=== PATIENT | male | born 1970 | race Caucasian/White ===

== ENCOUNTER 2020-11-09 23:18 | Emergency (ER) | payer MEDICARE, MEDICAID, SELFPAY ==
[2020-11-09 23:33] VITALS: BP 133/77; PULSE 58; RESP 16; TEMP 36.9; O2SAT 97; BMI 23.0
--- NOTE | 2020-11-10 | XR_ITS ---
EXAMINATION: XR RIBS, RIGHT CLINICAL INFORMATION: Fall with rib pain COMPARISON: 01/08/2014 TECHNIQUE: 3 views of the right ribs were obtained. PA view of the chest. FINDINGS: Lungs are clear. No consolidation, pneumothorax, or pleural effusion. The cardiomediastinal silhouette and pulmonary vasculature are normal. Osseous structures are unremarkable. Ribs are intact. No fractures are identified. XR/XR ribs RT min 3V w CXR1V IMPRESSION: Clear lungs. No focal right rib abnormality.
--- NOTE | 2020-11-10 01:00 | XR_ITS ---
EXAMINATION: XR FOREARM, RIGHT CLINICAL INFORMATION: Pain of the proximal forearm. Fall. COMPARISON: None TECHNIQUE: AP and lateral views of the right forearm were obtained. FINDINGS: Osteopenia. There is no fracture or dislocation seen. No elbow joint effusion. The soft tissues appear unremarkable. XR/XR forearm RT 2V IMPRESSION: Osteopenia. No acute fracture or malalignment.
--- NOTE | 2020-11-10 01:00 | ED.FALL ---
HPI - Fall General Chief Complaint: Fall Stated Complaint: Rib pain Time Seen by Provider: 11/10/20 00:51 Source: patient and family Mode of arrival: wheelchair Limitations: no limitations History of Present Illness HPI Narrative: Patient comes to emergency room complaining of right-sided rib pain and right forearm pain. Patient states 3 weeks ago he was trying to get out of a car, he tripped over a curve, landed on his right side. Patient has been putting icy hot patches with no relief Related Data Previous Rx's Medication Instructions Recorded allopurinol 100 mg tablet 100 mg PO DAILY PRN 90 Days #90 tab 10/19/20 pyridoxine (vitamin B6) 100 mg 100 mg PO DAILY 90 Days #90 tab 10/19/20 tablet tramadol 50 mg PO TID PRN #14 tab 11/10/20 Allergies Allergy/AdvReac Type Severity Reaction Status Date / Time No Known Allergies Allergy Unverified 11/09/20 23:29 [No Known Allergies*] [facility] Past Medical History Medical History (Updated 11/10/20 @ 02:27 by Sherley Valdez MD) CVA (cerebral vascular accident) Social History Social History Advance Directives: No Advance Directives Information Provided: No Physical Exam Vital Signs: Vital Signs: Last Vital Signs Temp 98.4 F 11/09/20 23:33 Pulse 58 11/10/20 01:14 Resp 20 11/10/20 01:14 BP 135/76 11/10/20 01:14 Pulse Ox 97 11/10/20 01:14 Body Mass Index 23.0 Course Course Course Narrative: I 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 Patient will follow-up with his primary care physician, patient may need physical therapy since the pain has been going on for about 3 weeks now. Patient states that he did feel better after 1 dose of tramadol. MDM - Fall Imaging Data Forearm x-ray: Radiologist's impression: Osteopenia. There is no fracture or dislocation seen. No elbow joint effusion. The soft tissues appear unremarkable. XR/XR forearm RT 2V IMPRESSION: Osteopenia. No acute fracture or malalignment. Ribs x-ray: Radiologist's impression: Lungs are clear. No consolidation, pneumothorax, or pleural effusion. The cardiomediastinal silhouette and pulmonary vasculature are normal. Osseous structures are unremarkable. Ribs are intact. No fractures are identified. XR/XR ribs RT min 3V w CXR1V IMPRESSION: Clear lungs. No focal right rib abnormality. Discharge Plan Discharge Clinical Impression: Arm contusion Qualifiers: Encounter type: initial encounter Laterality: unspecified laterality Qualified Code(s): S40.029A - Contusion of unspecified upper arm, initial encounter Back contusion Qualifiers: Encounter type: initial encounter Laterality: unspecified laterality Qualified Code(s): S20.229A - Contusion of unspecified back wall of thorax, initial encounter Patient Disposition: Home, Self-Care Instructions: Contusion in Adults (ED), Back Pain (ED) Prescriptions: New tramadol 50 mg tablet 50 mg PO TID PRN (Reason: pain) Qty: 14 RF: 0 No Action allopurinol 100 mg tablet 100 mg PO DAILY PRN (Reason: renal stones) 90 Days Qty: 90 RF: 2 pyridoxine (vitamin B6) 100 mg tablet 100 mg PO DAILY 90 Days Qty: 90 RF: 2
[2020-11-10 01:14] VITALS: BP 135/76; PULSE 58; RESP 20; O2SAT 97
[2020-11-10] MEDS: traMADoL HCL 50 MG TABLET PO (01:43)
[2020-11-10] MEDS: Ketorolac Tromethamine 30 MG/ML VIAL IVPUSH (02:43)
--- NOTE | 2020-11-10 02:51 | PC.NURSE ---
toradol given im per dr walker verbal order. given to left deltoid. pt alysia well no complications.
== END 2020-11-10 03:30 | disposition home or self-care (01) ==
PROVIDERS: Emergency Provider Emergency Medicine; PCP Hospitalist
DX: S50.11XA Contusion of right forearm, initial encounter (principal); S20.211A Contusion of right front wall of thorax, initial encounter; W10.1XXA Fall (on)(from) sidewalk curb, initial encounter; M85.831 Other specified disorders of bone density and structure, right forearm; Y93.89 Activity, other specified; Y92.810 Car as the place of occurrence of the external cause; Y99.9 Unspecified external cause status
CPT/HCPCS: 71101; 73090; 96374; 99284; J1885

== ENCOUNTER 2021-04-14 14:49 | Outpatient (REF) | payer MEDICARE, MEDICAID, SELFPAY ==
--- NOTE | ~2021-04-14 | US_ITS ---
EXAMINATION: US RETROPERITONEAL LIMITED (RENAL ONLY) CLINICAL INFORMATION: Nephrolithiasis. COMPARISON: Renals only ultrasounds dated 04/12/2020 and 09/25/2019. CT abdomen and pelvis without contrast dated 04/16/2019. TECHNIQUE: Real-time imaging of the kidneys. FINDINGS: RIGHT KIDNEY: 11.1 x 5.1 x 4.7 cm (SAG x AP x TRV). The kidney is normal in size, contour, and echogenicity. Renal cortical thickness is normal. No focal parenchymal lesion. Lateral midpole stone measuring 0.5 cm. Additional echogenic foci without shadowing which may represent vascular artifact. No hydronephrosis. LEFT KIDNEY: 11.6 X 5.4 X 6.6 cm (SAG x AP x TRV). The kidney is normal in size, contour, and echogenicity. Renal cortical thickness is normal. No focal parenchymal lesion. Multiple left-sided renal stones with the largest in the midpole measuring up to 0.8 cm. Minimal left renal pelvic fullness without significant hydronephrosis. US/US renal BI IMPRESSION: Bilateral renal stones measuring 0.5 cm on the right and up to 0.8 cm on the left. Minimal left renal pelvic fullness without significant hydronephrosis. No right-sided hydronephrosis.
== END 2021-04-14 14:50 | disposition home or self-care (01) ==
LOC: HO.US 14:49
PROVIDERS: Visit Provider Urology
DX: N20.0 Calculus of kidney (principal)
CPT/HCPCS: 76775

== ENCOUNTER 2022-08-09 09:28 | Inpatient (IN) | payer MEDICARE, MEDICAID, SELFPAY ==
[2022-08-09] VITALS (12 sets, daily range): BP systolic 124–168; BP diastolic 68–88; PULSE 60–86; RESP 16–18; TEMP 36–36.6; O2SAT 95–100; BMI 21.1
--- NOTE | ~2022-08-09 | FL_ITS ---
EXAMINATION: XR FLUOROSCOPY WITH IMAGES CLINICAL INFORMATION: Bilateral stent/retrogrades COMPARISON: CT from today. TECHNIQUE: Fluoroscopy performed by Dr. Ferrera. Fluoroscopy time: 170.9 seconds. Cumulative Dose: 44.53 mGy. Images: 2. FINDINGS: On the first image there is a wire in what is likely the right ureter with small amount of contrast in the collecting system. There is a tube partially visualized in the left ureter on the second image. Adjacent calcification, possibly correlating to the renal pelvis. FL/FL guidance in OR IMPRESSION: Fluoroscopic guidance for pyelogram. Please refer to procedural report for further information .
--- NOTE | ~2022-08-09 | CT_ITS ---
EXAMINATION: CT ABDOMEN AND PELVIS WITHOUT CONTRAST CLINICAL INFORMATION: Periumbilical pain COMPARISON: Previous renal ultrasound most recent April [address] of the abdomen and pelvis TECHNIQUE: Multidetector volumetric imaging was performed from the superior aspect of the liver through the pubic symphysis. Sagittal and coronal reformatted images were obtained on the technologist's workstation. Exam is limited due to motion artifact. This CT examination was performed using dose optimization techniques as appropriate, variously including the following: *Automated exposure control *Adjustment of mA and/or kV according to patient size (this includes techniques or standardized protocols for targeted exams where dose is matched to indication/reason for exam; i.e. extremities or head) *Use of iterative reconstruction technique DLP: 1346 mGy-cm FINDINGS: LUNG BASES: The visualized lung bases are unremarkable. LIVER, GALLBLADDER, AND BILIARY TREE: The liver is normal in size, shape, and attenuation. No focal hepatic lesion or biliary ductal dilatation is present. The gallbladder is unremarkable with no evidence of radiopaque gallstones, gallbladder wall thickening, or obvious pericholecystic inflammatory changes. PANCREAS: Unremarkable. SPLEEN: Unremarkable. ADRENAL GLANDS: Unremarkable. KIDNEYS AND URETERS: There is mild right hydronephrosis from a 0.6 x 1.4 cm right proximal ureteral stone. There is a small 4 mm stone in the lower pole of the right kidney. There is moderate left hydronephrosis from a 0.8 x 1.3 cm left UPJ stone. There 2 stones in the lower pole of the left kidney measuring 0.4 cm and 1 cm. There is a small 1 cm left renal cyst. No imaging follow-up needed. BLADDER: Unremarkable. GASTROINTESTINAL TRACT: The small and large bowel are unremarkable. The appendix is not identified. There are no inflammatory changes in the right lower quadrant. ABDOMINAL WALL: No significant hernia is appreciated. LYMPH NODES: Normal. VASCULAR: Unremarkable. PELVIC VISCERA: Unremarkable. OSSEOUS STRUCTURES: There is degenerative disc disease at L5-S1. CT/CT abdomen pelvis wo IV con IMPRESSION: Mild right hydronephrosis from a 0.6 x 1.4 cm right proximal ureteral stone. Moderate left hydronephrosis from a 0.8 x 1.3 cm left UPJ stone. Bilateral renal stones. Fleischner guidelines were followed.
--- NOTE | ~2022-08-09 | FL_ITS ---
EXAMINATION: XR FLUOROSCOPY WITH IMAGES CLINICAL INFORMATION: Bilateral cystoscopy. COMPARISON: None. TECHNIQUE: Fluoroscopy performed by arteriogram the course. Fluoroscopy time: 142.1 seconds. Cumulative Dose: 29.46 mGy. Images: 1. FINDINGS: A single image of the pelvis reveals a right ureteral stent and a cystoscope in the bladder. No additional images seen. FL/FL guidance in OR IMPRESSION: Fluoroscopy guidance was provided to the referring physician during cystoscopy.
[2022-08-09 11:29] LABS: MANUAL DIFF FLAG NO
[2022-08-09 11:31] LABS: Basophils Absolute Auto 0.1 X10*3/uL (0.0-0.2); Basophils Percent Auto 0.5 % (0-2); Eosinophils Absolute Auto 0.2 X10*3/uL (0.0-0.4); Eosinophils Percent Auto 1.7 % (0-4); Hematocrit 43.1 % (42.0-52.0); Hemoglobin 14.4 g/dl (14.0-18.0); Imm Gran Abs Auto 0.05 X10*3/uL (0.00-0.03); Imm Gran Pct Auto 0.5 % (0.0-0.4); Lymphocytes Absolute Auto 2.5 X10*3/uL (1.2-4.9); Lymphocytes Percent Auto 25.2 % (20-40); Mean Corpuscular HGB Conc 33.4 g/dl (31.0-36.0); Mean Corpuscular Hemoglobin 31.2 pg (27.0-33.0); Mean Corpuscular Volume 93.5 fL (80.0-98.0); Mean Platelet Volume 10.1 fL (9.4-12.4); Monocytes Absolute Auto 0.9 X10*3/uL (0.1-1.2); Monocytes Percent Auto 8.8 % (2-11); Neutrophils Absolute Auto 6.3 x10*3/uL (2.0-8.3); Neutrophils Percent Auto 63.3 % (45-73); Platelet Count 303 X10*3/uL (160-400); Red Blood Count 4.61 X10*6/uL (4.60-5.80); Red Cell Distribution Width 13.2 % (11.0-16.0)
--- NOTE | 2022-08-09 11:52 | ED_ITS ---
HPI - General Adult General Chief complaint: Extremity Problem Stated complaint: sent from doctor. kidney issues Time Seen by Provider: 08/09/22 11:39 Source: patient and other Mode of arrival: ambulatory Limitations: no limitations History of Present Illness HPI narrative: Patient comes to the emergency room accompanied by his lean manufacturing engineer. Patient received a cifuentes called Home, asking him to come to the emergency room because his creatinine was elevated. Patient states that he has been vomiting for about 5 days, no diarrhea, complaining of mild periumbilical pain. Denies fever chills, no flank pain, no URI or UTI symptoms. Related Data Home Medications Medication Instructions Recorded Confirmed allopurinol 100 mg tablet 100 mg PO DAILY PRN REANL STONES 08/09/22 08/09/22 atorvastatin 40 mg tablet 1 tab PO DAILY 08/09/22 08/09/22 clopidogrel 75 mg tablet 1 tab PO DAILY 08/09/22 08/09/22 levetiracetam 750 mg tablet 3 tab PO BID 08/09/22 08/09/22 riboflavin (vitamin B2) 100 mg 1 tab PO QAM 08/09/22 08/09/22 tablet (Vitamin B-2) topiramate 50 mg tablet 150 mg PO BEDTIME 08/09/22 08/09/22 topiramate 50 mg tablet 200 mg PO DAILY 08/09/22 08/09/22 tramadol 50 mg tablet 50 mg PO Q12H PRN pain 08/09/22 08/09/22 Previous Rx's Medication Instructions Recorded pyridoxine (vitamin B6) 100 mg 100 mg PO DAILY 90 days #90 tabs 07/21/22 tablet Allergies Allergy/AdvReac Type Severity Reaction Status Date / Time No Known Allergies Allergy Verified 08/09/22 11:07 [No Known Allergies*] Review of Systems Review of Systems: Constitutional : No Weight loss, No Fever, No Chills, No Night Sweats, No Fatigue, No Malaise ENT/Mouth : No Hearing loss, No Ear Pain, No Nasal Congestion, No Sinus Pain, No Hoarseness, No sore throat, No Rhinorrhea, No Swallowing Difficulty Eyes: No Eye Pain, No Swelling, No Redness, No Foreign Body, No Discharge, No Vision Changes Cardiovascular : No Chest Pain, No SOB, No Dyspnea on Exertion, No Orthopnea, No Edema, No Palpitations Respiratory : No Cough, No Sputum, No Wheezing, No Smoke Exposure, No Dyspnea Gastrointestinal : Complaining of nausea and vomiting, No Diarrhea, No Constipation, No abdominal Pain, No Hematochezia, No Melena Genitourinary : no irregular bleeding, No Dysuria, No Urinary Frequency, No Hematuria, No Urinary Incontinence, No Urgency, No Flank Pain, No Urinary Flow Changes, No Hesitancy Musculoskeletal : No joint pain, No Myalgias, No Joint Swelling Skin : No Skin Lesions, No rash Neuro : No Weakness, No Numbness, No Paresthesias, No Loss of Consciousness, No Dizziness, No Headache Psych : No Anxiety/Panic, No Depression, No SI/HI/AH/VH, No Social Issues, Heme/Lymph: No Bruising, No Bleeding,No Lymphadenopathy Endocrine : No Polyuria, No Polydipsia, No Temperature Intolerance [facility] Past Medical History Medical History (Updated 08/09/22 @ 14:12 by Sherley Valdez MD) CVA (cerebral vascular accident) Seizures Social History Social History Advance Directives: No Advance Directives Information Provided: Yes Physical Exam ED Vital Signs: Vital Signs - 24 hr 08/09/22 11:08 08/09/22 13:43 Temperature 96.8 F 97.6 F Pulse Rate 80 68 Respiratory Rate 16 17 Blood Pressure 124/87 129/85 Pulse Oximetry 98 99 Oxygen Delivery Method Room Air Room Air BMI result Body Mass Index 21.1 Const Other: Appearance: Alert. Oriented X3. No acute distress. Eyes: Pupils equal, round and reactive to light. ENT: Pharynx normal. Neck: Normal inspection. Neck supple. No lymph nodes noted. No crepitus CVS: Normal heart rate and rhythm. Pulses normal. Normal S1 and S2 Respiratory: No respiratory distress. Breath sounds normal. No Wheezing. No rales Abdomen: Soft, no rigidity, no distention, mildly tender to palpation in periumbilical area, no guarding, no rebound Skin: Skin warm and dry. Normal skin color. Normal skin turgor. Extremities: No lower extremity edema. No Lacerations. No Rash Neuro: Oriented X 3. No motor deficit. No sensory deficit. Moving all extremities. No slurred speech. CN 2 through 12 grossly intact Psych: calm, cooperative, normal affect Course Course Course Narrative: Patient's white blood cell count is within normal limits. Renal function labs are pending. Patient will also get a CT scan of the abdomen which is pending. Patient given p.o. Zofran Patient's BUN is 46 and creatinine is 5.0. CT scan shows a right-sided 0.6 x 1.4 cm proximal ureteral stone and a left-sided 0.8 x 1.3 cm left UPJ stone I discussed the patient with Dr. Ferrera from urology. Patient will be admitted by Medicine due to patient's medical history. Patient will likely need stents Patient's lean manufacturing engineer has been informed and agrees with the plan of care Patient's urine shows trace leukocyte esterase. Patient was given 1 g of Rocephin. Sepsis not suspected. I discussed the patient with Dr. Naylor, patient being admitted Medical Decision Making Lab Data Result diagrams: 08/09/22 11:20 08/09/22 11:20 Labs: Lab Results 08/09/22 08/09/22 08/09/22 Range/Units 11:20 11:20 13:39 WBC 10.0 (4.8-10.8) X10*3/uL RBC 4.61 (4.60-5.80) X10*6/uL Hgb 14.4 (14.0-18.0) g/dl Hct 43.1 (42.0-52.0) % MCV 93.5 (80.0-98.0) fL MCH 31.2 (27.0-33.0) pg MCHC 33.4 (31.0-36.0) g/dl RDW 13.2 (11.0-16.0) % Plt Count 303 (160-400) X10*3/uL MPV 10.1 (9.4-12.4) fL Immature Gran % (Auto) 0.5 H (0.0-0.4) % Neut % (Auto) 63.3 (45-73) % Lymph % (Auto) 25.2 (20-40) % Vance % (Auto) 8.8 (2-11) % Eos % (Auto) 1.7 (0-4) % Baso % (Auto) 0.5 (0-2) % Lymph # (Auto) 2.5 (1.2-4.9) X10*3/uL Vance # (Auto) 0.9 (0.1-1.2) X10*3/uL Eos # (Auto) 0.2 (0.0-0.4) X10*3/uL Baso # (Auto) 0.1 (0.0-0.2) X10*3/uL Abs Immat Gran (auto) 0.05 H (0.00-0.03) X10*3/uL Absolute Neuts (auto) 6.3 (2.0-8.3) x10*3/uL Absolute Nucleated RBC 0.000 (0.0-0.012) X10*3/uL Nucleated RBC % (auto) 0.0 (0.0-0.2) /100WBC Sodium 142 (135-145) mmol/L Potassium 3.7 (3.3-5.1) mmol/L Chloride 113 H (96-108) mmol/L Carbon Dioxide 13 L (22-29) mmol/L Anion Gap 20 (12-20) BUN 46 H (9-16) mg/dL Creatinine 5.00 H* (0.5-1.4) mg/dL Estim Creat Clear Calc 18.1 Estimated GFR 12 Random Glucose 97 (60-115) mg/dL Calcium 10.9 H (8.4-10.2) mg/dL Total Bilirubin 0.3 (0.0-1.0) mg/dL Direct Bilirubin 0.2 (0.0-0.5) mg/dL AST 18 (5-37) U/L ALT 21 (0-40) U/L Alkaline Phosphatase 109 (39-117) U/L Total Protein 8.1 H (6.5-8.0) g/dL Albumin 4.7 (3.5-5.0) g/dL Lipase 154 H (8-78) U/L Urine Color Yellow Urine Appearance Clear Urine pH 6.0 (5.0-9.0) Ur Specific [place] 1.025 (1.005-1.025) Urine Protein 30 (1+) H (Neg-Trace) mg/dL Urine Glucose (UA) Negative (Negative) mg/dL Urine Ketones 15 (Negative) mg/dL Urine Blood Negative (Negative) Urine Nitrite Negative (Negative) Ur Leukocyte Esterase Trace H (Negative) Urine RBC 0-2 (0-2) /HPF Urine WBC 0-5 (0-5) /HPF Ur Squamous Epith Cells 0-2 (0-2) /HPF Urine Bacteria None Seen (None Seen) Hyaline Casts 0-2 (0-2) /LPF Imaging Data CT scan - abdomen: Radiologist's impression: FINDINGS: LUNG BASES: The visualized lung bases are unremarkable.? LIVER, GALLBLADDER, AND BILIARY TREE: The liver is normal in size, shape, and attenuation. No focal hepatic lesion or biliary ductal dilatation is present. The gallbladder is unremarkable with no evidence of radiopaque gallstones, gallbladder wall thickening, or obvious pericholecystic inflammatory changes.? PANCREAS: Unremarkable.? SPLEEN: Unremarkable.? ADRENAL GLANDS: Unremarkable.? KIDNEYS AND URETERS: There is mild right hydronephrosis from a 0.6 x 1.4 cm right proximal ureteral stone. There is a small 4 mm stone in the lower pole of the right kidney. There is moderate left hydronephrosis from a 0.8 x 1.3 cm left UPJ stone. There 2 stones in the lower pole of the left kidney measuring 0.4 cm and 1 cm. There is a small 1 cm left renal cyst. No imaging follow-up needed. BLADDER: Unremarkable.? GASTROINTESTINAL TRACT: The small and large bowel are unremarkable. The appendix is not identified. There are no inflammatory changes in the right lower quadrant. ABDOMINAL WALL: No significant hernia is appreciated.? LYMPH NODES: Normal. VASCULAR: Unremarkable. PELVIC VISCERA: Unremarkable.? OSSEOUS STRUCTURES: There is degenerative disc disease at L5-S1. CT/CT abdomen pelvis wo IV con IMPRESSION: Mild right hydronephrosis from a 0.6 x 1.4 cm right proximal ureteral stone. Moderate left hydronephrosis from a 0.8 x 1.3 cm left UPJ stone. Bilateral renal stones. ? Fleischner guidelines were followed. Critical Care Time Critical Care Time Critical Care Time: Yes Total Critical Care Time: 30 Attestation: I have personally provided critical care time. Time includes review of lab data, radiology results, discussion with consultants, and monitoring for potential decompensation. Intervention performed as documented. Discharge Plan Discharge Clinical Impression: Ureterolithiasis, Acute kidney injury Patient Disposition: Admitted As Inpatient
[2022-08-09 11:53] LABS: Anion Gap 20 (12-20); Blood Urea Nitrogen 46 mg/dL (9-16); Carbon Dioxide 13 mmol/L (22-29); Chloride 113 mmol/L (96-108); Glucose Random 97 mg/dL (60-115); Potassium 3.7 mmol/L (3.3-5.1); Sodium 142 mmol/L (135-145)
[2022-08-09 12:08] LABS: Calcium 10.9 mg/dL (8.4-10.2); Creatinine Clr Calc Pharmacy 18.1; Estimated Glomerular Filt Rate 12
[2022-08-09] MEDS: Ondansetron ODT 4 MG TAB.RAPDIS TRANSLINGU (12:08)
--- NOTE | 2022-08-09 12:15 | PHA.MEDREC ---
Pharmacy Consult ? Medication Reconciliation Pharmacy has completed the medication reconciliation. Received list from provider's office which matched claim history. josh GarD
[2022-08-09 12:20] LABS: Alanine Aminotransferase 21 U/L (0-40); Albumin Level 4.7 g/dL (3.5-5.0); Alkaline Phosphatase 109 U/L (39-117); Aspartate Amino Transferase 18 U/L (5-37); Bilirubin Direct 0.2 mg/dL (0.0-0.5); Bilirubin Total 0.3 mg/dL (0.0-1.0); Lipase 154 U/L (8-78); Total Protein 8.1 g/dL (6.5-8.0)
[2022-08-09] MEDS: 0.9 % Sodium Chloride 2,000 ML 999 ML IVCONT (12:23)
[2022-08-09 13:48] LABS: Appearance Urine Clear; Color Urine Yellow; Glucose Urine UA Negative (Negative); Leukocyte Esterase Urine Trace (Negative); Nitrite Urine Negative (Negative); Specific Gravity - Urine 1.025 (1.005-1.025); UMIC TRIGGER UACC YES; Urine Blood Negative (Negative); Urine Ketones 15 mg/dL (Negative); Urine Protein 30 (1+) mg/dL (Neg-Trace)
[2022-08-09 13:53] LABS: Bacteria Urine None Seen (None Seen); Hyaline Casts Urine 0-2 /LPF (0-2); RBC Urine 0-2 /HPF (0-2); Squamous Epithelial Cell Urine 0-2 /HPF (0-2); WBC Urine 0-5 /HPF (0-5)
--- NOTE | 2022-08-09 14:56 | PM.UROCN ---
History of Present Illness Consult details Consult date: 08/09/22 Narrative: Yony is a 52-year-old gentleman who presents due to abnormal labs, abnormal renal function. The patient has a history of seizures and stroke; the patient is here with his brother who is his senior java web application developer. History obtained from his brother, who states the patient had an outpatient visit with a new PCP today and had complants of mild abdominal pain, PCP ordered labs and they received a call to come into the emergency room urgently due to abnormal labs. Denies fever, nausea vomiting. The patient has known history of kidney stones and has seen Dr. Isaacs in the past but has not had follow-up in a couple of years since the COVJUDITH pandema. Pertinent findings on CT: KIDNEYS AND URETERS: There is mild right hydronephrosis from a 0.6 x 1.4 cm right proximal ureteral stone. There is a small 4 mm stone in the lower pole of the right kidney. There is moderate left hydronephrosis from a 0.8 x 1.3 cm left UPJ stone. There 2 stones in the lower pole of the left kidney measuring 0.4 cm and 1 cm. There is a small 1 cm left renal cyst. . Review of Systems Review of Systems: 10 point review of systems negative other than stated in [facility] Past Medical History Medical History (Updated 08/09/22 @ 16:19 by Nick Naylor MD) CVA (cerebral vascular accident) Hemorrhagic stroke HLD (hyperlipidemia) Seizure disorder Seizures Family History Family History (Updated 08/09/22 @ 16:13 by Nick Naylor MD) Other Diabetes HTN (hypertension) Social History Social History Advance Directives: No Advance Directives Information Provided: Yes Meds Allergies Allergy/AdvReac Type Severity Reaction Status Date / Time No Known Allergies Allergy Verified 08/09/22 11:07 [No Known Allergies*] Active Medications: Current Medications Pharmacy Consult (Consult Rx Perform Med Rec) 1 each MISCELLANE ONCE PRN PRN Reason: Consult order Home Medications Medication Instructions Recorded Confirmed Last Taken Type allopurinol 100 mg tablet 100 mg PO DAILY PRN REANL STONES 08/09/22 08/09/22 Unknown History atorvastatin 40 mg tablet 1 tab PO DAILY 08/09/22 08/09/22 Unknown History clopidogrel 75 mg tablet 1 tab PO DAILY 08/09/22 08/09/22 Unknown History levetiracetam 750 mg tablet 3 tab PO BID 08/09/22 08/09/22 Unknown History riboflavin (vitamin B2) 100 mg 1 tab PO QAM 08/09/22 08/09/22 Unknown History tablet (Vitamin B-2) topiramate 50 mg tablet 150 mg PO BEDTIME 08/09/22 08/09/22 Unknown History topiramate 50 mg tablet 200 mg PO DAILY 08/09/22 08/09/22 Unknown History tramadol 50 mg tablet 50 mg PO Q12H PRN pain 08/09/22 08/09/22 Unknown History Physical Exam Vital Signs: Vital Signs: Last Vital Signs Temp 97.6 F 08/09/22 13:43 Pulse 68 08/09/22 13:43 Resp 17 08/09/22 13:43 BP 129/85 08/09/22 13:43 Pulse Ox 99 08/09/22 13:43 O2 Del Method 08/09/22 13:43 BMI result Body Mass Index 21.1 Const: General: alert; No acute distress Orientation/consciousness: oriented to person HEENT: Other: Previous head surgery Eyes: Conjunctivae: conjunctivae normal Neck: Neck: Yes normal visual inspection and Yes trachea midline Chest: Chest palpation & inspection: normal inspection of the chest Resp: Effort & Inspection: normal respiratory effort Cardio: Rate: regular rate GI: Inspection: Yes normal to inspection Palpation (GI): Soft to palpation Rectal Exam - Male: Yes deferred : Other: No significant CVA Tenderness Skin: General skin exam: turgor normal Neuro: General: oriented to person Extrem: General: No edema Results Labs Result diagrams: 08/09/22 11:20 08/09/22 11:20 Labs: Abnormal lab results 08/09/22 08/09/22 08/09/22 Range/Units 11:20 11:20 13:39 Immature Gran % (Auto) 0.5 H (0.0-0.4) % Abs Immat Gran (auto) 0.05 H (0.00-0.03) X10*3/uL Chloride 113 H (96-108) mmol/L Carbon Dioxide 13 L (22-29) mmol/L BUN 46 H (9-16) mg/dL Creatinine 5.00 H* (0.5-1.4) mg/dL Calcium 10.9 H (8.4-10.2) mg/dL Total Protein 8.1 H (6.5-8.0) g/dL Lipase 154 H (8-78) U/L Urine Protein 30 (1+) H (Neg-Trace) mg/dL Ur Leukocyte Esterase Trace H (Negative) Short CBC 08/09/22 Range/Units 11:20 WBC 10.0 (4.8-10.8) X10*3/uL Hgb 14.4 (14.0-18.0) g/dl Hct 43.1 (42.0-52.0) % Plt Count 303 (160-400) X10*3/uL BMP 08/09/22 11:20 Sodium 142 Potassium 3.7 Chloride 113 H Carbon Dioxide 13 L BUN 46 H Creatinine 5.00 H* Calcium 10.9 H Liver Function 08/09/22 Range/Units 11:20 Total Bilirubin 0.3 (0.0-1.0) mg/dL Direct Bilirubin 0.2 (0.0-0.5) mg/dL AST 18 (5-37) U/L ALT 21 (0-40) U/L Alkaline Phosphatase 109 (39-117) U/L Albumin 4.7 (3.5-5.0) g/dL Urine 08/09/22 Range/Units 13:39 Urine Color Yellow Urine Appearance Clear Urine pH 6.0 (5.0-9.0) Ur Specific [place] 1.025 (1.005-1.025) Urine Protein 30 (1+) H (Neg-Trace) mg/dL Urine Glucose (UA) Negative (Negative) mg/dL All other labs normal. Imaging CT scan - pelvis: report reviewed and image reviewed Additional studies: CT ABDOMEN AND PELVIS WITHOUT CONTRAST? CLINICAL INFORMATION: Periumbilical pain? COMPARISON: Previous renal ultrasound most recent April [address] of the abdomen and pelvis? TECHNIQUE: Multidetector volumetric imaging was performed from the superior aspect of the liver through the pubic symphysis. Sagittal and coronal reformatted images were obtained on the technologist's workstation. Exam is limited due to motion artifact. This CT examination was performed using dose optimization techniques as appropriate, variously including the following: *Automated exposure control *Adjustment of mA and/or kV according to patient size (this includes techniques or standardized protocols for targeted exams where dose is matched to indication/reason for exam; i.e. extremities or head) FINDINGS: LUNG BASES: The visualized lung bases are unremarkable.? LIVER, GALLBLADDER, AND BILIARY TREE: The liver is normal in size, shape, and attenuation. No focal hepatic lesion or biliary ductal dilatation is present. The gallbladder is unremarkable with no evidence of radiopaque gallstones, gallbladder wall thickening, or obvious pericholecystic inflammatory changes.? PANCREAS: Unremarkable.? SPLEEN: Unremarkable.? ADRENAL GLANDS: Unremarkable.? KIDNEYS AND URETERS: There is mild right hydronephrosis from a 0.6 x 1.4 cm right proximal ureteral stone. There is a small 4 mm stone in the lower pole of the right kidney. There is moderate left hydronephrosis from a 0.8 x 1.3 cm left UPJ stone. There 2 stones in the lower pole of the left kidney measuring 0.4 cm and 1 cm. There is a small 1 cm left renal cyst. No imaging follow-up needed. BLADDER: Unremarkable.? GASTROINTESTINAL TRACT: The small and large bowel are unremarkable. The appendix is not identified. There are no inflammatory changes in the right lower quadrant. ABDOMINAL WALL: No significant hernia is appreciated.? LYMPH NODES: Normal. VASCULAR: Unremarkable. PELVIC VISCERA: Unremarkable.? OSSEOUS STRUCTURES: There is degenerative disc disease at L5-S1. CT/CT abdomen pelvis wo IV con IMPRESSION: Mild right hydronephrosis from a 0.6 x 1.4 cm right proximal ureteral stone. Moderate left hydronephrosis from a 0.8 x 1.3 cm left UPJ stone. Bilateral renal stones. Assessment and Plan (1) Ureterolithiasis: Status: Acute (2) Acute kidney injury: Status: Acute Plan Cystoscopy, retrogrades bilateral ureteral stones Procedures Date of Service Date of Service: 08/09/22
[2022-08-09] MEDS: cefTRIAXone sodium 1 GM in 0.9 % Sodium Chloride 50 ML IV (14:58)
--- NOTE | 2022-08-09 15:10 | P.CNUR_ITS ---
[facility] Past Medical History Medical History (Updated 08/09/22 @ 14:12 by Sherley Valdez MD) CVA (cerebral vascular accident) Seizures Social History Social History Advance Directives: No Advance Directives Information Provided: Yes Meds Allergies Allergy/AdvReac Type Severity Reaction Status Date / Time No Known Allergies Allergy Verified 08/09/22 11:07 [No Known Allergies*] Active Medications: Current Medications Pharmacy Consult (Consult Rx Perform Med Rec) 1 each MISCELLANE ONCE PRN PRN Reason: Consult order Home Medications Medication Instructions Recorded Confirmed Last Taken Type allopurinol 100 mg tablet 100 mg PO DAILY PRN REANL STONES 08/09/22 08/09/22 Unknown History atorvastatin 40 mg tablet 1 tab PO DAILY 08/09/22 08/09/22 Unknown History clopidogrel 75 mg tablet 1 tab PO DAILY 08/09/22 08/09/22 Unknown History levetiracetam 750 mg tablet 3 tab PO BID 08/09/22 08/09/22 Unknown History riboflavin (vitamin B2) 100 mg 1 tab PO QAM 08/09/22 08/09/22 Unknown History tablet (Vitamin B-2) topiramate 50 mg tablet 150 mg PO BEDTIME 08/09/22 08/09/22 Unknown History topiramate 50 mg tablet 200 mg PO DAILY 08/09/22 08/09/22 Unknown History tramadol 50 mg tablet 50 mg PO Q12H PRN pain 08/09/22 08/09/22 Unknown History Physical Exam Vital Signs: Vital Signs: Last Vital Signs Temp 97.6 F 08/09/22 13:43 Pulse 68 08/09/22 13:43 Resp 17 08/09/22 13:43 BP 129/85 08/09/22 13:43 Pulse Ox 99 08/09/22 13:43 O2 Del Method 08/09/22 13:43 BMI result Body Mass Index 21.1 Results Labs Result diagrams: 08/09/22 11:20 08/09/22 11:20 Labs: Abnormal lab results 08/09/22 08/09/22 08/09/22 Range/Units 11:20 11:20 13:39 Immature Gran % (Auto) 0.5 H (0.0-0.4) % Abs Immat Gran (auto) 0.05 H (0.00-0.03) X10*3/uL Chloride 113 H (96-108) mmol/L Carbon Dioxide 13 L (22-29) mmol/L BUN 46 H (9-16) mg/dL Creatinine 5.00 H* (0.5-1.4) mg/dL Calcium 10.9 H (8.4-10.2) mg/dL Total Protein 8.1 H (6.5-8.0) g/dL Lipase 154 H (8-78) U/L Urine Protein 30 (1+) H (Neg-Trace) mg/dL Ur Leukocyte Esterase Trace H (Negative) Short CBC 08/09/22 Range/Units 11:20 WBC 10.0 (4.8-10.8) X10*3/uL Hgb 14.4 (14.0-18.0) g/dl Hct 43.1 (42.0-52.0) % Plt Count 303 (160-400) X10*3/uL BMP 08/09/22 11:20 Sodium 142 Potassium 3.7 Chloride 113 H Carbon Dioxide 13 L BUN 46 H Creatinine 5.00 H* Calcium 10.9 H Liver Function 08/09/22 Range/Units 11:20 Total Bilirubin 0.3 (0.0-1.0) mg/dL Direct Bilirubin 0.2 (0.0-0.5) mg/dL AST 18 (5-37) U/L ALT 21 (0-40) U/L Alkaline Phosphatase 109 (39-117) U/L Albumin 4.7 (3.5-5.0) g/dL Urine 08/09/22 Range/Units 13:39 Urine Color Yellow Urine Appearance Clear Urine pH 6.0 (5.0-9.0) Ur Specific [place] 1.025 (1.005-1.025) Urine Protein 30 (1+) H (Neg-Trace) mg/dL Urine Glucose (UA) Negative (Negative) mg/dL All other labs normal. Imaging Additional studies: ?
--- NOTE | 2022-08-09 15:58 | PM.IMHP ---
History of Present Illness Date of Service: 08/09/22 Chief Complaint: Abnormal lab, sent to ED by PCP 52 year old male with history of hemorrahagic stroke 8 years ago s/p craniotomy at [facility] with long hospital stay, HLD, seizure desorder, history of CKD last creatine in 11.16. He was seen by PCP 2 days ago with some routine follow up and had routine labs done and was called today to come to the ED because of elevated Creatine. His creatine today is 5. CT of abdomen show Mild right hydronephrosis from a 0.6 x 1.4 cm right proximal ureteral stone. Moderate left hydronephrosis from a 0.8 x 1.3 cm left UPJ stone. Bilateral renal stones. He has no fever or chills, no dysuria, has had episodes of vomitting the last several days but no abdominal pain. Urology has assessed and is planning to take him to the OR for intervention Review of Systems Review of Systems: no fever or chils no dysuria, no abdominal pain Yes all other systems are reviewed and are negative [facility] Medical History (Updated 08/09/22 @ 16:19 by Nick Naylor MD) CVA (cerebral vascular accident) Hemorrhagic stroke HLD (hyperlipidemia) Seizure disorder Seizures Family History (Updated 08/09/22 @ 16:13 by iNck Naylor MD) Other Diabetes HTN (hypertension) Social History Household Members: Unknown / Unable to assess Housing: Apartment Do you presently have visiting nurse or other home services: No Unable to assess alcohol history related to: Unknown Patient Tobacco Use Status: Tobacco use Unknown service: No Current occupational status: disabled Meds Allergies Allergy/AdvReac Type Severity Reaction Status Date / Time No Known Allergies Allergy Verified 08/09/22 11:07 [No Known Allergies*] Active Medications: Current Medications Allopurinol (Allopurinol 100 Mg Tablet) 100 mg PO DAILY PRN PRN Reason: REANL STONES Atorvastatin Calcium (Atorvastatin Calcium 40 Mg Tablet) 40 mg PO DAILY ISAC Sodium Chloride (Sodium Chloride 0.45 %) 1,000 mls @ 100 mls/hr IVCONT .Q10H ISAC Melatonin (Melatonin 3 Mg Tablet) 6 mg PO BEDTIME PRN PRN Reason: Insomnia Non-Formulary Medication (Levetiracetam) 3 tab PO BID ISAC Non-Formulary Medication (Pyridoxine (Vitamin B6)) 100 mg PO DAILY [facility] Non-Formulary Medication (Riboflavin (Vitamin B2) [Vitamin B-2]) 1 tab PO QAM [facility] Pharmacy Consult (Consult Rx Perform Med Rec) 1 each MISCELLANE ONCE PRN PRN Reason: Consult order Sodium Chloride (0.9 % Sodium Chloride Flush 3 Ml Syringe) 3 ml IVFLUSH QSHIFT ISAC Topiramate (Topiramate 100 Mg Tablet) 150 mg PO BEDTIME ISAC Topiramate (Topiramate 100 Mg Tablet) 200 mg PO DAILY [facility] Home Medications Medication Instructions Recorded Confirmed Last Taken Type allopurinol 100 mg tablet 100 mg PO DAILY PRN REANL STONES 08/09/22 08/09/22 Unknown History atorvastatin 40 mg tablet 1 tab PO DAILY 08/09/22 08/09/22 Unknown History clopidogrel 75 mg tablet 1 tab PO DAILY 08/09/22 08/09/22 Unknown History levetiracetam 750 mg tablet 3 tab PO BID 08/09/22 08/09/22 Unknown History riboflavin (vitamin B2) 100 mg 1 tab PO QAM 08/09/22 08/09/22 Unknown History tablet (Vitamin B-2) topiramate 50 mg tablet 150 mg PO BEDTIME 08/09/22 08/09/22 Unknown History topiramate 50 mg tablet 200 mg PO DAILY 08/09/22 08/09/22 Unknown History tramadol 50 mg tablet 50 mg PO Q12H PRN pain 08/09/22 08/09/22 Unknown History Physical Exam Vital Signs and Narrative: Vital Signs: Last Vital Signs Temp 97.6 F 08/09/22 13:43 Pulse 68 08/09/22 13:43 Resp 17 08/09/22 13:43 BP 129/85 08/09/22 13:43 Pulse Ox 99 08/09/22 13:43 O2 Del Method 08/09/22 13:43 BMI result Body Mass Index 21.1 Results Labs CBC and Chem 7: 08/09/22 11:20 08/10/22 06:10 Labs: Laboratory Results - last 24 hr 08/09/22 08/09/22 08/09/22 11:20 11:20 13:39 MCV 93.5 MCH 31.2 MCHC 33.4 RDW 13.2 Plt Count 303 MPV 10.1 Immature Gran % (Auto) 0.5 H Neut % (Auto) 63.3 Lymph % (Auto) 25.2 [place] % (Auto) 8.8 Eos % (Auto) 1.7 Baso % (Auto) 0.5 Lymph # (Auto) 2.5 [place] # (Auto) 0.9 Eos # (Auto) 0.2 Baso # (Auto) 0.1 Abs Immat Gran (auto) 0.05 H Absolute Neuts (auto) 6.3 Absolute Nucleated RBC 0.000 Nucleated RBC % (auto) 0.0 Anion Gap 20 Estim Creat Clear Calc 18.1 Estimated GFR 12 Random Glucose 97 Calcium 10.9 H Total Bilirubin 0.3 Direct Bilirubin 0.2 AST 18 ALT 21 Alkaline Phosphatase 109 Total Protein 8.1 H Albumin 4.7 Lipase 154 H Urine Color Yellow Urine Appearance Clear Urine pH 6.0 Ur Specific [place] 1.025 Urine Protein 30 (1+) H Urine Glucose (UA) Negative Urine Ketones 15 Urine Blood Negative Urine Nitrite Negative Ur Leukocyte Esterase Trace H Urine RBC 0-2 Urine WBC 0-5 Ur Squamous Epith Cells 0-2 Urine Bacteria None Seen Hyaline Casts 0-2 Imaging Radiologist's Impressions: Impressions Abdomen/Pelvis CT 08/09/22 12:09 IMPRESSION: Mild right hydronephrosis from a 0.6 x 1.4 cm right proximal ureteral stone. Moderate left hydronephrosis from a 0.8 x 1.3 cm left UPJ stone. Bilateral renal stones. Fleischner guidelines were followed. Assessment and Plan (1) Acute kidney injury: Status: Acute (2) Obstructive uropathy: Status: Acute (3) HLD (hyperlipidemia): Status: Acute (4) Seizure disorder: Status: Acute Plan 52 year old male with HTN, HLD, s/p craniotomy for hemorrhagic stroke in past here with obstructive uropathy with Hydronephrosis and HONG and in need of acute urological intervention Plan; Urology plan to operate on him today, overall cardiopulmary risk is low and no indiation for additional testing at this time. recommend holding Plavix for now. HLD,, continue statin seizure desorder continue Keppra DVT prophylaxis: compression device and reassess after procedure Full code plan was discussed with his brother at bedside Quality Stroke Does the patient have a stroke diagnosis?: No VTE Prior VTE?: No VTE Risk Level:: Medical - moderate - high VTE Device Contraindication: N/A - Device Ordered VTE Drug Contraindication: Treatment Not Tolerated
--- OUTSIDE RECORDS SUMMARY | 2022-08-09 16:06 | XMS_ITS | Continuity of Care Document ---
:1970 Author Organization [facility] Address [address] [place] [address], 3rd [facility], [address] [place] [id number]- Care Team Providers Name Role Phone Ras Carpio MD Primary Care Phys[place] [facility] [place]20 [facility] [address] [place] [address], 3rd [facility], [address] [place] [id number]- [facility] Allergies, Adverse Reactions, Alerts Substance Reaction Severity Status NKA Active Immunizations Given and Recorded Vaccine Date Status Refusal Reason Tetanus Toxoid1 12/12/10 Given 1Admin Note: DONE AT WORK 2009 Medications Aqua Therapy Aqua Therapy, See Instructions, # 1 each, Refills 0, Tot. Refills 0, Maintenance, DX: CVA with RightResidual Hemiplegia, 12/02/14 9:56:41, Compound Start Date: 12/02/14 Status: Orderedatorvastatin 40 mg oral tablet 1 tablet = 40 mg, By Mouth, Daily, # 90 tablet, 3 Refills, Maintenance, 08/13/20 14:43:00 EDT, Tablet, [facility], 185, cm, 08/13/20 14:06:00 EDT, Height Start Date: 08/13/20 Status: Orderedclopidogrel 75 mg oral tablet 1, tablet, By Mouth, Daily, # 90 each, Refills 3, Tot. Refills 3, Maintenance, 08/13/20 14:43:00 EDT, Route to Pharmacy Electronically, [facility], 185, cm, 08/13/20 14:06:00 EDT, Height Start Date: 08/13/20 Status: OrderedlevETIRAcetam 750 mg oral tablet 3 tablet, By Mouth, 2 times a day, # 540 tablet, 3 Refills, Maintenance, 08/12/20 16:02:00 EDT, [facility] [place] [facility], [place], cm, 04/13/20 10:46:00 EDT, Height Start Date: 08/12/20 Status: Orderedlorazepam 0.5 mg oral tablet See Instructions, 1 tablet By Mouth prn after 2nd seizure, as directed., # 10 tablet, 1 Refills, Maintenance, 12/30/14 8:14:28 Start Date: 12/30/14 Status: OrderedMiraLax oral powder for reconstitution = 17 Gm, By Mouth, Daily, dissolve in water before taking, # 527 Gm, 1 Refills, Maintenance, 08/13/20 14:42:00 EDT, Powder, [facility] [place], 17 Gm By Mouth Daily,Instr:dissolve in water before taking, 185, cm, 08/13/20 14:06:00 EDT, Height Start Date: 08/13/20 Status: OrderedPhysical Therapy, Speech Therapy and Occupational Therapy Physical Therapy, Speech Therapy and Occupational Therapy, See Instructions, # 1 each, Refills 0, Tot. Refills 0, Maintenance, EVALUATE AND TREAT DX: CVA- persistant deficits, 04/16/15 11:41:59, Compound Start Date: 04/16/15 Status: OrderedRght lower extremity AFO Rght lower extremity AFO, See Instructions, # 1 each, Refills 0, Tot. Refills 0, Maintenance, DX: I63.9, 04/29/20 15:48:00 EDT, Supply Start Date: 04/29/20 Status: OrderedRIGHT LEG BRACE RIGHT LEG BRACE, See Instructions, # 1 each, Refills 0, Tot. Refills 0, Maintenance, HEIGHT: 6'0 WEIGHT 164 LBS DX: CVA I69.90 DX: RESIDUAL RIGHT HEMIPLEGIA I69.351, 01/01/20 15:20:00 EST, Compound Start Date: 01/01/20 Status: Orderedtopiramate 50 mg oral tablet See Instructions, TAKE 4 TABLETS BY MOUTH IN THE MORNING AND 3 TABLETS IN THE EVENING, # 620 tablet,3 Refills, 08/12/20 16:02:00 EDT, [facility], [facility], cm, 04/13/20 10:46:00 EDT, Height Start Date: 08/12/20 Status: OrderedVitamin B12 0 Refills, Maintenance, 08/13/20 14:11:00 EDT Start Date: 08/13/20 Status: Ordered Problem List Condition Effective Dates Status Health Status Informant Back pain(Confirmed) 10/10/06 Active Cerebral vascular accident - with Active residual right hemiplegia, right neglect, partial Broca's aphasia(Confirmed) Chronic constipation(Confirmed) Active Depression(Confirmed) Active Epileptic seizure(Confirmed) Active Gastroesophageal reflux 06/16/09 Active disease(Confirmed) Late effects of CVA (cerebrovascular Active accident)(Confirmed) Sciatica(Confirmed) 10/10/06 Active Social History Social History Type Response Smoking Status Never smoker entered on: 06/13/18 Sex
--- OUTSIDE RECORDS SUMMARY | 2022-08-09 16:06 | XMS_ITS | Continuity of Care Document ---
:1970 Author Organization [facility] Address [address] [place] [address]- Care Team Providers Name Role Phone Laura Galdamez Primary Care Physician Encounter [facility] Date(s): 12/05/21 - 01/04/22 [facility] [address] [place] [address]- Allergies, Adverse Reactions, Alerts No Known Allergies Immunizations Given and Recorded Vaccine Date Status Refusal Reason influenza virus vaccine, inactivated1 09/29/21 Given tetanus/diphtheria/pertussis, acel(Tdap)2 07/01/21 Given SARS-CoV-2 (COVID-19) mRNA BNT-162b2 vac 05/06/21 Recorde d SARS-CoV-2 (COVID-19) mRNA BNT-162b2 vac 04/15/21 Recorde d Tetanus Toxoid3 12/12/10 Given 1Result Comment: [id number] Comment: [id number] Note: DONE AT WORK 2009 Medications allopurinol 100 mg oral tablet 100 mg, 1, tablet, By Mouth, Daily, # 90 tablet, Refills 0, Maintenance, 09/29/21 13:40:00 EST, Partial fill upon patient request if the prescription is for a schedule II opioid drug. Start Date: 09/29/21 Status: Orderedatorvastatin 40 mg oral tablet 1 tablet = 40 mg, By Mouth, Daily, # 90 tablet, 3 Refills, Maintenance, 11/29/21 17:11:00 EST, Tablet, [facility], 185, cm, 09/29/21 13:34:00 EST, Height Start Date: 11/29/21 Status: Orderedclopidogrel 75 mg oral tablet 1, tablet, By Mouth, Daily, # 90 each, Refills 3, Tot. Refills 3, Maintenance, 11/18/21 11:50:00 EST, Route to Pharmacy Electronically, [facility], 185, cm, 09/29/21 13:34:00 EST, Height Start Date: 11/18/21 Status: OrderedlevETIRAcetam 750 mg oral tablet 3 tablet, By Mouth, 2 times a day, # 540 tablet, 2 Refills, Maintenance, 11/24/21 11:11:00 EST, [facility], 185, cm, 09/29/21 13:34:00 EST, Height Start Date: 11/24/21 Status: Orderedlorazepam 0.5 mg oral tablet See Instructions, 1 tablet By Mouth prn after 2nd seizure, as directed., # 10 tablet, 1 Refills, Maintenance, 12/30/14 8:14:28 Start Date: 12/30/14 Status: OrderedMiraLax oral powder for reconstitution = 17 Gm, By Mouth, Daily, dissolve in water before taking, # 527 Gm, 1 Refills, Maintenance, 08/13/20 14:42:00 EDT, Powder, [facility], 17 Gm By Mouth Daily,Instr:dissolve in water before taking, 185, cm, 08/13/20 14:06:00 EDT, Height Start Date: 08/13/20 Status: Orderedriboflavin 100 mg oral tablet 1 tablet = 100 mg, By Mouth, Daily in AM, # 90 tablet, 2 Refills, Maintenance, 11/24/21 11:11:00 EST, Tablet, [facility], Partial fill upon patient request if the prescription is for a schedule II opioid drug., 185, cm, 09/29/21 13:34:00 ES... Start Date: 11/24/21 Status: Orderedtopiramate 50 mg oral tablet See Instructions, 4 tablet po in the AM, with 3 taqblet in the PM, # 630 tablet, 3 Refills, Maintenance, 08/23/21 13:06:00 EDT, [facility], Partial fill upon patient request if the prescription is for a schedule II opioid drug., 185, cm, 10... Start Date: 08/23/21 Status: OrderedVitamin B6 Daily, 0 Refills, Maintenance, 07/01/21 12:15:00 EDT, Partial fill upon patient request if the prescription is for a schedule II opioid drug. Start Date: 07/01/21 Status: Ordered Problem List Condition Effective Dates Status Health Status Informant Back pain(Confirmed) 10/10/06 Active Cerebral vascular accident - with Active residual right hemiplegia, right neglect, partial Broca's aphasia(Confirmed) Chronic constipation(Confirmed) Active Epileptic seizure(Confirmed) Active Gastroesophageal reflux 06/16/09 Active disease(Confirmed) Nephrolithiasis(Confirmed) Active Late effects of CVA (cerebrovascular Active accident)(Confirmed) Depression, major, in Active remission(Confirmed) Sciatica(Confirmed) 10/10/06 Active Social History Social History Type Response Smoking Status Never smoker entered on: 06/13/18 Sex
--- OUTSIDE RECORDS SUMMARY | 2022-08-09 16:06 | XMS_ITS | Continuity of Care Document ---
:1970 Author Organization [facility] Address [address] [place] [address]- Care Team Providers Name Role Phone Ras Carpio MD Primary Care Physician [place] [facility] [place]21 [facility] [address] [place] [address]- Attending Physician: Admtr, Ar8 Admitting Physician: Admtr, Ar8 Referring Physician: Admtr, Ar8 Allergies, Adverse Reactions, Alerts Substance Reaction Severity Status NKA Active Immunizations Given and Recorded Vaccine Date Status Refusal Reason tetanus/diphtheria/pertussis, acel(Tdap)1 07/01/21 Given SARS-CoV-2 (COVID-19) mRNA BNT-162b2 vac 05/06/21 Recorde d SARS-CoV-2 (COVID-19) mRNA BNT-162b2 vac 04/15/21 Recorde d Tetanus Toxoid2 12/12/10 Given 1Result Comment: [id number] Note: DONE AT WORK 2009 Medications Aqua Therapy Aqua Therapy, See Instructions, # 1 each, Refills 0, Tot. Refills 0, Maintenance, DX: CVA with RightResidual Hemiplegia, 12/02/14 9:56:41, Compound Start Date: 12/02/14 Status: Orderedatorvastatin 40 mg oral tablet 1 tablet = 40 mg, By Mouth, Daily, # 90 tablet, 3 Refills, Maintenance, 10/20/20 17:02:00 EST, Tablet, [facility], 185, cm, 08/13/20 14:06:00 EDT, Height Start Date: 10/20/20 Status: Orderedclopidogrel 75 mg oral tablet 1, tablet, By Mouth, Daily, # 90 each, Refills 3, Tot. Refills 3, Maintenance, 10/20/20 17:02:00 EST, Route to Pharmacy Electronically, [facility], 185, cm, 08/13/20 14:06:00 EDT, Height Start Date: 10/20/20 Status: OrderedlevETIRAcetam 750 mg oral tablet 3 tablet, By Mouth, 2 times a day, # 540 tablet, 3 Refills, Maintenance, 11/24/20 15:52:00 EST, [facility], 185, cm, 08/13/20 14:06:00 EDT, Height Start Date: 11/24/20 Status: Orderedlorazepam 0.5 mg oral tablet See Instructions, 1 tablet By Mouth prn after 2nd seizure, as directed., # 10 tablet, 1 Refills, Maintenance, 12/30/14 8:14:28 Start Date: 12/30/14 Status: OrderedMiraLax oral powder for reconstitution = 17 Gm, By Mouth, Daily, dissolve in water before taking, # 527 Gm, 1 Refills, Maintenance, 08/13/20 14:42:00 EDT, Powder, [facility], 17 Gm By Mouth Daily,Instr:dissolve in water [...] Start Date: 04/29/20 Status: OrderedRIGHT LEG BRACE STRAPS AND PADS ONLY RIGHT LEG BRACE STRAPS AND PADS ONLY, See Instructions, # 1 each, Refills 1, Tot. Refills 1, Maintenance, HEIGHT: 6'0 WEIGHT 177 LBS DX: CVA I69.90 DX: RESIDUAL RIGHT HEMIPLEGIA I69.351, 04/06/21 14:52:00 EDT, Compound Start Date: 04/06/21 Status: Orderedtopiramate 100 mg oral tablet See Instructions, 2 tablets in AM, 1 1/2 in PM, # 105 tablet, 11 Refills, Maintenance, 10/22/20 11:10:00 EST, [facility], 185, cm, 08/13/20 14:06:00 EDT, Height Start Date: 10/22/20 Status: Orderedtopiramate 50 mg oral tablet TAKE 4 TABLETS BY MOUTH IN THE MORNING AND 3 IN THE EVENING Start Date: 07/01/21 Status: OrderedVitamin B12 0 Refills, Maintenance, 08/13/20 14:11:00 EDT Start Date: 08/13/20 Status: OrderedVitamin B6 Daily, 0 Refills, Maintenance, [...]
--- OUTSIDE RECORDS SUMMARY | 2022-08-09 16:06 | XMS_ITS | Continuity of Care Document ---
:1970 Author Organization [facility] Address [address] [place] [address]- Care Team Providers Name Role Phone Ras Carpio MD Primary Care Physician [place] [facility] [place] 09/29/21 - 10/29/21 [facility] [address] [place] [address]- Attending Physician: Admtr, Mehran Admitting Physician: Admtr, Mehran Referring Physician: Admtr, Ar8 Allergies, Adverse Reactions, Alerts Substance Reaction Severity Status NKA Active Immunizations Given and Recorded Vaccine Date Status Refusal Reason influenza virus vaccine, inactivated1 09/29/21 Given tetanus/diphtheria/pertussis, acel(Tdap)2 07/01/21 Given SARS-CoV-2 (COVID-19) mRNA BNT-162b2 vac 05/06/21 Recorde d SARS-CoV-2 (COVID-19) mRNA BNT-162b2 vac 04/15/21 Recorde d Tetanus Toxoid3 12/12/10 Given 1Result Comment: [id number] Comment: [id number] Note: DONE AT WORK 2009 Medications allopurinol [...] 3 Refills, Maintenance, 10/20/20 17:02:00 EST, Tablet, [facility], 185, cm, 08/13/20 14:06:00 EDT, Height Start Date: 10/20/20 Status: Orderedclopidogrel 75 mg oral tablet 1, tablet, By Mouth, Daily, # 90 each, Refills 3, Tot. Refills 3, Maintenance, 10/20/20 17:02:00 EST, Route to Pharmacy Electronically, [facility], 185, cm, 08/13/20 14:06:00 EDT, Height Start Date: 10/20/20 Status: OrderedlevETIRAcetam 750 mg oral tablet 3 tablet, By Mouth, 2 times a day, # 540 tablet, 3 Refills, Maintenance, 08/23/21 13:05:00 EDT, [facility], 185, cm, 08/23/21 12:39:00 EDT, Height Start Date: 08/23/21 Status: Orderedlorazepam 0.5 mg oral tablet See Instructions, 1 tablet By Mouth prn after 2nd seizure, as directed., # 10 tablet, 1 Refills, Maintenance, 12/30/14 8:14:28 Start Date: 12/30/14 Status: OrderedMiraLax oral powder for reconstitution = 17 Gm, By Mouth, Daily, dissolve in water before taking, # 527 Gm, 1 Refills, Maintenance, 08/13/20 14:42:00 EDT, Powder, [facility], 17 Gm By Mouth Daily,Instr:dissolve in water before taking, 185, cm, 08/13/20 14:06:00 EDT, Height Start Date: 08/13/20 Status: Orderedriboflavin 100 mg oral tablet 1 tablet = 100 mg, By Mouth, Daily in AM, # 90 tablet, 0 Refills, Maintenance, 08/23/21 13:08:00 EDT, Tablet, [facility], Partial fill upon patient request if the prescription is for a schedule II opioid drug., 185, cm, 08/23/21 12:39:00 ED... Start Date: 08/23/21 Status: Orderedtopiramate 50 mg oral tablet See Instructions, 4 tablet po in the AM, with 3 taqblet in the PM, # 630 tablet, 3 Refills, Maintenance, 08/23/21 13:06:00 EDT, [facility]278, Partial fill upon patient request if [...]
--- OUTSIDE RECORDS SUMMARY | 2022-08-09 16:06 | XMS_ITS | Continuity of Care Document ---
:1970 Author Organization [facility] Adult Address [address] [place] [id number]- Care Team Providers Name Role Phone Ras Carpio MD Primary Care Physician Encounter [facility] [place] Date(s): 10/19/20 - 11/18/20 [facility] [address] [place] [address]- Allergies, Adverse Reactions, Alerts Substance Reaction Severity [...] 3 Refills, Maintenance, 10/20/20 17:02:00 EST, Tablet, [facility], 185, cm, 08/13/20 14:06:00 EDT, Height Start Date: 10/20/20 Status: Orderedclopidogrel 75 mg oral tablet 1, tablet, By Mouth, Daily, # 90 each, Refills 3, Tot. Refills 3, Maintenance, 10/20/20 17:02:00 EST, Route to Pharmacy Electronically, [facility], 185, cm, 08/13/20 14:06:00 EDT, Height Start Date: 10/20/20 Status: OrderedlevETIRAcetam 750 mg oral tablet 3 tablet, By Mouth, 2 times a day, # 540 tablet, 3 Refills, Maintenance, 10/20/20 7:28:00 EST, [facility], 185, cm, 08/13/20 14:06:00 EDT, Height Start Date: 10/20/20 Status: Orderedlorazepam 0.5 mg oral tablet See Instructions, 1 tablet By Mouth prn after 2nd seizure, as directed., # 10 tablet, 1 Refills, Maintenance, 12/30/14 8:14:28 Start Date: 12/30/14 Status: OrderedMiraLax oral powder for reconstitution = 17 Gm, By Mouth, Daily, dissolve in water before taking, # 527 Gm, 1 Refills, Maintenance, 08/13/20 14:42:00 EDT, Powder, [facility], 17 Gm By Mouth Daily,Instr:dissolve in water [...] EST, Compound Start Date: 01/01/20 Status: Orderedtopiramate 100 mg oral tablet See Instructions, 2 tablets in AM, 1 1/2 in PM, # 105 tablet, 11 Refills, Maintenance, 10/22/20 11:10:00 EST, [facility], 185, cm, 08/13/20 14:06:00 EDT, Height Start Date: 10/22/20 Status: OrderedVitamin B12 0 Refills, Maintenance, 08/13/20 [...]
--- OUTSIDE RECORDS SUMMARY | 2022-08-09 16:06 | XMS_ITS | Continuity of Care Document ---
:1970 Author Organization [facility] Adult Address [address] [place] [address]- Care Team Providers Name Role Phone Laura Galdamez Primary Care Physician Encounter [facility] Date(s): 11/17/21 - 12/17/21 [facility] [address] [place] [address]- Allergies, Adverse Reactions, Alerts No Known Allergies Immunizations Given and Recorded Vaccine Date Status Refusal Reason influenza virus vaccine, inactivated1 09/29/21 Given tetanus/diphtheria/pertussis, acel(Tdap)2 07/01/21 Given SARS-CoV-2 (COVID-19) mRNA BNT-162b2 vac 05/06/21 Recorde d SARS-CoV-2 (COVID-19) mRNA BNT-162b2 vac 04/15/21 Recorde d Tetanus Toxoid3 12/12/10 Given 1Result Comment: [id number] Comment: [id number] Note: DONE AT WORK 2009 Medications allopurinol [...] 3 Refills, Maintenance, 11/29/21 17:11:00 EST, Tablet, [facility], 185, cm, 09/29/21 13:34:00 EST, Height Start Date: 11/29/21 Status: Orderedclopidogrel 75 mg oral tablet 1, tablet, By Mouth, Daily, # 90 each, Refills 3, Tot. Refills 3, Maintenance, 11/18/21 11:50:00 EST, Route to Pharmacy Electronically, [facility], 185, cm, 09/29/21 13:34:00 EST, Height Start Date: 11/18/21 Status: OrderedlevETIRAcetam 750 mg oral tablet 3 tablet, By Mouth, 2 times a day, # 540 tablet, 2 Refills, Maintenance, 11/24/21 11:11:00 EST, [facility] 5278, 185, cm, 09/29/21 13:34:00 EST, Height [...] 1 Refills, Maintenance, 08/13/20 14:42:00 EDT, Powder, [facility], 17 Gm By Mouth Daily,Instr:dissolve in water before taking, 185, cm, 08/13/20 14:06:00 EDT, Height Start Date: 08/13/20 Status: Orderedriboflavin 100 mg oral tablet 1 tablet = 100 mg, By Mouth, Daily in AM, # 90 tablet, 2 Refills, Maintenance, 11/24/21 11:11:00 EST, Tablet, [facility] 5278, Partial fill upon patient request if the prescription is for a schedule II opioid drug., 185, cm, 09/29/21 13:34:00 ES... Start Date: 11/24/21 Status: Orderedtopiramate 50 mg oral tablet See Instructions, 4 tablet po in the AM, with 3 taqblet in the PM, # 630 tablet, 3 Refills, Maintenance, 08/23/21 13:06:00 EDT, [facility] 5278, Partial fill upon patient request if [...]
--- OUTSIDE RECORDS SUMMARY | 2022-08-09 16:06 | XMS_ITS | Continuity of Care Document ---
:1970 Author Organization [facility] Address [address] [place] [address], 3rd Floor, [address] [place] [address]- Care Team Providers Name Role Phone Ras Carpio MD Primary Care Physician Encounter [facility] [place] Date(s): 07/22/20 - 08/21/20 [facility] [address] [place] [address], 3rd [facility], [address] [place] [address]- [facility] Allergies, Adverse Reactions, Alerts Substance Reaction [...] tablet, 3 Refills, Maintenance, 08/12/20 16:02:00 EDT, [facility], 185, cm, 04/13/20 10:46:00 [...] 1 Refills, Maintenance, 08/13/20 14:42:00 EDT, Powder, [facility], 17 Gm By Mouth [...] # 620 tablet,3 Refills, 08/12/20 16:02:00 EDT, [facility], 185, cm, 04/13/20 10:46:00 [...]
--- OUTSIDE RECORDS SUMMARY | 2022-08-09 16:06 | XMS_ITS | Continuity of Care Document ---
:1970 Author Organization [facility] Adult Address [address] [place] [phone]- Care Team Providers Name Role Phone Ras Carpio MD Primary Care Physician Encounter [facility] [place] Date(s): 04/06/21 - 05/06/21 [facility] Adult [address] [place] [address]- Allergies, Adverse Reactions, Alerts Substance Reaction Severity [...] 3 Refills, Maintenance, 10/20/20 17:02:00 EST, Tablet, [facility], 185, cm, 08/13/20 14:06:00 EDT, Height Start Date: 10/20/20 Status: Orderedclopidogrel 75 mg oral tablet 1, tablet, By Mouth, Daily, # 90 each, Refills 3, Tot. Refills 3, Maintenance, 10/20/20 17:02:00 EST, Route to Pharmacy Electronically, [facility], 185, cm, 08/13/20 14:06:00 EDT, Height Start Date: 10/20/20 Status: OrderedlevETIRAcetam 750 mg oral tablet 3 tablet, By Mouth, 2 times a day, # 540 tablet, 3 Refills, Maintenance, 11/24/20 15:52:00 EST, [facility], 185, cm, 08/13/20 14:06:00 EDT, [...] 1 Refills, Maintenance, 08/13/20 14:42:00 EDT, Powder, [facility], 17 Gm By Mouth Daily,Instr:dissolve in water [...] tablet, 11 Refills, Maintenance, 10/22/20 11:10:00 EST, [facility], 185, cm, 08/13/20 14:06:00 EDT, [...]
--- OUTSIDE RECORDS SUMMARY | 2022-08-09 16:06 | XMS_ITS | Continuity of Care Document ---
:1970 Author Organization [facility] Address [address] [place] [address], 3rd [facility], [address] [place] [address]- Care Team Providers Name Role Phone Ras Carpio MD Primary Care Physician Encounter [facility] [place] Date(s): 10/05/20 - 11/04/20 [facility] [address] [place] [address], 3rd [facility], [address] [place] [id number] Allergies, Adverse Reactions, Alerts Substance Reaction Severity [...] 3 Refills, Maintenance, 10/20/20 17:02:00 EST, Tablet, [facility], 185, cm, 08/13/20 14:06:00 EDT, Height Start Date: 10/20/20 Status: Orderedclopidogrel 75 mg oral tablet 1, tablet, By Mouth, Daily, # 90 each, Refills 3, Tot. Refills 3, Maintenance, 10/20/20 17:02:00 EST, Route to Pharmacy Electronically, [facility], 185, cm, 08/13/20 14:06:00 EDT, Height Start Date: 10/20/20 Status: OrderedlevETIRAcetam 750 mg oral tablet 3 tablet, By Mouth, 2 times a day, # 540 tablet, 3 Refills, Maintenance, 10/20/20 7:28:00 EST, [facility], 185, cm, 08/13/20 14:06:00 [...] 1 Refills, Maintenance, 08/13/20 14:42:00 EDT, Powder, [facility], 17 Gm By Mouth Daily,Instr:dissolve in [...] tablet, 11 Refills, Maintenance, 10/22/20 11:10:00 EST, [facility], 185, cm, 08/13/20 14:06:00 [...]
--- OUTSIDE RECORDS SUMMARY | 2022-08-09 16:06 | XMS_ITS | Continuity of Care Document ---
:1970 Author Organization [facility] Adult Address [address] [place] [id number]- Care Team Providers Name Role Phone Ras Carpio MD Primary Care Physician Encounter [facility] [place] Date(s): 07/12/20 - 07/19/20 [facility] [address] [place] [phone]- [facility] Encounter Diagnosis Chronic constipation (Discharge Diagnosis) - 07/12/20 Attending Physician: Ras Carpio MD Allergies, Adverse Reactions, Alerts Substance Reaction Severity [...] mg, By Mouth, Daily, # 90 tablet, 1 Refills, Maintenance, 06/03/20 14:34:00 EDT, Tablet, [facility], 185, cm, 04/13/20 10:46:00 EDT, Height Start Date: 06/03/20 Status: Orderedclopidogrel 75 mg oral tablet 1, tablet, By Mouth, Daily, # 90 each, Refills 3, Tot. Refills 0, Maintenance, 11/26/19 17:05:00 EST, Route to Pharmacy Electronically, [facility], 185, cm, 06/30/19 7:48:00 EDT, Height Start Date: 11/26/19 Status: OrderedKeppra 750 mg oral tablet 3 tablet = 2,250 mg, By Mouth, 2 times a day, # 180 tablet, 11 Refills, Maintenance, 07/05/19 14:37:59 EDT Start Date: 07/05/19 Stop Date: 06/29/20 Status: Orderedlorazepam 0.5 mg oral tablet See Instructions, 1 tablet By Mouth prn after 2nd seizure, as directed., # 10 tablet, 1 Refills, Maintenance, 12/30/14 8:14:28 Start Date: 12/30/14 Status: OrderedMiraLax oral powder for reconstitution = 17 Gm, By Mouth, Daily, dissolve in water before taking, # 255 Gm, 0 Refills, Maintenance, 06/16/19 14:28:21 EDT, REC Powder Start Date: 06/16/19 Status: OrderedPhysical Therapy, Speech Therapy and Occupational [...] 15:20:00 EST, Compound Start Date: 01/01/20 Status: OrderedTopamax 50 mg oral tablet See Instructions, 4 tablet By Mouth in the AM, with 3 tablet in the PM., # 210 tablet, 11 Refills, Maintenance, 06/30/19 8:57:03 EDT, remind her to make an appointment with us within next 5-6 months tomaintain script. 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
--- OUTSIDE RECORDS SUMMARY | 2022-08-09 16:06 | XMS_ITS | Continuity of Care Document ---
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, right neglect, partial Broca's aphasia (Discharge Diagnosis) - 09/29/21 Depression, major, in remission (Discharge Diagnosis) - 09/29/21 Xerosis of skin (Discharge Diagnosis) - 09/29/21 Nephrolithiasis (Discharge Diagnosis) - 09/29/21 Attending Physician: Ras Carpio MD Allergies, Adverse Reactions, Alerts Substance Reaction Severity Status NKA Active Immunizations Given and Recorded Vaccine Date Status Refusal Reason influenza virus vaccine, inactivated1 09/29/21 Given tetanus/diphtheria/pertussis, acel(Tdap)2 07/01/21 Given SARS-CoV-2 (COVID-19) mRNA BNT-162b2 vac 05/06/21 Recorde d SARS-CoV-2 (COVID-19) mRNA BNT-162b2 vac 04/15/21 Recorde d Tetanus Toxoid3 12/12/10 Given 1Result Comment: [id number] Comment: [id number] Note: DONE AT WORK 2009 Medications allopurinol [...] 3 Refills, Maintenance, 10/20/20 17:02:00 EST, Tablet, [facility], 185, cm, 08/13/20 14:06:00 EDT, Height Start Date: 10/20/20 Status: Orderedclopidogrel 75 mg oral tablet 1, tablet, By Mouth, Daily, # 90 each, Refills 3, Tot. Refills 3, Maintenance, 10/20/20 17:02:00 EST, Route to Pharmacy Electronically, [facility], 185, cm, 08/13/20 14:06:00 EDT, Height Start Date: 10/20/20 Status: OrderedlevETIRAcetam 750 mg oral tablet 3 tablet, By Mouth, 2 times a day, # 540 tablet, 3 Refills, Maintenance, 08/23/21 13:05:00 EDT, [facility], 185, cm, 08/23/21 12:39:00 [...] 1 Refills, Maintenance, 08/13/20 14:42:00 EDT, Powder, [facility], 17 Gm By Mouth Daily,Instr:dissolve in water before taking, 185, cm, 08/13/20 14:06:00 EDT, Height Start Date: 08/13/20 Status: Orderedriboflavin 100 mg oral tablet 1 tablet = 100 mg, By Mouth, Daily in AM, # 90 tablet, 0 Refills, Maintenance, 08/23/21 13:08:00 EDT, Tablet, [facility]278, Partial fill upon patient request if the prescription is for a schedule II opioid drug., 185, cm, 08/23/21 12:39:00 ED... Start Date: 08/23/21 Status: Orderedtopiramate 50 mg oral tablet See Instructions, 4 tablet po in the AM, with 3 taqblet in the PM, # 630 tablet, 3 Refills, Maintenance, 08/23/21 13:06:00 EDT, [facility], Partial fill upon patient request if [...] major, in Active remission(Confirmed) Sciatica(Confirmed) 10/10/06 Active Diagnosis Diagnosis Type Effective Dates Health Clinical Infor [facility] Status Service Cerebral vascular Discharge 09/29/21 accident - with Diagnosis residual right hemiplegia, right neglect, partial Broca's aphasia Epileptic seizure Discharge 09/29/21 Diagnosis Late effects of CVA Discharge 09/29/21 (cerebrovascular Diagnosis accident) General medical exam Discharge 09/29/21 Diagnosis Depression, major, in Discharge 09/29/21 remission Diagnosis Xerosis of skin Discharge 09/29/21 Diagnosis Nephrolithiasis Discharge 09/29/21 Diagnosis Vital Signs Most recent to oldest [Reference Range]: 1 Height 185.00 cm (09/29/21 1:34 PM) Weight 79.0 kg (09/29/21 1:34 PM) Oxygen Saturation [94-100 %] 97 % (09/29/21 1:34 PM) Pulse Rate [55-90 bpm] 82 bpm (09/29/21 1:34 PM) Body Mass Index [18.5-24.99] 23.08 (09/29/21 1:34 PM) Blood Pressure [90-138/55-84 mm Hg] 127/87 mm Hg (09/29/21 1:34 PM) Mode of Delivery (Oxygen) Room air (09/29/21 1:34 PM) Blood pressure sites Arm, left (09/29/21 1:34 PM) Weight Obtained Via Standing scale (09/29/21 1:34 PM) Social History Social History Type Response Smoking Status Never smoker entered on: 06/13/18 Sex
--- OUTSIDE RECORDS SUMMARY | 2022-08-09 16:06 | XMS_ITS | Continuity of Care Document ---
:1970 Author Organization [facility] Address Unavailable , Care Team Providers Name Role Phone Laura Galdamez Primary Care Physician Encounter [facility] [place] Date(s): 11/09/21 - 12/09/21 [facility] Attending Physician: Mehran Kay Admitting Physician: Admtr, Mehran Referring Physician: Admtr, Ar8 Allergies, Adverse Reactions, Alerts No Known Allergies Immunizations Given and Recorded Vaccine Date Status Refusal Reason influenza virus vaccine, inactivated1 09/29/21 Given tetanus/diphtheria/pertussis, acel(Tdap)2 07/01/21 Given SARS-CoV-2 (COVID-19) mRNA BNT-162b2 vac 05/06/21 Recorde d SARS-CoV-2 (COVID-19) mRNA BNT-162b2 vac 04/15/21 Recorde d Tetanus Toxoid3 12/12/10 Given 1Result Comment: [id number] Comment: [id number] Note: DONE AT WORK 2009 Medications allopurinol [...] 3 Refills, Maintenance, 11/29/21 17:11:00 EST, Tablet, [facility], 185, cm, 09/29/21 13:34:00 EST, Height Start Date: 11/29/21 Status: Orderedclopidogrel 75 mg oral tablet 1, tablet, By Mouth, Daily, # 90 each, Refills 3, Tot. Refills 3, Maintenance, 11/18/21 11:50:00 EST, Route to Pharmacy Electronically, [facility] 5278, 185, cm, 09/29/21 13:34:00 EST, Height Start Date: 11/18/21 Status: OrderedlevETIRAcetam 750 mg oral tablet 3 tablet, By Mouth, 2 times a day, # 540 tablet, 2 Refills, Maintenance, 11/24/21 11:11:00 EST, [facility] 5278, 185, cm, 09/29/21 13:34:00 EST, Height [...] 1 Refills, Maintenance, 08/13/20 14:42:00 EDT, Powder, [facility], 17 Gm By Mouth Daily,Instr:dissolve in water before taking, 185, cm, 08/13/20 14:06:00 EDT, Height Start Date: 08/13/20 Status: Orderedriboflavin 100 mg oral tablet 1 tablet = 100 mg, By Mouth, Daily in AM, # 90 tablet, 2 Refills, Maintenance, 11/24/21 11:11:00 EST, Tablet, [facility] 5278, Partial fill upon patient request if the prescription is for a schedule II opioid drug., 185, cm, 09/29/21 13:34:00 ES... Start Date: 11/24/21 Status: Orderedtopiramate 50 mg oral tablet See Instructions, 4 tablet po in the AM, with 3 taqblet in the PM, # 630 tablet, 3 Refills, Maintenance, 08/23/21 13:06:00 EDT, [facility] 5278, Partial fill upon patient request if [...]
--- OUTSIDE RECORDS SUMMARY | 2022-08-09 16:06 | XMS_ITS | Continuity of Care Document ---
:1970 Author Organization [facility] Address [address] [place] [address]- Care Team Providers Name Role Phone Ras Carpio MD Primary Care Physician Encounter [facility] [place] Date(s): 11/22/20 - 12/22/20 [facility] [address] [place] [phone]- Allergies, Adverse Reactions, Alerts Substance Reaction Severity [...] 3 Refills, Maintenance, 10/20/20 17:02:00 EST, Tablet, [facility], 185, cm, 08/13/20 14:06:00 EDT, Height Start Date: 10/20/20 Status: Orderedclopidogrel 75 mg oral tablet 1, tablet, By Mouth, Daily, # 90 each, Refills 3, Tot. Refills 3, Maintenance, 10/20/20 17:02:00 EST, Route to Pharmacy Electronically, [facility], 185, cm, 08/13/20 14:06:00 EDT, Height Start Date: 10/20/20 Status: OrderedlevETIRAcetam 750 mg oral tablet 3 tablet, By Mouth, 2 times a day, # 540 tablet, 3 Refills, Maintenance, 11/24/20 15:52:00 EST, [facility], 185, cm, 08/13/20 14:06:00 [...] Maintenance, 08/13/20 14:42:00 EDT, Powder, [facility], 17 Gm By Mouth Daily,Instr:dissolve in water [...] tablet, 11 Refills, Maintenance, 10/22/20 11:10:00 EST, [facility], 185, cm, 08/13/20 14:06:00 EDT, [...]
--- OUTSIDE RECORDS SUMMARY | 2022-08-09 16:06 | XMS_ITS | Continuity of Care Document ---
:1970 Author Organization [facility] Address [address] [place] [address], 3rd Floor, [address] [place] [address]- Care Team Providers Name Role Phone Ras Carpio MD Primary Care Physician Encounter [facility] [place] Date(s): 06/16/20 - 07/16/20 [facility] [address] [place] [address], 3rd [facility], [address] [place] [address]- [facility] Allergies, Adverse Reactions, Alerts Substance Reaction [...] 1 Refills, Maintenance, 06/03/20 14:34:00 EDT, Tablet, [facility], 185, cm, 04/13/20 10:46:00 EDT, Height Start Date: 06/03/20 Status: Orderedclopidogrel 75 mg oral tablet 1, tablet, By Mouth, Daily, # 90 each, Refills 3, Tot. Refills 0, Maintenance, 11/26/19 17:05:00 EST, Route to Pharmacy Electronically, [facility], 185, cm, 06/30/19 7:48:00 EDT, Height [...]
--- OUTSIDE RECORDS SUMMARY | 2022-08-09 16:06 | XMS_ITS | Continuity of Care Document ---
:1970 Author Organization [facility] Adult Address [address] [place] [address]- Care Team Providers Name Role Phone Ras Carpio MD Primary Care Physician Encounter [facility] [place] Date(s): 01/26/20 - 03/20/20 [facility] [address] [place] [address]- [facility] Attending Physician: Ras Carpio MD Allergies, Adverse [...] Daily, # 90 tablet, 1 Refills, Maintenance, 12/04/19 14:25:00 EST, Tablet, [facility], 185, cm, 06/30/19 7:48:00 EDT, Height Start Date: 12/04/19 Status: Orderedclopidogrel 75 mg oral tablet 1, tablet, By Mouth, Daily, # 90 each, Refills 3, Tot. Refills 0, Maintenance, 11/26/19 17:05:00 EST, Route to Pharmacy Electronically, [facility], 185, cm, 06/30/19 7:48:00 EDT, [...] 04/16/15 11:41:59, Compound Start Date: 04/16/15 Status: OrderedRIGHT LEG BRACE RIGHT LEG BRACE, [...]
--- OUTSIDE RECORDS SUMMARY | 2022-08-09 16:06 | XMS_ITS | Continuity of Care Document ---
:1970 Author Organization [facility] Address [address] [place] [address]- Care Team Providers Name Role Phone Ras Carpio MD Primary Care Physician Encounter [facility] [place] Date(s): 07/12/20 - 08/11/20 [facility] [address] [place] [address]- [facility] Attending Physician: Mehran Kay Admitting Physician: AdmtrMehran Referring Physician: Admtr, ArMinerva Allergies, Adverse Reactions, Alerts Substance Reaction Severity [...] Refills, Maintenance, 06/03/20 14:34:00 EDT, Tablet, [facility], 185, cm, 04/13/20 10:46:00 EDT, Height Start Date: 06/03/20 Status: Orderedclopidogrel 75 mg oral tablet 1, tablet, By Mouth, Daily, # 90 each, Refills 3, Tot. Refills 0, Maintenance, 11/26/19 17:05:00 EST, Route to Pharmacy Electronically, [facility], 185, cm, 06/30/19 7:48:00 EDT, Height Start Date: 11/26/19 Status: OrderedlevETIRAcetam 750 mg oral tablet 3 tablet, By Mouth, 2 times a day, # 180 tablet, 11 Refills, Maintenance, 07/20/20 14:47:00 EDT, [facility], 185, cm, 04/13/20 10:46:00 EDT, Height Start Date: 07/20/20 Status: Orderedlorazepam 0.5 mg oral tablet See [...] AND 3 TABLETS IN THE EVENING, # 210 tablet,11 Refills, Maintenance, [facility], 185, cm, 04/13/20 10:46:00 EDT, Height Start Date: 07/22/20 Status: Ordered Problem List Condition Effective Dates [...]
--- OUTSIDE RECORDS SUMMARY | 2022-08-09 16:06 | XMS_ITS | Continuity of Care Document ---
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 Refills 0, Maintenance, 11/26/19 17:05:00 EST, Route to Pharmacy Electronically, [facility], 185, cm, 06/30/19 7:48:00 EDT, Height [...] Active Diagnosis Diagnosis Type Effective Dates Health Status Clinical In formant Service Late effects of Discharge 04/13/20 CVA Diagnosis (cerebrovascular accident) Cerebral Discharge 04/13/20 vascular Diagnosis accident - with residual right hemiplegia, right neglect, partial Broca's aphasia Right foot drop Discharge 04/13/20 Diagnosis Vital Signs Most recent to oldest [Reference Range]: 1 Height 185.00 cm (04/13/20 10:46 AM) Weight 80.8 kg (04/13/20 10:46 AM) Oxygen Saturation [94-100 %] 100 % (04/13/20 10:46 AM) Pulse Rate [55-90 bpm] 66 bpm (04/13/20 10:46 AM) Body Mass Index [18.5-24.99] 23.61 (04/13/20 10:46 AM) Blood Pressure [90-138/55-84 mm Hg] 123/69 mm Hg (04/13/20 10:46 AM) Mode of Delivery (Oxygen) Room air (04/13/20 10:46 AM) Blood pressure sites Arm, left (04/13/20 10:46 AM) Weight Obtained Via Standing scale (04/13/20 10:46 AM) Social History Social History Type Response Smoking Status Never smoker entered on: 06/13/18 Sex
--- OUTSIDE RECORDS SUMMARY | 2022-08-09 16:06 | XMS_ITS | Continuity of Care Document ---
:1970 Author Organization [facility] Adult Address [address] [place] [address]- Care Team Providers Name Role Phone Balaji MAIER, Ras Escalante Primary Care Physician Encounter [facility] [place] Date(s): 04/13/20 - 05/13/20 [facility] Adult [address] [place] [address]- [facility] Attending Physician: Mehran Kay Admitting Physician: Mehran Kay Referring Physician: AdmtrMehran Allergies, Adverse Reactions, Alerts Substance Reaction Severity [...] 1 Refills, Maintenance, 12/04/19 14:25:00 EST, Tablet, [facility], 185, cm, 06/30/19 7:48:00 EDT, Height Start Date: 12/04/19 Status: Orderedclopidogrel 75 mg oral tablet 1, tablet, By Mouth, Daily, # 90 each, Refills 3, Tot. Refills 0, Maintenance, 11/26/19 17:05:00 EST, Route to Pharmacy Electronically, [facility], 185, cm, 06/30/19 7:48:00 EDT, [...]
--- OUTSIDE RECORDS SUMMARY | 2022-08-09 16:06 | XMS_ITS | Continuity of Care Document ---
:1970 Author Organization [facility] Adult Address [address] [place] [address]- Care Team Providers Name Role Phone Ras Carpio MD Primary Care Physician En[place] [facility] [place] Date(s): 07/12/20 - 08/11/20 [facility] Adult [address] [place] [address]- [facility] Allergies, Adverse Reactions, Alerts Substance Reaction Severity [...] 1 Refills, Maintenance, 06/03/20 14:34:00 EDT, Tablet, [facility], 185, cm, 04/13/20 10:46:00 EDT, Height Start Date: 06/03/20 Status: Orderedclopidogrel 75 mg oral tablet 1, tablet, By Mouth, Daily, # 90 each, Refills 3, Tot. Refills 0, Maintenance, 11/26/19 17:05:00 EST, Route to Pharmacy Electronically, [facility], 185, cm, 06/30/19 7:48:00 EDT, [...]
--- OUTSIDE RECORDS SUMMARY | 2022-08-09 16:06 | XMS_ITS | Continuity of Care Document ---
:1970 Author Organization [facility] Address Unavailable , Care Team Providers Name Role Phone Rsa Carpio MD Primary Care Physician [place] [facility] [place] Date(s): 06/30/21 - 07/30/21 [facility] Allergies, Adverse Reactions, Alerts Substance Reaction Severity Status NKA Active Immunizations Given and Recorded Vaccine Date Status Refusal Reason tetanus/diphtheria/pertussis, acel(Tdap)1 07/01/21 Given SARS-CoV-2 (COVID-19) mRNA BNT-162b2 vac 05/06/21 Recorde d SARS-CoV-2 (COVID-19) mRNA BNT-162b2 vac 04/15/21 Recorde d Tetanus Toxoid2 12/12/10 Given 1Result Comment: [id number] Note: DONE AT WORK 2009 Medications Aqua Therapy Aqua Therapy, See Instructions, # 1 each, Refills 0, Tot. Refills 0, Maintenance, DX: CVA with RightResidual Hemiplegia, 12/02/14 9:56:41, Compound Start Date: 12/02/14 Status: Orderedatorvastatin 40 mg oral tablet 1 tablet = 40 mg, By Mouth, Daily, # 90 tablet, 3 Refills, Maintenance, 10/20/20 17:02:00 EST, Tablet, [facility], 185, cm, 08/13/20 14:06:00 EDT, Height Start Date: 10/20/20 Status: Orderedclopidogrel 75 mg oral tablet 1, tablet, By Mouth, Daily, # 90 each, Refills 3, Tot. Refills 3, Maintenance, 10/20/20 17:02:00 EST, Route to Pharmacy Electronically, [facility], 185, cm, 08/13/20 14:06:00 EDT, Height Start Date: 10/20/20 Status: OrderedlevETIRAcetam 750 mg oral tablet 3 tablet, By Mouth, 2 times a day, # 540 tablet, 3 Refills, Maintenance, 11/24/20 15:52:00 EST, [facility], 185, cm, 08/13/20 14:06:00 EDT, [...] 1 Refills, Maintenance, 08/13/20 14:42:00 EDT, Powder, [facility], 17 Gm By Mouth Daily,Instr:dissolve in water [...] 105 tablet, 11 Refills, Maintenance, 10/22/20 [facility], [facility], 08/13/20 14:06:00 EDT, [...]
--- OUTSIDE RECORDS SUMMARY | 2022-08-09 16:06 | XMS_ITS | Continuity of Care Document ---
:1970 Author Organization [facility] Address Unavailable , Care Team Providers Name Role Phone Laura Galdamez Primary Care Physician Encounter [facility] [place] Date(s): 10/07/21 - 12/09/21 [facility] Attending Physician: Shona Barnes Referring Physician: Ras Carpio MD Allergies, Adverse Reactions, Alerts No Known Allergies Immunizations Given and Recorded Vaccine Date Status Refusal Reason influenza virus vaccine, inactivated1 09/29/21 Given tetanus/diphtheria/pertussis, acel(Tdap)2 07/01/21 Given SARS-CoV-2 (COVID-19) mRNA BNT-162b2 vac 05/06/21 Recorde d SARS-CoV-2 (COVID-19) mRNA BNT-162b2 vac 04/15/21 Recorde d Tetanus Toxoid3 12/12/10 Given 1Result Comment: [id number] Comment: [id number] Note: DONE AT WORK 2009 Medications allopurinol [...] 3 Refills, Maintenance, 11/29/21 17:11:00 EST, Tablet, [facility], 185, cm, 09/29/21 13:34:00 EST, Height Start Date: 11/29/21 Status: Orderedclopidogrel 75 mg oral tablet 1, tablet, By Mouth, Daily, # 90 each, Refills 3, Tot. Refills 3, Maintenance, 11/18/21 11:50:00 EST, Route to Pharmacy Electronically, [facility], 185, cm, 09/29/21 13:34:00 EST, Height Start Date: 11/18/21 Status: OrderedlevETIRAcetam 750 mg oral tablet 3 tablet, By Mouth, 2 times a day, # 540 tablet, 2 Refills, Maintenance, 11/24/21 11:11:00 EST, [facility], 185, cm, 09/29/21 13:34:00 EST, Height [...] 1 Refills, Maintenance, 08/13/20 14:42:00 EDT, Powder, [facility], 17 Gm By Mouth Daily,Instr:dissolve in water before taking, 185, cm, 08/13/20 14:06:00 EDT, Height Start Date: 08/13/20 Status: Orderedriboflavin 100 mg oral tablet 1 tablet = 100 mg, By Mouth, Daily in AM, # 90 tablet, 2 Refills, Maintenance, 11/24/21 11:11:00 EST, Tablet, [facility], Partial fill upon patient request if the prescription is for a schedule II opioid drug., 185, cm, 09/29/21 13:34:00 ES... Start Date: 11/24/21 Status: Orderedtopiramate 50 mg oral tablet See Instructions, 4 tablet po in the AM, with 3 taqblet in the PM, # 630 tablet, 3 Refills, Maintenance, 08/23/21 13:06:00 EDT, [facility], Partial fill upon patient request if [...]
--- OUTSIDE RECORDS SUMMARY | 2022-08-09 16:06 | XMS_ITS | Continuity of Care Document ---
:1970 Author Organization [facility] Adult Address [address] [place] [address]- Care Team Providers Name Role Phone Balaji MAIER, Ras Escalante Primary Care Physician Encounter [facility] Date(s): 08/15/21 - 09/14/21 [facility] [address] [place] [address]- Allergies, Adverse Reactions, Alerts Substance Reaction Severity Status NKA Active Immunizations Given and Recorded Vaccine Date Status Refusal Reason tetanus/diphtheria/pertussis, acel(Tdap)1 07/01/21 Given SARS-CoV-2 (COVID-19) mRNA BNT-162b2 vac 05/06/21 Recorde d SARS-CoV-2 (COVID-19) mRNA BNT-162b2 vac 04/15/21 Recorde d Tetanus Toxoid2 12/12/10 Given 1Result Comment: [id number] Note: DONE AT WORK 2009 Medications Aqua Therapy Aqua Therapy, See Instructions, # 1 each, Refills 0, Tot. Refills 0, Maintenance, DX: CVA with RightResidual Hemiplegia, 12/02/14 9:56:41, Compound Start Date: 12/02/14 Status: Orderedatorvastatin 40 mg oral tablet 1 tablet = 40 mg, By Mouth, Daily, # 90 tablet, 3 Refills, Maintenance, 10/20/20 17:02:00 EST, Tablet, [facility], 185, cm, 08/13/20 14:06:00 EDT, Height Start Date: 10/20/20 Status: Orderedclopidogrel 75 mg oral tablet 1, tablet, By Mouth, Daily, # 90 each, Refills 3, Tot. Refills 3, Maintenance, 10/20/20 17:02:00 EST, Route to Pharmacy Electronically, [facility], 185, cm, 08/13/20 14:06:00 EDT, Height Start Date: 10/20/20 Status: OrderedlevETIRAcetam 750 mg oral tablet 3 tablet, By Mouth, 2 times a day, # 540 tablet, 3 Refills, Maintenance, 08/23/21 13:05:00 EDT, [facility], 185, cm, 08/23/21 12:39:00 [...] 1 Refills, Maintenance, 08/13/20 14:42:00 EDT, Powder, [facility], 17 Gm By Mouth Daily,Instr:dissolve in [...] 15:48:00 EDT, Supply Start Date: 04/29/20 Status: Orderedriboflavin 100 mg oral tablet 1 tablet = 100 mg, By Mouth, Daily in AM, # 90 tablet, 0 Refills, Maintenance, 08/23/21 13:08:00 EDT, Tablet, [facility], Partial fill upon patient request if the prescription is for a schedule II opioid drug., 185, cm, 08/23/21 12:39:00 ED... Start Date: 08/23/21 Status: OrderedRIGHT LEG BRACE STRAPS AND PADS ONLY RIGHT LEG BRACE STRAPS AND PADS ONLY, See Instructions, # 1 each, Refills 1, Tot. Refills 1, Maintenance, HEIGHT: 6'0 WEIGHT 177 LBS DX: CVA I69.90 DX: RESIDUAL RIGHT HEMIPLEGIA I69.351, 04/06/21 14:52:00 EDT, Compound Start Date: 04/06/21 Status: Orderedtopiramate 50 mg oral tablet See Instructions, 4 tablet po in the AM, with 3 taqblet in the PM, # 630 tablet, 3 Refills, Maintenance, 08/23/21 13:06:00 EDT, [facility], Partial fill upon patient request if the prescription is for a schedule II opioid drug., 185, cm, 10... Start Date: 08/23/21 Status: OrderedVitamin B12 0 Refills, Maintenance, 08/13/20 [...]
--- OUTSIDE RECORDS SUMMARY | 2022-08-09 16:06 | XMS_ITS | Continuity of Care Document ---
:1970 Author Organization [facility] Address [address] [place] [address], [address]rd Floor, [address] [place] [address]- Care Team Providers Name Role Phone Ras Carpio MD Primary Care Physician Encounter [facility] [place] Date(s): 11/23/20 - 12/23/20 [facility] [address] [place] [address], 3rd [facility], [address] [place] [id number] Allergies, Adverse Reactions, Alerts Substance Reaction [...] 3 Refills, Maintenance, 10/20/20 17:02:00 EST, Tablet, [facility], 185, cm, 08/13/20 14:06:00 EDT, Height Start Date: 10/20/20 Status: Orderedclopidogrel 75 mg oral tablet 1, tablet, By Mouth, Daily, # 90 each, Refills 3, Tot. Refills 3, Maintenance, 10/20/20 17:02:00 EST, Route to Pharmacy Electronically, [facility], 185, cm, 08/13/20 14:06:00 EDT, Height Start Date: 10/20/20 Status: OrderedlevETIRAcetam 750 mg oral tablet 3 tablet, By Mouth, 2 times a day, # 540 tablet, 3 Refills, Maintenance, 11/24/20 15:52:00 EST, [facility], 185, cm, 08/13/20 14:06:00 EDT, [...] Refills, Maintenance, 08/13/20 14:42:00 EDT, Powder, [facility], 17 Gm By Mouth Daily,Instr:dissolve [...] tablet, 11 Refills, Maintenance, 10/22/20 11:10:00 EST, [facility], 185, cm, 08/13/20 14:06:00 EDT, Height Start Date: 12/11/20 Status: OrderedVitamin B12 0 Refills, Maintenance, 08/13/20 [...]
--- OUTSIDE RECORDS SUMMARY | 2022-08-09 16:06 | XMS_ITS | Continuity of Care Document ---
:1970 Author Organization [facility] Adult Address [address] [place] [address]- Care Team Providers Name Role Phone Ras Carpio MD Primary Care Physician [place] [facility] [place](s): 01/13/20 - 02/26/20 [facility] [address] [place] [address]- [facility] Attending Physician: Ras Carpio MD [...] 1 Refills, Maintenance, 12/04/19 14:25:00 EST, [facility], 185, cm, 06/30/19 7:48:00 EDT, Height Start Date: 12/04/19 Status: Orderedclopidogrel 75 mg oral tablet 1, tablet, By Mouth, Daily, # 90 each, Refills 3, Tot. Refills 0, Maintenance, 11/26/19 17:05:00 EST, Route to Pharmacy Electronically, [facility], 185, cm, 06/30/19 7:48:00 EDT, Height [...] effects of CVA (cerebrovascular Active accident)(Confirmed) Sciatica(Confirmed) 11/29/06 Active Social History Social History Type Response Smoking Status Never smoker entered on: 06/13/18 Sex
--- OUTSIDE RECORDS SUMMARY | 2022-08-09 16:06 | XMS_ITS | Continuity of Care Document ---
:1970 Author Organization [facility] Adult Address [address] [place] [address]- Care Team Providers Name Role Phone Ras Carpio MD Primary Care Physician Encounter [facility] [place] Date(s): 02/13/20 - 05/12/20 [facility] [address] [place] [address]- [facility] Attending Physician: Ras Carpio MD Allergies, Adverse [...] 1 Refills, Maintenance, 12/04/19 14:25:00 EST, Tablet, [facility], 185, cm, 06/30/19 7:48:00 EDT, Height Start Date: 12/04/19 Status: Orderedclopidogrel 75 mg oral tablet 1, tablet, By Mouth, Daily, # 90 each, Refills 3, Tot. Refills 0, Maintenance, 11/26/19 17:05:00 EST, Route to Pharmacy Electronically, [facility], 185, cm, 06/30/19 7:48:00 [...]
--- OUTSIDE RECORDS SUMMARY | 2022-08-09 16:06 | XMS_ITS | Continuity of Care Document ---
:1970 Author Organization [facility] Adult Address [address] [place] [address]- Care Team Providers Name Role Phone Balaji MAIER, Ras Escalante Primary Care Physician Encounter [facility] [place] Date(s): 06/30/21 - 07/30/21 [facility] [address] [place] [address]- Allergies, Adverse Reactions, Alerts Substance Reaction Severity Status NKA Active Immunizations Given and Recorded Vaccine Date Status Refusal Reason tetanus/diphtheria/pertussis, acel(Tdap)1 07/01/21 Given SARS-CoV-2 (COVID-19) mRNA BNT-162b2 vac 05/06/21 Recorde d SARS-CoV-2 (COVID-19) mRNA BNT-162b2 vac 04/15/21 Recorde d Tetanus Toxoid2 12/12/10 Given 1Result Comment: [id number] Note: DONE AT WORK 2009 Medications Aqua Therapy Aqua Therapy, See Instructions, # 1 each, Refills 0, Tot. Refills 0, Maintenance, DX: CVA with RightResidual Hemiplegia, 12/02/14 9:56:41, Compound Start Date: 12/02/14 Status: Orderedatorvastatin 40 mg oral tablet 1 tablet = 40 mg, By Mouth, Daily, # 90 tablet, 3 Refills, Maintenance, 10/20/20 17:02:00 EST, Tablet, [facility], 185, cm, 08/13/20 14:06:00 EDT, Height Start Date: 10/20/20 Status: Orderedclopidogrel 75 mg oral tablet 1, tablet, By Mouth, Daily, # 90 each, Refills 3, Tot. Refills 3, Maintenance, 10/20/20 17:02:00 EST, Route to Pharmacy Electronically, [facility], 185, cm, 08/13/20 14:06:00 EDT, Height Start Date: 10/20/20 Status: OrderedlevETIRAcetam 750 mg oral tablet 3 tablet, By Mouth, 2 times a day, # 540 tablet, 3 Refills, Maintenance, 11/24/20 15:52:00 EST, [facility], 185, cm, 08/13/20 14:06:00 [...] 1 Refills, Maintenance, 08/13/20 14:42:00 EDT, Powder, [facility], 17 Gm By Mouth Daily,Instr:dissolve [...] 105 tablet, 11 Refills, Maintenance, 10/22/20 11:10:00 [facility], [facility], 185, cm, 08/13/20 14:06:00 [...]
--- OUTSIDE RECORDS SUMMARY | 2022-08-09 16:06 | XMS_ITS | Continuity of Care Document ---
:1970 Author Organization [facility] Address Unavailable , Care Team Providers Name Role Phone Balaji MAIER, Ras Escalante Primary Care Physician Encounter [facility] Date(s): 10/24/21 - 11/23/21 [facility] Allergies, Adverse Reactions, Alerts Substance Reaction Severity Status NKA Active Immunizations Given and Recorded Vaccine Date Status Refusal Reason influenza virus vaccine, inactivated1 09/29/21 Given tetanus/diphtheria/pertussis, acel(Tdap)2 07/01/21 Given SARS-CoV-2 (COVID-19) mRNA BNT-162b2 vac 05/06/21 Recorde d SARS-CoV-2 (COVID-19) mRNA BNT-162b2 vac 04/15/21 Recorde d Tetanus Toxoid3 12/12/10 Given 1Result Comment: [id number] Comment: [id number] Note: DONE AT WORK 2009 Medications allopurinol [...] 3 Refills, Maintenance, 10/20/20 17:02:00 EST, Tablet, [facility], 185, cm, 08/13/20 14:06:00 EDT, Height Start Date: 10/20/20 Status: Orderedclopidogrel 75 mg oral tablet 1, tablet, By Mouth, Daily, # 90 each, Refills 3, Tot. Refills 3, Maintenance, 11/18/21 11:50:00 EST, Route to Pharmacy Electronically, [facility], 185, cm, 09/29/21 13:34:00 EST, Height Start Date: 11/18/21 Status: OrderedlevETIRAcetam 750 mg oral tablet 3 tablet, By Mouth, 2 times a day, # 540 tablet, 3 Refills, Maintenance, 08/23/21 13:05:00 EDT, [facility], 185, cm, 08/23/21 12:39:00 EDT, [...] 1 Refills, Maintenance, 08/13/20 14:42:00 EDT, Powder, [facility], 17 Gm By Mouth Daily,Instr:dissolve in water before taking, 185, cm, 08/13/20 14:06:00 EDT, Height Start Date: 08/13/20 Status: Orderedriboflavin 100 mg oral tablet 1 tablet = 100 mg, By Mouth, Daily in AM, # 90 tablet, 0 Refills, Maintenance, 08/23/21 13:08:00 EDT, Tablet, [facility], Partial fill upon patient request if the prescription is for a schedule II opioid drug., 185, cm, 08/23/21 12:39:00 ED... Start Date: 08/23/21 Status: Orderedtopiramate 50 mg oral tablet See Instructions, 4 tablet po in the AM, with 3 taqblet in the PM, # 630 tablet, 3 Refills, Maintenance, 08/23/21 13:06:00 EDT, [facility], Partial fill upon patient request [...]
--- OUTSIDE RECORDS SUMMARY | 2022-08-09 16:06 | XMS_ITS | Continuity of Care Document ---
:1970 Author Organization [facility] Address [address] [place] [address]- Care Team Providers Name Role Phone Ras Carpio MD Primary Care Physician [place] [facility] [place](s): 06/02/20 - 07/02/20 [facility] [address] [place] [address]- [facility] Allergies, Adverse Reactions, Alerts Substance Reaction Severity [...] 1 Refills, Maintenance, 06/03/20 14:34:00 EDT, Tablet, [facility], 185, cm, 04/13/20 10:46:00 EDT, Height Start Date: 06/03/20 Status: Orderedclopidogrel 75 mg oral tablet 1, tablet, By Mouth, Daily, # 90 each, Refills 3, Tot. Refills 0, Maintenance, 11/26/19 17:05:00 EST, Route to Pharmacy Electronically, [facility], 185, cm, 06/30/19 7:48:00 EDT, [...]
--- OUTSIDE RECORDS SUMMARY | 2022-08-09 16:06 | XMS_ITS | Continuity of Care Document ---
:1970 Author Organization [facility] Address [address] [place] [address]- Care Team Providers Name Role Phone Ras Carpio MD Primary Care Physician En[place] [facility] [place] Date(s): 07/01/21 - 07/08/21 [facility] [address] [place] [address]- Attending Physician: Ras Carpio MD Allergies, Adverse Reactions, Alerts Substance Reaction Severity Status NKA Active Immunizations Given and Recorded Vaccine Date Status Refusal Reason tetanus/diphtheria/pertussis, acel(Tdap)1 07/01/21 Given SARS-CoV-2 (COVID-19) mRNA BNT-162b2 vac 05/06/21 Recorde d SARS-CoV-2 (COVID-19) mRNA BNT-162b2 vac 04/15/21 Recorde d Tetanus Toxoid2 12/12/10 Given 1Result Comment: [id number] Note: DONE AT WORK 2009 Medications Aqua Therapy Aqua Therapy, See Instructions, # 1 each, Refills 0, Tot. Refills 0, Maintenance, DX: CVA with RightResidual Hemiplegia, 12/02/14 9:56:41, Compound Start Date: 12/02/14 Status: Orderedatorvastatin 40 mg oral tablet 1 tablet = 40 mg, By Mouth, Daily, # 90 tablet, 3 Refills, Maintenance, 10/20/20 17:02:00 EST, Tablet, [facility], 185, cm, 08/13/20 14:06:00 EDT, Height Start Date: 10/20/20 Status: Orderedclopidogrel 75 mg oral tablet 1, tablet, By Mouth, Daily, # 90 each, Refills 3, Tot. Refills 3, Maintenance, 10/20/20 17:02:00 EST, Route to Pharmacy Electronically, [facility], 185, cm, 08/13/20 14:06:00 EDT, Height Start Date: 10/20/20 Status: OrderedlevETIRAcetam 750 mg oral tablet 3 tablet, By Mouth, 2 times a day, # 540 tablet, 3 Refills, Maintenance, 11/24/20 15:52:00 EST, [facility], 185, cm, 08/13/20 14:06:00 [...] 1 Refills, Maintenance, 08/13/20 14:42:00 EDT, Powder, [facility], 17 Gm By Mouth Daily,Instr:dissolve [...] 105 tablet, 11 Refills, Maintenance, 10/22/20 11:10:00 [facility], 185, cm, 08/13/20 14:06:00 EDT, [...] CVA (cerebrovascular Active accident)(Confirmed) Sciatica(Confirmed) 10/10/06 Active Vital Signs Most recent to oldest [Reference Range]: 1 Height 185.00 cm (07/01/21 11:53 AM) Weight 80.7 kg (07/01/21 11:53 AM) Oxygen Saturation [94-100 %] 99 % (07/01/21 11:53 AM) Pulse Rate [55-90 bpm] 74 bpm (07/01/21 11:53 AM) Body Mass Index [18.5-24.99] 23.58 (07/01/21 11:53 AM) Blood Pressure [90-138/55-84 mm Hg] 116/76 mm Hg (07/01/21 11:53 AM) Mode of Delivery (Oxygen) Room air (07/01/21 11:53 AM) Blood pressure sites Arm, left (07/01/21 11:53 AM) Weight Obtained Via Standing scale (07/01/21 11:53 AM) Social History Social History Type Response Smoking Status Never smoker entered on: 06/13/18 Sex
--- OUTSIDE RECORDS SUMMARY | 2022-08-09 16:06 | XMS_ITS | Continuity of Care Document ---
:1970 Author Organization [facility] Adult Address [address] [place] [address]- Care Team Providers Name Role Phone Ras Carpio MD Primary Care Physician [place] [facility] [place] 07/06/21 - 08/05/21 [facility] [address] [place] [id number]- Allergies, Adverse Reactions, Alerts Substance Reaction Severity Status NKA Active Immunizations Given and Recorded Vaccine Date Status Refusal Reason tetanus/diphtheria/pertussis, acel(Tdap)1 07/01/21 Given SARS-CoV-2 (COVID-19) mRNA BNT-162b2 vac 05/06/21 Recorde d SARS-CoV-2 (COVID-19) mRNA BNT-162b2 vac 04/15/21 Recorde d Tetanus Toxoid2 12/12/10 Given 1Result Comment: [id number] Note: DONE AT WORK 2009 Medications Aqua Therapy Aqua Therapy, See Instructions, # 1 each, Refills 0, Tot. Refills 0, Maintenance, DX: CVA with RightResidual Hemiplegia, 12/02/14 9:56:41, Compound Start Date: 12/02/14 Status: Orderedatorvastatin 40 mg oral tablet 1 tablet = 40 mg, By Mouth, Daily, # 90 tablet, 3 Refills, Maintenance, 10/20/20 17:02:00 EST, Tablet, [facility], 185, cm, 08/13/20 14:06:00 EDT, Height Start Date: 10/20/20 Status: Orderedclopidogrel 75 mg oral tablet 1, tablet, By Mouth, Daily, # 90 each, Refills 3, Tot. Refills 3, Maintenance, 10/20/20 17:02:00 EST, Route to Pharmacy Electronically, [facility], 185, cm, 08/13/20 14:06:00 EDT, Height Start Date: 10/20/20 Status: OrderedlevETIRAcetam 750 mg oral tablet 3 tablet, By Mouth, 2 times a day, # 540 tablet, 3 Refills, Maintenance, 11/24/20 15:52:00 EST, [facility], 185, cm, 08/13/20 [...] Maintenance, 08/13/20 14:42:00 EDT, Powder, [facility], 17 Gm By Mouth Daily,Instr:dissolve in water [...] 105 tablet, 11 Refills, Maintenance, 10/22/20 11:10:00 [facility] [[email or web address]], [facility], 185, cm, 08/13/20 [...]
--- OUTSIDE RECORDS SUMMARY | 2022-08-09 16:07 | XMS_ITS | Continuity of Care Document ---
:1970 Author Organization [facility] Address Unavailable , Care Team Providers Name Role Phone Balaji MAIER, Ras Escalante Primary Care Physician [place] [facility] [place] 09[place]21 [facility] Attending Physician: Mehran Kay Admitting Physician: Mehran Kay Referring Physician: Mehran Kay Allergies, Adverse Reactions, Alerts Substance Reaction Severity Status NKA Active Immunizations Given and Recorded Vaccine Date Status Refusal Reason tetanus/diphtheria/pertussis, acel(Tdap)1 07/01/21 Given SARS-CoV-2 (COVID-19) mRNA BNT-162b2 vac 05/06/21 Recorde d SARS-CoV-2 (COVID-19) mRNA BNT-162b2 vac 04/15/21 Recorde d Tetanus Toxoid2 12/12/10 Given 1Result Comment: [id number] Note: DONE AT WORK 2009 Medications Aqua Therapy Aqua Therapy, See Instructions, # 1 each, Refills 0, Tot. Refills 0, Maintenance, DX: CVA with RightResidual Hemiplegia, 12/02/14 9:56:41, Compound Start Date: 12/02/14 Status: Orderedatorvastatin 40 mg oral tablet 1 tablet = 40 mg, By Mouth, Daily, # 90 tablet, 3 Refills, Maintenance, 10/20/20 17:02:00 EST, Tablet, [facility], 185, cm, 08/13/20 14:06:00 EDT, Height Start Date: 10/20/20 Status: Orderedclopidogrel 75 mg oral tablet 1, tablet, By Mouth, Daily, # 90 each, Refills 3, Tot. Refills 3, Maintenance, 10/20/20 17:02:00 EST, Route to Pharmacy Electronically, [facility], 185, cm, 08/13/20 14:06:00 EDT, Height Start Date: 10/20/20 Status: OrderedlevETIRAcetam 750 mg oral tablet 3 tablet, By Mouth, 2 times a day, # 540 tablet, 3 Refills, Maintenance, 08/23/21 13:05:00 EDT, [facility], 185, cm, 08/23/21 12:39:00 EDT, [...] 1 Refills, Maintenance, 08/13/20 14:42:00 EDT, Powder, [facility], 17 Gm By Mouth Daily,Instr:dissolve [...] 0 Refills, Maintenance, 08/23/21 13:08:00 EDT, Tablet, [facility], Partial fill upon patient request [...] tablet, 3 Refills, Maintenance, 08/23/21 13:06:00 EDT, [facility], Partial fill upon patient request [...]
--- OUTSIDE RECORDS SUMMARY | 2022-08-09 16:07 | XMS_ITS | Continuity of Care Document ---
:1970 Author Organization [facility] Adult Address [address] [place] [phone]- Care Team Providers Name Role Phone Ras Carpio MD Primary Care Physician [place] [facility] [place]21 [facility] [address] [place] [phone]- Allergies, Adverse Reactions, Alerts Substance Reaction Severity [...] 3 Refills, Maintenance, 10/20/20 17:02:00 EST, Tablet, [facility], 185, cm, 08/13/20 14:06:00 EDT, Height Start Date: 10/20/20 Status: Orderedclopidogrel 75 mg oral tablet 1, tablet, By Mouth, Daily, # 90 each, Refills 3, Tot. Refills 3, Maintenance, 10/20/20 17:02:00 EST, Route to Pharmacy Electronically, [facility], 185, cm, 08/13/20 14:06:00 EDT, Height Start Date: 10/20/20 Status: OrderedlevETIRAcetam 750 mg oral tablet 3 tablet, By Mouth, 2 times a day, # 540 tablet, 3 Refills, Maintenance, 11/24/20 15:52:00 EST, [facility], 185, cm, 08/13/20 14:06:00 EDT, [...] 1 Refills, Maintenance, 08/13/20 14:42:00 EDT, Powder, [facility], 17 Gm By Mouth Daily,Instr:dissolve in water [...] tablet, 11 Refills, Maintenance, 10/22/20 11:10:00 EST, [facility], 185, cm, 08/13/20 14:06:00 EDT, [...]
--- OUTSIDE RECORDS SUMMARY | 2022-08-09 16:07 | XMS_ITS | Continuity of Care Document ---
:1970 Author Organization [facility] Address [address] [place] [address], [address]rd Floor, [address] [place] [phone]- Care Team Providers Name Role Phone Ras Carpio MD Primary Care Physician [place] [facility] [place] 10/22/20 - 11/21/20 [facility] [address] [place] [address], 3rd [facility], [address] [place] [id number] Allergies, Adverse Reactions, Alerts Substance Reaction Severity [...] 3 Refills, Maintenance, 10/20/20 17:02:00 EST, Tablet, [facility], 185, cm, 08/13/20 14:06:00 EDT, Height Start Date: 10/20/20 Status: Orderedclopidogrel 75 mg oral tablet 1, tablet, By Mouth, Daily, # 90 each, Refills 3, Tot. Refills 3, Maintenance, 10/20/20 17:02:00 EST, Route to Pharmacy Electronically, [facility], 185, cm, 08/13/20 14:06:00 EDT, Height Start Date: 10/20/20 Status: OrderedlevETIRAcetam 750 mg oral tablet 3 tablet, By Mouth, 2 times a day, # 540 tablet, 3 Refills, Maintenance, 10/20/20 7:28:00 EST, [facility], 185, cm, 08/13/20 [...] 1 Refills, Maintenance, 08/13/20 14:42:00 EDT, Powder, [facility], 17 Gm By Mouth Daily,Instr:dissolve in [...] tablet, 11 Refills, Maintenance, 10/22/20 11:10:00 EST, [facility], 185, cm, 08/13/20 [...]
--- OUTSIDE RECORDS SUMMARY | 2022-08-09 16:07 | XMS_ITS | Continuity of Care Document ---
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 Refills 3, Maintenance, 08/13/20 14:43:00 EDT, Route to Pharmacy Electronically, [facility], 185, cm, 08/13/20 14:06:00 EDT, Height Start Date: 08/13/20 Status: OrderedlevETIRAcetam 750 mg oral tablet 3 tablet, By Mouth, 2 times a day, # 540 tablet, 3 Refills, Maintenance, 08/12/20 16:02:00 EDT, [facility], 185, cm, 04/13/20 10:46:00 EDT, Height [...] 1 Refills, Maintenance, 08/13/20 14:42:00 EDT, Powder, [facility], 17 Gm By Mouth Daily,Instr:dissolve in [...] # 620 tablet,3 Refills, 08/12/20 16:02:00 EDT, [facility], 185, cm, 04/13/20 10:46:00 EDT, Height [...] Diagnosis Type Effective Dates Health Clinical [facility] Status Service Epileptic seizure Discharge 08/13/20 Diagnosis Late effects of CVA Discharge 08/13/20 (cerebrovascular Diagnosis accident) Cerebral vascular Discharge 08/13/20 accident - with Diagnosis residual right hemiplegia, right neglect, partial Broca's aphasia Chronic Discharge 08/13/20 constipation Diagnosis General medical Discharge 08/13/20 exam Diagnosis Vital Signs Most recent to oldest [Reference Range]: 1 Height 185.00 cm (08/13/20 2:06 PM) Weight 80.7 kg (08/13/20 2:06 PM) Oxygen Saturation [94-100 %] 97 % (08/13/20 2:06 PM) Pulse Rate [55-90 bpm] 74 bpm (08/13/20 2:06 PM) Body Mass Index [18.5-24.99] 23.58 (08/13/20 2:06 PM) Blood Pressure [90-138/55-84 mm Hg] 108/68 mm Hg (08/13/20 2:06 PM) Temperature [96.8-100.4 DegF] 98.5 DegF (08/13/20 2:06 PM) Mode of Delivery (Oxygen) Room air (08/13/20 2:06 PM) Blood pressure sites Arm, left (08/13/20 2:06 PM) Temperature Route Oral (08/13/20 2:06 PM) Weight Obtained Via Standing scale (08/13/20 2:06 PM) Social History Social History Type Response Smoking Status Never smoker entered on: 06/13/18 Sex
--- NOTE | 2022-08-09 16:59 | HO.ANESPROP2 ---
Documented by User: Emmanuel Fernando MD 08/09/22 17:08 HPI - Anesthesia Eval Consult details Narrative: 52 M for cystoscopy PMFSH Active Problems Active Problems: All Active Problems (Updated 08/09/22 @ 16:19 by Nick Naylor MD) Obstructive uropathy (Acute) Seizure disorder (Acute) HLD (hyperlipidemia) (Acute) Ureterolithiasis (Acute) Acute kidney injury (Acute) Past Medical History Medical History CVA (cerebral vascular accident) Hemorrhagic stroke HLD (hyperlipidemia) Seizure disorder Seizures Family History Family History Other Diabetes HTN (hypertension) Social History Social History Household Members: Unknown / Unable to assess Housing: Apartment Do you presently have visiting nurse or other home services: No Unable to assess alcohol history related to: Unknown Patient Tobacco Use Status: Former Tobacco user Quit Date: 2012 [place] service: No Current occupational status: disabled Meds Allergies Allergy/AdvReac Type Severity Reaction Status Date / Time No Known Allergies Allergy Verified 08/09/22 11:07 [No Known Allergies*] Active Medications: Current Medications Allopurinol (Allopurinol 100 Mg Tablet) 100 mg PO DAILY PRN PRN Reason: REANL STONES Atorvastatin Calcium (Atorvastatin Calcium 40 Mg Tablet) 40 mg PO DAILY ISAC Sodium Chloride (Sodium Chloride 0.45 %) 1,000 mls @ 100 mls/hr IVCONT .Q10H ISAC Levetiracetam 2,000 mg/ (Levetiracetam 250 mg) 2,250 mg PO BID ISAC Melatonin (Melatonin 3 Mg Tablet) 6 mg PO BEDTIME PRN PRN Reason: Insomnia Pharmacy Consult (Consult Rx Perform Med Rec) 1 each MISCELLANE ONCE PRN PRN Reason: Consult order Pyridoxine HCl (Pyridoxine Hcl (Vitamin B6) 50 Mg Tablet) 100 mg PO DAILY ISAC Sodium Chloride (0.9 % Sodium Chloride Flush 3 Ml Syringe) 3 ml IVFLUSH QSHIFT ISAC Topiramate (Topiramate 100 Mg Tablet) 150 mg PO BEDTIME ISAC Topiramate (Topiramate 100 Mg Tablet) 200 mg PO DAILY [facility] Home Medications Medication Instructions Recorded Confirmed Last Taken Type allopurinol 100 mg tablet 100 mg PO DAILY PRN REANL STONES 08/09/22 08/09/22 Unknown History atorvastatin 40 mg tablet 1 tab PO DAILY 08/09/22 08/09/22 Unknown History clopidogrel 75 mg tablet 1 tab PO DAILY 08/09/22 08/09/22 Unknown History levetiracetam 750 mg tablet 3 tab PO BID 08/09/22 08/09/22 Unknown History riboflavin (vitamin B2) 100 mg 1 tab PO QAM 08/09/22 08/09/22 Unknown History tablet (Vitamin B-2) topiramate 50 mg tablet 150 mg PO BEDTIME 08/09/22 08/09/22 Unknown History topiramate 50 mg tablet 200 mg PO DAILY 08/09/22 08/09/22 Unknown History tramadol 50 mg tablet 50 mg PO Q12H PRN pain 08/09/22 08/09/22 Unknown History Exam Exam Date and Time: August 09, 2022 165 Height,Weight and Vital Signs: Height 6 ft 1 in Weight 72.575 kg Last Vital Signs Temp 97.6 F 08/09/22 13:43 Pulse 66 08/09/22 16:23 Resp 16 08/09/22 16:23 BP 126/77 08/09/22 16:23 Pulse Ox 98 08/09/22 16:23 O2 Del Method 08/09/22 16:23 Pertinent Lab Results Pertinent Lab Results: Laboratory Tests 08/09/22 08/09/22 08/09/22 11:20 11:20 13:39 WBC 10.0 RBC 4.61 Hgb 14.4 Hct 43.1 MCV 93.5 MCH 31.2 MCHC 33.4 RDW 13.2 Plt Count 303 MPV 10.1 Immature Gran % (Auto) 0.5 H Neut % (Auto) 63.3 Lymph % (Auto) 25.2 Douglas % (Auto) 8.8 Eos % (Auto) 1.7 Baso % (Auto) 0.5 Lymph # (Auto) 2.5 Douglas # (Auto) 0.9 Eos # (Auto) 0.2 Baso # (Auto) 0.1 Abs Immat Gran (auto) 0.05 H Absolute Neuts (auto) 6.3 Absolute Nucleated RBC 0.000 Nucleated RBC % (auto) 0.0 Sodium 142 Potassium 3.7 Chloride 113 H Carbon Dioxide 13 L Anion Gap 20 BUN 46 H Creatinine 5.00 H* Estim Creat Clear Calc 18.1 Estimated GFR 12 Random Glucose 97 Calcium 10.9 H Total Bilirubin 0.3 Direct Bilirubin 0.2 AST 18 ALT 21 Alkaline Phosphatase 109 Total Protein 8.1 H Albumin 4.7 Lipase 154 H Urine Color Yellow Urine Appearance Clear Urine pH 6.0 Ur Specific [place] 1.025 Urine Protein 30 (1+) H Urine Glucose (UA) Negative Urine Ketones 15 Urine Blood Negative Urine Nitrite Negative Ur Leukocyte Esterase Trace H Urine RBC 0-2 Urine WBC 0-5 Ur Squamous Epith Cells 0-2 Urine Bacteria None Seen Hyaline Casts 0-2 Documented by User: Iris Loya MD 08/09/22 18:16 HPI - Anesthesia Eval Consult details Narrative: 52 M for cystoscopy PMFSH Past Medical History Medical History CVA (cerebral vascular accident) Hemorrhagic stroke HLD (hyperlipidemia) Seizure disorder Seizures Family History Family History Other Diabetes HTN (hypertension) Family history of problems with anesthesia: No Surgical History History of Problems with Anesthesia: No Social History Social History Household Members: Unknown / Unable to assess Housing: Apartment Do you presently have visiting nurse or other home services: No Unable to assess alcohol history related to: Unknown Patient Tobacco Use Status: Former Tobacco user Quit Date: 2012 service: No Current occupational status: disabled Meds Allergies Allergy/AdvReac Type Severity Reaction Status Date / Time No Known Allergies Allergy Verified 08/09/22 11:07 [No Known Allergies*] Home Medications Medication Instructions Recorded Confirmed Last Taken Type allopurinol 100 mg tablet 100 mg PO DAILY PRN REANL STONES 08/09/22 08/09/22 Unknown History atorvastatin 40 mg tablet 1 tab PO DAILY 08/09/22 08/09/22 Unknown History clopidogrel 75 mg tablet 1 tab PO DAILY 08/09/22 08/09/22 Unknown History levetiracetam 750 mg tablet 3 tab PO BID 08/09/22 08/09/22 Unknown History riboflavin (vitamin B2) 100 mg 1 tab PO QAM 08/09/22 08/09/22 Unknown History tablet (Vitamin B-2) topiramate 50 mg tablet 150 mg PO BEDTIME 08/09/22 08/09/22 Unknown History topiramate 50 mg tablet 200 mg PO DAILY 08/09/22 08/09/22 Unknown History tramadol 50 mg tablet 50 mg PO Q12H PRN pain 08/09/22 08/09/22 Unknown History Exam Airway Mallampati Class: III TM Dist: >3cm Neck ROM: Full Heart: RRR Lungs: CTA Assessment and Plan Final Anesthetic Review Family History of Problems with Anesthesia: No History of Problems with Anesthesia: No NPO: Yes ASA Class: III and Emergency Final Preanesthetic Review: Meds/Allgs Chart Reviewed, Consent Obtained/Reviewed and Anes Risks/Benef Reviewed Patient Risk: Intermediate Procedure Risk: Low Anesthetic Plan Anesthetic Plan: GA Disposition: In. Admit - Standard Bed Documented by User: Ahmet Massey MD 08/15/22 13:40 [facility] Past Medical History Medical History CVA (cerebral vascular accident) Hemorrhagic stroke HLD (hyperlipidemia) Seizure disorder Seizures Family History Family History Other Diabetes HTN (hypertension) Social History Social History Household Members: Unknown / Unable to assess Housing: Apartment Do you presently have visiting nurse or other home services: No Unable to assess alcohol history related to: Unknown Patient Tobacco Use Status: Former Tobacco user Quit Date: 2012 service: No Current occupational status: disabled Meds Allergies Allergy/AdvReac Type Severity Reaction Status Date / Time No Known Allergies Allergy Verified 08/09/22 11:07 [No Known Allergies*] Home Medications Medication Instructions Recorded Confirmed Last Taken Type allopurinol 100 mg tablet 100 mg PO DAILY PRN REANL STONES 08/09/22 08/09/22 Unknown History atorvastatin 40 mg tablet 1 tab PO DAILY 08/09/22 08/09/22 Unknown History clopidogrel 75 mg tablet 1 tab PO DAILY 08/09/22 08/09/22 Unknown History levetiracetam 750 mg tablet 3 tab PO BID 08/09/22 08/09/22 Unknown History riboflavin (vitamin B2) 100 mg 1 tab PO QAM 08/09/22 08/09/22 Unknown History tablet (Vitamin B-2) topiramate 50 mg tablet 150 mg PO BEDTIME 08/09/22 08/09/22 Unknown History topiramate 50 mg tablet 200 mg PO DAILY 08/09/22 08/09/22 Unknown History tramadol 50 mg tablet 50 mg PO Q12H PRN pain 08/09/22 08/09/22 Unknown History Exam Airway Loose/Missing/Broken Teeth: Yes Assessment and Plan Assessment Anesthesia Assessment: Anesthesia Plan Discussed
--- NOTE | 2022-08-09 17:05 | MHC.SHP ---
Pre-Procedural Eval Section A Date of Service: 08/09/22 The patient is an INPATIENT: Yes Changes since office visit: No Cold of Flu in the past 2 weeks, No New Medical Problems, No Changes in Medication and No Patient answered all questions The History & Physical has been completed within 30 days and I have reviewed it.: Yes Section B Chief Complaint: HONG, obstructive uropathy Allergies: Allergies Allergy/AdvReac Type Severity Reaction Status Date / Time No Known Allergies Allergy Verified 08/09/22 11:07 [No Known Allergies*] Plan Diagnosis/Plan: Unchanged (Cystoscopy, Bilateral retrogrades, bilateral stents) I have reviewed the history and physical and performed a pertinent physical examination on my patient. No changes have occurred unless specified.
--- NOTE | 2022-08-09 19:20 | P.OP_ITS ---
Operative Note Operative Note Date of Service: 08/09/22 Narrative: PreOperative Diagnosis:?? right proximal ureteral stone. right hydronephrosis left UPJ stone. Left hydronephrosis acute renal insufficiency Post Operative Diagnosis:?? ? right proximal ureteral stone. right hydronephrosis left UPJ stone-. Left hydronephrosis acute renal insufficiency Procedure: - cystoscopy, right retrograde - right ureteral stent insertion -? cystoscopy,? left retrograde - ? left dilatation of ureteric orifice under fluoroscopy - ? left ureteroscopy - ? left stent placement-- modifier 22-100% longer than usual as the UPJ stone was encroached in the ureter Surgeon:?Dr Osiris Ferrera Anesthesia:? General Indications for procedure: Bilateral hydronephrosis secondary to bilateral obstructing stones. acute renal insufficiency Procedure: After informed consent was verified the patient was brought to the operating placed on the OR table in supine position.? General Anesthesia was administered per protocol.? The patient was placed in lithotomy position, prepped and draped in the usual sterile fashion.? Safety pause time-out and side of surgery confirmed.? Antibiotics confirmed. A 22 [place] cystoscope was inserted transurethrally, the bulbous urethra was within normal limits. The prostatic urethra was nonobstructive. The bladder was visualized.? Both ureteric orifices were in normal position. The? right ureteric orifice was cannulated? and a retrograde examination was performed, no distal filling defects?were seen.? Proximal filling defect consistent with proximal ureteral stone and mild proximal? ureteral nephrosis . A hydrophilic guidewire was placed up to the level of the renal pelvis under fluoroscopy. A? 6 [place] by multi variable length stent was placed into the ureter and renal pelvis under a combination of fluoroscopy and direct visualization. The? left? ureteric orifice was cannulated? and a retrograde examination was performed.? A large filling defect was noted at the level of the UPJ consistent with obstructing stone.? A hydrophilic wire was attempted to be placed into the renal pelvis, however there was difficulty maneuvering the guidewire beyond the stone as it was encroached in the ureter. After multiple attempts of manipulation, leaving the guidewire within the ureter the distal ureter was dilated, a Carlitos dilator was placed over the Sensor guidewire and used to dilate the ureteric orifice under fluoroscopy. The cystoscope was removed and the semi rigid ureteroscope was passed over the guidewire to the level of the stone and the guidewire was manipulated around the stone into the renal pelvis. The ureteroscope was removed. The cystoscope was passed over the guidewire and the 6 [place] by multi variable stent was then passed over the guidewire. There was some resistance in passing the guidewire beyond the stone. The bladder was emptied.? The rigid cystoscope was removed. ? The patient tolerated the procedure well and was brought out of anesthesia in the operating room, and transferred in stable condition to the recovery area. Pathology:? none Drains:? stent x 2 is above
[2022-08-09] MEDS: oxyCODONE HCl Immed Release 5 MG TABLET PO (20:18)
[2022-08-09] MEDS: LEVETIRACETAM 2250 MG PO (20:20)
[2022-08-09] MEDS: Topiramate 100 MG TABLET 150 MG PO (20:22)
[2022-08-09] MEDS: Sodium Chloride 0.45 % 1,000 ML 100 ML IVCONT (21:04)
[2022-08-10 03:28] VITALS: BP 141/82; PULSE 66; RESP 14; TEMP 36.5; O2SAT 98
[2022-08-10] MEDS: Sodium Chloride 0.45 % 1,000 ML 100 ML IVCONT ×3 (05:43→23:25)
[2022-08-10 07:14] VITALS: BP 127/75; PULSE 68; RESP 16; TEMP 36.5; O2SAT 98
[2022-08-10 07:37] LABS: Blood Urea Nitrogen 30 mg/dL (9-16); Calcium 9.5 mg/dL (8.4-10.2); Creatinine Clr Calc Pharmacy 36.7; Estimated Glomerular Filt Rate 28; Glucose Random 93 mg/dL (60-115)
[2022-08-10 07:49] LABS: Anion Gap 16 (12-20); Carbon Dioxide 11 mmol/L (22-29); Chloride 120 mmol/L (96-108); Potassium 3.8 mmol/L (3.3-5.1); Sodium 143 mmol/L (135-145)
--- NOTE | 2022-08-10 08:12 | P.PNUR_ITS ---
Subjective Subjective Date of Service: 08/10/22 Physical Exam Vital Signs: Vital Signs: Last Vital Signs Temp 97.7 F 08/10/22 07:14 Pulse 68 08/10/22 07:14 Resp 16 08/10/22 07:14 BP 127/75 08/10/22 07:14 Pulse Ox 98 08/10/22 07:14 O2 Del Method 08/10/22 07:14 BMI result Body Mass Index 21.1 Const: General: cooperative Orientation/consciousness: oriented to person Eyes: Conjunctivae: conjunctivae normal Neck: Neck: Yes trachea midline Resp: Effort & Inspection: normal respiratory effort Cardio: Rate: regular rate GI: Inspection: Yes normal to inspection Palpation (GI): Soft to palpation : Scrotum: scrotum normal Neuro: Other: Left hemiplegia General: oriented to person Urology Results Labs CBC & Chem 7: 08/09/22 11:20 08/10/22 06:10 Labs: Laboratory Results - last 24 hr 08/09/22 08/09/22 08/09/22 11:20 11:20 13:39 WBC 10.0 RBC 4.61 Hgb 14.4 Hct 43.1 MCV 93.5 MCH 31.2 MCHC 33.4 RDW 13.2 Plt Count 303 MPV 10.1 Immature Gran % (Auto) 0.5 H Neut % (Auto) 63.3 Lymph % (Auto) 25.2 [place] % (Auto) 8.8 Eos % (Auto) 1.7 Baso % (Auto) 0.5 Lymph # (Auto) 2.5 [place] # (Auto) 0.9 Eos # (Auto) 0.2 Baso # (Auto) 0.1 Abs Immat Gran (auto) 0.05 H Absolute Neuts (auto) 6.3 Absolute Nucleated RBC 0.000 Nucleated RBC % (auto) 0.0 Sodium 142 Potassium 3.7 Chloride 113 H Carbon Dioxide 13 L Anion Gap 20 BUN 46 H Creatinine 5.00 H* Estim Creat Clear Calc 18.1 Estimated GFR 12 Random Glucose 97 Calcium 10.9 H Total Bilirubin 0.3 Direct Bilirubin 0.2 AST 18 ALT 21 Alkaline Phosphatase 109 Total Protein 8.1 H Albumin 4.7 Lipase 154 H Urine Color Yellow Urine Appearance Clear Urine pH 6.0 Ur Specific [place] 1.025 Urine Protein 30 (1+) H Urine Glucose (UA) Negative Urine Ketones 15 Urine Blood Negative Urine Nitrite Negative Ur Leukocyte Esterase Trace H Urine RBC 0-2 Urine WBC 0-5 Ur Squamous Epith Cells 0-2 Urine Bacteria None Seen Hyaline Casts 0-2 08/10/22 06:10 WBC RBC Hgb Hct MCV MCH MCHC RDW Plt Count MPV Immature Gran % (Auto) Neut % (Auto) Lymph % (Auto) [place] % (Auto) Eos % (Auto) Baso % (Auto) Lymph # (Auto) [place] # (Auto) Eos # (Auto) Baso # (Auto) Abs Immat Gran (auto) Absolute Neuts (auto) Absolute Nucleated RBC Nucleated RBC % (auto) Sodium 143 Potassium 3.8 Chloride 120 H Carbon Dioxide 11 L Anion Gap 16 BUN 30 H Creatinine 2.47 H Estim Creat Clear Calc 36.7 Estimated GFR 28 Random Glucose 93 Calcium 9.5 D Total Bilirubin Direct Bilirubin AST ALT Alkaline Phosphatase Total Protein Albumin Lipase Urine Color Urine Appearance Urine pH Ur Specific [place] Urine Protein Urine Glucose (UA) Urine Ketones Urine Blood Urine Nitrite Ur Leukocyte Esterase Urine RBC Urine WBC Ur Squamous Epith Cells Urine Bacteria Hyaline Casts Progress Note: A&P Assessment and plan (1) Obstructive uropathy: Status: Acute (2) Ureterolithiasis: Status: Acute (3) Acute kidney injury: Status: Acute Plan NESS secondary to Obstructive Uropathy. B/L Ureteral stones, s/p bilateral stents, renal function improving Hematuria, pt on plavix, patient voiding, no significant clots currently Time Spent With Patient Time: Total time spent is greater than 50% in coordination of care (as documented) at patient's floor/unit and/or counseling patient: Progress Note: Quality Stroke Does the patient have a stroke diagnosis?: No
[2022-08-10] MEDS: LEVETIRACETAM 2250 MG PO ×2 (08:49→20:33)
[2022-08-10] MEDS: Pyridoxine HCl (Vitamin B6) 50 MG TABLET 100 MG PO (08:49)
[2022-08-10] MEDS: Topiramate 100 MG TABLET 200 MG PO (08:49)
[2022-08-10] MEDS: Atorvastatin Calcium 40 MG TABLET PO (08:49)
[2022-08-10] MEDS: allopurinoL 100 MG TABLET PO (08:49)
--- NOTE | 2022-08-10 08:59 | HO.PM.IMPN ---
Subjective Subjective Date of Service: 08/11/22 Interval History: f/u on obstructive uropathy, HONG, hydro interval history: had cysto with stent placement yesterday, post surgery hematuria, and pain, Creatine down to 2 from 5 Review of Systems No n/v some Physical Exam Vital Signs: Vital Signs: Last Vital Signs Temp 97.7 F 08/10/22 07:14 Pulse 68 08/10/22 07:14 Resp 16 08/10/22 07:14 BP 127/75 08/10/22 07:14 Pulse Ox 98 08/10/22 07:14 O2 Del Method 08/10/22 07:14 BMI result Body Mass Index 21.1 Const: Other: General: AO X 3, no acute distress Resp: CTA bilateral CVS: S1,S2,RRR GI: +BS, NT, no distention Skin: No rash Neuro: motor grossly intact Psych: appropriate affect Objective Data Active Medications Allopurinol (Allopurinol 100 Mg Tablet) 100 mg PO DAILY PRN PRN Reason: REANL STONES Last Admin: 08/10/22 08:49 Dose: 100 mg Documented By: MANUEL Atorvastatin Calcium (Atorvastatin Calcium 40 Mg Tablet) 40 mg PO DAILY [facility] Last Admin: 08/10/22 08:49 Dose: 40 mg Documented By: MANUEL Fentanyl (Fentanyl Citrate/Pf 100 Mcg/2 Ml Vial) 25 mcg IVPUSH Q5M PRN; Protocol PRN Reason: Pain, Moderate (Pain Scale 4-6 Fentanyl (Fentanyl Citrate/Pf 100 Mcg/2 Ml Vial) 25 mcg IVPUSH Q5M PRN; Protocol PRN Reason: Pain, Moderate (Pain Scale 4-6 Sodium Chloride (Sodium Chloride 0.45 %) 1,000 mls @ 100 mls/hr IVCONT .Q10H [facility] Last Admin: 08/10/22 05:43 Dose: 100 mls/hr Documented By: MORRINL Levetiracetam 2,000 mg/ (Levetiracetam 250 mg) 2,250 mg PO BID [facility] Last Admin: 08/10/22 08:49 Dose: 2,250 mg Documented By: MANUEL Melatonin (Melatonin 3 Mg Tablet) 6 mg PO BEDTIME PRN PRN Reason: Insomnia Ondansetron HCl (Ondansetron Hcl 4 Mg/2 Ml Vial) 4 mg IVPUSH ONCE PRN PRN Reason: Nausea and Vomiting Ondansetron HCl (Ondansetron Hcl 4 Mg/2 Ml Vial) 4 mg IVPUSH ONCE PRN PRN Reason: Nausea and Vomiting Oxycodone HCl (Oxycodone Hcl Immed Release 5 Mg Tablet) 5 mg PO Q6H PRN PRN Reason: Pain, Severe (Pain Scale 7-10) Pharmacy Consult (Consult Rx Perform Med Rec) 1 each MISCELLANE ONCE PRN PRN Reason: Consult order Pyridoxine HCl (Pyridoxine Hcl (Vitamin B6) 50 Mg Tablet) 100 mg PO DAILY [facility] Last Admin: 08/10/22 08:49 Dose: 100 mg Documented By: MANUEL Sodium Chloride (0.9 % Sodium Chloride Flush 3 Ml Syringe) 3 ml IVFLUSH QSHIFT [facility] Last Admin: 08/10/22 08:51 Dose: Not Given Documented By: MANUEL Non-Admin Reason: IV Running Topiramate (Topiramate 100 Mg Tablet) 150 mg PO BEDTIME [facility] Last Admin: 08/09/22 20:22 Dose: 150 mg Documented By: MEKARINKendell Topiramate (Topiramate 100 Mg Tablet) 200 mg PO DAILY [facility] Last Admin: 08/10/22 08:49 Dose: 200 mg Documented By: MANUEL Labs CBC & Chem 7: 08/09/22 11:20 08/10/22 06:10 Labs: Laboratory Results - last 24 hr 08/09/22 08/09/22 08/09/22 11:20 11:20 13:39 MCV 93.5 MCH 31.2 MCHC 33.4 RDW 13.2 Plt Count 303 MPV 10.1 Immature Gran % (Auto) 0.5 H Neut % (Auto) 63.3 Lymph % (Auto) 25.2 [place] % (Auto) 8.8 Eos % (Auto) 1.7 Baso % (Auto) 0.5 Lymph # (Auto) 2.5 [place] # (Auto) 0.9 Eos # (Auto) 0.2 Baso # (Auto) 0.1 Abs Immat Gran (auto) 0.05 H Absolute Neuts (auto) 6.3 Absolute Nucleated RBC 0.000 Nucleated RBC % (auto) 0.0 Anion Gap 20 Estim Creat Clear Calc 18.1 Estimated GFR 12 Random Glucose 97 Calcium 10.9 H Total Bilirubin 0.3 Direct Bilirubin 0.2 AST 18 ALT 21 Alkaline Phosphatase 109 Total Protein 8.1 H Albumin 4.7 Lipase 154 H Urine Color Yellow Urine Appearance Clear Urine pH 6.0 Ur Specific [place] 1.025 Urine Protein 30 (1+) H Urine Glucose (UA) Negative Urine Ketones 15 Urine Blood Negative Urine Nitrite Negative Ur Leukocyte Esterase Trace H Urine RBC 0-2 Urine WBC 0-5 Ur Squamous Epith Cells 0-2 Urine Bacteria None Seen Hyaline Casts 0-2 08/10/22 06:10 MCV MCH MCHC RDW Plt Count MPV Immature Gran % (Auto) Neut % (Auto) Lymph % (Auto) [place] % (Auto) Eos % (Auto) Baso % (Auto) Lymph # (Auto) [place] # (Auto) Eos # (Auto) Baso # (Auto) Abs Immat Gran (auto) Absolute Neuts (auto) Absolute Nucleated RBC Nucleated RBC % (auto) Anion Gap 16 Estim Creat Clear Calc 36.7 Estimated GFR 28 Random Glucose 93 Calcium 9.5 D Total Bilirubin Direct Bilirubin AST ALT Alkaline Phosphatase Total Protein Albumin Lipase Urine Color Urine Appearance Urine pH Ur Specific [place] Urine Protein Urine Glucose (UA) Urine Ketones Urine Blood Urine Nitrite Ur Leukocyte Esterase Urine RBC Urine WBC Ur Squamous Epith Cells Urine Bacteria Hyaline Casts Assessment and Plan (1) Obstructive uropathy: Status: Acute (2) Acute kidney injury: Status: Acute Plan 52 year old male with HTN, HLD, s/p craniotomy for hemorrhagic stroke in past here with obstructive uropathy with Hydronephrosis and HONG and in need of acute urological intervention Plan; \ Ostructive uropathy, HONG, Hydronephrosis s/p Cystoscopy with stent, renal function is improving, has some some hematuria likely Urology plan to operate on him today, overall cardiopulmary risk is low and no indiation for additional testing at this time. recommend holding Plavix for now. HLD,, continue statin seizure desorder continue Keppra DVT prophylaxis: compression device and reassess after procedure Full code plan was discussed with his brother at bedside Quality Stroke Does the patient have a stroke diagnosis?: No VTE Prior VTE?: No VTE Risk Level:: Medical - moderate - high VTE Device Contraindication: N/A - Device Ordered VTE Drug Contraindication: Treatment Not Tolerated
[2022-08-10 11:15] VITALS: BP 140/89; PULSE 68; RESP 12; TEMP 36.7; O2SAT 99
--- NOTE | 2022-08-10 12:43 | PC.NURSE ---
Pt and family noticed pt black square framed eyeglasses have been missing since before he was brought to OR on 08/09. Last known place was ED, room E3. Not in pt belongings bag/in room, notified nursing tile and mottle supervisor.
--- NOTE | 2022-08-10 13:21 | P.CDIC_ITS ---
CDI Concurrent Query Documentation Clarification: PHYSICIAN'S DOCUMENTATION REQUEST Date of Query: 08/10/22 1322 Patient Name: Yony Dee Admit Date: 08/09/22 Dear Doctor, A review of the medical record indicates additional documentation may be needed. Please review below and update the documentation accordingly. Clinical Indicators: Is there further specificity that correlates with the findings below: Risk Factors/Clinical Indicators/Treatments Per H&P on 08/09: history of CKD last creatine in April 12. LABS: Estimated GFR 08/10 Please clarify which of the following accurately represents the patient's renal status: * CKD, please provide stage - see criteria * Other (please specify) * Unable to determine Stages of Chronic Kidney Disease* Level Description GFR G1 Normal or High > 90 G2 Mildly decreased 60 ? 89 G3a Mildly to moderately decreased 45 ? 59 G3b Moderately to severely decreased 30 - 44 G4 Severely decreased 15 ? 29 G5 Kidney failure < 15 *Source: Kidney Disease: Improving Global Outcomes (KDIGO) 2012 Use of terms such as suspected, likely, concern for, or probable (associated with a specific diagnosis that is being evaluated, monitored, or treated as if it exists) are acceptable and can be coded in the inpatient setting, when documented at the time of discharge. Thank you, Catrina Burger MS, RN, CCRN Extension: [phone] Please use your independent medical judgment in providing your response. THIS QUERY IS PART OF THE PERMANENT MEDICAL RECORD Provider Response: Other Other Diagnosis: other
--- NOTE | 2022-08-10 13:49 | MHC.CM.PN ---
EMR REVIEWED IMM DELIVERED 08/10 CM MET WITH PT AND BROTHER. 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 PER BROTHER, PT LIVES WITH HIM IN A HOUSE ON THE FIRST FLOOR, HAS [employer] 9.5HR/WK AND ASSIST FROM BROTHER. HAS W/C, WALKER, CANE, GRAB BARS IN BR AND RAISED TOILET SEAT. NO HCP ON FILE, BROTHER UNSURE IF COPY IN EXISTENCE. WILL CHECK AT HOME. COVID VAX X2 WITH [employer]. BROTHER WILL TRANSPORT WHEN READY TO [place].
[2022-08-10] MEDS: oxyCODONE HCl Immed Release 5 MG TABLET PO ×2 (14:07→20:33)
[2022-08-10 15:40] VITALS: BP 127/78; PULSE 77; RESP 17; TEMP 36.3; O2SAT 98
[2022-08-10 19:20] VITALS: BP 143/83; PULSE 88; RESP 16; TEMP 36.4; O2SAT 100
[2022-08-10] MEDS: Topiramate 100 MG TABLET 150 MG PO (20:33)
[2022-08-10] MEDS: Acetaminophen 325 MG TABLET 650 MG PO (23:23)
[2022-08-10] MEDS: Melatonin 3 MG TABLET 6 MG PO (23:27)
[2022-08-11 03:37] VITALS: BP 137/79; PULSE 86; RESP 18; TEMP 37; O2SAT 98
[2022-08-11 07:32] VITALS: BP 140/81; PULSE 83; RESP 17; TEMP 36.8; O2SAT 97
[2022-08-11] MEDS: Pyridoxine HCl (Vitamin B6) 50 MG TABLET 100 MG PO (07:59)
[2022-08-11] MEDS: LEVETIRACETAM 2250 MG PO ×2 (07:59→19:55)
[2022-08-11] MEDS: Topiramate 100 MG TABLET 200 MG PO (07:59)
[2022-08-11] MEDS: Atorvastatin Calcium 40 MG TABLET PO (07:59)
--- NOTE | 2022-08-11 08:43 | PM.UROPN ---
Subjective Subjective Date of Service: 08/11/22 Physical Exam Const: General: cooperative Orientation/consciousness: oriented to person Eyes: Conjunctivae: conjunctivae normal Neck: Neck: Yes trachea midline Resp: Effort & Inspection: normal respiratory effort Cardio: Rate: regular rate GI: Inspection: Yes normal to inspection Palpation (GI): Soft to palpation : Scrotum: scrotum normal Neuro: Other: Left hemiplegia General: oriented to person Urology Results Labs CBC & Chem 7: 08/09/22 11:20 08/10/22 06:10 Labs: today's labs pending Progress Note: A&P Assessment and plan (1) Obstructive uropathy: Status: Acute (2) Ureterolithiasis: Status: Acute (3) Acute kidney injury: Status: Acute Plan NESS secondary to Obstructive Uropathy. B/L Ureteral stones, s/p bilateral stents, renal function improving Hematuria, patient voiding, no significant clots currently Plan Right Ureteroscopy laser lithotripsy stent exchange possible bilateral on Sunday Time Spent With Patient Time: Total time spent is greater than 50% in coordination of care (as documented) at patient's floor/unit and/or counseling patient: Progress Note: Quality Stroke Does the patient have a stroke diagnosis?: No
[2022-08-11 11:32] VITALS: BP 131/73; PULSE 80; RESP 19; TEMP 36.7; O2SAT 99
[2022-08-11] MEDS: Sodium Chloride 0.45 % 1,000 ML 100 ML IVCONT (11:40)
--- NOTE | 2022-08-11 12:01 | HO.PM.IMPN ---
Subjective Subjective Date of Service: 08/11/22 Interval History: f/u on obstructive uropathy, HONG, hydro interval history: had cysto with stent placement yesterday, post surgery hematuria, and pain, Creatine down to 2 from 5 Review of Systems No n/v some Physical Exam Vital Signs: Vital Signs: Last Vital Signs Temp 98.1 F 08/11/22 11:32 Pulse 80 08/11/22 11:32 Resp 19 08/11/22 11:32 BP 131/73 08/11/22 11:32 Pulse Ox 99 08/11/22 11:32 O2 Del Method 08/11/22 11:32 BMI result Body Mass Index 21.1 Const: Other: General: AO X 3, no acute distress Resp: CTA bilateral CVS: S1,S2,RRR GI: +BS, NT, no distention Skin: No rash Neuro: motor grossly intact Psych: appropriate affect Objective Data Active Medications Allopurinol (Allopurinol 100 Mg Tablet) 100 mg PO DAILY PRN PRN Reason: REANL STONES Last Admin: 08/10/22 08:49 Dose: 100 mg Documented By: MANUEL Atorvastatin Calcium (Atorvastatin Calcium 40 Mg Tablet) 40 mg PO DAILY [facility] Last Admin: 08/11/22 07:59 Dose: 40 mg Documented By: GUERRERO Fentanyl (Fentanyl Citrate/Pf 100 Mcg/2 Ml Vial) 25 mcg IVPUSH Q5M PRN; Protocol PRN Reason: Pain, Moderate (Pain Scale 4-6 Fentanyl (Fentanyl Citrate/Pf 100 Mcg/2 Ml Vial) 25 mcg IVPUSH Q5M PRN; Protocol PRN Reason: Pain, Moderate (Pain Scale 4-6 Sodium Chloride (Sodium Chloride 0.45 %) 1,000 mls @ 100 mls/hr IVCONT .Q10H [facility] Last Admin: 08/11/22 11:40 Dose: 100 mls/hr Documented By: GUERRERO Levetiracetam 2,000 mg/ (Levetiracetam 250 mg) 2,250 mg PO BID [facility] Last Admin: 08/11/22 07:59 Dose: 2,250 mg Documented By: GUERRERO Melatonin (Melatonin 3 Mg Tablet) 6 mg PO BEDTIME PRN PRN Reason: Insomnia Last Admin: 08/10/22 23:27 Dose: 6 mg Documented By: ELYSSA Ondansetron HCl (Ondansetron Hcl 4 Mg/2 Ml Vial) 4 mg IVPUSH ONCE PRN PRN Reason: Nausea and Vomiting Ondansetron HCl (Ondansetron Hcl 4 Mg/2 Ml Vial) 4 mg IVPUSH ONCE PRN PRN Reason: Nausea and Vomiting Oxycodone HCl (Oxycodone Hcl Immed Release 5 Mg Tablet) 5 mg PO Q6H PRN PRN Reason: Pain, Severe (Pain Scale 7-10) Last Admin: 08/10/22 20:33 Dose: 5 mg Documented By: ELYSSA Pharmacy Consult (Consult Rx Perform Med Rec) 1 each MISCELLANE ONCE PRN PRN Reason: Consult order Pyridoxine HCl (Pyridoxine Hcl (Vitamin B6) 50 Mg Tablet) 100 mg PO DAILY [facility] Last Admin: 08/11/22 07:59 Dose: 100 mg Documented By: GUERRERO Sodium Chloride (0.9 % Sodium Chloride Flush 3 Ml Syringe) 3 ml IVFLUSH QSHIFT [facility] Last Admin: 08/11/22 08:00 Dose: Not Given Documented By: GUERRERO Non-Admin Reason: IV Running Topiramate (Topiramate 100 Mg Tablet) 150 mg PO BEDTIME [facility] Last Admin: 08/10/22 20:33 Dose: 150 mg Documented By: ELYSSA Topiramate (Topiramate 100 Mg Tablet) 200 mg PO DAILY [facility] Last Admin: 08/11/22 07:59 Dose: 200 mg Documented By: GUERRERO Labs CBC & Chem 7: 08/09/22 11:20 08/10/22 06:10 Assessment and Plan (1) Obstructive uropathy: Status: Acute (2) Acute kidney injury: Status: Acute Plan 52 year old male with HTN, HLD, s/p craniotomy for hemorrhagic stroke in past here with obstructive uropathy with Hydronephrosis and HONG and in need of acute urological intervention Plan Ostructive uropathy, HONG, Hydronephrosis s/p Cystoscopy with stent, renal function is improving, has some some hematuria likely from plavix, follow H/H, urology is recommending further testing on Sunday and he is reluctant to stay here until then HLD,, continue statin seizure desorder continue Keppra DVT prophylaxis: compression device and reassess after procedure Full code need for inaptient: obstructive uropathy, hong and need surgical intervention Quality Stroke Does the patient have a stroke diagnosis?: No VTE Prior VTE?: No VTE Risk Level:: Medical - moderate - high VTE Device Contraindication: N/A - Device Ordered VTE Drug Contraindication: Treatment Not Tolerated
[2022-08-11 12:35] LABS: Anion Gap 15 (12-20); Blood Urea Nitrogen 16 mg/dL (9-16); Calcium 10.3 mg/dL (8.4-10.2); Carbon Dioxide 15 mmol/L (22-29); Chloride 117 mmol/L (96-108); Creatinine Clr Calc Pharmacy 76.8; Estimated Glomerular Filt Rate > 60; Glucose Random 98 mg/dL (60-115); Sodium 143 mmol/L (135-145)
--- NOTE | 2022-08-11 14:55 | MHC.CM.PN ---
EMR REVIEWED, PT POST CYSTOSCOPY AND STENT PLACEMENT W/ POST PROCEDURE HEMATURIA AND PAIN, CREATININE DECREASING, PT TO HAVE ADDITIONAL PROCEDURE ON TUES HOWEVER PT UNSURE IF HE WILL STAY VS SCHEDULE OUTPT, REFERRAL TO [facility] PLACED, CM WILL CONT TO FOLLOW D/C NEEDS.
[2022-08-11 15:25] VITALS: BP 133/78; PULSE 75; RESP 17; TEMP 36.8; O2SAT 98
[2022-08-11] MEDS: oxyCODONE HCl Immed Release 5 MG TABLET PO (18:09)
[2022-08-11 19:19] VITALS: BP 137/86; PULSE 75; RESP 17; TEMP 36.6; O2SAT 98
[2022-08-11] MEDS: Topiramate 100 MG TABLET 150 MG PO (19:53)
[2022-08-11] MEDS: 0.9 % Sodium Chloride Flush 3 ML SYRINGE IVFLUSH (19:56)
[2022-08-11 23:46] VITALS: BP 124/76; PULSE 73; RESP 18; TEMP 36.8; O2SAT 98
[2022-08-12 03:28] VITALS: BP 126/74; PULSE 75; RESP 18; TEMP 36.6; O2SAT 97
[2022-08-12 07:38] VITALS: BP 120/76; PULSE 69; RESP 18; TEMP 36.3; O2SAT 97
[2022-08-12] MEDS: Pyridoxine HCl (Vitamin B6) 50 MG TABLET 100 MG PO (07:58)
[2022-08-12] MEDS: Topiramate 100 MG TABLET 200 MG PO (07:58)
[2022-08-12] MEDS: LEVETIRACETAM 2250 MG PO ×2 (07:58→19:52)
[2022-08-12] MEDS: Atorvastatin Calcium 40 MG TABLET PO (07:58)
[2022-08-12] MEDS: 0.9 % Sodium Chloride Flush 3 ML SYRINGE IVFLUSH ×3 (07:59→19:58)
--- NOTE | 2022-08-12 08:14 | P.PNIM_ITS ---
Subjective Subjective Date of Service: 08/12/22 Interval History: f/u on obstructive uropathy, HONG, hydro interval history: no new issues, Cr is normal as of 08/11 Review of Systems No n/v some Physical Exam Vital Signs: Vital Signs: Last Vital Signs Temp 97.3 F 08/12/22 07:38 Pulse 69 08/12/22 07:38 Resp 18 08/12/22 07:38 BP 120/76 08/12/22 07:38 Pulse Ox 97 08/12/22 07:38 O2 Del Method 08/12/22 07:38 BMI result Body Mass Index 21.1 Const: Other: General: AO X 3, no acute distress Resp: CTA bilateral CVS: S1,S2,RRR GI: +BS, NT, no distention Skin: No rash Neuro: motor grossly intact Psych: appropriate affect Objective Data Active Medications Allopurinol (Allopurinol 100 Mg Tablet) 100 mg PO DAILY PRN PRN Reason: REANL STONES Last Admin: 08/10/22 08:49 Dose: 100 mg Documented By: MANUEL Atorvastatin Calcium (Atorvastatin Calcium 40 Mg Tablet) 40 mg PO DAILY [facility] Last Admin: 08/12/22 07:58 Dose: 40 mg Documented By: ABEL Fentanyl (Fentanyl Citrate/Pf 100 Mcg/2 Ml Vial) 25 mcg IVPUSH Q5M PRN; Protocol PRN Reason: Pain, Moderate (Pain Scale 4-6 Fentanyl (Fentanyl Citrate/Pf 100 Mcg/2 Ml Vial) 25 mcg IVPUSH Q5M PRN; Protocol PRN Reason: Pain, Moderate (Pain Scale 4-6 Levetiracetam 2,000 mg/ (Levetiracetam 250 mg) 2,250 mg PO BID [facility] Last Admin: 08/12/22 07:58 Dose: 2,250 mg Documented By: ABEL Melatonin (Melatonin 3 Mg Tablet) 6 mg PO BEDTIME PRN PRN Reason: Insomnia Last Admin: 08/10/22 23:27 Dose: 6 mg Documented By: ELYSSA Ondansetron HCl (Ondansetron Hcl 4 Mg/2 Ml Vial) 4 mg IVPUSH ONCE PRN PRN Reason: Nausea and Vomiting Ondansetron HCl (Ondansetron Hcl 4 Mg/2 Ml Vial) 4 mg IVPUSH ONCE PRN PRN Reason: Nausea and Vomiting Oxycodone HCl (Oxycodone Hcl Immed Release 5 Mg Tablet) 5 mg PO Q6H PRN PRN Reason: Pain, Severe (Pain Scale 7-10) Last Admin: 08/11/22 18:09 Dose: 5 mg Documented By: GUERRERO Pharmacy Consult (Consult Rx Perform Med Rec) 1 each MISCELLANE ONCE PRN PRN Reason: Consult order Pyridoxine HCl (Pyridoxine Hcl (Vitamin B6) 50 Mg Tablet) 100 mg PO DAILY [facility] Last Admin: 08/12/22 07:58 Dose: 100 mg Documented By: ABEL Sodium Chloride (0.9 % Sodium Chloride Flush 3 Ml Syringe) 3 ml IVFLUSH QSHIFT [facility] Last Admin: 08/12/22 07:59 Dose: 3 ml Documented By: ABEL Topiramate (Topiramate 100 Mg Tablet) 150 mg PO BEDTIME [facility] Last Admin: 08/11/22 19:53 Dose: 150 mg Documented By: BRANDO Topiramate (Topiramate 100 Mg Tablet) 200 mg PO DAILY [facility] Last Admin: 08/12/22 07:58 Dose: 200 mg Documented By: ABEL Labs CBC & Chem 7: 08/09/22 11:20 08/11/22 12:00 Labs: Laboratory Results - last 24 hr 08/11/22 12:00 Anion Gap 15 Estim Creat Clear Calc 76.8 Estimated GFR > 60 Random Glucose 98 Calcium 10.3 H D Assessment and Plan (1) Obstructive uropathy: Status: Acute (2) Acute kidney injury: Status: Acute Plan 52 year old male with HTN, HLD, s/p craniotomy for hemorrhagic stroke in past here with obstructive uropathy with Hydronephrosis and HONG and in need of acute urological intervention Plan Ostructive uropathy, HONG, Hydronephrosis s/p bilateral stents on 08/09 renal function is now normal, hematuria resolved. Plan for Right Ureteroscopy laser lithotripsy stent exchange possible bilateral on Sunday HLD,, continue statin seizure desorder continue Keppra DVT prophylaxis: compression device and reassess after procedure Full code need for inaptient: obstructive uropathy, hong and need surgical intervention NESS secondary to Obstructive Uropathy. Quality Stroke Does the patient have a stroke diagnosis?: No VTE Prior VTE?: No VTE Risk Level:: Medical - moderate - high VTE Device Contraindication: N/A - Device Ordered VTE Drug Contraindication: Treatment Not Tolerated
[2022-08-12 11:45] VITALS: BP 124/77; PULSE 80; RESP 18; TEMP 36.4; O2SAT 96
[2022-08-12 14:53] VITALS: BP 138/77; PULSE 70; RESP 18; TEMP 36.1; O2SAT 97
[2022-08-12 19:23] VITALS: BP 127/73; PULSE 87; RESP 17; TEMP 36.9; O2SAT 98
[2022-08-12] MEDS: Topiramate 100 MG TABLET 150 MG PO (19:53)
[2022-08-12 23:18] VITALS: BP 124/69; PULSE 80; RESP 16; TEMP 36.3; O2SAT 95
[2022-08-13 03:52] VITALS: BP 114/72; PULSE 78; RESP 16; TEMP 36.9; O2SAT 97
[2022-08-13] MEDS: Topiramate 100 MG TABLET 200 MG PO (07:38)
[2022-08-13] MEDS: Atorvastatin Calcium 40 MG TABLET PO (07:38)
[2022-08-13] MEDS: LEVETIRACETAM 2250 MG PO ×2 (07:38→19:39)
[2022-08-13] MEDS: 0.9 % Sodium Chloride Flush 3 ML SYRINGE IVFLUSH ×3 (07:38→19:41)
[2022-08-13] MEDS: Pyridoxine HCl (Vitamin B6) 50 MG TABLET 100 MG PO (07:38)
[2022-08-13 08:00] VITALS: BP 129/74; PULSE 77; RESP 18; TEMP 36.5; O2SAT 97
[2022-08-13 08:29] LABS: Hematocrit 38.1 % (42.0-52.0); Hemoglobin 12.7 g/dl (14.0-18.0); Mean Corpuscular HGB Conc 33.3 g/dl (31.0-36.0); Mean Corpuscular Volume 92.9 fL (80.0-98.0); Mean Platelet Volume 10.1 fL (9.4-12.4); Platelet Count 304 X10*3/uL (160-400); Red Cell Distribution Width 13.6 % (11.0-16.0); White Blood Count 9.6 X10*3/uL (4.8-10.8)
--- NOTE | 2022-08-13 09:55 | HO.PM.IMPN ---
Subjective Subjective Date of Service: 08/13/22 Interval History: f/u on obstructive uropathy, HONG, hydro interval history: no new issues, Cr is normal as of 08/11, still having hematuria but no significant shift in H/H Review of Systems No n/v some Physical Exam Vital Signs: Vital Signs: Last Vital Signs Temp 97.7 F 08/13/22 08:00 Pulse 77 08/13/22 08:00 Resp 18 08/13/22 08:00 BP 129/74 08/13/22 08:00 Pulse Ox 97 08/13/22 08:00 O2 Del Method 08/13/22 08:00 BMI result Body Mass Index 21.1 Const: Other: General: AO X 3, no acute distress Resp: CTA bilateral CVS: S1,S2,RRR GI: +BS, NT, no distention Skin: No rash Neuro: motor grossly intact Psych: appropriate affect Objective Data Active Medications Allopurinol (Allopurinol 100 Mg Tablet) 100 mg PO DAILY PRN PRN Reason: REANL STONES Last Admin: 08/10/22 08:49 Dose: 100 mg Documented By: MANUEL Atorvastatin Calcium (Atorvastatin Calcium 40 Mg Tablet) 40 mg PO DAILY [facility] Last Admin: 08/13/22 07:38 Dose: 40 mg Documented By: JOHN Fentanyl (Fentanyl Citrate/Pf 100 Mcg/2 Ml Vial) 25 mcg IVPUSH Q5M PRN; Protocol PRN Reason: Pain, Moderate (Pain Scale 4-6 Fentanyl (Fentanyl Citrate/Pf 100 Mcg/2 Ml Vial) 25 mcg IVPUSH Q5M PRN; Protocol PRN Reason: Pain, Moderate (Pain Scale 4-6 Levetiracetam 2,000 mg/ (Levetiracetam 250 mg) 2,250 mg PO BID [facility] Last Admin: 08/13/22 07:38 Dose: 2,250 mg Documented By: JOHN Melatonin (Melatonin 3 Mg Tablet) 6 mg PO BEDTIME PRN PRN Reason: Insomnia Last Admin: 08/10/22 23:27 Dose: 6 mg Documented By: ELYSSA Ondansetron HCl (Ondansetron Hcl 4 Mg/2 Ml Vial) 4 mg IVPUSH ONCE PRN PRN Reason: Nausea and Vomiting Ondansetron HCl (Ondansetron Hcl 4 Mg/2 Ml Vial) 4 mg IVPUSH ONCE PRN PRN Reason: Nausea and Vomiting Oxycodone HCl (Oxycodone Hcl Immed Release 5 Mg Tablet) 5 mg PO Q6H PRN PRN Reason: Pain, Severe (Pain Scale 7-10) Last Admin: 08/11/22 18:09 Dose: 5 mg Documented By: GUERRERO Pharmacy Consult (Consult Rx Perform Med Rec) 1 each MISCELLANE ONCE PRN PRN Reason: Consult order Pyridoxine HCl (Pyridoxine Hcl (Vitamin B6) 50 Mg Tablet) 100 mg PO DAILY [facility] Last Admin: 08/13/22 07:38 Dose: 100 mg Documented By: JOHN Sodium Chloride (0.9 % Sodium Chloride Flush 3 Ml Syringe) 3 ml IVFLUSH QSHIFT [facility] Last Admin: 08/13/22 07:38 Dose: 3 ml Documented By: JOHN Topiramate (Topiramate 100 Mg Tablet) 150 mg PO BEDTIME [facility] Last Admin: 08/12/22 19:53 Dose: 150 mg Documented By: BRANDO Topiramate (Topiramate 100 Mg Tablet) 200 mg PO DAILY [facility] Last Admin: 08/13/22 07:38 Dose: 200 mg Documented By: JOHN Labs CBC & Chem 7: 08/13/22 08:21 08/11/22 12:00 Labs: Laboratory Results - last 24 hr 08/13/22 08/13/22 08:21 08:21 MCV 92.9 MCH 31.0 MCHC 33.3 RDW 13.6 Plt Count 304 MPV 10.1 Absolute Nucleated RBC 0.000 Nucleated RBC % (auto) 0.0 Blood Type B Positive Antibody Screen NEGATIVE Assessment and Plan (1) Obstructive uropathy: Status: Acute (2) Acute kidney injury: Status: Acute Plan 52 year old male with HTN, HLD, s/p craniotomy for hemorrhagic stroke in past here with obstructive uropathy with Hydronephrosis and HONG and in need of acute urological intervention Plan Ostructive uropathy, HONG, Hydronephrosis s/p bilateral stents on 08/09 renal function is now normal, hematuria resolved. Plan for Right Ureteroscopy laser lithotripsy stent exchange possible bilateral on Wednesday 08/15 Hematuria--with no signficant blood loss, hold plavix HLD,, continue statin seizure disorder continue Keppra DVT prophylaxis: compression device and reassess after procedure Full code need for inaptient: obstructive uropathy, hong and need surgical intervention Quality Stroke Does the patient have a stroke diagnosis?: No VTE Prior VTE?: No VTE Risk Level:: Medical - moderate - high VTE Device Contraindication: N/A - Device Ordered VTE Drug Contraindication: Treatment Not Tolerated
[2022-08-13 11:10] VITALS: BP 119/76; PULSE 78; RESP 18; TEMP 36.4; O2SAT 97
[2022-08-13 15:07] VITALS: BP 122/79; PULSE 80; RESP 18; TEMP 36.5; O2SAT 96
[2022-08-13] MEDS: Topiramate 100 MG TABLET 150 MG PO (19:39)
[2022-08-13 19:44] VITALS: BP 142/74; PULSE 86; RESP 18; TEMP 36.7; O2SAT 98
[2022-08-14] VITALS (7 sets, daily range): BP systolic 116–128; BP diastolic 69–80; PULSE 61–85; RESP 17–19; TEMP 36.2–37.4; O2SAT 96–100
[2022-08-14] MEDS: Throat Lozenge, Medicated LOZENGE 1 LOZENGE MUCOUS MEM (02:59)
[2022-08-14] MEDS: LEVETIRACETAM 2250 MG PO ×2 (10:17→20:17)
[2022-08-14] MEDS: Atorvastatin Calcium 40 MG TABLET PO (10:17)
[2022-08-14] MEDS: Pyridoxine HCl (Vitamin B6) 50 MG TABLET 100 MG PO (10:17)
[2022-08-14] MEDS: Topiramate 100 MG TABLET 200 MG PO (10:17)
[2022-08-14] MEDS: 0.9 % Sodium Chloride Flush 3 ML SYRINGE IVFLUSH ×3 (10:18→20:17)
--- NOTE | 2022-08-14 11:42 | P.PNIM_ITS ---
Subjective Subjective Date of Service: 08/14/22 Interval History: f/u on obstructive uropathy, HONG, hydro interval history: no new issues, Cr is normal as of 08/11, still having mild hematuria but no significant shift in H/H Review of Systems No n/v some Physical Exam Vital Signs: Vital Signs: Last Vital Signs Temp 97.1 F 08/14/22 11:37 Pulse 69 08/14/22 11:37 Resp 19 08/14/22 11:37 BP 122/79 08/14/22 11:37 Pulse Ox 97 08/14/22 11:37 O2 Del Method 08/14/22 11:37 BMI result Body Mass Index 21.1 Const: Other: General: AO X 3, no acute distress Resp: CTA bilateral CVS: S1,S2,RRR GI: +BS, NT, no distention Skin: No rash Neuro: motor grossly intact Psych: appropriate affect Objective Data Active Medications Allopurinol (Allopurinol 100 Mg Tablet) 100 mg PO DAILY PRN PRN Reason: REANL STONES Last Admin: 08/10/22 08:49 Dose: 100 mg Documented By: MANUEL Atorvastatin Calcium (Atorvastatin Calcium 40 Mg Tablet) 40 mg PO DAILY [facility] Last Admin: 08/14/22 10:17 Dose: 40 mg Documented By: MANUEL Fentanyl (Fentanyl Citrate/Pf 100 Mcg/2 Ml Vial) 25 mcg IVPUSH Q5M PRN; Protocol PRN Reason: Pain, Moderate (Pain Scale 4-6 Fentanyl (Fentanyl Citrate/Pf 100 Mcg/2 Ml Vial) 25 mcg IVPUSH Q5M PRN; Protocol PRN Reason: Pain, Moderate (Pain Scale 4-6 Levetiracetam 2,000 mg/ (Levetiracetam 250 mg) 2,250 mg PO BID [facility] Last Admin: 08/14/22 10:17 Dose: 2,250 mg Documented By: MANUEL Melatonin (Melatonin 3 Mg Tablet) 6 mg PO BEDTIME PRN PRN Reason: Insomnia Last Admin: 08/10/22 23:27 Dose: 6 mg Documented By: ELYSSA Ondansetron HCl (Ondansetron Hcl 4 Mg/2 Ml Vial) 4 mg IVPUSH ONCE PRN PRN Reason: Nausea and Vomiting Ondansetron HCl (Ondansetron Hcl 4 Mg/2 Ml Vial) 4 mg IVPUSH ONCE PRN PRN Reason: Nausea and Vomiting Oxycodone HCl (Oxycodone Hcl Immed Release 5 Mg Tablet) 5 mg PO Q6H PRN PRN Reason: Pain, Severe (Pain Scale 7-10) Last Admin: 08/11/22 18:09 Dose: 5 mg Documented By: GUERRERO Pharmacy Consult (Consult Rx Perform Med Rec) 1 each MISCELLANE ONCE PRN PRN Reason: Consult order Pyridoxine HCl (Pyridoxine Hcl (Vitamin B6) 50 Mg Tablet) 100 mg PO DAILY [facility] Last Admin: 08/14/22 10:17 Dose: 100 mg Documented By: MANUEL Sodium Chloride (0.9 % Sodium Chloride Flush 3 Ml Syringe) 3 ml IVFLUSH QSHIFT [facility] Last Admin: 08/14/22 10:18 Dose: 3 ml Documented By: MANUEL Topiramate (Topiramate 100 Mg Tablet) 150 mg PO BEDTIME [facility] Last Admin: 08/13/22 19:39 Dose: 150 mg Documented By: CHALINO Topiramate (Topiramate 100 Mg Tablet) 200 mg PO DAILY [facility] Last Admin: 08/14/22 10:17 Dose: 200 mg Documented By: MANUEL Labs CBC & Chem 7: 08/13/22 08:21 08/11/22 12:00 Assessment and Plan (1) Obstructive uropathy: Status: Acute (2) Acute kidney injury: Status: Acute Plan 52 year old male with HTN, HLD, s/p craniotomy for hemorrhagic stroke in past here with obstructive uropathy with Hydronephrosis and HONG and in need of acute urological intervention Plan Ostructive uropathy, HONG, Hydronephrosis s/p bilateral stents on 08/09 renal function is now normal, hematuria resolved. Plan for Right Ureteroscopy laser lithotripsy stent exchange possible bilateral tomorrow 08/15 by Candy Ferrera MD Hematuria--with no signficant blood loss, hold plavix HLD,, continue statin seizure disorder continue Keppra DVT prophylaxis: compression device and reassess after procedure Full code need for inaptient: obstructive uropathy, hong and need surgical intervention Quality Stroke Does the patient have a stroke diagnosis?: No VTE Prior VTE?: No VTE Risk Level:: Medical - moderate - high VTE Device Contraindication: N/A - Device Ordered VTE Drug Contraindication: Treatment Not Tolerated
--- NOTE | 2022-08-14 12:15 | PM.UROPN ---
Subjective Subjective Date of Service: 08/14/22 Physical Exam Vital Signs: Vital Signs: Last Vital Signs Temp 97.1 F 08/14/22 11:37 Pulse 69 08/14/22 11:37 Resp 19 08/14/22 11:37 BP 122/79 08/14/22 11:37 Pulse Ox 97 08/14/22 11:37 O2 Del Method 08/14/22 11:37 BMI result Body Mass Index 21.1 Const: General: cooperative Orientation/consciousness: oriented to person Eyes: Conjunctivae: conjunctivae normal Neck: Neck: Yes trachea midline Resp: Effort & Inspection: normal respiratory effort Cardio: Rate: regular rate GI: Inspection: Yes normal to inspection Palpation (GI): Soft to palpation : Scrotum: scrotum normal Neuro: Other: Left hemiplegia General: oriented to person Urology Results Labs CBC & Chem 7: 08/13/22 08:21 08/11/22 12:00 Progress Note: A&P Assessment and plan (1) Obstructive uropathy: Status: Acute (2) Ureterolithiasis: Status: Acute (3) Acute kidney injury: Status: Acute Plan NESS secondary to Obstructive Uropathy. B/L Ureteral stones, s/p bilateral stents, renal function improving Hematuria, improving, patient voiding, Hb stable Plan Right Ureteroscopy laser lithotripsy stent exchange possible bilateral on 08/15/22 scheduled for 1:30 pm NPO post MN Time Spent With Patient Time: Total time spent is greater than 50% in coordination of care (as documented) at patient's floor/unit and/or counseling patient: Progress Note: Quality Stroke Does the patient have a stroke diagnosis?: No
--- NOTE | 2022-08-14 14:15 | MHC.CM.ED ---
[facility] REVIEWED PATIENT NOT MEDICALLY CLEARED FOR DC TODAY , WILL HAVE RIGHT URETERSCOPY LASER LITHOTRIPSY STENT EXCHANGE SCHEDULED FOR 08-15-22 1:30 PM
[2022-08-14] MEDS: Topiramate 100 MG TABLET 150 MG PO (20:15)
[2022-08-14] MEDS: Melatonin 3 MG TABLET 6 MG PO (20:15)
[2022-08-15] VITALS (13 sets, daily range): BP systolic 113–155; BP diastolic 65–97; PULSE 65–103; RESP 15–20; TEMP 36.1–37.2; O2SAT 93–100
[2022-08-15] MEDS: 0.9 % Sodium Chloride Flush 3 ML SYRINGE IVFLUSH ×2 (07:44→20:58)
[2022-08-15] MEDS: Topiramate 100 MG TABLET 200 MG PO (07:45)
[2022-08-15] MEDS: Pyridoxine HCl (Vitamin B6) 50 MG TABLET 100 MG PO (07:46)
[2022-08-15] MEDS: LEVETIRACETAM 2250 MG PO ×2 (07:46→20:46)
[2022-08-15] MEDS: Atorvastatin Calcium 40 MG TABLET PO (07:46)
--- NOTE | 2022-08-15 12:22 | MHC.CM.PN ---
CALL FROM PATIENT'S PRIMARY CARE OFFICE ([facility]) PER REQUEST, UPDATES FAXED TO [facility] @ [phone] [facility]'S CONTACT NUMBER IS [phone]
--- NOTE | 2022-08-15 13:19 | MHC.SHP ---
Pre-Procedural Eval Section A Date of Service: 08/15/22 The patient is an INPATIENT: Yes Section B Chief Complaint: HONG, obstructive uropathy Allergies: Allergies Allergy/AdvReac Type Severity Reaction Status Date / Time No Known Allergies Allergy Verified 08/09/22 11:07 [No Known Allergies*] Plan I have reviewed the history and physical and performed a pertinent physical examination on my patient. No changes have occurred unless specified. Obstructive uropathy due to bilateral ureteral stones, s/p b/L ureteral stents last week. Here for Right Ureteroscopy, retrograde, laser lithotripsy, stent exchange, possible bilateral. Consent obtained from pt's brother Wellington, risks and benefits discussed.
--- NOTE | 2022-08-15 13:24 | P.CONAN_ITS ---
HPI - Anesthesia Eval Consult details Narrative: Obstructive uropathy [facility] Active Problems Active Problems: All Active Problems (Updated 08/09/22 @ 16:19 by Nick Naylor MD) Obstructive uropathy (Acute) Seizure disorder (Acute) HLD (hyperlipidemia) (Acute) Ureterolithiasis (Acute) Acute kidney injury (Acute) Past Medical History Medical History CVA (cerebral vascular accident) Hemorrhagic stroke HLD (hyperlipidemia) Seizure disorder Seizures Family History Family History Other Diabetes HTN (hypertension) Family history of problems with anesthesia: No Surgical History History of Problems with Anesthesia: No Social History Social History Household Members: Unknown / Unable to assess Housing: Apartment Do you presently have visiting nurse or other home services: No Unable to assess alcohol history related to: Unknown Patient Tobacco Use Status: Tobacco use Unknown service: No Current occupational status: disabled Meds Allergies Allergy/AdvReac Type Severity Reaction Status Date / Time No Known Allergies Allergy Verified 08/09/22 11:07 [No Known Allergies*] Active Medications: Current Medications Allopurinol (Allopurinol 100 Mg Tablet) 100 mg PO DAILY PRN PRN Reason: REANL STONES Last Admin: 08/10/22 08:49 Dose: 100 mg Atorvastatin Calcium (Atorvastatin Calcium 40 Mg Tablet) 40 mg PO DAILY [facility] Last Admin: 08/15/22 07:46 Dose: 40 mg Cefazolin Sodium/Dextrose (Ancef) 2 gm in 50 mls @ 100 mls/hr IV PREOP ONE Stop: 08/15/22 13:33 Levetiracetam 2,000 mg/ (Levetiracetam 250 mg) 2,250 mg PO BID [facility] Last Admin: 08/15/22 07:46 Dose: 2,250 mg Melatonin (Melatonin 3 Mg Tablet) 6 mg PO BEDTIME PRN PRN Reason: Insomnia Last Admin: 08/14/22 20:15 Dose: 6 mg Ondansetron HCl (Ondansetron Hcl 4 Mg/2 Ml Vial) 4 mg IVPUSH ONCE PRN PRN Reason: Nausea and Vomiting Ondansetron HCl (Ondansetron Hcl 4 Mg/2 Ml Vial) 4 mg IVPUSH ONCE PRN PRN Reason: Nausea and Vomiting Pharmacy Consult (Consult Rx Perform Med Rec) 1 each MISCELLANE ONCE PRN PRN Reason: Consult order Pyridoxine HCl (Pyridoxine Hcl (Vitamin B6) 50 Mg Tablet) 100 mg PO DAILY [facility] Last Admin: 08/15/22 07:46 Dose: 100 mg Sodium Chloride (0.9 % Sodium Chloride Flush 3 Ml Syringe) 3 ml IVFLUSH QSHIFT [facility] Last Admin: 08/15/22 07:44 Dose: 3 ml Topiramate (Topiramate 100 Mg Tablet) 150 mg PO BEDTIME [facility] Last Admin: 08/14/22 20:15 Dose: 150 mg Topiramate (Topiramate 100 Mg Tablet) 200 mg PO DAILY [facility] Last Admin: 08/15/22 07:45 Dose: 200 mg Home Medications Medication Instructions Recorded Confirmed Last Taken Type allopurinol 100 mg tablet 100 mg PO DAILY PRN REANL STONES 08/09/22 08/09/22 Unknown History atorvastatin 40 mg tablet 1 tab PO DAILY 08/09/22 08/09/22 Unknown History clopidogrel 75 mg tablet 1 tab PO DAILY 08/09/22 08/09/22 Unknown History levetiracetam 750 mg tablet 3 tab PO BID 08/09/22 08/09/22 Unknown History riboflavin (vitamin B2) 100 mg 1 tab PO QAM 08/09/22 08/09/22 Unknown History tablet (Vitamin B-2) topiramate 50 mg tablet 150 mg PO BEDTIME 08/09/22 08/09/22 Unknown History topiramate 50 mg tablet 200 mg PO DAILY 08/09/22 08/09/22 Unknown History tramadol 50 mg tablet 50 mg PO Q12H PRN pain 08/09/22 08/09/22 Unknown History Exam Exam Date and Time: August 15, 2022 1324 Height,Weight and Vital Signs: Height 6 ft 1 in Weight 72.575 kg Last Vital Signs Temp 97.5 F 08/15/22 11:09 Pulse 66 08/15/22 11:09 Resp 20 08/15/22 11:09 BP 116/67 08/15/22 11:09 Pulse Ox 98 08/15/22 11:09 O2 Del Method 08/15/22 11:09 Pertinent Lab Results Pertinent Lab Results: Laboratory Tests 08/09/22 08/09/22 08/09/22 11:20 11:20 13:39 WBC 10.0 RBC 4.61 Hgb 14.4 Hct 43.1 MCV 93.5 MCH 31.2 MCHC 33.4 RDW 13.2 Plt Count 303 MPV 10.1 Immature Gran % (Auto) 0.5 H Neut % (Auto) 63.3 Lymph % (Auto) 25.2 [place] % (Auto) 8.8 Eos % (Auto) 1.7 Baso % (Auto) 0.5 Lymph # (Auto) 2.5 Norman # (Auto) 0.9 Eos # (Auto) 0.2 Baso # (Auto) 0.1 Abs Immat Gran (auto) 0.05 H Absolute Neuts (auto) 6.3 Absolute Nucleated RBC 0.000 Nucleated RBC % (auto) 0.0 Sodium 142 Potassium 3.7 Chloride 113 H Carbon Dioxide 13 L Anion Gap 20 BUN 46 H Creatinine 5.00 H* Estim Creat Clear Calc 18.1 Estimated GFR 12 Random Glucose 97 Calcium 10.9 H Total Bilirubin 0.3 Direct Bilirubin 0.2 AST 18 ALT 21 Alkaline Phosphatase 109 Total Protein 8.1 H Albumin 4.7 Lipase 154 H Urine Color Yellow Urine Appearance Clear Urine pH 6.0 Ur Specific [place] 1.025 Urine Protein 30 (1+) H Urine Glucose (UA) Negative Urine Ketones 15 Urine Blood Negative Urine Nitrite Negative Ur Leukocyte Esterase Trace H Urine RBC 0-2 Urine WBC 0-5 Ur Squamous Epith Cells 0-2 Urine Bacteria None Seen Hyaline Casts 0-2 Blood Type Antibody Screen 08/10/22 08/11/22 08/13/22 06:10 12:00 08:21 WBC 9.6 RBC 4.10 L Hgb 12.7 L Hct 38.1 L MCV 92.9 MCH 31.0 MCHC 33.3 RDW 13.6 Plt Count 304 MPV 10.1 Immature Gran % (Auto) Neut % (Auto) Lymph % (Auto) [place] % (Auto) Eos % (Auto) Baso % (Auto) Lymph # (Auto) [place] # (Auto) Eos # (Auto) Baso # (Auto) Abs Immat Gran (auto) Absolute Neuts (auto) Absolute Nucleated RBC 0.000 Nucleated RBC % (auto) 0.0 Sodium 143 143 Potassium 3.8 4.0 Chloride 120 H 117 H Carbon Dioxide 11 L 15 L Anion Gap 16 15 BUN 30 H 16 Creatinine 2.47 H 1.18 Estim Creat Clear Calc 36.7 76.8 Estimated GFR 28 > 60 Random Glucose 93 98 Calcium 9.5 D 10.3 H D Total Bilirubin Direct Bilirubin AST ALT Alkaline Phosphatase Total Protein Albumin Lipase Urine Color Urine Appearance Urine pH Ur Specific [place] Urine Protein Urine Glucose (UA) Urine Ketones Urine Blood Urine Nitrite Ur Leukocyte Esterase Urine RBC Urine WBC Ur Squamous Epith Cells Urine Bacteria Hyaline Casts Blood Type Antibody Screen 08/13/22 08:21 WBC RBC Hgb Hct MCV MCH MCHC RDW Plt Count MPV Immature Gran % (Auto) Neut % (Auto) Lymph % (Auto) Norman % (Auto) Eos % (Auto) Baso % (Auto) Lymph # (Auto) [place] # (Auto) Eos # (Auto) Baso # (Auto) Abs Immat Gran (auto) Absolute Neuts (auto) Absolute Nucleated RBC Nucleated RBC % (auto) Sodium Potassium Chloride Carbon Dioxide Anion Gap BUN Creatinine Estim Creat Clear Calc Estimated GFR Random Glucose Calcium Total Bilirubin Direct Bilirubin AST ALT Alkaline Phosphatase Total Protein Albumin Lipase Urine Color Urine Appearance Urine pH Ur Specific [place] Urine Protein Urine Glucose (UA) Urine Ketones Urine Blood Urine Nitrite Ur Leukocyte Esterase Urine RBC Urine WBC Ur Squamous Epith Cells Urine Bacteria Hyaline Casts Blood Type B Positive Antibody Screen NEGATIVE Airway Mallampati Class: II TM Dist: >3cm Neck ROM: Full Loose/Missing/Broken Teeth: No Heart: [id number] Lungs: cta b/l Assessment and Plan Assessment Anesthesia Assessment: Anesthesia Plan Discussed and Chart Reviewed Final Anesthetic Review Family History of Problems with Anesthesia: No History of Problems with Anesthesia: No NPO: Yes ASA Class: III Final Preanesthetic Review: No Changes in Pt Med Stat, Meds/Allgs Chart Reviewed, Consent Obtained/Reviewed (from brother over phone, witnessed by nursing) and Anes Risks/Benef Reviewed Patient Risk: Intermediate Procedure Risk: Intermediate Assessment/Block/Sedation in SS: Assess/Block/Sedation-SS Anesthetic Plan Anesthetic Plan: GA and Agree w/ Assess. and Plan Disposition: Standard PACU
--- NOTE | 2022-08-15 13:40 | HO.ANESPROP2 ---
HPI - Anesthesia Eval Consult details Narrative: 52 M for cystoscopy [facility] Active Problems Active Problems: All Active Problems (Updated 08/09/22 @ 16:19 by Nick Naylor MD) Obstructive uropathy (Acute) Seizure disorder (Acute) HLD (hyperlipidemia) (Acute) Ureterolithiasis (Acute) Acute kidney injury (Acute) Past Medical History Medical History CVA (cerebral vascular accident) Hemorrhagic stroke HLD (hyperlipidemia) Seizure disorder Seizures Family History Family History Other Diabetes HTN (hypertension) Family history of problems with anesthesia: No Surgical History History of Problems with Anesthesia: No Social History Social History Household Members: Unknown / Unable to assess Housing: Apartment Do you presently have visiting nurse or other home services: No Unable to assess alcohol history related to: Unknown Patient Tobacco Use Status: Former Tobacco user Quit Date: 2012 service: No Current occupational status: disabled Meds Allergies Allergy/AdvReac Type Severity Reaction Status Date / Time No Known Allergies Allergy Verified 08/09/22 11:07 [No Known Allergies*] Active Medications: Current Medications Allopurinol (Allopurinol 100 Mg Tablet) 100 mg PO DAILY PRN PRN Reason: REANL STONES Last Admin: 08/10/22 08:49 Dose: 100 mg Atorvastatin Calcium (Atorvastatin Calcium 40 Mg Tablet) 40 mg PO DAILY [facility] Last Admin: 08/15/22 07:46 Dose: 40 mg Fentanyl (Fentanyl Citrate/Pf 100 Mcg/2 Ml Vial) 25 mcg IVPUSH Q5M PRN; Protocol PRN Reason: Pain, Moderate (Pain Scale 4-6 Levetiracetam 2,000 mg/ (Levetiracetam 250 mg) 2,250 mg PO BID [facility] Last Admin: 08/15/22 07:46 Dose: 2,250 mg Melatonin (Melatonin 3 Mg Tablet) 6 mg PO BEDTIME PRN PRN Reason: Insomnia Last Admin: 08/14/22 20:15 Dose: 6 mg Ondansetron HCl (Ondansetron Hcl 4 Mg/2 Ml Vial) 4 mg IVPUSH ONCE PRN PRN Reason: Nausea and Vomiting Ondansetron HCl (Ondansetron Hcl 4 Mg/2 Ml Vial) 4 mg IVPUSH ONCE PRN PRN Reason: Nausea and Vomiting Ondansetron HCl (Ondansetron Hcl 4 Mg/2 Ml Vial) 4 mg IVPUSH ONCE PRN PRN Reason: Nausea and Vomiting Pharmacy Consult (Consult Rx Perform Med Rec) 1 each MISCELLANE ONCE PRN PRN Reason: Consult order Pyridoxine HCl (Pyridoxine Hcl (Vitamin B6) 50 Mg Tablet) 100 mg PO DAILY [facility] Last Admin: 08/15/22 07:46 Dose: 100 mg Sodium Chloride (0.9 % Sodium Chloride Flush 3 Ml Syringe) 3 ml IVFLUSH QSHIFT [facility] Last Admin: 08/15/22 07:44 Dose: 3 ml Topiramate (Topiramate 100 Mg Tablet) 150 mg PO BEDTIME [facility] Last Admin: 08/14/22 20:15 Dose: 150 mg Topiramate (Topiramate 100 Mg Tablet) 200 mg PO DAILY [facility] Last Admin: 08/15/22 07:45 Dose: 200 mg Home Medications Medication Instructions Recorded Confirmed Last Taken Type allopurinol 100 mg tablet 100 mg PO DAILY PRN REANL STONES 08/09/22 08/09/22 Unknown History atorvastatin 40 mg tablet 1 tab PO DAILY 08/09/22 08/09/22 Unknown History clopidogrel 75 mg tablet 1 tab PO DAILY 08/09/22 08/09/22 Unknown History levetiracetam 750 mg tablet 3 tab PO BID 08/09/22 08/09/22 Unknown History riboflavin (vitamin B2) 100 mg 1 tab PO QAM 08/09/22 08/09/22 Unknown History tablet (Vitamin B-2) topiramate 50 mg tablet 150 mg PO BEDTIME 08/09/22 08/09/22 Unknown History topiramate 50 mg tablet 200 mg PO DAILY 08/09/22 08/09/22 Unknown History tramadol 50 mg tablet 50 mg PO Q12H PRN pain 08/09/22 08/09/22 Unknown History Exam Exam Date and Time: August 15, 2022 1340 Height,Weight and Vital Signs: Height 6 ft 1 in Weight 160 lb Last Vital Signs Temp 97.2 F 08/15/22 13:08 Pulse 70 08/15/22 13:08 Resp 20 08/15/22 13:08 BP 115/76 08/15/22 13:08 Pulse Ox 99 08/15/22 13:08 O2 Del Method 08/15/22 13:08 Pertinent Lab Results Pertinent Lab Results: Laboratory Tests 08/09/22 08/09/22 08/09/22 11:20 11:20 13:39 WBC 10.0 RBC 4.61 Hgb 14.4 Hct 43.1 MCV 93.5 MCH 31.2 MCHC 33.4 RDW 13.2 Plt Count 303 MPV 10.1 Immature Gran % (Auto) 0.5 H Neut % (Auto) 63.3 Lymph % (Auto) 25.2 [place] % (Auto) 8.8 Eos % (Auto) 1.7 Baso % (Auto) 0.5 Lymph # (Auto) 2.5 [place] # (Auto) 0.9 Eos # (Auto) 0.2 Baso # (Auto) 0.1 Abs Immat Gran (auto) 0.05 H Absolute Neuts (auto) 6.3 Absolute Nucleated RBC 0.000 Nucleated RBC % (auto) 0.0 Sodium 142 Potassium 3.7 Chloride 113 H Carbon Dioxide 13 L Anion Gap 20 BUN 46 H Creatinine 5.00 H* Estim Creat Clear Calc 18.1 Estimated GFR 12 Random Glucose 97 Calcium 10.9 H Total Bilirubin 0.3 Direct Bilirubin 0.2 AST 18 ALT 21 Alkaline Phosphatase 109 Total Protein 8.1 H Albumin 4.7 Lipase 154 H Urine Color Yellow Urine Appearance Clear Urine pH 6.0 Ur Specific [place] 1.025 Urine Protein 30 (1+) H Urine Glucose (UA) Negative Urine Ketones 15 Urine Blood Negative Urine Nitrite Negative Ur Leukocyte Esterase Trace H Urine RBC 0-2 Urine WBC 0-5 Ur Squamous Epith Cells 0-2 Urine Bacteria None Seen Hyaline Casts 0-2 Blood Type Antibody Screen 08/10/22 08/11/22 08/13/22 06:10 12:00 08:21 WBC 9.6 RBC 4.10 L Hgb 12.7 L Hct 38.1 L MCV 92.9 MCH 31.0 MCHC 33.3 RDW 13.6 Plt Count 304 MPV 10.1 Immature Gran % (Auto) Neut % (Auto) Lymph % (Auto) [place] % (Auto) Eos % (Auto) Baso % (Auto) Lymph # (Auto) [place] # (Auto) Eos # (Auto) Baso # (Auto) Abs Immat Gran (auto) Absolute Neuts (auto) Absolute Nucleated RBC 0.000 Nucleated RBC % (auto) 0.0 Sodium 143 143 Potassium 3.8 4.0 Chloride 120 H 117 H Carbon Dioxide 11 L 15 L Anion Gap 16 15 BUN 30 H 16 Creatinine 2.47 H 1.18 Estim Creat Clear Calc 36.7 76.8 Estimated GFR 28 > 60 Random Glucose 93 98 Calcium 9.5 D 10.3 H D Total Bilirubin Direct Bilirubin AST ALT Alkaline Phosphatase Total Protein Albumin Lipase Urine Color Urine Appearance Urine pH Ur Specific [place] Urine Protein Urine Glucose (UA) Urine Ketones Urine Blood Urine Nitrite Ur Leukocyte Esterase Urine RBC Urine WBC Ur Squamous Epith Cells Urine Bacteria Hyaline Casts Blood Type Antibody Screen 08/13/22 08:21 WBC RBC Hgb Hct MCV MCH MCHC RDW Plt Count MPV Immature Gran % (Auto) Neut % (Auto) Lymph % (Auto) [place] % (Auto) Eos % (Auto) Baso % (Auto) Lymph # (Auto) [place] # (Auto) Eos # (Auto) Baso # (Auto) Abs Immat Gran (auto) Absolute Neuts (auto) Absolute Nucleated RBC Nucleated RBC % (auto) Sodium Potassium Chloride Carbon Dioxide Anion Gap BUN Creatinine Estim Creat Clear Calc Estimated GFR Random Glucose Calcium Total Bilirubin Direct Bilirubin AST ALT Alkaline Phosphatase Total Protein Albumin Lipase Urine Color Urine Appearance Urine pH Ur Specific [place] Urine Protein Urine Glucose (UA) Urine Ketones Urine Blood Urine Nitrite Ur Leukocyte Esterase Urine RBC Urine WBC Ur Squamous Epith Cells Urine Bacteria Hyaline Casts Blood Type B Positive Antibody Screen NEGATIVE Airway Mallampati Class: I TM Dist: >3cm Loose/Missing/Broken Teeth: Yes Assessment and Plan Assessment Anesthesia Assessment: Anesthesia Plan Discussed Final Anesthetic Review Family History of Problems with Anesthesia: No History of Problems with Anesthesia: No NPO: Yes ASA Class: III Final Preanesthetic Review: No Changes in Pt Med Stat, Meds/Allgs Chart Reviewed, Consent Obtained/Reviewed and Anes Risks/Benef Reviewed Patient Risk: Intermediate Procedure Risk: Low Anesthetic Plan Anesthetic Plan: GA Disposition: Standard PACU and Inp. Admit - Standard Bed
[2022-08-15] MEDS: Lactated Ringers 1,000 ML 50 ML IVCONT ×2 (13:46→20:45)
--- NOTE | 2022-08-15 16:40 | HO.PM.IMPN ---
Subjective Subjective Date of Service: 08/15/22 Interval History: being followed for obstructive uropathy, HONG and hydro, at present patient offers no acute complaints is NPO for right ureteroscopy/stent exchange Review of Systems [employer] no headache no dizziness CVS no chest pain GI no nausea, no vomiting Review of Systems: Yes all other systems are reviewed and are negative Physical Exam Vital Signs: Vital Signs: Last Vital Signs Temp 97.2 F 08/15/22 13:08 Pulse 70 08/15/22 13:08 Resp 20 08/15/22 13:08 BP 115/76 08/15/22 13:08 Pulse Ox 99 08/15/22 13:08 O2 Del Method 08/15/22 13:08 BMI result Body Mass Index 21.1 Const: Other: General: AO X 3, no acute distress neck supple Resp:? CTA bilateral CVS: S1,S2,RRR GI: +BS, NT, no distention Skin: No rash Neuro:? motor grossly intact Psych: appropriate affect ? Objective Data Active Medications Allopurinol (Allopurinol 100 Mg Tablet) 100 mg PO DAILY PRN PRN Reason: REANL STONES Last Admin: 08/10/22 08:49 Dose: 100 mg Documented By: MANUEL Atorvastatin Calcium (Atorvastatin Calcium 40 Mg Tablet) 40 mg PO DAILY [facility] Last Admin: 08/15/22 07:46 Dose: 40 mg Documented By: SANTHOSH Fentanyl (Fentanyl Citrate/Pf 100 Mcg/2 Ml Vial) 25 mcg IVPUSH Q5M PRN; Protocol PRN Reason: Pain, Moderate (Pain Scale 4-6 Lactated Ringer's (Lr) 1,000 mls @ 50 mls/hr IVCONT .Q20H [facility] Last Admin: 08/15/22 13:46 Dose: 50 mls/hr Documented By: JOSEFA Levetiracetam 2,000 mg/ (Levetiracetam 250 mg) 2,250 mg PO BID [facility] Last Admin: 08/15/22 07:46 Dose: 2,250 mg Documented By: SANTHOSH Melatonin (Melatonin 3 Mg Tablet) 6 mg PO BEDTIME PRN PRN Reason: Insomnia Last Admin: 08/14/22 20:15 Dose: 6 mg Documented By: SLOAN Ondansetron HCl (Ondansetron Hcl 4 Mg/2 Ml Vial) 4 mg IVPUSH ONCE PRN PRN Reason: Nausea and Vomiting Ondansetron HCl (Ondansetron Hcl 4 Mg/2 Ml Vial) 4 mg IVPUSH ONCE PRN PRN Reason: Nausea and Vomiting Ondansetron HCl (Ondansetron Hcl 4 Mg/2 Ml Vial) 4 mg IVPUSH ONCE PRN PRN Reason: Nausea and Vomiting Pharmacy Consult (Consult Rx Perform Med Rec) 1 each MISCELLANE ONCE PRN PRN Reason: Consult order Pyridoxine HCl (Pyridoxine Hcl (Vitamin B6) 50 Mg Tablet) 100 mg PO DAILY [facility] Last Admin: 08/15/22 07:46 Dose: 100 mg Documented By: SANTHOSH Sodium Chloride (0.9 % Sodium Chloride Flush 3 Ml Syringe) 3 ml IVFLUSH QSHIFT [facility] Last Admin: 08/15/22 07:44 Dose: 3 ml Documented By: SANTHOSH Topiramate (Topiramate 100 Mg Tablet) 150 mg PO BEDTIME [facility] Last Admin: 08/14/22 20:15 Dose: 150 mg Documented By: SLOAN Topiramate (Topiramate 100 Mg Tablet) 200 mg PO DAILY [facility] Last Admin: 08/15/22 07:45 Dose: 200 mg Documented By: SANTHOSH Labs CBC & Chem 7: 08/13/22 08:21 08/11/22 12:00 Assessment and Plan (1) Obstructive uropathy: Status: Acute (2) Acute kidney injury: Status: Acute Plan 52 year old male with HTN, HLD, s/p craniotomy for hemorrhagic stroke in past here with obstructive uropathy with Hydronephrosis and HONG and in need of acute urological intervention Ostructive uropathy, HONG, Hydronephrosis s/p bilateral stents on 08/09 renal function is now normal, mild recurrent hematuria, Plan for Right Ureteroscopy laser lithotripsy stent exchange possible bilateral today by Candy Ferrera MD Hematuria--with no signficant blood loss, hold plavix HLD,, continue statin seizure disorder continue Keppra, seizure precautions DVT prophylaxis: compression device Full code need for inaptient: obstructive uropathy, hong and undergoing surgical intervention Quality Stroke Does the patient have a stroke diagnosis?: No VTE Prior VTE?: No VTE Risk Level:: Medical - moderate - high VTE Device Contraindication: N/A - Device Ordered VTE Drug Contraindication: Treatment Not Tolerated
--- NOTE | 2022-08-15 17:34 | P.OP_ITS ---
Operative Note Operative Note Date of Service: 08/15/22 Narrative: PreOperative Diagnosis:?? Obstructive uropathy bilateral ureteral stones, status post bilateral ureteral stones Post Operative Diagnosis:?? ?Obstructive uropathy bilateral ureteral stones, status post bilateral ureteral stones; impacted left UPJ stone 14 cm Procedure: - cystoscopy, right retrograde, right ureteroscopy laser lithotripsy stent exchange, for right proximal ureteral stone large 14x6mm, 6 Armenian by multi length cm on the right - left ureteroscopy laser lithotripsy minimal stone fragmentation - large 13x8mm impacted left UPJ stone. stent exchange-- 6 Armenian by 28 cm on the left - Modifier (Bilateral) Surgeon:?Dr Candy Ferrera Anesthesia:? General Indications for procedure: 52-year-old admitted with acute renal insufficiency secondary to obstructive uropathy due to obstructing right proximal ureteral stone and left obstructing UPJ stone. Status post bilateral ureteral stones with improvement in renal function. Here for stone fragmentation. Procedure: After informed consent was verified the patient was brought to the operating placed on the OR table in supine position.? General Anesthesia was administered per protocol.? The patient was placed in lithotomy position, prepped and draped in the usual sterile fashion.? Safety pause time-out and side of surgery confirmed.? Antibiotics confirmed. A 22 Armenian cystoscope was inserted transurethrally, the bulbous urethra was within normal limits. The prostatic urethra was nonobstructive. The bladder was visualized.? Both ureteric orifices were in normal position. Both the ureteral stents were curled in the bladder. The? right distal end of the ureteral stent was grasped with the flexible grasping forceps. The stent was pulled retrograde to the tip of the penis. A guidewire was passed through the stent. An open-ended ureteral catheter was passed along the guidewire on the right side and a retrograde examination was performed. A 2nd guidewire was then passed up into the kidney. The cystoscope was removed, leaving both guidewires in place. One guidewire was used as the safety and was attached to the draping. The semi rigid ureteroscope was passed over the second guidewire to the level of the stone in the proximal ureter. One guidewire was then removed. Laser lithotripsy of the stone was done using the 365 fiber with a combination settings 0.5 J by 20 hertz alternating with 0.8 joules by 5 hertz There was good fragmentation of the stone. The 0 degree basket was used to remove a stone fragment sent for analysis. The ureteroscope was removed. The cystoscope was passed over the safety guidewire. A? 6 Armenian by multi length cm stent was placed into the ureter and renal pelvis under a combination of fluoroscopy and direct visualization. Attention was taken to the left side and the left stent was pulled retrograde to the tip of the penis. A guidewire was passed through the stent. During this manuever the original stent was pulled below the left UPJ and UPJ stone and there was again difficulty with passing the guidewire up into the kidney beyond the left UPJ stone. Once the guide wire was in the renal pelvis, the access inner sheath for the size 12 fr by 42 cm was passed over the guide wire to the proximal ureter. After removing the inner sheath, the inner and outer sheath was attempted to be passed over the guide wire, but there was resistance in the upper distal ureter and the inner and outer ureteral access sheath was removed. The flexible ureteroscope was then passed over the guidewire to the level of the stone, there was poor visualization. The flexible ureteroscope was removed. The semi rigid ureteroscope was then passed transurethrally along with a 2nd guidewire to the level of the stone. Using the laser fiber on the same setting as previous dictated above; Some fragmentation of the stone was achieved, Of importance, the stone was noted to be impacted and as the patient was under prolonged anesthesia after completing lithotripsy on the right side due to a large 14 mm stone, it was felt safest to terminate the procedure and the patient will need further treatment for the left UPJ stone. A? 6 Armenian by 28 cm stent was placed over the guide wire into the left ureter and renal pelvis under a combination of fluoroscopy and direct visualization. The bladder was emptied.? The rigid cystoscope was removed. ? The patient tolerated the procedure well and was brought to the recovery room in stable condition. Complications: None Drains: Ureteral stent as dictated above
[2022-08-15] MEDS: Topiramate 100 MG TABLET 150 MG PO (20:46)
[2022-08-15] MEDS: Melatonin 3 MG TABLET 6 MG PO (22:57)
[2022-08-15] MEDS: Acetaminophen 325 MG TABLET 650 MG PO (22:57)
[2022-08-16] MEDS: oxyCODONE HCl Immed Release 5 MG TABLET PO ×3 (00:48→20:21)
[2022-08-16 03:23] VITALS: BP 106/58; PULSE 72; RESP 16; TEMP 36.2; O2SAT 94
[2022-08-16 07:43] VITALS: BP 118/70; PULSE 72; RESP 17; TEMP 36.3; O2SAT 99
[2022-08-16] MEDS: Topiramate 100 MG TABLET 200 MG PO (08:08)
[2022-08-16] MEDS: Atorvastatin Calcium 40 MG TABLET PO (08:08)
[2022-08-16] MEDS: LEVETIRACETAM 2250 MG PO ×2 (08:08→20:22)
[2022-08-16] MEDS: Pyridoxine HCl (Vitamin B6) 50 MG TABLET 100 MG PO (08:08)
[2022-08-16 12:00] VITALS: BP 108/64; PULSE 86; RESP 18; TEMP 36.4; O2SAT 97
--- NOTE | 2022-08-16 12:47 | PM.UROPN ---
Subjective Subjective Date of Service: 08/16/22 Patient reports: still having pain Interval history: s/p right ureteroscopy laser lithotripsy stone fragmented stent exchange. Plan remove right ureteral stent in office in 2 weeks s/p left ureteroscopy stent exchange minimal stone fragmentation, stone impacted in left UPJ, he will need further outpatient intervention scheduled for left UPJ stone management pt complains of urgency bladder spams, hematuria improving Physical Exam Vital Signs: Vital Signs: Last Vital Signs Temp 97.6 F 08/16/22 12:00 Pulse 86 08/16/22 12:00 Resp 18 08/16/22 12:00 BP 108/64 08/16/22 12:00 Pulse Ox 97 08/16/22 12:00 O2 Del Method 08/16/22 12:00 O2 Flow Rate 5 08/15/22 17:20 BMI result Body Mass Index 21.1 Const: General: cooperative Orientation/consciousness: oriented to person Eyes: Conjunctivae: conjunctivae normal Neck: Neck: Yes trachea midline Resp: Effort & Inspection: normal respiratory effort Cardio: Rate: regular rate GI: Inspection: Yes normal to inspection Palpation (GI): Soft to palpation : Scrotum: scrotum normal Neuro: Other: Left hemiplegia General: oriented to person Urology Results Labs CBC & Chem 7: 08/13/22 08:21 08/11/22 12:00 Progress Note: A&P Assessment and plan (1) Obstructive uropathy: Status: Acute (2) Ureterolithiasis: Status: Acute (3) Acute kidney injury: Status: Acute Plan NESS secondary to Obstructive Uropathy. B/L Ureteral stones, s/p bilateral stents, renal function improving Hematuria, improving, patient voiding, Hb stable s/p right ureteroscopy laser lithotripsy stone fragmented stent exchange. Plan remove right ureteral stent in office in 2 weeks s/p left ureteroscopy stent exchange minimal stone fragmentation, stone impacted in left UPJ, he will need further outpatient intervention scheduled for left UPJ stone management pt complains of urgency bladder spams. I will trial PO antispasmotic, oxybutynin 5 mg ER daily. Okay for d/c from standpoint with out patient fu as noted above Time Spent With Patient Time: Total time spent is greater than 50% in coordination of care (as documented) at patient's floor/unit and/or counseling patient: Progress Note: Quality Stroke Does the patient have a stroke diagnosis?: No
--- NOTE | 2022-08-16 13:06 | HO.POSTANES ---
Post Anesthesia Evaluation Post Anesthesia Evaluation Vital Signs: Vital Signs Temp Pulse Resp BP Pulse Ox O2 Del Method 08/16/22 12:00 97.6 F 86 18 108/64 97 Room Air 08/16/22 07:43 97.4 F 72 17 118/70 99 Room Air 08/16/22 03:23 97.2 F 72 16 106/58 L 94 Room Air Anesthesia: General Mental Status: Awake Pain Control: Satisfactory Nausea/Vomiting: None Hydration: Adequate Anesthesia-Related Issues: No Anes. Related Issues
--- NOTE | 2022-08-16 14:11 | HO.PM.IMPN ---
Subjective Subjective Date of Service: 08/16/22 Interval History: patient complaining of bladder/ groin pain unable to further explain the pain, no fevers no chills, underwent right ureteroscopy, laser lithotripsy stone fragmented and stent exchange, also underwent left ureteroscopy stent exchange minimal stone fragmentation noted to have impacted stone left UPJ, patient also complaining of nausea, no vomiting, no diarrhea. Review of Systems Review of Systems: Yes all other systems are reviewed and are negative Physical Exam Vital Signs: Vital Signs: Last Vital Signs Temp 97.6 F 08/16/22 12:00 Pulse 86 08/16/22 12:00 Resp 18 08/16/22 12:00 BP 108/64 08/16/22 12:00 Pulse Ox 97 08/16/22 12:00 O2 Del Method 08/16/22 12:00 O2 Flow Rate 5 08/15/22 17:20 BMI result Body Mass Index 21.1 Const: Other: General: AO X 3, no acute distress neck supple Resp:? CTA bilateral CVS: S1,S2,RRR GI: +BS, NT, no distention Skin: No rash Psych: appropriate affect Objective Data Active Medications Allopurinol (Allopurinol 100 Mg Tablet) 100 mg PO DAILY PRN PRN Reason: REANL STONES Last Admin: 08/10/22 08:49 Dose: 100 mg Documented By: MANUEL Atorvastatin Calcium (Atorvastatin Calcium 40 Mg Tablet) 40 mg PO DAILY [facility] Last Admin: 08/16/22 08:08 Dose: 40 mg Documented By: KAREN Fentanyl (Fentanyl Citrate/Pf 100 Mcg/2 Ml Vial) 25 mcg IVPUSH Q5M PRN; Protocol PRN Reason: Pain, Moderate (Pain Scale 4-6 Lactated Ringer's (Lr) 1,000 mls @ 50 mls/hr IVCONT .Q20H [facility] Last Admin: 08/15/22 20:45 Dose: 50 mls/hr Documented By: DIEGO Cefazolin Sodium 1 gm/ Sodium (Chloride) 50 mls @ 100 mls/hr IV Q12H [facility] Last Admin: 08/16/22 13:39 Dose: 100 mls/hr Documented By: KAREN Levetiracetam 2,000 mg/ (Levetiracetam 250 mg) 2,250 mg PO BID [facility] Last Admin: 08/16/22 08:08 Dose: 2,250 mg Documented By: KAREN Melatonin (Melatonin 3 Mg Tablet) 6 mg PO BEDTIME PRN PRN Reason: Insomnia Last Admin: 08/15/22 22:57 Dose: 6 mg Documented By: DIEGO Ondansetron HCl (Ondansetron Hcl 4 Mg/2 Ml Vial) 4 mg IVPUSH ONCE PRN PRN Reason: Nausea and Vomiting Ondansetron HCl (Ondansetron Hcl 4 Mg/2 Ml Vial) 4 mg IVPUSH ONCE PRN PRN Reason: Nausea and Vomiting Ondansetron HCl (Ondansetron Hcl 4 Mg/2 Ml Vial) 4 mg IVPUSH ONCE PRN PRN Reason: Nausea and Vomiting Oxybutynin Chloride (Oxybutynin Chloride Er 5 Mg Tab.Er.24) 5 mg PO DAILY [facility] Last Admin: 08/16/22 13:38 Dose: 5 mg Documented By: KAREN Oxycodone HCl (Oxycodone Hcl Immed Release 5 Mg Tablet) 5 mg PO Q6H PRN PRN Reason: Pain, Moderate (Pain Scale 4-6 Last Admin: 08/16/22 09:01 Dose: 5 mg Documented By: KAREN Pharmacy Consult (Consult Rx Perform Med Rec) 1 each MISCELLANE ONCE PRN PRN Reason: Consult order Pyridoxine HCl (Pyridoxine Hcl (Vitamin B6) 50 Mg Tablet) 100 mg PO DAILY [facility] Last Admin: 08/16/22 08:08 Dose: 100 mg Documented By: KAREN Sodium Chloride (0.9 % Sodium Chloride Flush 3 Ml Syringe) 3 ml IVFLUSH QSHIFT [facility] Last Admin: 08/16/22 07:53 Dose: Not Given Documented By: KAREN Non-Admin Reason: IV Running Topiramate (Topiramate 100 Mg Tablet) 150 mg PO BEDTIME [facility] Last Admin: 08/15/22 20:46 Dose: 150 mg Documented By: DIEGO Topiramate (Topiramate 100 Mg Tablet) 200 mg PO DAILY [facility] Last Admin: 08/16/22 08:08 Dose: 200 mg Documented By: KAREN Labs CBC & Chem 7: 08/13/22 08:21 08/11/22 12:00 Assessment and Plan (1) Obstructive uropathy: Status: Acute (2) Acute kidney injury: Status: Acute Plan 52 year old male with HTN, HLD, s/p craniotomy for hemorrhagic stroke in past here with obstructive uropathy with Hydronephrosis and HONG and in need of acute urological intervention Ostructive uropathy, HONG, Hydronephrosis s/p bilateral stents on 08/09 renal function Improved have mild recurrent hematuria, underwent right ureteroscopy laser lithotripsy stone fragmented stent exchange and left ureteroscopy stent exchange minimal stone fragmentation, noted to have stone impacted in left UPJ, therefore will need further outpatient intervention by Urology today patient complaining of bladder spasms and groin discomfort will place on oxycodone, IV morphine and antiemetics, will give belladonna suppository being followed by Urology will need right ureteral stent removal in 2 weeks as outpt. follow BMP and CBC Hematuria-- mild will follow CBC continue to hold plavix HLD,, continue statin seizure disorder continue Keppra, seizure precautions DVT prophylaxis: compression device Full code need for inaptient: obstructive uropathy, is status post ureteroscopy now with severe bladder spasm requiring IV narcotics. Quality Stroke Does the patient have a stroke diagnosis?: No VTE Prior VTE?: No VTE Risk Level:: Medical - moderate - high VTE Device Contraindication: N/A - Device Ordered VTE Drug Contraindication: Treatment Not Tolerated
[2022-08-16 15:35] VITALS: BP 134/63; PULSE 70; RESP 18; TEMP 36.6; O2SAT 99
[2022-08-16] MEDS: Lactated Ringers 1,000 ML 50 ML IVCONT ×2 (16:39→18:03)
[2022-08-16 19:57] VITALS: BP 111/61; PULSE 88; RESP 18; TEMP 36.6; O2SAT 97
[2022-08-16] MEDS: Topiramate 100 MG TABLET 150 MG PO (20:22)
[2022-08-16] MEDS: Melatonin 3 MG TABLET 6 MG PO (20:23)
[2022-08-17] VITALS: BP 146/70; PULSE 94; RESP 18; TEMP 36.2; O2SAT 97
[2022-08-17] MEDS: 0.9 % Sodium Chloride Flush 3 ML SYRINGE IVFLUSH ×2 (01:43→08:33)
[2022-08-17] MEDS: Morphine Sulfate 2 MG/ML CARTRIDGE IVPUSH (01:43)
[2022-08-17] MEDS: oxyCODONE HCl Immed Release 5 MG TABLET PO (03:24)
[2022-08-17 04:00] VITALS: BP 125/74; PULSE 81; RESP 18; TEMP 36.1; O2SAT 96
[2022-08-17 07:58] VITALS: BP 124/77; PULSE 76; RESP 16; TEMP 36.6; O2SAT 98
[2022-08-17] MEDS: LEVETIRACETAM 2250 MG PO (08:31)
[2022-08-17] MEDS: Pyridoxine HCl (Vitamin B6) 50 MG TABLET 100 MG PO (08:32)
[2022-08-17] MEDS: Topiramate 100 MG TABLET 200 MG PO (08:32)
[2022-08-17] MEDS: Atorvastatin Calcium 40 MG TABLET PO (08:32)
--- NOTE | 2022-08-17 10:15 | PM.UROPN ---
Subjective Subjective Date of Service: 08/18/22 Patient reports: feels better Interval history: s/p right ureteroscopy laser lithotripsy stone fragmented stent exchange. Plan remove right ureteral stent in office in 2 weeks s/p left ureteroscopy stent exchange minimal stone fragmentation, stone impacted in left UPJ, he will need further outpatient intervention scheduled for left UPJ stone management pt complains of urgency bladder spams, hematuria improving Physical Exam Vital Signs: Vital Signs: Last Vital Signs Temp 97.8 F 08/17/22 07:58 Pulse 76 08/17/22 07:58 Resp 16 08/17/22 07:58 BP 124/77 08/17/22 07:58 Pulse Ox 98 08/17/22 07:58 O2 Del Method 08/17/22 07:58 O2 Flow Rate 2.0 08/16/22 15:35 BMI result Body Mass Index 21.1 Const: General: cooperative Orientation/consciousness: oriented to person Eyes: Conjunctivae: conjunctivae normal Neck: Neck: Yes trachea midline Resp: Effort & Inspection: normal respiratory effort Cardio: Rate: regular rate GI: Inspection: Yes normal to inspection Palpation (GI): Soft to palpation : Other: condom catheter in place pink tinged urine Scrotum: scrotum normal Neuro: Other: Left hemiplegia General: oriented to person Urology Results Labs CBC & Chem 7: 08/13/22 08:21 08/11/22 12:00 Progress Note: A&P Assessment and plan (1) Obstructive uropathy: Status: Acute (2) Ureterolithiasis: Status: Acute (3) Acute kidney injury: Status: Acute Plan NESS secondary to Obstructive Uropathy. B/L Ureteral stones, s/p bilateral stents, renal function improving Hematuria, improving, patient voiding, Hb stable s/p right ureteroscopy laser lithotripsy stone fragmented stent exchange. Plan remove right ureteral stent in office in 2 weeks s/p left ureteroscopy stent exchange minimal stone fragmentation, stone impacted in left UPJ, he will need further outpatient intervention scheduled for left UPJ stone management Bladder spams. Discharge on oxybutynin 5 mg ER daily. Out patient fu as noted above, Ancef d/c'd - pt does not need to be d/c'd on antibiotics Time Spent With Patient Time: Total time spent is greater than 50% in coordination of care (as documented) at patient's floor/unit and/or counseling patient: Progress Note: Quality Stroke Does the patient have a stroke diagnosis?: No
[2022-08-17 12:00] VITALS: BP 126/81; PULSE 79; RESP 17; TEMP 36.8; O2SAT 98
--- NOTE | 2022-08-17 12:34 | PM.DS ---
DS: Providers Provider Date of Service: 08/17/22 Date of admission: 08/09/22 15:51 Primary care physician: Unknown Physician Consults: 08/14/22 14:31 Consult to Infectious Diseases Routine Consulting Provider: Meri Perkins Reason for consultation: osteomylitis Has provider been notified: No DS: Diagnosis Discharge Diagnosis (1) Obstructive uropathy: Status: Acute (2) Ureterolithiasis: Status: Acute (3) Acute kidney injury: Status: Acute DS: Summary Hospital Course Hospital Course: History of presenting illness Date of Service: 08/09/22 Chief Complaint: Abnormal lab, sent to ED by PCP 52 year old male with history of hemorrahagic stroke? 8 years ago s/p craniotomy at [facility] with long hospital stay, HLD, seizure desorder, history of CKD last creatine in 11.16. He was seen by PCP 2 days ago with some routine follow up and had routine labs done and was called today to come to the ED because of elevated Creatinine. His creatinine today is 5. CT of abdomen showed Mild right hydronephrosis from a 0.6 x 1.4 cm right proximal ureteral stone. Moderate left hydronephrosis from a 0.8 x 1.3 cm left UPJ stone. Bilateral renal stones. He has no fever or chills, no dysuria, has had episodes of vomitting the last several days but no abdominal pain. Urology has assessed? and is planning to take him to the OR for intervention Hospital course 52 year old male with HTN, HLD, s/p craniotomy for hemorrhagic stroke in past here with obstructive uropathy with Hydronephrosis and HONG and in need of acute urological intervention Ostructive uropathy, HONG, Hydronephrosis? Patient admitted to medical floor underwent bilateral stent placement on 08/09 ,renal function? Improved continue to have mild hematuria, hematuria therefore underwent right ureteroscopy laser lithotripsy stone fragmented stent exchange and left ureteroscopy stent exchange minimal stone fragmentation,on 08/15/22 also noted to have stone impacted in left UPJ,? therefore will need further outpatient intervention? by Urology, postprocedure noted to have bladder spasm therefore started on oxybutynin 5 mg, with good response, patient is now being discharged home since hematuria has resolved renal function has normalized he has been recommended outpatient follow-up by Urology in 2 weeks for right ureter stent removal Hematuria-- resolved hold plavix x 2 weeks and resume after urology procedure. HLD,, continue statin seizure disorder continue Keppra, seizure precautions Time Spent with Patient Time attestation: Total time spent providing and/or coordinating discharge services: Discharge coordination time: Greater than 30 minutes Quality: Safe Use of Opioids Does Pt have an Active Cancer Diagnosis on the Problem List?: No Quality: Stroke Does the patient have a stroke diagnosis?: No Physical Exam Vital Signs: Vital Signs: Last Vital Signs Temp 97.8 F 08/17/22 07:58 Pulse 76 08/17/22 07:58 Resp 16 08/17/22 07:58 BP 124/77 08/17/22 07:58 Pulse Ox 98 08/17/22 07:58 O2 Del Method 08/17/22 07:58 O2 Flow Rate 2.0 08/16/22 15:35 BMI result Body Mass Index 21.1 Const: Other: General: Awake al ert, no acute dist ress neck supple R myra:? Lungs clear to auscultation no wheeze no crackle sl CVS: S1,S2,RRR GI: +BS, NT, no di stention Skin: No rash Neuro right s ided weakness, spe ech clear, right f oot inverted Psych : appropriate affe ct? DS: Data Data Completed and Pending Pending studies at discharge: Pending at discharge 08/15/22 15:14 Surgical [PTH] Routine Discharge Plan Discharge Anticipated Discharge Date/Time: 08/17/22 12:26 Patient Disposition: Home, Self-Care Discharge Diagnosis: HONG Obstructive uropathy with bilateral hydronephrosis status post bilateral stent placement Hematuria Referrals: Physician,Unknown J [Primary Care Provider] - 1 Week (BAILEE KRUSE-PCP) Discharge Medications: New oxybutynin chloride 5 mg Tablet Extended Release 24hr 5 mg PO DAILY Qty: 30 0RF Continued pyridoxine (vitamin B6) 100 mg tablet 100 mg PO DAILY 90 Days Qty: 90 1RF atorvastatin 40 mg tablet 1 tab PO DAILY riboflavin (vitamin B2) [Vitamin B-2] 100 mg tablet 1 tab PO QAM levetiracetam 750 mg tablet 3 tab PO BID topiramate 50 mg tablet 200 mg PO DAILY topiramate 50 mg tablet 150 mg PO BEDTIME allopurinol 100 mg tablet 100 mg PO DAILY PRN (Reason: REANL STONES) tramadol 50 mg tablet 50 mg PO Q12H PRN (Reason: pain) Held clopidogrel 75 mg tablet 1 tab PO DAILY Hold Instructions: Resume on 08/31/22. Resume after urology procedure Discharge Orders: Discharge Order (Routine); Ordered 08/17/22 Ordered By: Ingrid Molina Diet: Low fat, low cholesterol Activity on Discharge: As tolerated Stand Alone Forms: Patient Portal Discharge page Care Plan Goals: Acute kidney injury due to obstructive uropathy resolved status post bilateral stent placement/continue all home medications Health Concerns: Resume all home medication, except hold Plavix that should be resumed after urology procedure Plan of Treatment: Outpatient follow-up with Urology for removal of right ureteral stent in 2 weeks, and further outpatient intervention for left UPJ stone, call to make appointment Assessment: As above
--- NOTE | 2022-08-17 12:52 | MHC.CM.PN ---
IMM DELIVERED 08/17/22, PT MEDICALLY CLEARED FOR D/C HOME W/RESUMP OF FAMILY SUPPORT AND OUTPT FOLLOW-UP W/UROLOGY IN 2 WKS FOR STENT REMOVAL, PT'S BROTHER RESHMA FOR TRANSPORT. 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
[2022-08-19 21:01] LABS: Stone Source RIGHT KIDNEY STONE
== END 2022-08-17 14:30 | disposition home or self-care (01) | DRG 660 ==
LOC: HO.ED 14:50 → HO.EDOVER 16:04 → HO.S3 17:56
PROVIDERS: Urology; Admitting Provider Internal Medicine; Emergency Provider Emergency Medicine; PCP Physician Assistant; Visit Provider Hospitalist
PROC: 0T788DZ Dilation of Bilateral Ureters with Intraluminal Device, Via Natural or Artificial Opening Endoscopic (ICD-10-PCS; principal; 2022-08-09 16:30)
DX: N13.2 Hydronephrosis with renal and ureteral calculous obstruction (principal); D68.32 Hemorrhagic disorder due to extrinsic circulating anticoagulants; I69.351 Hemiplegia and hemiparesis following cerebral infarction affecting right dominant side; N99.820 Postprocedural hemorrhage of a genitourinary system organ or structure following a genitourinary system procedure; N17.9 Acute kidney failure, unspecified; E78.5 Hyperlipidemia, unspecified; R31.0 Gross hematuria; T45.525A Adverse effect of antithrombotic drugs, initial encounter; G40.909 Epilepsy, unspecified, not intractable, without status epilepticus; Z87.891 Personal history of nicotine dependence; Z79.02 Long term (current) use of antithrombotics/antiplatelets; Z79.899 Other long term (current) drug therapy
CPT/HCPCS: 36415; 74176; 80048; 80076; 81001; 82365; 83690; 85025; 85027; 86850; 86900; 86901; 88300; 96361; 96374; 99285; C1758; C1769; C2617; J0131; J0690; J0696; J1580; J2250; J2270; J2405; J3010; Q9965; Q9967

== ENCOUNTER → 2022-08-28 13:49 | Outpatient (BNVA) | payer MEDICARE, MEDICAID, SELFPAY | PROVIDERS: PCP Physician Assistant; Visit Provider Urology | DX: N13.9 Obstructive and reflux uropathy, unspecified (principal); N20.1 Calculus of ureter; N20.0 Calculus of kidney | CPT/HCPCS: Q3014 ==

== ENCOUNTER 2022-08-29 06:06 | Day surgery (SDC) | payer MEDICARE, MEDICAID, SELFPAY ==
--- NOTE | 2022-08-28 10:09 | HO.ANESPROP2 ---
Documented by User: Faviola Garay NP 08/28/22 10:16 HPI - Anesthesia Eval Consult details Narrative: 52yo M for Left Cystoscopy, Ureteroroscopy, Retro, Laser with stent exchange, Right Cystoscopy & Stent Removal s/p cysto etc 08/16/22 with LMA 5 hx of hemmorhagic stroke with craniotomy ~2013 [facility] Active Problems Active Problems: All Active Problems (Updated 08/25/22 @ 00:03 by Jerson Stephens) Obstructive uropathy (Acute) Ureterolithiasis (Acute) Past Medical History Medical History CVA (cerebral vascular accident) Hemorrhagic stroke HLD (hyperlipidemia) Seizure disorder Seizures Family History Family History Other Diabetes HTN (hypertension) Family history of problems with anesthesia: No Surgical History History of Problems with Anesthesia: No Social History Social History Household Members: Unknown / Unable to assess Housing: Apartment Do you presently have visiting nurse or other home services: No Unable to assess alcohol history related to: Unknown Patient Tobacco Use Status: Former Tobacco user Quit Date: 2012 Second Hand Smoke Exposure: No Use of substances other than those prescribed or required for medical reasons: No Are you DNR?: No Advance Directives: No Advance Directives Information Provided: Yes Advance Directives on File: No service: No Current occupational status: disabled Meds Allergies Allergy/AdvReac Type Severity Reaction Status Date / Time No Known Allergies Allergy Verified 08/28/22 13:51 [No Known Allergies*] Home Medications Medication Instructions Recorded Confirmed Last Taken Type allopurinol 100 mg tablet 100 mg PO DAILY PRN REANL STONES 08/09/22 08/09/22 Unknown History atorvastatin 40 mg tablet 1 tab PO DAILY 08/09/22 08/09/22 Unknown History clopidogrel 75 mg tablet 1 tab PO DAILY 08/09/22 08/09/22 Unknown History levetiracetam 750 mg tablet 3 tab PO BID 08/09/22 08/09/22 Unknown History riboflavin (vitamin B2) 100 mg 1 tab PO QAM 08/09/22 08/09/22 Unknown History tablet (Vitamin B-2) topiramate 50 mg tablet 150 mg PO BEDTIME 08/09/22 08/09/22 Unknown History topiramate 50 mg tablet 200 mg PO DAILY 08/09/22 08/09/22 Unknown History tramadol 50 mg tablet 50 mg PO Q12H PRN pain 08/09/22 08/09/22 Unknown History Exam Exam Date and Time: August 28, 2022 1009 Pertinent Lab Results Pertinent Lab Results: Laboratory Tests 08/11/22 08/13/22 12:00 08:21 WBC 9.6 Hgb 12.7 L Hct 38.1 L Plt Count 304 Sodium 143 Potassium 4.0 Chloride 117 H Carbon Dioxide 15 L BUN 16 Creatinine 1.18 Assessment and Plan Assessment Anesthesia Assessment: Chart Reviewed Final Anesthetic Review Family History of Problems with Anesthesia: No History of Problems with Anesthesia: No Documented by User: Iris Loya MD 08/29/22 08:02 [facility] Past Medical History Medical History CVA (cerebral vascular accident) Hemorrhagic stroke HLD (hyperlipidemia) Seizure disorder Seizures Functional capacity: uses cane/walker Family History Family History Other Diabetes HTN (hypertension) Social History Social History Household Members: Unknown / Unable to assess Housing: Apartment Do you presently have visiting nurse or other home services: No Unable to assess alcohol history related to: Unknown Patient Tobacco Use Status: Former Tobacco user Quit Date: 2012 Second Hand Smoke Exposure: No Use of substances other than those prescribed or required for medical reasons: No Are you DNR?: No Advance Directives: No Advance Directives Information Provided: Yes Advance Directives on File: No service: No Current occupational status: disabled Meds Allergies Allergy/AdvReac Type Severity Reaction Status Date / Time No Known Allergies Allergy Verified 08/28/22 13:51 [No Known Allergies*] Home Medications Medication Instructions Recorded Confirmed Last Taken Type allopurinol 100 mg tablet 100 mg PO DAILY PRN REANL STONES 08/09/22 08/09/22 Unknown History atorvastatin 40 mg tablet 1 tab PO DAILY 08/09/22 08/09/22 Unknown History clopidogrel 75 mg tablet 1 tab PO DAILY 08/09/22 08/09/22 Unknown History levetiracetam 750 mg tablet 3 tab PO BID 08/09/22 08/09/22 Unknown History riboflavin (vitamin B2) 100 mg 1 tab PO QAM 08/09/22 08/09/22 Unknown History tablet (Vitamin B-2) topiramate 50 mg tablet 150 mg PO BEDTIME 08/09/22 08/09/22 Unknown History topiramate 50 mg tablet 200 mg PO DAILY 08/09/22 08/09/22 Unknown History tramadol 50 mg tablet 50 mg PO Q12H PRN pain 08/09/22 08/09/22 Unknown History Exam Airway Mallampati Class: II TM Dist: >3cm Neck ROM: Full Heart: RRR Lungs: CTA Assessment and Plan Final Anesthetic Review NPO: Yes ASA Class: III Final Preanesthetic Review: No Changes in Pt Med Stat, Meds/Allgs Chart Reviewed, Consent Obtained/Reviewed and Anes Risks/Benef Reviewed Patient Risk: Intermediate Procedure Risk: Low Anesthetic Plan Anesthetic Plan: GA Disposition: Standard PACU
[2022-08-29] VITALS (8 sets, daily range): BP systolic 123–144; BP diastolic 82–94; PULSE 54–81; RESP 10–16; TEMP 36.1–36.6; O2SAT 96–98; BMI 20.9
--- NOTE | ~2022-08-29 | FL_ITS ---
EXAMINATION: XR FLUOROSCOPY WITH IMAGES CLINICAL INFORMATION: cysto, retro, laser stent routine fashion through the pubic. COMPARISON: CT abdomen and pelvis 08/09/2022 TECHNIQUE: Fluoroscopy performed by Dr. Ferrera. Fluoroscopy time: 2 minutes 5 seconds. Cumulative Dose: 26.53 mGy. Images: 7. FINDINGS: There is an oval calculus overlying proximal left ureter on one of the spot images. There are bilateral ureteral stents in position. FL/FL guidance in OR IMPRESSION: Fluoroscopy for urologic procedures.
[2022-08-29] MEDS: Lactated Ringers 1,000 ML 100 ML IVCONT (06:43)
--- NOTE | 2022-08-29 07:44 | PC.NURSE ---
#3 surgical risks and #4 other interventions on consent under incorrect sections. per Marleny Mcdermott, organizational effectiveness director add two single arrows indicating correct section of consent.
--- NOTE | 2022-08-29 08:42 | MHC.SHP ---
Pre-Procedural Eval Section A Date of Service: 08/29/22 The patient is an INPATIENT: No Section B Chief Complaint: Calculus of ureter Allergies: Allergies Allergy/AdvReac Type Severity Reaction Status Date / Time No Known Allergies Allergy Verified 08/28/22 13:51 [No Known Allergies*] Plan I have reviewed the history and physical and performed a pertinent physical examination on my patient. No changes have occurred unless specified. Plan for Left ureteroscopy, stent exchange, laser lithotripsy of ureteral stone, Right ureteral stent removal.? Risks discussed included but not limited to, blood in the urine, possible need to repeat procedure if stone is not completely fragmented, Irritative voiding symptoms, bladder spasms, urgency.
--- NOTE | 2022-08-29 11:24 | P.OP_ITS ---
Operative Note Operative Note Date of Service: 08/29/22 Narrative: PreOperative Diagnosis:?? Left ureteral stone, s/p laser right ureteral stone s/p bilateral stents Post Operative Diagnosis:?? Left ureteral stone, s/p laser right ureteral stone s/p bilateral stents Procedure:- cystoscopy, removal right ureteral stent, left ureteroscopy laser lithotripsy left UPJ stone. stent exchange-- 6 Azerbaijani by 28 cm on the left Surgeon:?Dr Candy Ferrera Anesthesia:? General Indications for procedure: 52-year-old admitted with acute renal insufficiency secondary to obstructive uropathy due to obstructing right proximal ureteral stone and left obstructing UPJ stone. Status post bilateral ureteral stones with improvement in renal function. He is s/p good fraqmentation of right ureteral stone and is here for right ureteral stent removal. And further left UPJ stone laser fragmentation and stent exchange. Procedure: After informed consent was verified the patient was brought to the operating placed on the OR table in supine position.? General Anesthesia was administered per protocol.? The patient was placed in lithotomy position, prepped and draped in the usual sterile fashion.? Safety pause time-out and side of surgery confirmed.? Antibiotics confirmed. A 22 Azerbaijani cystoscope was inserted transurethrally, the bulbous urethra was within normal limits. The prostatic urethra was nonobstructive. The bladder was visualized.? Both ureteric orifices were in normal position. Both the ureteral stents were curled in the bladder. The? left distal end of the ureteral stent was grasped with the flexible grasping forceps. The stent was pulled retrograde to the tip of the penis. A guidewire was passed through the stent. A 2nd guidewire was then passed up into the kidney. The cystoscope was removed, leaving both guidewires in place. One guidewire was used as the safety and was attached to the draping. The semi rigid ureteroscope was passed over the second guidewires to the level of the stone in the proximal ureter. One guidewire was then removed. Laser lithotripsy of the stone was done using the 365 fiber with a settings 0.8 joules by 5 hertz the stone was fragmented, decision to change to the flexible ureteroscope was then done for better manipulation, removing the laser and replacing the second guide wire, the rigid ureteroscope was removed. the access inner sheath for the size 12 fr by 26 cm was passed over the guide wire to the mid ureter. The flexible ureteroscope was then passed over the guidewire to the level of the stone, There was good fragmentation of the stone. The stone was embedded along the mcgarry of the ureter. After 90 % of the stone was fragmented the lasering was discontinued due to minimal bleeding which decreased optimimal visualization. The flexible ureteroscope was removed. The cystoscope was pas sed over the safety guidewire. A? 6 Azerbaijani by 28 cm stent was placed into the ureter and renal pelvis under a combination of fluoroscopy and direct visualization. Attention was taken to the right side and The right stent was pulled retrograde to the tip of the penis and removed. The bladder was emptied.? The rigid cystoscope was removed. ? A 16 fr valdez was passed transurethrally and met with some resistance and was not further advanced. The patient tolerated the procedure well and was brought to the recovery room in stable condition. Complications: None Drains: Ureteral stent as dictated above
== END 2022-08-29 13:37 | disposition home or self-care (01) ==
PROVIDERS: PCP Physician Assistant; Visit Provider Urology
PROC: (CPT 52356; principal; 2022-08-29 08:10)
PROC: (CPT 52310; 2022-08-29 08:10)
DX: N13.9 Obstructive and reflux uropathy, unspecified (principal); N20.1 Calculus of ureter; N20.0 Calculus of kidney; G40.909 Epilepsy, unspecified, not intractable, without status epilepticus; E78.5 Hyperlipidemia, unspecified; Z86.73 Personal history of transient ischemic attack (TIA), and cerebral infarction without residual deficits; Z79.899 Other long term (current) drug therapy; Z87.891 Personal history of nicotine dependence
CPT/HCPCS: 52356; C1758; C1769; C1894; C2617; J0690; J1100; J1885; J2250; J3010; Q9966

== ENCOUNTER 2022-09-12 13:35 | Outpatient (REF) | payer MEDICARE, MEDICAID, SELFPAY ==
--- NOTE | ~2022-09-12 | XR_ITS ---
EXAMINATION: XR ABDOMEN KUB CLINICAL INDICATION: Kidney stone COMPARISON: Previous CT July 2022 and renal ultrasound April 2021 TECHNIQUE: AP view of the abdomen and pelvis FINDINGS: There is a new left internal ureteral stent in satisfactory position. There are multiple stones or stone fragments in the lower pole of the left kidney. Largest stone or stone fragment measures 6 x 14 mm. There is a stone adjacent to the left internal ureteral stent likely in the left UPJ region that measures 5 x 13 mm. There is a small stone in the lower pole right kidney measuring 2 x 5 mm. Bilateral pelvic calcifications probably representing calcified phleboliths. Normal bowel gas pattern. Mild degenerative changes of the lower lumbar spine and hip joints. XR/XR KUB IMPRESSION: Satisfactory position of left internal ureteral stent. Multiple left renal stones and stone adjacent to the left proximal internal ureteral stent probably in the left proximal ureter or UPJ region. Small right renal stone.
== END 2022-09-12 13:36 | disposition home or self-care (01) ==
LOC: HO.XRAY 13:35
PROVIDERS: Visit Provider Urology
DX: N20.0 Calculus of kidney (principal)
CPT/HCPCS: 74018

== ENCOUNTER → 2022-09-13 09:17 | Day surgery (SDC) | payer MEDICARE, MEDICAID, SELFPAY ==
--- NOTE | 2022-09-12 10:42 | HO.ANESPROP2 ---
HPI - Anesthesia Eval Consult details Narrative: 52yo M for Left ESWL s/p cysto, etc 08/2022 with GA-LMA 4 hx of hemmorhagic stroke with craniotomy ~2013 Plavix (cx'd 09/13/22 bc didn't stop) PMFSH Active Problems Active Problems: All Active Problems (Updated 09/04/22 @ 14:08 by Candy Ferrera MD) Kidney stone on left side (Acute) Bilateral kidney stones (Acute) Obstructive uropathy (Acute) Ureterolithiasis (Acute) Past Medical History Medical History CVA (cerebral vascular accident) Hemorrhagic stroke HLD (hyperlipidemia) Seizure disorder Seizures Family History Family History Other Diabetes HTN (hypertension) Family history of problems with anesthesia: No Surgical History History of Problems with Anesthesia: No Social History Social History Household Members: Unknown / Unable to assess Housing: Apartment Do you presently have visiting nurse or other home services: No Unable to assess alcohol history related to: Unknown Patient Tobacco Use Status: Former Tobacco user Quit Date: 2012 Second Hand Smoke Exposure: No service: No Current occupational status: disabled Meds Allergies Allergy/AdvReac Type Severity Reaction Status Date / Time No Known Allergies Allergy Verified 08/28/22 13:51 [No Known Allergies*] Home Medications Medication Instructions Recorded Confirmed Last Taken Type allopurinol 100 mg tablet 100 mg PO DAILY PRN REANL STONES 08/09/22 08/09/22 Unknown History atorvastatin 40 mg tablet 1 tab PO DAILY 08/09/22 08/09/22 Unknown History clopidogrel 75 mg tablet 1 tab PO DAILY 08/09/22 08/09/22 Unknown History levetiracetam 750 mg tablet 3 tab PO BID 08/09/22 08/09/22 Unknown History riboflavin (vitamin B2) 100 mg 1 tab PO QAM 08/09/22 08/09/22 Unknown History tablet (Vitamin B-2) topiramate 50 mg tablet 150 mg PO BEDTIME 08/09/22 08/09/22 Unknown History topiramate 50 mg tablet 200 mg PO DAILY 08/09/22 08/09/22 Unknown History tramadol 50 mg tablet 50 mg PO Q12H PRN pain 08/09/22 08/09/22 Unknown History Exam Exam Date and Time: September 12, 2022 1042 Pertinent Lab Results Pertinent Lab Results: Laboratory Tests 08/11/22 08/13/22 12:00 08:21 WBC 9.6 Hgb 12.7 L Hct 38.1 L Plt Count 304 Sodium 143 Potassium 4.0 Chloride 117 H Carbon Dioxide 15 L BUN 16 Creatinine 1.18 Assessment and Plan Assessment Anesthesia Assessment: Chart Reviewed Final Anesthetic Review Family History of Problems with Anesthesia: No History of Problems with Anesthesia: No
[2022-09-13 09:39] VITALS: BP 117/79; PULSE 70; RESP 20; TEMP 36.6; O2SAT 98
== END ==
PROVIDERS: PCP Physician Assistant; Visit Provider Urology
DX: N20.0 Calculus of kidney (principal); Z53.8 Procedure and treatment not carried out for other reasons

== ENCOUNTER 2022-09-27 07:28 | Day surgery (SDC) | payer MEDICARE, MEDICAID, SELFPAY ==
--- NOTE | 2022-09-26 12:38 | P.CONAN_ITS ---
Documented by User: Faviola Garay NP 09/26/22 12:39 HPI - Anesthesia Eval Consult details Narrative: 52yo M for Left ESWL s/p cysto, etc 08/2022 with GA-LMA 4 hx of hemmorhagic stroke with craniotomy ~2013 Plavix (cx'd 09/13/22 bc didn't stop) (? etiology) PMFSH Active Problems Active Problems: All Active Problems (Updated 09/04/22 @ 14:08 by Candy Ferrera MD) Kidney stone on left side (Acute) Bilateral kidney stones (Acute) Obstructive uropathy (Acute) Ureterolithiasis (Acute) Past Medical History Medical History CVA (cerebral vascular accident) Hemorrhagic stroke HLD (hyperlipidemia) Seizure disorder Seizures Family History Family History Other Diabetes HTN (hypertension) Family history of problems with anesthesia: No Surgical History Surgical History H/O craniotomy H/O lithotripsy History of Problems with Anesthesia: No Social History Social History Household Members: Unknown / Unable to assess Housing: Apartment Do you presently have visiting nurse or other home services: No Unable to assess alcohol history related to: Unknown Patient Tobacco Use Status: Former Tobacco user Quit Date: 2012 Tobacco use type: Cigarette Years Smoked: 2009 Smoked in Last 30 Days: No Second Hand Smoke Exposure: No Use of substances other than those prescribed or required for medical reasons: No Are you DNR?: No Advance Directives: No Advance Directives Information Provided: Yes service: No Current occupational status: disabled Meds Allergies Allergy/AdvReac Type Severity Reaction Status Date / Time No Known Allergies Allergy Verified 09/27/22 08:05 [No Known Allergies*] Home Medications Medication Instructions Recorded Confirmed Last Taken Type allopurinol 100 mg tablet 100 mg PO DAILY PRN REANL STONES 08/09/22 09/27/22 Unknown History atorvastatin 40 mg tablet 1 tab PO DAILY 08/09/22 09/27/22 Unknown History clopidogrel 75 mg tablet 1 tab PO DAILY 08/09/22 09/27/2209/19/22 History levetiracetam 750 mg tablet 3 tab PO BID 08/09/22 09/27/22 09/27/22 06:30 History riboflavin (vitamin B2) 100 mg 1 tab PO QAM 08/09/22 09/27/22 Unknown History tablet (Vitamin B-2) topiramate 50 mg tablet 150 mg PO BEDTIME 08/09/22 09/27/22 Unknown History topiramate 50 mg tablet 200 mg PO DAILY 08/09/22 09/27/22 09/27/22 06:30 History tramadol 50 mg tablet 50 mg PO Q12H PRN pain 08/09/22 09/27/22 Unknown History Exam Exam Date and Time: September 26, 2022 1238 Pertinent Lab Results Pertinent Lab Results: Laboratory Tests 08/11/22 08/13/22 12:00 08:21 WBC 9.6 Hgb 12.7 L Hct 38.1 L Plt Count 304 Sodium 143 Potassium 4.0 Chloride 117 H Carbon Dioxide 15 L BUN 16 Creatinine 1.18 Assessment and Plan Assessment Anesthesia Assessment: Chart Reviewed Final Anesthetic Review Family History of Problems with Anesthesia: No History of Problems with Anesthesia: No Documented by User: Johnny Duval MD 09/27/22 09:21 [facility] Past Medical History Medical History CVA (cerebral vascular accident) Hemorrhagic stroke HLD (hyperlipidemia) Seizure disorder Seizures Family History Family History Other Diabetes HTN (hypertension) Surgical History Surgical History H/O craniotomy H/O lithotripsy Social History Social History Household Members: Unknown / Unable to assess Housing: Apartment Do you presently have visiting nurse or other home services: No Unable to assess alcohol history related to: Unknown Patient Tobacco Use Status: Former Tobacco user Quit Date: 2012 Tobacco use type: Cigarette Years Smoked: 2009 Smoked in Last 30 Days: No Second Hand Smoke Exposure: No Use of substances other than those prescribed or required for medical reasons: No Are you DNR?: No Advance Directives: No Advance Directives Information Provided: Yes service: No Current occupational status: disabled Meds Allergies Allergy/AdvReac Type Severity Reaction Status Date / Time No Known Allergies Allergy Verified 09/27/22 08:05 [No Known Allergies*] Home Medications Medication Instructions Recorded Confirmed Last Taken Type allopurinol 100 mg tablet 100 mg PO DAILY PRN REANL STONES 08/09/22 09/27/22 Unknown History atorvastatin 40 mg tablet 1 tab PO DAILY 08/09/22 09/27/22 Unknown History clopidogrel 75 mg tablet 1 tab PO DAILY 08/09/22 09/27/22 09/19/22 History levetiracetam 750 mg tablet 3 tab PO BID 08/09/22 09/27/22 09/27/22 06:30 History riboflavin (vitamin B2) 100 mg 1 tab PO QAM 08/09/22 09/27/22 Unknown History tablet (Vitamin B-2) topiramate 50 mg tablet 150 mg PO BEDTIME 08/09/22 09/27/22 Unknown History topiramate 50 mg tablet 200 mg PO DAILY 08/09/22 09/27/22 09/27/22 06:30 History tramadol 50 mg tablet 50 mg PO Q12H PRN pain 08/09/22 09/27/22 Unknown History Exam Airway Mallampati Class: II TM Dist: >3cm Neck ROM: Full Loose/Missing/Broken Teeth: Yes Heart: rrr+s1s2 Lungs: cta b/l Assessment and Plan Assessment Anesthesia Assessment: Anesthesia Plan Discussed Final Anesthetic Review NPO: Yes ASA Class: III Final Preanesthetic Review: No Changes in Pt Med Stat, Meds/Allgs Chart Reviewed, Consent Obtained/Reviewed and Anes Risks/Benef Reviewed Patient Risk: Intermediate Procedure Risk: Intermediate Assessment/Block/Sedation in SS: Assess/Block/Sedation-SS Anesthetic Plan Anesthetic Plan: MAC: and Agree w/ Assess. and Plan Disposition: Standard PACU
--- NOTE | ~2022-09-27 | XR_ITS ---
EXAMINATION: XR ABDOMEN KUB CLINICAL INDICATION: Pre-ESWL. COMPARISON: KUB dated 09/12/2022; CT abdomen and pelvis dated 08/09/2022; renal ultrasound dated 04/14/2021. TECHNIQUE: 2 AP views of the abdomen and pelvis are submitted. FINDINGS: The bowel gas pattern is normal, with no evidence of ileus or obstruction. At the lower pole of the right kidney, a 9 mm calculus is seen. At the interpolar left kidney, a 1.1 cm calculus is seen. At the lower pole of the left kidney, there are 1.4 cm and 1.3 cm calculi. At the left UPJ, a 1.4 x 0.5 cm calculus is noted. There is a double pigtail left ureteric stent. There are pelvic phleboliths. The bones are unremarkable. XR/XR KUB IMPRESSION: There are multiple bilateral renal calculi. A 1.4 x 0.5 cm calculus is seen at the left UPJ. A well-positioned double pigtail left ureteric stent is noted.
[2022-09-27 08:19] VITALS: BMI 20.9
[2022-09-27 08:25] VITALS: BP 121/80; PULSE 81; RESP 16; TEMP 36.4; O2SAT 98
[2022-09-27] MEDS: Lactated Ringers 1,000 ML 100 ML IVCONT (08:37)
--- NOTE | 2022-09-27 09:04 | MHC.SHP ---
Pre-Procedural Eval Section A Date of Service: 09/27/22 The patient is an INPATIENT: No Section B Chief Complaint: Calculus of kidney Details of Present Illness: 52-year-old gentleman has a history of seizures and stroke; The patient has history of kidney stones Pertinent findings on CT: KIDNEYS AND URETERS: There is mild right hydronephrosis from a 0.6 x 1.4 cm right proximal ureteral stone. There is a small 4 mm stone in the lower pole of the right kidney. There is moderate left hydronephrosis from a 0.8 x 1.3 cm left UPJ stone. There 2 stones in the lower pole of the left kidney measuring 0.4 cm and 1 cm. He is s/p left ureteral stent. He is s/p treatment of right ureteral stone and laser left ureteral stone has left ureteral stent in place. Here for Left ESWL of renal stone. Allergies: Allergies Allergy/AdvReac Type Severity Reaction Status Date / Time No Known Allergies Allergy Verified 09/27/22 08:05 [No Known Allergies*] Plan I have reviewed the history and physical and performed a pertinent physical examination on my patient. No changes have occurred unless specified. Left ESWL. Discussed risks to include but not limited to, blood in the urine, bruising to the skin, kidney hematoma, possible need for another procedure if a stone fragment obstructs the ureter while passing, possible need to repeat procedure if stone is not completely fragmented.
--- NOTE | 2022-09-27 09:22 | W.PM.OPN ---
Operative Note Operative Note Date of Service: 09/27/22 Narrative: PreOperative Diagnosis:? ? Left proximal ureteral stone Left Renal stones Post Operative Diagnosis:? Left proximal ureteral stone Left Renal stones? Renal stone Procedure:? Left ? ESWL Surgeon:?Dr Candy Ferrera Anesthesia:? MAC Indications for procedure: The patient had prior left ureteroscopy with laser lithotripsy of left proximal ureteral stone, the stone was impacted and post laser therapy there was remaining stone embedded along the mcgarry of the ureter. The patient understands ESWL may be a staged procedure and subsequent intervention may be required based on imaging after ESWL.? They also understand? there is a risk of bleeding to the kidney, infection, damage to adjacent organs, and stone migration following the procedure. Procedure: After informed consent was verified the patient was brought to the operating room and placed in a supine position.? Anesthesia was performed per protocol. Ancef 2 gm IV. Safety pause time-out was performed. Imaging was displayed in the room and laterality confirmed. ESWL was performed, the residual stone along the proximal ureter seen. The stone was visualized on fluoroscopy.? Shockwave lithotripsy was performed, after the first 300 shocks a pause for 3 minutes.? A total of 2000 shocks to a maximum of power of 20 with a maximum rate of 120 hertz.? Some fragmentation of the stone was appreciated. The patient tolerated the procedure well and was transferred to the recovery area upon completion. Complications: None
[2022-09-27 09:53] VITALS: BP 104/74; PULSE 67; RESP 16; TEMP 36.8; O2SAT 97
[2022-09-27 10:21] VITALS: BP 119/77; PULSE 56; RESP 18; TEMP 36.1; O2SAT 98
== END 2022-09-27 11:30 | disposition home or self-care (01) ==
PROVIDERS: PCP Physician Assistant; Visit Provider Urology
PROC: (CPT 50590; principal; 2022-09-27 09:10)
DX: N20.0 Calculus of kidney (principal); N20.1 Calculus of ureter; Z87.442 Personal history of urinary calculi; G40.909 Epilepsy, unspecified, not intractable, without status epilepticus; I69.351 Hemiplegia and hemiparesis following cerebral infarction affecting right dominant side; Z79.899 Other long term (current) drug therapy; Z87.891 Personal history of nicotine dependence
CPT/HCPCS: 50590; 74018; J0690; J2250

== ENCOUNTER 2022-10-17 13:39 | Outpatient (REF) | payer MEDICARE, MEDICAID, SELFPAY ==
--- NOTE | ~2022-10-17 | XR_ITS ---
EXAMINATION: XR ABDOMEN KUB CLINICAL INDICATION: Calculus of ureter COMPARISON: 09/27/2022 TECHNIQUE: AP view of the abdomen. FINDINGS: Left ureteral stent noted. Phleboliths in the pelvis. 1.1 x 0.4 cm calcification in the region of the upper left ureter, similar to prior. Additional left mid to lower pole calculi are similar to prior, measuring up to 1.3 cm. Normal bowel gas pattern. Degenerative changes of the spine. The visualized lung bases are clear. XR/XR KUB IMPRESSION: Left ureteral stent in place. Similar appearance of the left upper ureteral calculus. Similar left renal calculi.
== END 2022-10-17 13:40 | disposition home or self-care (01) ==
LOC: HO.XRAY 13:39
PROVIDERS: Visit Provider Urology
DX: N20.1 Calculus of ureter (principal); N13.9 Obstructive and reflux uropathy, unspecified
CPT/HCPCS: 74018

== ENCOUNTER 2022-10-24 07:32 | Day surgery (SDC) | payer OTHER, SELFPAY ==
--- NOTE | 2022-10-23 10:00 | HO.ANESPROP2 ---
Documented by User: Faviola Garay NP 10/23/22 10:02 HPI - Anesthesia Eval Consult details Narrative: 52yo M for Left Cystoscopy, Ureteroroscopy, Retro, Laser with stent exchange s/p cysto, etc 08/2022 with GA-LMA 4 s/p ESWL 09/2022 with MAC hx of hemmorhagic stroke with craniotomy ~2013 Plavix for CVA prophylaxis PMFSH Active Problems Active Problems: All Active Problems (Updated 10/01/22 @ 15:03 by Candy Ferrera MD) Ureteral stone (Acute) Ureterolithiasis (Acute) Obstructive uropathy (Acute) Bilateral kidney stones (Acute) Kidney stone on left side (Acute) Past Medical History Medical History CVA (cerebral vascular accident) Hemorrhagic stroke HLD (hyperlipidemia) Seizure disorder Seizures Family History Family History Other Diabetes HTN (hypertension) Family history of problems with anesthesia: No Surgical History Surgical History H/O craniotomy H/O lithotripsy History of Problems with Anesthesia: No Social History Social History Household Members: Unknown / Unable to assess Housing: Apartment Do you presently have visiting nurse or other home services: No Unable to assess alcohol history related to: Unknown Patient Tobacco Use Status: Former Tobacco user Quit Date: 2012 Tobacco use type: Cigarette Years Smoked: 2009 Second Hand Smoke Exposure: No Use of substances other than those prescribed or required for medical reasons: No Are you DNR?: No Advance Directives: No Advance Directives Information Provided: Yes service: No Current occupational status: disabled Meds Allergies Allergy/AdvReac Type Severity Reaction Status Date / Time No Known Allergies Allergy Verified 10/20/22 15:50 [No Known Allergies*] Home Medications Medication Instructions Recorded Confirmed Last Taken Type allopurinol 100 mg tablet 100 mg PO DAILY PRN REANL STONES 08/09/22 10/20/22 Unknown History atorvastatin 40 mg tablet 1 tab PO DAILY 08/09/22 10/20/22 10/24/22 History clopidogrel 75 mg tablet 1 tab PO DAILY 08/09/22 10/20/22 09/19/22 History levetiracetam 750 mg tablet 3 tab PO BID 08/09/22 10/20/22 10/24/22 History riboflavin (vitamin B2) 100 mg 1 tab PO QAM 08/09/22 10/20/22 Unknown History tablet (Vitamin B-2) topiramate 50 mg tablet 150 mg PO BEDTIME 08/09/22 10/20/22 Unknown History topiramate 50 mg tablet 200 mg PO DAILY 08/09/22 10/20/22 10/24/22 History Exam Exam Date and Time: October 23, 2022 1000 Pertinent Lab Results Pertinent Lab Results: Laboratory Tests 08/11/22 08/13/22 12:00 08:21 WBC 9.6 Hgb 12.7 L Hct 38.1 L Plt Count 304 Sodium 143 Potassium 4.0 Chloride 117 H Carbon Dioxide 15 L BUN 16 Creatinine 1.18 Assessment and Plan Assessment Anesthesia Assessment: Chart Reviewed Final Anesthetic Review Family History of Problems with Anesthesia: No History of Problems with Anesthesia: No Documented by User: Johnny Duval MD 10/24/22 08:52 [facility] Past Medical History Medical History CVA (cerebral vascular accident) Hemorrhagic stroke HLD (hyperlipidemia) Seizure disorder Seizures Family History Family History Other Diabetes HTN (hypertension) Surgical History Surgical History H/O craniotomy H/O lithotripsy Social History Social History Household Members: Unknown / Unable to assess Housing: Apartment Do you presently have visiting nurse or other home services: No Unable to assess alcohol history related to: Unknown Patient Tobacco Use Status: Former Tobacco user Quit Date: 2012 Tobacco use type: Cigarette Years Smoked: 2009 Second Hand Smoke Exposure: No Use of substances other than those prescribed or required for medical reasons: No Are you DNR?: No Advance Directives: No Advance Directives Information Provided: Yes service: No Current occupational status: disabled Meds Allergies Allergy/AdvReac Type Severity Reaction Status Date / Time No Known Allergies Allergy Verified 10/20/22 15:50 [No Known Allergies*] Home Medications Medication Instructions Recorded Confirmed Last Taken Type allopurinol 100 mg tablet 100 mg PO DAILY PRN REANL STONES 08/09/22 10/20/22 Unknown History atorvastatin 40 mg tablet 1 tab PO DAILY 08/09/22 10/20/22 10/24/22 History clopidogrel 75 mg tablet 1 tab PO DAILY 08/09/22 10/20/22 09/19/22 History levetiracetam 750 mg tablet 3 tab PO BID 08/09/22 10/20/22 10/24/22 History riboflavin (vitamin B2) 100 mg 1 tab PO QAM 08/09/22 10/20/22 Unknown History tablet (Vitamin B-2) topiramate 50 mg tablet 150 mg PO BEDTIME 08/09/22 10/20/22 Unknown History topiramate 50 mg tablet 200 mg PO DAILY 08/09/22 10/20/22 10/24/22 History Exam Airway Mallampati Class: II TM Dist: >3cm Neck ROM: Full Loose/Missing/Broken Teeth: Yes Heart: rrr+s1s2 Lungs: cta b/l Assessment and Plan Assessment Anesthesia Assessment: Anesthesia Plan Discussed Final Anesthetic Review NPO: Yes ASA Class: III Final Preanesthetic Review: No Changes in Pt Med Stat, Meds/Allgs Chart Reviewed, Consent Obtained/Reviewed and Anes Risks/Benef Reviewed Patient Risk: Intermediate Procedure Risk: Intermediate Assessment/Block/Sedation in SS: Assess/Block/Sedation-SS Anesthetic Plan Anesthetic Plan: GA and Agree w/ Assess. and Plan Disposition: Standard PACU
--- NOTE | 2022-10-23 13:48 | PC.NURSE ---
Per patient brother Wellington, during pre op call, plavix wasn't held as he didnt know appt was tomorrow. Message sent to Cherie Fagan in [facility] office. Per Cherie who spoke with Dr Garcia, okay to proceed tomorrow without the Plavix held. Wellington called back & confirmed okay for procedure.
[2022-10-24] VITALS (15 sets, daily range): BP systolic 101–125; BP diastolic 55–78; PULSE 52–87; RESP 14–18; TEMP 36.1; O2SAT 96–100; BMI 21.1
--- NOTE | ~2022-10-24 | FL_ITS ---
EXAMINATION: XR FLUOROSCOPY WITH IMAGES CLINICAL INFORMATION: Stone left. COMPARISON: Previous CT of the abdomen and pelvis July 2022 TECHNIQUE: Fluoroscopy Supervised By: Candy Ferrera. Fluoroscopy Time: 86. Cumulative Dose: 18 mGy. Images: 4. FINDINGS: Fluoroscopic guidance was provided for left internal ureteral stent placement. There is a left internal ureteral stent in satisfactory position. There may be left renal stones. FL/FL guidance in OR IMPRESSION: Fluoroscopy guidance for left ureteral stent placement.
[2022-10-24] MEDS: Lactated Ringers 1,000 ML 100 ML IVCONT (08:41)
--- NOTE | 2022-10-24 09:24 | MHC.SHP ---
Pre-Procedural Eval Section A Date of Service: 10/24/22 The patient is an INPATIENT: No The History & Physical has been completed within 30 days and I have reviewed it.: Yes Section B Chief Complaint: Calculus of kidney Allergies: Allergies Allergy/AdvReac Type Severity Reaction Status Date / Time No Known Allergies Allergy Verified 10/20/22 15:50 [No Known Allergies*] Plan Diagnosis/Plan: Unchanged I have reviewed the history and physical and performed a pertinent physical examination on my patient. No changes have occurred unless specified. Plan for Cystoscopy, Left ureteroscopy, laser lithotripsy, ureteral stent exchange. Risks discussed included but not limited to, possible need to repeat procedure if stone is not completely fragmented, Irritative voiding symptoms, bladder spasms, urgency, blood in urine. Time Spent With Patient Time: Total time managing care of this patient today ____ minutes.
--- NOTE | 2022-10-24 12:31 | W.PM.OPN ---
Operative Note Operative Note Date of Service: 10/24/22 Narrative: PreOperative Diagnosis:?? Left ureteral stone, s/p stemt Post Operative Diagnosis:?? Left ureteral stone, s/p stemt Procedure:- ??cystoscopy,? ? left ureteroscopy laser lithotripsy? left UPJ stone.? stent exchange--? 6 Armenian by 26 cm on the left ? Surgeon:?? Candy Ferrera Anesthesia:? General Procedure: After informed consent was verified the patient was brought to the operating placed on the OR table in supine position.? General Anesthesia was administered per protocol.? The patient was placed in? lithotomy position, prepped and draped in the usual sterile fashion.? Safety pause time-out and side of surgery confirmed.? Antibiotics confirmed. A 22 Armenian cystoscope was inserted transurethrally, the bulbous urethra was within normal limits.? The prostatic urethra was nonobstructive. ? The bladder was visualized.? The stent was noted to be calcified. The?? left? distal end of the ureteral stent ? was grasped with the flexible grasping forceps. ? The stent was pulled and met with resistance. A guidewire was passed through the ureter along side the stent into the kidney. A 2nd guidewire was then passed up into the kidney. ? The cystoscope was removed,? leaving both guidewires in place. ? One guidewire was used as the safety and was attached to the draping.?The semi rigid ureteroscope was passed over the second guidewires to the level of the stone in the proximal urete, the stone was not visualized well. The rigid ureteroscope was removed and the access sheath was passed over the guide wire followed by the flexible ureteroscope. One guidewire was then removed. Laser lithotripsy of the stone was done? using the 365 fiber with a settings 0.8 joules by 6 hertz the stone was fragmented, There was good fragmentation of the stone. ? There was minimal blood clots noted. The stent was calcified and was the reason it was not able to removed initially, the laser was used to fragment the calcified stent. The flexible ureteroscope and the access sheath was removed.? The cystoscope was passed transurethrally and the stent was removed. The cystoscope was replaced into the bladder over the guide wire, A? 6 Armenian by 26 cm stent was placed over the guidewire into the ureter and renal pelvis? under a combination of fluoroscopy and? ?direct visualization.? There was minimal bleeding noted from the left ureteral orifices secondary to the stent being calcified and adherent to the proximal ureteral mucosa. Clots were irrigated out of the bladder. The bladder was emptied.? The rigid cystoscope was removed. ? A 20 fr valdez was passed transurethrally The patient tolerated the procedure well and was? brought to? the recovery room in stable condition. Complications:?None Drains:? Ureteral stent as dictated above
[2022-10-24] MEDS: oxyCODONE HCl Immed Release 5 MG TABLET PO (12:45)
[2022-10-24] MEDS: Acetaminophen 325 MG TABLET 650 MG PO (12:46)
[2022-10-24] MEDS: fentaNYL citrate/PF 100 MCG/2 ML VIAL 25 MCG IVPUSH ×3 (12:48→14:32)
[2022-10-24] MEDS: fentaNYL citrate/PF 100 MCG/2 ML VIAL 50 MCG IVPUSH ×2 (12:53→13:10)
[2022-10-24] MEDS: oxyCODONE HCl Immed Release 5 MG TABLET 10 MG PO (14:50)
== END 2022-10-24 17:25 | disposition home or self-care (01) ==
PROVIDERS: PCP Internal Medicine; Visit Provider Urology
PROC: (CPT 52356; principal; 2022-10-24 09:10)
DX: N20.1 Calculus of ureter (principal); N20.0 Calculus of kidney; N13.9 Obstructive and reflux uropathy, unspecified; Z96.0 Presence of urogenital implants; G40.909 Epilepsy, unspecified, not intractable, without status epilepticus; E78.5 Hyperlipidemia, unspecified; Z79.899 Other long term (current) drug therapy; Z86.73 Personal history of transient ischemic attack (TIA), and cerebral infarction without residual deficits; Z87.891 Personal history of nicotine dependence
CPT/HCPCS: 52356; 87086; C1758; C1769; C1894; C2617; J0690; J1100; J1580; J2250; J2405; J3010; Q9967

== ENCOUNTER 2022-10-27 18:45 | Inpatient (IN) | payer OTHER, SELFPAY ==
--- NOTE | ~2022-10-27 | CT_ITS ---
EXAMINATION: CT ABDOMEN AND PELVIS WITHOUT CONTRAST CLINICAL INFORMATION: Urinary hesitancy/history of kidney stones . COMPARISON: 08/09/2020. TECHNIQUE: Multidetector volumetric imaging was performed from the superior aspect of the liver through the pubic symphysis without contrast per renal stone protocol. Sagittal and coronal reformatted images were obtained on the technologist workstation. This CT examination was performed using dose optimization techniques as appropriate, variously including the following: *Automated exposure control *Adjustment of mA and/or kV according to patient size (this includes techniques or standardized protocols for targeted exams where dose is matched to indication/reason for exam; i.e. extremities or head) *Use of iterative reconstruction technique DLP: 501 mGy-cm. FINDINGS: LUNG BASES: The visualized lung bases are unremarkable. LIVER, GALLBLADDER, BILIARY TREE: The non-contrast liver is normal in size, shape, and attenuation. No focal hepatic lesion or biliary ductal dilatation is present. The gallbladder is unremarkable with no evidence of radiopaque gallstones, gallbladder wall thickening, or obvious pericholecystic inflammatory changes. PANCREAS: Unremarkable. SPLEEN: Unremarkable. ADRENAL GLANDS: Unremarkable. KIDNEYS AND URETERS: Left-sided ureteric stent is in place with the proximal aspect in the renal pelvis and the distal aspect within the bladder. Chronic fullness to the left collecting system. Innumerable intrarenal calculi are seen in the left kidney. Small amount of air in the left renal collecting system may reflect patency of the stent. Infectious etiology or be clinically correlated the with clinical symptoms. I do not appreciate any intraluminal air in the bladder. BLADDER: No bladder air. There are multiple tiny bladder calculi along the dependent bladder. Bladder is relatively distended GASTROINTESTINAL TRACT: The small and large bowel are unremarkable. The appendix is nonvisualized but no focal inflammatory changes are seen in the expected right lower quadrant.. ABDOMINAL WALL: No significant hernia is appreciated. LYMPHOVASCULAR STRUCTURES: No lymphadenopathy. The aorta is unremarkable.. PELVIC VISCERA: Unremarkable. OSSEUS STRUCTURES: Unremarkable. CT/CT abdomen pelvis wo IV con IMPRESSION: Left ureteric stent is in place. Multiple calcifications seen in the left renal collecting system as well as the dependent bladder. There are few tiny bubbles of air within the left collecting system and nondependent aspect. Etiology of this is uncertain. This could be seen in the setting of stent patency or sequela of recent intervention however I do not appreciate any bladder air at this time. Patient's recent intervention was 10/24/2022 and I would have expected any tiny air bubbles from that procedure to have resolved in the interval. Infectious etiology would be considered less likely without significant periureteric or perinephric stranding. Correlation would be helpful.
--- NOTE | 2022-10-27 19:50 | ED_ITS ---
HPI - Male Genitourinary General Chief complaint: Abdominal Pain <PATRICK Tate - Last Filed: 10/28/22 16:06> Stated complaint: valdez inserted ..not working abd pain <PATRICK Tate - Last Filed: 10/28/22 16:06> Time Seen by Provider: 10/27/22 21:34 <PATRICK Tate - Last Filed: 10/28/22 16:06> Source: patient and family <Sherley Valdez MD - Last Filed: 10/28/22 00:33> Related Data Home medications: Home Medications Medication Instructions Recorded Confirmed clopidogrel 75 mg tablet 1 tab PO DAILY 08/09/22 10/28/22 topiramate 50 mg tablet 200 mg PO DAILY 08/09/22 10/28/22 acetaminophen 325 mg tablet 650 mg PO Q6H PRN Pain 10/28/22 10/28/22 (Tylenol) allopurinol 100 mg tablet 1 tab PO DAILY PRN renal stone 10/28/22 10/28/22 atorvastatin 40 mg tablet 1 tab PO DAILY 10/28/22 10/28/22 ibuprofen 200 mg tablet 400 mg PO Q8H PRN Pain 10/28/22 10/28/22 levetiracetam 750 mg tablet 3 tab PO BID 10/28/22 10/28/22 levofloxacin 500 mg tablet 1 tab PO DAILY 10/28/22 10/28/22 polyethylene glycol 3350 17 17 g PO DAILY PRN Constipation 10/28/22 10/28/22 gram/dose oral powder pyridoxine (vitamin B6) 100 mg 1 tab PO DAILY 10/28/22 10/28/22 tablet riboflavin (vitamin B2) 100 mg 1 tab PO DAILY 10/28/22 10/28/22 tablet (Vitamin B-2) topiramate 50 mg tablet 150 mg PO BEDTIME 10/28/22 10/28/22 <PATRICK Tate - Last Filed: 10/28/22 16:06> Allergies/Adverse reactions: Allergies Allergy/AdvReac Type Severity Reaction Status Date / Time No Known Allergies Allergy Verified 10/20/22 15:50 [No Known Allergies*] <PATRICK Tate - Last Filed: 10/28/22 16:06> [facility] Past Medical History Medical History: Medical History CVA (cerebral vascular accident) Hemorrhagic stroke HLD (hyperlipidemia) Seizure disorder Seizures <PATRICK Tate - Last Filed: 10/28/22 16:06> Surgical History: Surgical History H/O craniotomy H/O lithotripsy <PATRICK Tate - Last Filed: 10/28/22 16:06> Family History Family History: Family History Other Diabetes HTN (hypertension) <PATRICK Tate - Last Filed: 10/28/22 16:06> Social History Social History: Social History Household Members: Family Housing: House Do you presently have visiting nurse or other home services: No Unable to assess alcohol history related to: Unknown Alcohol intake: current Alcohol intake frequency: holidays/special occasions only Alcohol type: beer Patient Tobacco Use Status: Former Tobacco user Quit Date: 2012 Tobacco use type: Cigarette Years Smoked: 2009 Second Hand Smoke Exposure: No service: No Current occupational status: disabled <PATRICK Tate - Last Filed: 10/28/22 16:06> Physical Exam Vital Signs: Vital Signs: Last Vital Signs Temp 97.7 F 10/28/22 15:03 Pulse 87 10/28/22 15:03 Resp 18 10/28/22 15:03 BP 107/68 10/28/22 15:03 Pulse Ox 98 10/28/22 15:03 O2 Del Method 10/28/22 15:03 BMI result Body Mass Index 21.1 <PATRICK Tate - Last Filed: 10/28/22 16:06> Vital Signs: Last Vital Signs Temp 97.7 F 10/28/22 15:03 Pulse 87 10/28/22 15:03 Resp 18 10/28/22 15:03 BP 107/68 10/28/22 15:03 Pulse Ox 98 10/28/22 15:03 O2 Del Method 10/28/22 15:03 BMI result Body Mass Index 21.1 <Sherley Valdez MD - Last Filed: 10/28/22 00:33> Course Course Course Narrative: RME- 22PM - 52yoM c PMHx of hemorrhagic stroke 8 years ago s/p craniotomy at [place], hyperlipidemia, seizure disorder, CKD last creatinine 1.5 and large kidney stones being followed by Urology presenting to the ER with mother at bedside with complaints of urinary hesitancy since approximately 3:30pm this afternoon. Reports that [facility] where they recently did lithotripsy and place a stent on 10/24/2022 and the urologist pulled out his Valdez catheter earlier today. He did urinate after the Avldez catheter was removed although has not urinated since then. Reports associated abdominal pain diffusely. Denies any fevers or back pain or any other symptoms complaints or concerns at this time. Plan: Will obtain labs, UA, bladder scan and a CT scan abdomen pelvis without IV contrast. Patient is stable to go back to to be evaluated in the ER. <PATRICK Tate - Last Filed: 10/28/22 16:06> Medications Administered Generic Name Dose Route Start Last Admin Trade Name Freq PRN Reason Stop Dose Admin Atorvastatin Calcium 40 mg 10/28/22 09:00 10/28/22 11:12 Atorvastatin Calcium 40 Mg Tablet PO 40 mg DAILY ISAC Administration Clopidogrel Bisulfate 75 mg 10/28/22 09:00 10/28/22 11:12 Clopidogrel Bisulfate 75 Mg Tablet PO 75 mg DAILY ISAC Administration Enoxaparin Sodium 40 mg 10/28/22 01:45 10/28/22 03:17 Enoxaparin Sodium 40 Mg/0.4 Ml Syringe SUBCUT 40 mg Q24H ISAC Administration Lactated Ringer's 1,000 mls @ 100 mls/hr 10/28/22 01:45 10/28/22 12:35 Lr IVCONT 100 mls/hr .Q10H ISAC Administration Levetiracetam 750 mg 10/28/22 11:15 10/28/22 11:13 Levetiracetam 250 Mg Tablet PO 750 mg BID ISAC Administration Pyridoxine HCl 100 mg 10/28/22 11:15 10/28/22 11:12 Pyridoxine Hcl (Vitamin B6) 50 Mg Tablet PO 100 mg DAILY ISAC Administration Sodium Chloride 3 ml 10/28/22 08:00 10/28/22 14:51 0.9 % Sodium Chloride Flush 3 Ml Syringe IVFLUSH Not Given QSHIFT ISAC Topiramate 200 mg 10/28/22 11:15 10/28/22 11:13 Topiramate 100 Mg Tablet PO 200 mg DAILY ISAC Administration Discontinued Medications Generic Name Dose Route Start Last Admin Trade Name Migdalia PRN Reason Stop Dose Admin Sodium Chloride 2,000 mls @ 999 mls/hr 10/27/22 22:20 10/28/22 01:05 Ns IVCONT 10/28/22 00:20 Infused .Q2H1M ONE Infusion Pamidronate Disodium 60 mg/ 260 mls @ 130 mls/hr 10/27/22 22:31 10/28/22 01:48 Sodium Chloride IV 10/28/22 00:30 Infused ONCE ONE Infusion Ceftriaxone Sodium 1 gm/ 50 mls @ 100 mls/hr 10/28/22 00:39 10/28/22 03:52 Sodium Chloride IV 10/28/22 01:08 Infused ONCE ONE Infusion Lidocaine HCl 20 ml 10/27/22 22:36 10/27/22 23:21 Lidocaine Hcl 2 % Urojet 10 Ml Jel.Pf.Alix TOPICAL 10/27/22 22:37 20 ml ONCE ONE Administration <PATRICK Tate - Last Filed: 10/28/22 16:06> Medications Administered Generic Name Dose Route Start Last Admin Trade Name Migdalia PRN Reason Stop Dose Admin Atorvastatin Calcium 40 mg 10/28/22 09:00 10/28/22 11:12 Atorvastatin Calcium 40 Mg Tablet PO 40 mg DAILY ISAC Administration Clopidogrel Bisulfate 75 mg 10/28/22 09:00 10/28/22 11:12 Clopidogrel Bisulfate 75 Mg Tablet PO 75 mg DAILY ISAC Administration Enoxaparin Sodium 40 mg 10/28/22 01:45 10/28/22 03:17 Enoxaparin Sodium 40 Mg/0.4 Ml Syringe SUBCUT 40 mg Q24H ISAC Administration Lactated Ringer's 1,000 mls @ 100 mls/hr 10/28/22 01:45 10/28/22 12:35 Lr IVCONT 100 mls/hr .Q10H ISAC Administration Levetiracetam 750 mg 10/28/22 11:15 10/28/22 11:13 Levetiracetam 250 Mg Tablet PO 750 mg BID ISAC Administration Pyridoxine HCl 100 mg 10/28/22 11:15 10/28/22 11:12 Pyridoxine Hcl (Vitamin B6) 50 Mg Tablet PO 100 mg DAILY ISAC Administration Sodium Chloride 3 ml 10/28/22 08:00 10/28/22 14:51 0.9 % Sodium Chloride Flush 3 Ml Syringe IVFLUSH Not Given QSHIFT ISAC Topiramate 200 mg 10/28/22 11:15 10/28/22 11:13 Topiramate 100 Mg Tablet PO 200 mg DAILY ISAC Administration Discontinued Medications Generic Name Dose Route Start Last Admin Trade Name Forrestq PRN Reason Stop Dose Admin Sodium Chloride 2,000 mls @ 999 mls/hr 10/27/22 22:20 10/28/22 01:05 Ns IVCONT 10/28/22 00:20 Infused .Q2H1M ONE Infusion Pamidronate Disodium 60 mg/ 260 mls @ 130 mls/hr 10/27/22 22:31 10/28/22 01:48 Sodium Chloride IV 10/28/22 00:30 Infused ONCE ONE Infusion Ceftriaxone Sodium 1 gm/ 50 mls @ 100 mls/hr 10/28/22 00:39 10/28/22 03:52 Sodium Chloride IV 10/28/22 01:08 Infused ONCE ONE Infusion Lidocaine HCl 20 ml 10/27/22 22:36 10/27/22 23:21 Lidocaine Hcl 2 % Urojet 10 Ml Jel.Pf.Alix TOPICAL 10/27/22 22:37 20 ml ONCE ONE Administration <Sherley Valdez MD - Last Filed: 10/28/22 00:33> Medical Decision Making Lab Data Result Diagrams: : 10/27/22 20:15 10/27/22 20:15 <PATRICK Tate - Last Filed: 10/28/22 16:06> Labs: Lab Results 10/27/22 10/27/22 10/27/22 Range/Units 20:15 20:15 20:15 WBC 12.6 H (4.8-10.8) X10*3/uL RBC 4.85 (4.60-5.80) X10*6/uL Hgb 14.9 (14.0-18.0) g/dl Hct 45.8 D (42.0-52.0) % MCV 94.4 (80.0-98.0) fL MCH 30.7 (27.0-33.0) pg MCHC 32.5 (31.0-36.0) g/dl RDW 12.9 (11.0-16.0) % Plt Count 334 (160-400) X10*3/uL MPV 10.0 (9.4-12.4) fL Immature Gran % (Auto) 0.3 (0.0-0.4) % Neut % (Auto) 75.0 H (45-73) % Lymph % (Auto) 16.6 L (20-40) % [place] % (Auto) 5.8 (2-11) % Eos % (Auto) 1.8 (0-4) % Baso % (Auto) 0.5 (0-2) % Lymph # (Auto) 2.1 (1.2-4.9) X10*3/uL [place] # (Auto) 0.7 (0.1-1.2) X10*3/uL Eos # (Auto) 0.2 (0.0-0.4) X10*3/uL Baso # (Auto) 0.1 (0.0-0.2) X10*3/uL Abs Immat Gran (auto) 0.04 H (0.00-0.03) X10*3/uL Absolute Neuts (auto) 9.5 H (2.0-8.3) x10*3/uL Absolute Nucleated RBC 0.000 (0.0-0.012) X10*3/uL Nucleated RBC % (auto) 0.0 (0.0-0.2) /100WBC PT 12.0 (10.0-13.1) SEC INR 1.0 (0.9-1.1) Sodium 142 (135-145) mmol/L Potassium 4.8 (3.3-5.1) mmol/L Chloride 115 H (96-108) mmol/L Carbon Dioxide 18 L (22-29) mmol/L Anion Gap 14 (12-20) BUN 15 (9-16) mg/dL Creatinine 1.26 (0.5-1.4) mg/dL Estim Creat Clear Calc 71.9 Estimated GFR > 60 Random Glucose 114 (60-115) mg/dL Lactic Acid (0.5-2.0) mmol/L Calcium 12.6 H* D (8.4-10.2) mg/dL Magnesium 2.0 (1.6-2.6) mg/dL Total Bilirubin 0.7 (0.0-1.0) mg/dL AST 33 (5-37) U/L ALT 17 (0-40) U/L Alkaline Phosphatase 123 H (39-117) U/L Total Protein 7.9 (6.5-8.0) g/dL Albumin 4.4 (3.5-5.0) g/dL Urine Color Urine Appearance Urine pH (5.0-9.0) Ur Specific [place] (1.005-1.025) Urine Protein (Neg-Trace) mg/dL Urine Glucose (UA) (Negative) mg/dL Urine Ketones (Negative) mg/dL Urine Blood (Negative) Urine Nitrite (Negative) Ur Leukocyte Esterase (Negative) Urine RBC (0-2) /HPF Urine WBC (0-5) /HPF Ur Squamous Epith Cells (0-2) /HPF Urine Bacteria (None Seen) Hyaline Casts (0-2) /LPF Influenza Type A (PCR) (Negative) Influenza Type B (PCR) (Negative) RSV RNA Qual (PCR) (Negative) SARS-CoV-2 RNA (RT-PCR) (Negative) 10/27/22 10/27/22 10/28/22 Range/Units 20:15 23:00 01:00 WBC (4.8-10.8) X10*3/uL RBC (4.60-5.80) X10*6/uL Hgb (14.0-18.0) g/dl Hct (42.0-52.0) % MCV (80.0-98.0) fL MCH (27.0-33.0) pg MCHC (31.0-36.0) g/dl RDW (11.0-16.0) % Plt Count (160-400) X10*3/uL MPV (9.4-12.4) fL Immature Gran % (Auto) (0.0-0.4) % Neut % (Auto) (45-73) % Lymph % (Auto) (20-40) % [place] % (Auto) (2-11) % Eos % (Auto) (0-4) % Baso % (Auto) (0-2) % Lymph # (Auto) (1.2-4.9) X10*3/uL [place] # (Auto) (0.1-1.2) X10*3/uL Eos # (Auto) (0.0-0.4) X10*3/uL Baso # (Auto) (0.0-0.2) X10*3/uL Abs Immat Gran (auto) (0.00-0.03) X10*3/uL Absolute Neuts (auto) (2.0-8.3) x10*3/uL Absolute Nucleated RBC (0.0-0.012) X10*3/uL Nucleated RBC % (auto) (0.0-0.2) /100WBC PT (10.0-13.1) SEC INR (0.9-1.1) Sodium (135-145) mmol/L Potassium (3.3-5.1) mmol/L Chloride (96-108) mmol/L Carbon Dioxide (22-29) mmol/L Anion Gap (12-20) BUN (9-16) mg/dL Creatinine (0.5-1.4) mg/dL Estim Creat Clear Calc Estimated GFR Random Glucose (60-115) mg/dL Lactic Acid 1.1 (0.5-2.0) mmol/L Calcium (8.4-10.2) mg/dL Magnesium (1.6-2.6) mg/dL Total Bilirubin (0.0-1.0) mg/dL AST (5-37) U/L ALT (0-40) U/L Alkaline Phosphatase (39-117) U/L Total Protein (6.5-8.0) g/dL Albumin (3.5-5.0) g/dL Urine Color [place] A Urine Appearance Cloudy Urine pH 7.0 (5.0-9.0) Ur Specific [place] 1.015 (1.005-1.025) Urine Protein 100 (2+) H (Neg-Trace) mg/dL Urine Glucose (UA) Negative (Negative) mg/dL Urine Ketones Negative (Negative) mg/dL Urine Blood Large (3+) H (Negative) Urine Nitrite Negative (Negative) Ur Leukocyte Esterase Moderate (2+) H (Negative) Urine RBC >20 H (0-2) /HPF Urine WBC 21-50 H (0-5) /HPF Ur Squamous Epith Cells 0-2 (0-2) /HPF Urine Bacteria None Seen (None Seen) Hyaline Casts 0-2 (0-2) /LPF Influenza Type A (PCR) NEGATIVE (Negative) Influenza Type B (PCR) NEGATIVE (Negative) RSV RNA Qual (PCR) NEGATIVE (Negative) SARS-CoV-2 RNA (RT-PCR) NEGATIVE (Negative) <PATRICK Tate - Last Filed: 10/28/22 16:06> Lab Results 10/27/22 10/27/22 10/27/22 Range/Units 20:15 20:15 20:15 WBC 12.6 H (4.8-10.8) X10*3/uL RBC 4.85 (4.60-5.80) X10*6/uL Hgb 14.9 (14.0-18.0) g/dl Hct 45.8 D (42.0-52.0) % MCV 94.4 (80.0-98.0) fL MCH 30.7 (27.0-33.0) pg MCHC 32.5 (31.0-36.0) g/dl RDW 12.9 (11.0-16.0) % Plt Count 334 (160-400) X10*3/uL MPV 10.0 (9.4-12.4) fL Immature Gran % (Auto) 0.3 (0.0-0.4) % Neut % (Auto) 75.0 H (45-73) % Lymph % (Auto) 16.6 L (20-40) % [place] % (Auto) 5.8 (2-11) % Eos % (Auto) 1.8 (0-4) % Baso % (Auto) 0.5 (0-2) % Lymph # (Auto) 2.1 (1.2-4.9) X10*3/uL [place] # (Auto) 0.7 (0.1-1.2) X10*3/uL Eos # (Auto) 0.2 (0.0-0.4) X10*3/uL Baso # (Auto) 0.1 (0.0-0.2) X10*3/uL Abs Immat Gran (auto) 0.04 H (0.00-0.03) X10*3/uL Absolute Neuts (auto) 9.5 H (2.0-8.3) x10*3/uL Absolute Nucleated RBC 0.000 (0.0-0.012) X10*3/uL Nucleated RBC % (auto) 0.0 (0.0-0.2) /100WBC PT 12.0 (10.0-13.1) SEC INR 1.0 (0.9-1.1) Sodium 142 (135-145) mmol/L Potassium 4.8 (3.3-5.1) mmol/L Chloride 115 H (96-108) mmol/L Carbon Dioxide 18 L (22-29) mmol/L Anion Gap 14 (12-20) BUN 15 (9-16) mg/dL Creatinine 1.26 (0.5-1.4) mg/dL Estim Creat Clear Calc 71.9 Estimated GFR > 60 Random Glucose 114 (60-115) mg/dL Lactic Acid (0.5-2.0) mmol/L Calcium 12.6 H* D (8.4-10.2) mg/dL Magnesium 2.0 (1.6-2.6) mg/dL Total Bilirubin 0.7 (0.0-1.0) mg/dL AST 33 (5-37) U/L ALT 17 (0-40) U/L Alkaline Phosphatase 123 H (39-117) U/L Total Protein 7.9 (6.5-8.0) g/dL Albumin 4.4 (3.5-5.0) g/dL Urine Color Urine Appearance Urine pH (5.0-9.0) Ur Specific [place] (1.005-1.025) Urine Protein (Neg-Trace) mg/dL Urine Glucose (UA) (Negative) mg/dL Urine Ketones (Negative) mg/dL Urine Blood (Negative) Urine Nitrite (Negative) Ur Leukocyte Esterase (Negative) Urine RBC (0-2) /HPF Urine WBC (0-5) /HPF Ur Squamous Epith Cells (0-2) /HPF Urine Bacteria (None Seen) Hyaline Casts (0-2) /LPF Influenza Type A (PCR) (Negative) Influenza Type B (PCR) (Negative) RSV RNA Qual (PCR) (Negative) SARS-CoV-2 RNA (RT-PCR) (Negative) 10/27/22 10/27/22 10/28/22 Range/Units 20:15 23:00 01:00 WBC (4.8-10.8) X10*3/uL RBC (4.60-5.80) X10*6/uL Hgb (14.0-18.0) g/dl Hct (42.0-52.0) % MCV (80.0-98.0) fL MCH (27.0-33.0) pg MCHC (31.0-36.0) g/dl RDW (11.0-16.0) % Plt Count (160-400) X10*3/uL MPV (9.4-12.4) fL Immature Gran % (Auto) (0.0-0.4) % Neut % (Auto) (45-73) % Lymph % (Auto) (20-40) % [place] % (Auto) (2-11) % Eos % (Auto) (0-4) % Baso % (Auto) (0-2) % Lymph # (Auto) (1.2-4.9) X10*3/uL [place] # (Auto) (0.1-1.2) X10*3/uL Eos # (Auto) (0.0-0.4) X10*3/uL Baso # (Auto) (0.0-0.2) X10*3/uL Abs Immat Gran (auto) (0.00-0.03) X10*3/uL Absolute Neuts (auto) (2.0-8.3) x10*3/uL Absolute Nucleated RBC (0.0-0.012) X10*3/uL Nucleated RBC % (auto) (0.0-0.2) /100WBC PT (10.0-13.1) SEC INR (0.9-1.1) Sodium (135-145) mmol/L Potassium (3.3-5.1) mmol/L Chloride (96-108) mmol/L Carbon Dioxide (22-29) mmol/L Anion Gap (12-20) BUN (9-16) mg/dL Creatinine (0.5-1.4) mg/dL Estim Creat Clear Calc Estimated GFR Random Glucose (60-115) mg/dL Lactic Acid 1.1 (0.5-2.0) mmol/L Calcium (8.4-10.2) mg/dL Magnesium (1.6-2.6) mg/dL Total Bilirubin (0.0-1.0) mg/dL AST (5-37) U/L ALT (0-40) U/L Alkaline Phosphatase (39-117) U/L Total Protein (6.5-8.0) g/dL Albumin (3.5-5.0) g/dL Urine Color [place] A Urine Appearance Cloudy Urine pH 7.0 (5.0-9.0) Ur Specific [place] 1.015 (1.005-1.025) Urine Protein 100 (2+) H (Neg-Trace) mg/dL Urine Glucose (UA) Negative (Negative) mg/dL Urine Ketones Negative (Negative) mg/dL Urine Blood Large (3+) H (Negative) Urine Nitrite Negative (Negative) Ur Leukocyte Esterase Moderate (2+) H (Negative) Urine RBC >20 H (0-2) /HPF Urine WBC 21-50 H (0-5) /HPF Ur Squamous Epith Cells 0-2 (0-2) /HPF Urine Bacteria None Seen (None Seen) Hyaline Casts 0-2 (0-2) /LPF Influenza Type A (PCR) NEGATIVE (Negative) Influenza Type B (PCR) NEGATIVE (Negative) RSV RNA Qual (PCR) NEGATIVE (Negative) SARS-CoV-2 RNA (RT-PCR) NEGATIVE (Negative) <Sherley Valdez MD - Last Filed: 10/28/22 00:33> Discharge Plan Discharge Clinical Impression: Hypercalcemia, Acute UTI, Acute urinary retention <PATRICK Tate - Last Filed: 10/28/22 16:06> Patient Disposition: Admitted As Inpatient <PATRICK Tate - Last Filed: 10/28/22 16:06> Discharge Date/Time: 10/28/22 03:46 <PATRICK Tate - Last Filed: 10/28/22 16:06>
[2022-10-27 19:52] VITALS: BP 157/95; PULSE 110; RESP 16; TEMP 36.6; O2SAT 99; BMI 21.1
[2022-10-27 20:23] LABS: MANUAL DIFF FLAG NO
[2022-10-27 20:34] LABS: Basophils Absolute Auto 0.1 X10*3/uL (0.0-0.2); Basophils Percent Auto 0.5 % (0-2); Eosinophils Absolute Auto 0.2 X10*3/uL (0.0-0.4); Eosinophils Percent Auto 1.8 % (0-4); Hematocrit 45.8 % (42.0-52.0); Hemoglobin 14.9 g/dl (14.0-18.0); Imm Gran Abs Auto 0.04 X10*3/uL (0.00-0.03); Imm Gran Pct Auto 0.3 % (0.0-0.4); Lymphocytes Absolute Auto 2.1 X10*3/uL (1.2-4.9); Lymphocytes Percent Auto 16.6 % (20-40); Mean Corpuscular HGB Conc 32.5 g/dl (31.0-36.0); Mean Corpuscular Hemoglobin 30.7 pg (27.0-33.0); Mean Corpuscular Volume 94.4 fL (80.0-98.0); Monocytes Absolute Auto 0.7 X10*3/uL (0.1-1.2); Monocytes Percent Auto 5.8 % (2-11); Neutrophils Absolute Auto 9.5 x10*3/uL (2.0-8.3); Platelet Count 334 X10*3/uL (160-400); Red Blood Count 4.85 X10*6/uL (4.60-5.80); Red Cell Distribution Width 12.9 % (11.0-16.0); White Blood Count 12.6 X10*3/uL (4.8-10.8)
[2022-10-27 21:01] LABS: Influenza A PCR NEGATIVE (Negative); Influenza B PCR NEGATIVE (Negative); Resp Syncy Virus RNA Qual PCR NEGATIVE (Negative); SARS COV2 PCR INHOUSE NEGATIVE (Negative)
[2022-10-27 21:09] LABS: Alanine Aminotransferase 17 U/L (0-40); Albumin Level 4.4 g/dL (3.5-5.0); Alkaline Phosphatase 123 U/L (39-117); Anion Gap 14 (12-20); Aspartate Amino Transferase 33 U/L (5-37); Bilirubin Total 0.7 mg/dL (0.0-1.0); Blood Urea Nitrogen 15 mg/dL (9-16); Calcium 12.6 mg/dL (8.4-10.2); Carbon Dioxide 18 mmol/L (22-29); Chloride 115 mmol/L (96-108); Creatinine Clr Calc Pharmacy 71.9; Estimated Glomerular Filt Rate > 60; Glucose Random 114 mg/dL (60-115); Potassium 4.8 mmol/L (3.3-5.1); Sodium 142 mmol/L (135-145); Total Protein 7.9 g/dL (6.5-8.0)
--- NOTE | 2022-10-27 22:39 | ED_ITS ---
HPI - Abdominal Pain General Chief Complaint: Abdominal Pain Stated Complaint: valdez inserted ..not working abd pain Time Seen by Provider: 10/27/22 21:34 Source: family Mode of arrival: ambulatory Limitations: no limitations History of Present Illness HPI narrative: Patient comes to the emergency room complaining of abdominal pain. Earlier this morning, patient went to Urology, a Valdez catheter was removed. Shortly after the visit, patient complain of abdominal pain and unable to urinate. While patient was in the waiting room, labs were initiated, patient's calcium level is critically elevated at 12.6. Patient has history of hemorrhagic stroke, unable to give full history. Patient's mother is at bedside who is a poor historian. Related Data Home Medications Medication Instructions Recorded Confirmed allopurinol 100 mg tablet 100 mg PO DAILY PRN REANL STONES 08/09/22 10/20/22 atorvastatin 40 mg tablet 1 tab PO DAILY 08/09/22 10/20/22 clopidogrel 75 mg tablet 1 tab PO DAILY 08/09/22 10/20/22 levetiracetam 750 mg tablet 3 tab PO BID 08/09/22 10/20/22 riboflavin (vitamin B2) 100 mg 1 tab PO QAM 08/09/22 10/20/22 tablet (Vitamin B-2) topiramate 50 mg tablet 150 mg PO BEDTIME 08/09/22 10/20/22 topiramate 50 mg tablet 200 mg PO DAILY 08/09/22 10/20/22 Previous Rx's Medication Instructions Recorded pyridoxine (vitamin B6) 100 mg 100 mg PO DAILY 90 days #90 tabs 07/21/22 tablet levofloxacin 500 mg tablet 500 mg PO DAILY 10 days #10 tabs 10/24/22 oxycodone-acetaminophen 5 mg-325 1 tab PO Q8H PRN pain #6 tabs 10/25/22 mg tablet (Percocet) Allergies Allergy/AdvReac Type Severity Reaction Status Date / Time No Known Allergies Allergy Verified 10/20/22 15:50 [No Known Allergies*] Review of Systems Review of Systems Constitutional : No Weight loss, No Fever, No Chills, No Night Sweats, No Fatigue, No Malaise ENT/Mouth : No Hearing loss, No Ear Pain, No Nasal Congestion, No Sinus Pain, No Hoarseness, No sore throat, No Rhinorrhea, No Swallowing Difficulty Eyes: No Eye Pain, No Swelling, No Redness, No Foreign Body, No Discharge, No Vision Changes Cardiovascular : No Chest Pain, No SOB, No Dyspnea on Exertion, No Orthopnea, No Edema, No Palpitations Respiratory : No Cough, No Sputum, No Wheezing, No Smoke Exposure, No Dyspnea Gastrointestinal : No Nausea, No Vomiting, No Diarrhea, No Constipation, No abdominal Pain, No Hematochezia, No Melena Genitourinary : Patient complaining urinary retention and diffuse abdominal pain but much worse in the suprapubic area Musculoskeletal : No joint pain, No Myalgias, No Joint Swelling Skin : No Skin Lesions, No rash Neuro : No Weakness, No Numbness, No Paresthesias, No Loss of Consciousness, No Dizziness, No Headache Psych : No Anxiety/Panic, No Depression, No SI/HI/AH/VH, No Social Issues, Heme/Lymph: No Bruising, No Bleeding,No Lymphadenopathy Endocrine : No Polyuria, No Polydipsia, No Temperature Intolerance PMFSH Past Medical History Medical History CVA (cerebral vascular accident) Hemorrhagic stroke HLD (hyperlipidemia) Seizure disorder Seizures Surgical History H/O craniotomy H/O lithotripsy Family History Family History Other Diabetes HTN (hypertension) Social History Social History Household Members: Unknown / Unable to assess Housing: Apartment Do you presently have visiting nurse or other home services: No Unable to assess alcohol history related to: Unknown Alcohol intake: current Alcohol intake frequency: holidays/special occasions only Alcohol type: beer Patient Tobacco Use Status: Former Tobacco user Quit Date: 2012 Tobacco use type: Cigarette Years Smoked: 2009 Smoked in Last 30 Days: No Second Hand Smoke Exposure: No Use of substances other than those prescribed or required for medical reasons: No Advance Directives: No Advance Directives Information Provided: No service: No Current occupational status: disabled Physical Exam ED Vital Signs: Vital Signs - 24 hr 10/27/22 19:52 10/27/22 23:27 Temperature 97.9 F 98.1 F Pulse Rate 110 H 99 Respiratory Rate 16 16 Blood Pressure 157/95 H 114/72 Pulse Oximetry 99 95 Oxygen Delivery Method Room Air Room Air BMI result Body Mass Index 21.1 Const Other: Appearance: Alert. Seems uncomfortable Eyes: Pupils equal, round and reactive to light. ENT: Pharynx normal. Neck: Normal inspection. Neck supple. No lymph nodes noted. No crepitus CVS: Normal heart rate and rhythm. Pulses normal. Normal S1 and S2 Respiratory: No respiratory distress. Breath sounds normal. No Wheezing. No rales Abdomen: Soft, pain to palpation diffusely but much worse in the suprapubic area Skin: Skin warm and dry. Normal skin color. Normal skin turgor. Extremities: No lower extremity edema. No Lacerations. No Rash Neuro patient has chronic impaired speech, limited Psych: calm, refusing lab work Course Course Course Narrative: Were trying to insert a Valdez catheter, patient's bladder scan shows 623 mL of urine. Patient's calcium is 12.6. Patient's calcium has been elevated previously in July of this year, but never this high. Patient asymptomatic, complaining of abdominal pain, likely a combination between hypercalcemia and urinary retention. It is possible that patient's elevated calcium is causing the kidney stones. Patient is being given IV fluids, IV pamidronate, intranasal calcitonin does not seem to be recommended for hypercalcemia, only osteoporosis, at this time, we do not have available IM/subcutaneous I was able to insert coude, patient is draining urine properly. According to the patient and the mother, they never been aware of the patient having high calcium. It is possible that patient may have hyperparathyroidism, causing him to have recurrent kidney stones as well as diffuse abdominal pain. Calcium is to be repeated, patient admitted. Also, patient given ceftriaxone for a UTI. At this time, sepsis not suspected. Medical Decision Making Differential Diagnosis Differential Diagnoses: The differential diagnosis associated with the presentation includes (Hyperparathyroidism, hypercalcemia, urinary tension) Admission/Observation Consideration of admission/observation: Escalation of care including admission/observation considered Patient likely having underlying hyperparathyroidism, patient's calcium levels need to be recheck. Consult Healthcare Provider Management of the patient was discussed with: Hospitalist I discussed the patient with Dr. Kim, patient to be admitted. Lab Data MDM Lab Attestation statement: I reviewed the patient's lab results. Result Diagrams: 10/27/22 20:15 10/27/22 20:15 Labs: Lab Results 10/27/22 10/27/22 10/27/22 Range/Units 20:15 20:15 20:15 WBC 12.6 H (4.8-10.8) X10*3/uL RBC 4.85 (4.60-5.80) X10*6/uL Hgb 14.9 (14.0-18.0) g/dl Hct 45.8 D (42.0-52.0) % MCV 94.4 (80.0-98.0) fL MCH 30.7 (27.0-33.0) pg MCHC 32.5 (31.0-36.0) g/dl RDW 12.9 (11.0-16.0) % Plt Count 334 (160-400) X10*3/uL MPV 10.0 (9.4-12.4) fL Immature Gran % (Auto) 0.3 (0.0-0.4) % Neut % (Auto) 75.0 H (45-73) % Lymph % (Auto) 16.6 L (20-40) % [place] % (Auto) 5.8 (2-11) % Eos % (Auto) 1.8 (0-4) % Baso % (Auto) 0.5 (0-2) % Lymph # (Auto) 2.1 (1.2-4.9) X10*3/uL [place] # (Auto) 0.7 (0.1-1.2) X10*3/uL Eos # (Auto) 0.2 (0.0-0.4) X10*3/uL Baso # (Auto) 0.1 (0.0-0.2) X10*3/uL Abs Immat Gran (auto) 0.04 H (0.00-0.03) X10*3/uL Absolute Neuts (auto) 9.5 H (2.0-8.3) x10*3/uL Absolute Nucleated RBC 0.000 (0.0-0.012) X10*3/uL Nucleated RBC % (auto) 0.0 (0.0-0.2) /100WBC PT 12.0 (10.0-13.1) SEC INR 1.0 (0.9-1.1) Sodium 142 (135-145) mmol/L Potassium 4.8 (3.3-5.1) mmol/L Chloride 115 H (96-108) mmol/L Carbon Dioxide 18 L (22-29) mmol/L Anion Gap 14 (12-20) BUN 15 (9-16) mg/dL Creatinine 1.26 (0.5-1.4) mg/dL Estim Creat Clear Calc 71.9 Estimated GFR > 60 Random Glucose 114 (60-115) mg/dL Calcium 12.6 H* D (8.4-10.2) mg/dL Magnesium 2.0 (1.6-2.6) mg/dL Total Bilirubin 0.7 (0.0-1.0) mg/dL AST 33 (5-37) U/L ALT 17 (0-40) U/L Alkaline Phosphatase 123 H (39-117) U/L Total Protein 7.9 (6.5-8.0) g/dL Albumin 4.4 (3.5-5.0) g/dL Urine Color Urine Appearance Urine pH (5.0-9.0) Ur Specific Bone Gap (1.005-1.025) Urine Protein (Neg-Trace) mg/dL Urine Glucose (UA) (Negative) mg/dL Urine Ketones (Negative) mg/dL Urine Blood (Negative) Urine Nitrite (Negative) Ur Leukocyte Esterase (Negative) Urine RBC (0-2) /HPF Urine WBC (0-5) /HPF Ur Squamous Epith Cells (0-2) /HPF Urine Bacteria (None Seen) Hyaline Casts (0-2) /LPF Influenza Type A (PCR) (Negative) Influenza Type B (PCR) (Negative) RSV RNA Qual (PCR) (Negative) SARS-CoV-2 RNA (RT-PCR) (Negative) 10/27/22 10/27/22 Range/Units 20:15 23:00 WBC (4.8-10.8) X10*3/uL RBC (4.60-5.80) X10*6/uL Hgb (14.0-18.0) g/dl Hct (42.0-52.0) % MCV (80.0-98.0) fL MCH (27.0-33.0) pg MCHC (31.0-36.0) g/dl RDW (11.0-16.0) % Plt Count (160-400) X10*3/uL MPV (9.4-12.4) fL Immature Gran % (Auto) (0.0-0.4) % Neut % (Auto) (45-73) % Lymph % (Auto) (20-40) % [place] % (Auto) (2-11) % Eos % (Auto) (0-4) % Baso % (Auto) (0-2) % Lymph # (Auto) (1.2-4.9) X10*3/uL [place] # (Auto) (0.1-1.2) X10*3/uL Eos # (Auto) (0.0-0.4) X10*3/uL Baso # (Auto) (0.0-0.2) X10*3/uL Abs Immat Gran (auto) (0.00-0.03) X10*3/uL Absolute Neuts (auto) (2.0-8.3) x10*3/uL Absolute Nucleated RBC (0.0-0.012) X10*3/uL Nucleated RBC % (auto) (0.0-0.2) /100WBC PT (10.0-13.1) SEC INR (0.9-1.1) Sodium (135-145) mmol/L Potassium (3.3-5.1) mmol/L Chloride (96-108) mmol/L Carbon Dioxide (22-29) mmol/L Anion Gap (12-20) BUN (9-16) mg/dL Creatinine (0.5-1.4) mg/dL Estim Creat Clear Calc Estimated GFR Random Glucose (60-115) mg/dL Calcium (8.4-10.2) mg/dL Magnesium (1.6-2.6) mg/dL Total Bilirubin (0.0-1.0) mg/dL AST (5-37) U/L ALT (0-40) U/L Alkaline Phosphatase (39-117) U/L Total Protein (6.5-8.0) g/dL Albumin (3.5-5.0) g/dL Urine Color [place] A Urine Appearance Cloudy Urine pH 7.0 (5.0-9.0) Ur Specific Bone Gap 1.015 (1.005-1.025) Urine Protein 100 (2+) H (Neg-Trace) mg/dL Urine Glucose (UA) Negative (Negative) mg/dL Urine Ketones Negative (Negative) mg/dL Urine Blood Large (3+) H (Negative) Urine Nitrite Negative (Negative) Ur Leukocyte Esterase Moderate (2+) H (Negative) Urine RBC >20 H (0-2) /HPF Urine WBC 21-50 H (0-5) /HPF Ur Squamous Epith Cells 0-2 (0-2) /HPF Urine Bacteria None Seen (None Seen) Hyaline Casts 0-2 (0-2) /LPF Influenza Type A (PCR) NEGATIVE (Negative) Influenza Type B (PCR) NEGATIVE (Negative) RSV RNA Qual (PCR) NEGATIVE (Negative) SARS-CoV-2 RNA (RT-PCR) NEGATIVE (Negative) Independent Interpretation I performed an independent interpretation of an: CT Scan Interpretation: My interpretation of CT scan is there is a stent in place on the left side, patient has multiple kidney stones especially in the left side Radiology Impression Discussion of test interpretation with radiology: I have reviewed the radiologist's reading. Radiologist Impression: FINDINGS: LUNG BASES: The visualized lung bases are unremarkable. LIVER, GALLBLADDER, BILIARY TREE: The non-contrast liver is normal in size, shape, and attenuation. No focal hepatic lesion or biliary ductal dilatation is present.? The gallbladder is unremarkable with no evidence of radiopaque gallstones, gallbladder wall thickening, or obvious pericholecystic inflammatory changes. PANCREAS: Unremarkable. SPLEEN: Unremarkable. ADRENAL GLANDS: Unremarkable. KIDNEYS AND URETERS: Left-sided ureteric stent is in place with the proximal aspect in the renal pelvis and the distal aspect within the bladder. Chronic fullness to the left collecting system. Innumerable intrarenal calculi are seen in the left kidney. Small amount of air in the left renal collecting system may reflect patency of the stent. Infectious etiology or be clinically correlated the with clinical symptoms. I do not appreciate any intraluminal air in the bladder. BLADDER: No bladder air. There are multiple tiny bladder calculi along the dependent bladder. Bladder is relatively distended GASTROINTESTINAL TRACT: The small and large bowel are unremarkable. The appendix is nonvisualized but no focal inflammatory changes are seen in the expected right lower quadrant.. ABDOMINAL WALL: No significant hernia is appreciated. LYMPHOVASCULAR STRUCTURES: No lymphadenopathy.? The aorta is unremarkable.. PELVIC VISCERA: Unremarkable. OSSEUS STRUCTURES: Unremarkable. CT/CT abdomen pelvis wo IV con IMPRESSION: Left ureteric stent is in place. Multiple calcifications seen in the left renal collecting system as well as the dependent bladder. There are few tiny bubbles of air within the left collecting system and nondependent aspect. Etiology of this is uncertain. This could be seen in the setting of stent patency or sequela of recent intervention however I do not appreciate any bladder air at this time. Patient's recent intervention was 10/24/2022 and I would have expected any tiny air bubbles from that procedure to have resolved in the interval. Infectious etiology would be considered less likely without significant periureteric or perinephric stranding. Correlation would be helpful. Medications Administered Discontinued Medications Generic Name Dose Route Start Last Admin Trade Name Freq PRN Reason Stop Dose Admin Sodium Chloride 2,000 mls @ 999 mls/hr 10/27/22 22:20 10/27/22 23:02 Ns IVCONT 10/28/22 00:20 999 mls/hr .Q2H1M ONE Administration Pamidronate Disodium 60 mg/ 260 mls @ 130 mls/hr 10/27/22 22:31 10/27/22 23:22 Sodium Chloride IV 10/28/22 00:30 130 mls/hr ONCE ONE Administration Lidocaine HCl 20 ml 10/27/22 22:36 10/27/22 23:21 Lidocaine Hcl 2 % Urojet 10 Ml Jel.Pf.Alix TOPICAL 10/27/22 22:37 20 ml ONCE ONE Administration Critical Care Time Critical Care Time Critical Care Time: Yes Total Critical Care Time: 30 Attestation: I have personally provided critical care time. Time includes review of lab data, radiology results, discussion with consultants, and monitoring for potential decompensation. Intervention performed as documented. Discharge Plan Discharge Clinical Impression: Hypercalcemia, Acute UTI, Acute urinary retention Patient Disposition: Admitted As Inpatient Prescriptions: No Action pyridoxine (vitamin B6) 100 mg tablet 100 mg PO DAILY 90 Days Qty: 90 1RF oxycodone-acetaminophen [Percocet] 5-325 mg tablet 1 tab PO Q8H PRN (Reason: pain) Qty: 6 0RF Rx Instructions: Partial Fill upon patient request. levofloxacin 500 mg tablet 500 mg PO DAILY 10 Days Qty: 10 0RF atorvastatin 40 mg tablet 1 tab PO DAILY riboflavin (vitamin B2) [Vitamin B-2] 100 mg tablet 1 tab PO QAM clopidogrel 75 mg tablet 1 tab PO DAILY Hold Instructions: Resume on 08/31/22. Resume after urology procedure levetiracetam 750 mg tablet 3 tab PO BID topiramate 50 mg tablet 200 mg PO DAILY topiramate 50 mg tablet 150 mg PO BEDTIME allopurinol 100 mg tablet 100 mg PO DAILY PRN (Reason: REANL STONES)
[2022-10-27] MEDS: 0.9 % Sodium Chloride 2,000 ML 999 ML IVCONT (23:02)
[2022-10-27] MEDS: Lidocaine HCl 2 % Urojet 10 ML JEL.PF.APP 20 ML TOPICAL (23:21)
[2022-10-27] MEDS: Pamidronate Disodium 60 MG in 0.9 % Sodium Chloride 250 ML 130 MG IV (23:22)
[2022-10-27 23:27] VITALS: BP 114/72; PULSE 99; RESP 16; TEMP 36.7; O2SAT 95
--- NOTE | 2022-10-27 23:31 | PC.NURSE ---
Pt BS for 622 cc. Pt was reporting pain r/t unable to void using urinal. Nurse attempted twice to insert valdez catheter. Resistance noted provider notified. Provider placed coude cathether using uro jet x 2. Valdez bag draining well color diaz brown emptied 700 cc. Pt reports no pain at this time.
[2022-10-28 00:14] LABS: Appearance Urine Cloudy; Color Urine Orange; Glucose Urine UA Negative (Negative); Leukocyte Esterase Urine Moderate (2+) (Negative); Nitrite Urine Negative (Negative); Specific Gravity - Urine 1.015 (1.005-1.025); UMIC TRIGGER UACC YES; Urine Blood Large (3+) (Negative); Urine Ketones Negative (Negative); Urine Protein 100 (2+) mg/dL (Neg-Trace)
[2022-10-28 00:19] LABS: Bacteria Urine None Seen (None Seen); Hyaline Casts Urine 0-2 /LPF (0-2); RBC Urine >20 /HPF (0-2); Squamous Epithelial Cell Urine 0-2 /HPF (0-2); UACC Culture Trigger YES; WBC Urine 21-50 /HPF (0-5)
[2022-10-28 01:20] LABS: Lactic Acid 1.1 mmol/L (0.5-2.0)
--- NOTE | 2022-10-28 01:37 | P.HPHOSP_ITS ---
History of Present Illness Date of Service: 10/28/22 Chief Complaint: urinary retention 52-year-old male with past medical history of hemorrhagic CVA, HLD, seizure disorder, presents to the hospital with complaints of urinary tension. It appears that patient has developed urinary retention since recent admission to the hospital in August for obstructive uropathy, he was seen by Urology in a.m. for Shin remover to evaluate for voiding trial, but patient went home and continued to have urinary retention therefore came to the hospital. Patient is a very historian as a result of his history of hemorrhagic stroke and therefore history is obtained mostly from ED physician. On arrival to the ED patient with dynamic least stable no significant abnormal vitals labs are significant for WBC count 12.6, chloride of 115, calcium of 12.6, urine positive for leukocyte Estrace as well as WBC Bladder scan showed 623 mL in the bladder. Patient Shin catheter placed, started on IV fluids, will be admitted for further management Review of Systems Review of Systems: Yes Unobtainable due to mental condition and Unobtainable due to mental status PMFSH Medical History CVA (cerebral vascular accident) Hemorrhagic stroke HLD (hyperlipidemia) Seizure disorder Seizures Family History Other Diabetes HTN (hypertension) Surgical History H/O craniotomy H/O lithotripsy Social History Household Members: Family Housing: House Do you presently have visiting nurse or other home services: No Unable to assess alcohol history related to: Unknown Alcohol intake: current Alcohol intake frequency: holidays/special occasions only Alcohol type: beer Patient Tobacco Use Status: Former Tobacco user Quit Date: 2012 Tobacco use type: Cigarette Years Smoked: 2010 Smoked in Last 30 Days: No Second Hand Smoke Exposure: No Use of substances other than those prescribed or required for medical reasons: No Have you been hit, kicked, punched, or otherwise hurt by someone within the past year? If so, by whom?: No Do you feel safe in your current relationship?: No Is there a partner from a previous relationship who is making you feel unsafe now?: No Are you made to feel afraid or neglected: No Advance Directives: No Advance Directives Information Provided: No Do you have thoughts of harming others: None Do you have a plan to hurt others: No Plan Recently lost weight without trying: No How much weight loss: Not applicable Eating poorly because of decreased appetite: No Nutrition screen score: 0 Nutrition Risks: No Nutritional Risk service: No Current occupational status: disabled Meds Allergies Allergy/AdvReac Type Severity Reaction Status Date / Time No Known Allergies Allergy Verified 10/20/22 15:50 [No Known Allergies*] Home Medications Medication Instructions Recorded Confirmed Last Taken Type allopurinol 100 mg tablet 100 mg PO DAILY PRN REANL STONES 08/09/22 10/20/22 Unknown History atorvastatin 40 mg tablet 1 tab PO DAILY 08/09/22 10/20/22 10/24/22 History clopidogrel 75 mg tablet 1 tab PO DAILY 08/09/22 10/20/22 09/19/22 History topiramate 50 mg tablet 200 mg PO DAILY 08/09/22 10/28/22 10/24/22 History allopurinol 100 mg tablet 1 tab PO DAILY PRN renal stone 10/28/22 10/28/22 Unknown History atorvastatin 40 mg tablet 1 tab PO DAILY 10/28/22 10/28/22 Unknown History levetiracetam 750 mg tablet 3 tab PO BID 10/28/22 10/28/22 Unknown History oxybutynin chloride 5 mg 1 tab PO DAILY 10/28/22 10/28/22 Unknown History tablet,extended release 24 hr polyethylene glycol 3350 17 17 g PO DAILY 10/28/22 10/28/22 Unknown History gram/dose oral powder riboflavin (vitamin B2) 100 mg 1 tab PO QAM 10/28/22 10/28/22 Unknown History tablet (Vitamin B-2) Physical Exam Vital Signs and Narrative: Vital Signs: Last Vital Signs Temp 98.1 F 10/27/22 23:27 Pulse 99 10/27/22 23:27 Resp 16 10/27/22 23:27 BP 114/72 10/27/22 23:27 Pulse Ox 95 10/27/22 23:27 O2 Del Method 10/27/22 23:27 BMI result Body Mass Index 21.1 Const: Other: awake, cooperative, able to give much history due to baseline VA General: cooperative and no acute distress Eyes: General: appearance normal, both eyes and all related structures Resp: Effort & Inspection: normal respiratory effort Auscultation: clear to auscultation bilaterally Cardio: Rate: regular rate Rhythm: regular rhythm GI: Palpation (GI): Soft to palpation Auscultation: normal bowel sounds Skin: General skin exam: no rashes or lesions noted Extrem: General: Yes normal to inspection and Yes no pedal edema Results Labs CBC and Chem 7: 10/27/22 20:15 10/27/22 20:15 Labs: Laboratory Results - last 24 hr 10/27/22 10/27/22 10/27/22 20:15 20:15 20:15 MCV 94.4 MCH 30.7 MCHC 32.5 RDW 12.9 Plt Count 334 MPV 10.0 Immature Gran % (Auto) 0.3 Neut % (Auto) 75.0 H Lymph % (Auto) 16.6 L [place] % (Auto) 5.8 Eos % (Auto) 1.8 Baso % (Auto) 0.5 Lymph # (Auto) 2.1 [place] # (Auto) 0.7 Eos # (Auto) 0.2 Baso # (Auto) 0.1 Abs Immat Gran (auto) 0.04 H Absolute Neuts (auto) 9.5 H Absolute Nucleated RBC 0.000 Nucleated RBC % (auto) 0.0 PT 12.0 INR 1.0 Anion Gap 14 Estim Creat Clear Calc 71.9 Estimated GFR > 60 Random Glucose 114 Lactic Acid Calcium 12.6 H* D Magnesium 2.0 Total Bilirubin 0.7 AST 33 ALT 17 Alkaline Phosphatase 123 H Total Protein 7.9 Albumin 4.4 Urine Color Urine Appearance Urine pH Ur Specific [place] Urine Protein Urine Glucose (UA) Urine Ketones Urine Blood Urine Nitrite Ur Leukocyte Esterase Urine RBC Urine WBC Ur Squamous Epith Cells Urine Bacteria Hyaline Casts Influenza Type A (PCR) Influenza Type B (PCR) RSV RNA Qual (PCR) SARS-CoV-2 RNA (RT-PCR) 10/27/22 10/27/22 10/28/22 20:15 23:00 01:00 MCV MCH MCHC RDW Plt Count MPV Immature Gran % (Auto) Neut % (Auto) Lymph % (Auto) [place] % (Auto) Eos % (Auto) Baso % (Auto) Lymph # (Auto) [place] # (Auto) Eos # (Auto) Baso # (Auto) Abs Immat Gran (auto) Absolute Neuts (auto) Absolute Nucleated RBC Nucleated RBC % (auto) PT INR Anion Gap Estim Creat Clear Calc Estimated GFR Random Glucose Lactic Acid 1.1 Calcium Magnesium Total Bilirubin AST ALT Alkaline Phosphatase Total Protein Albumin Urine Color [place] A Urine Appearance Cloudy Urine pH 7.0 Ur Specific [place] 1.015 Urine Protein 100 (2+) H Urine Glucose (UA) Negative Urine Ketones Negative Urine Blood Large (3+) H Urine Nitrite Negative Ur Leukocyte Esterase Moderate (2+) H Urine RBC >20 H Urine WBC 21-50 H Ur Squamous Epith Cells 0-2 Urine Bacteria None Seen Hyaline Casts 0-2 Influenza Type A (PCR) NEGATIVE Influenza Type B (PCR) NEGATIVE RSV RNA Qual (PCR) NEGATIVE SARS-CoV-2 RNA (RT-PCR) NEGATIVE Imaging Radiologist's Impressions: Impressions Abdomen/Pelvis CT 10/27/22 21:34 IMPRESSION: Left ureteric stent is in place. Multiple calcifications seen in the left renal collecting system as well as the dependent bladder. There are few tiny bubbles of air within the left collecting system and nondependent aspect. Etiology of this is uncertain. This could be seen in the setting of stent patency or sequela of recent intervention however I do not appreciate any bladder air at this time. Patient's recent intervention was 10/24/2022 and I would have expected any tiny air bubbles from that procedure to have resolved in the interval. Infectious etiology would be considered less likely without significant periureteric or perinephric stranding. Correlation would be helpful. Assessment and Plan (1) Hypercalcemia: Status: Acute (2) Acute UTI: Status: Acute (3) Acute urinary retention: Status: Acute Plan 52-year-old male with past medical history of hemorrhagic CVA, ureteral stone, ureterolithiasis history of obstructive uropathy and urinary retention status post Shin catheterization placement presents to the hospital after failed voiding trial found to have hypokalemia # acute hyperkalemia - likely secondary to dehydration - will treat with IV fluids - follow calcium level - patient received IV pamidronate # urinary retention - unclear etiology, patient previously had bladder spasms started on oxytocin - at this time Shin catheter placed once again - urology consult # acute UTI - has leukocytosis - positive UA - will treat with antibiotics - follow cultures # History of seizure - continue Keppra DVT prophylaxis: Lovenox given hypercalcemia patient required minimal 2 nights inpatient hospital stay for further management and monitoring Time Spent With Patient Time: Total time managing care of this patient today ____ minutes. Quality Stroke Does the patient have a stroke diagnosis?: No VTE Prior VTE?: No VTE Risk Level:: Medical - moderate - high VTE Device Contraindication: Treatment Not Indicated VTE Drug Contraindication: N/A - Med Ordered
[2022-10-28 01:47] VITALS: BP 102/62; PULSE 79; RESP 20; TEMP 36.8; O2SAT 97
[2022-10-28] MEDS: cefTRIAXone sodium 1 GM in 0.9 % Sodium Chloride 50 ML IV ×2 (01:50→22:01)
--- NOTE | 2022-10-28 03:08 | PC.NURSE ---
Nurse to nurse report called to S3, RN-patient to be transferred to S3 bed [id number].
[2022-10-28] MEDS: Enoxaparin Sodium 40 MG/0.4 ML SYRINGE SUBCUT (03:17)
[2022-10-28] MEDS: Lactated Ringers 1,000 ML 100 ML IVCONT ×3 (03:17→22:02)
[2022-10-28 03:41] VITALS: BP 119/67; PULSE 62; RESP 16; TEMP 36.3; O2SAT 99
[2022-10-28 03:45] VITALS: BMI 20.9
[2022-10-28 04:00] VITALS: RESP 20
[2022-10-28 07:57] VITALS: BP 128/70; PULSE 57; RESP 16; TEMP 36.1; O2SAT 100
--- NOTE | 2022-10-28 08:39 | PHA.MEDREC ---
Pharmacy Consult ? Medication Reconciliation Pharmacy has completed the medication reconciliation. Patient poor historian of meds, called brother ([place] [phone]) to confirm meds.
--- NOTE | 2022-10-28 09:16 | MHC.CM.PN ---
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 HE HAS BEEN COVID VACCINATED DOES HAVE A SANDOVAL IN PLACE. PCP IS AT THE [facility] [place] IN [place]. ON LAST VISIT, DC SUMMARY WAS FAXED TO [facility] IMM DISCUSSED, UNDERSTOOD, AND SIGNED FOR PATIENT. HE REPORTS THAT FAMILY WILL BE IN TOP VISIT TODAY IMM 10/28 IN CHART DC PLAN: HOME WITH [employer]UMPTION OF [employer] AND JURY CONSULTANT
--- NOTE | 2022-10-28 10:19 | HO.PM.IMPN ---
Subjective Subjective Date of Service: 10/28/22 Interval History: urinary retention,uti Review of Systems draining yelloish urine-s/p valdez denies any pain or fevers Physical Exam Vital Signs: Vital Signs: Last Vital Signs Temp 97.0 F 10/28/22 07:57 Pulse 57 10/28/22 07:57 Resp 16 10/28/22 07:57 BP 128/70 10/28/22 07:57 Pulse Ox 100 10/28/22 07:57 O2 Del Method 10/28/22 07:57 BMI result Body Mass Index 20.9 Appearance: awake,alert,? Seems uncomfortable Eyes: Pupils equal, round and reactive to light. ENT: Pharynx normal. CVS: Normal heart rate and rhythm.? Respiratory: clear to ausculatation,no rales or wheezing Abdomen: Soft, nd,nt,bs present Gu: has valdez Extremities: No lower extremity edema. No Lacerations. No Rash Neuro :grosslly fine Psych: calm, refusing lab work Objective Data Active Medications Acetaminophen (Acetaminophen 325 Mg Tablet) 650 mg PO Q6H PRN PRN Reason: Pain, Mild (Pain Scale 1-3) Docusate Sodium (Docusate Sodium 100 Mg Capsule) 100 mg PO DAILY PRN PRN Reason: Constipation Enoxaparin Sodium (Enoxaparin Sodium 40 Mg/0.4 Ml Syringe) 40 mg SUBCUT Q24H [facility] Last Admin: 10/28/22 03:17 Dose: 40 mg Documented By: BRANDON Lactated Ringer's (Lr) 1,000 mls @ 100 mls/hr IVCONT .Q10H [facility] Last Admin: 10/28/22 03:17 Dose: 100 mls/hr Documented By: BRANDON Ceftriaxone Sodium 1 gm/ (Sodium Chloride) 50 mls @ 100 mls/hr IV Q24H [facility] Ondansetron HCl (Ondansetron Hcl 4 Mg/2 Ml Vial) 4 mg IVPUSH Q8H PRN PRN Reason: Nausea and Vomiting Sodium Chloride (0.9 % Sodium Chloride Flush 3 Ml Syringe) 3 ml IVFLUSH QSHIFT [facility] Last Admin: 10/28/22 07:33 Dose: Not Given Documented By: GROVER Non-Admin Reason: IV Running Labs CBC & Chem 7: 10/27/22 20:15 10/27/22 20:15 Labs: Laboratory Results - last 24 hr 10/27/22 10/27/22 10/27/22 20:15 20:15 20:15 MCV 94.4 MCH 30.7 MCHC 32.5 RDW 12.9 Plt Count 334 MPV 10.0 Immature Gran % (Auto) 0.3 Neut % (Auto) 75.0 H Lymph % (Auto) 16.6 L [place] % (Auto) 5.8 Eos % (Auto) 1.8 Baso % (Auto) 0.5 Lymph # (Auto) 2.1 [place] # (Auto) 0.7 Eos # (Auto) 0.2 Baso # (Auto) 0.1 Abs Immat Gran (auto) 0.04 H Absolute Neuts (auto) 9.5 H Absolute Nucleated RBC 0.000 Nucleated RBC % (auto) 0.0 PT 12.0 INR 1.0 Anion Gap 14 Estim Creat Clear Calc 71.9 Estimated GFR > 60 Random Glucose 114 Lactic Acid Calcium 12.6 H* D Magnesium 2.0 Total Bilirubin 0.7 AST 33 ALT 17 Alkaline Phosphatase 123 H Total Protein 7.9 Albumin 4.4 Urine Color Urine Appearance Urine pH Ur Specific [place] Urine Protein Urine Glucose (UA) Urine Ketones Urine Blood Urine Nitrite Ur Leukocyte Esterase Urine RBC Urine WBC Ur Squamous Epith Cells Urine Bacteria Hyaline Casts Influenza Type A (PCR) Influenza Type B (PCR) RSV RNA Qual (PCR) SARS-CoV-2 RNA (RT-PCR) 10/27/22 10/27/22 10/28/22 20:15 23:00 01:00 MCV MCH MCHC RDW Plt Count MPV Immature Gran % (Auto) Neut % (Auto) Lymph % (Auto) [place] % (Auto) Eos % (Auto) Baso % (Auto) Lymph # (Auto) [place] # (Auto) Eos # (Auto) Baso # (Auto) Abs Immat Gran (auto) Absolute Neuts (auto) Absolute Nucleated RBC Nucleated RBC % (auto) PT INR Anion Gap Estim Creat Clear Calc Estimated GFR Random Glucose Lactic Acid 1.1 Calcium Magnesium Total Bilirubin AST ALT Alkaline Phosphatase Total Protein Albumin Urine Color [place] A Urine Appearance Cloudy Urine pH 7.0 Ur Specific [place] 1.015 Urine Protein 100 (2+) H Urine Glucose (UA) Negative Urine Ketones Negative Urine Blood Large (3+) H Urine Nitrite Negative Ur Leukocyte Esterase Moderate (2+) H Urine RBC >20 H Urine WBC 21-50 H Ur Squamous Epith Cells 0-2 Urine Bacteria None Seen Hyaline Casts 0-2 Influenza Type A (PCR) NEGATIVE Influenza Type B (PCR) NEGATIVE RSV RNA Qual (PCR) NEGATIVE SARS-CoV-2 RNA (RT-PCR) NEGATIVE Assessment and Plan (1) Hypercalcemia: Status: Acute (2) Acute UTI: Status: Acute (3) Acute urinary retention: Status: Acute Plan ?52-year-old male with past medical history of hemorrhagic CVA, ureteral stone,? ureterolithiasis history of obstructive uropathy and urinary retention status post Valdez catheterization placement presents to the hospital after failed voiding trial found to have hypokalemia #? acute hypercalcemia -? likely secondary to dehydration -? will treat with IV fluids -? follow calcium level -? patient received IV pamidronate pth added nephrolohy eval. #? urinary? retention -? unclear etiology, patient previously had bladder spasms started on oxytocin -? at this time Valdez catheter placed once again -? urology consult #? acute UTI -? has leukocytosis -? positive UA - ? will treat with antibiotics -? follow cultures # ? History of seizure -? continue Keppra ?DVT prophylaxis: Lovenox. inpatient need : acute hypercalcemia -need workup and electrolytic monitering ,uti/urinary retention-on iv antibiotics ,need urologic workup. Time Spent With Patient Time: Total time managing care of this patient today ____ minutes. Quality Stroke Does the patient have a stroke diagnosis?: No VTE Prior VTE?: No VTE Risk Level:: Medical - moderate - high VTE Device Contraindication: Treatment Not Indicated VTE Drug Contraindication: N/A - Med Ordered
[2022-10-28] MEDS: Pyridoxine HCl (Vitamin B6) 50 MG TABLET 100 MG PO (11:12)
[2022-10-28] MEDS: Atorvastatin Calcium 40 MG TABLET PO (11:12)
[2022-10-28] MEDS: Clopidogrel Bisulfate 75 MG TABLET PO (11:12)
[2022-10-28] MEDS: levETIRAcetam 250 MG TABLET 750 MG PO ×2 (11:13→22:01)
[2022-10-28] MEDS: Topiramate 100 MG TABLET 200 MG PO (11:13)
--- NOTE | 2022-10-28 12:34 | PM.UROCN ---
History of Present Illness Consult details Consult date: 10/28/22 Narrative: Yony is a 52 year old with history of kidney stones. With significant stone burden. Currently with a left ureteral stent status post repeat laser lithotripsy of UPJ stone. Large stones in the left kidney remain and a smaller stone about 5 mm in the right kidney. Admitted for urinary retention. Significant history for hemorrhagic stroke. Review of CT scan imaging, left ureteral stent is in place. Stone fragments from recent ureteroscopy laser procedure in the bladder and here seen in the left renal pelvis likely from recent instrumentation and expected. The patient was started on Rocephin and would continue with cephalosporin coverage for now. Recommend Flomax. Review of Systems Review of Systems: 10 point ROS negative other than stated in HPI [facility] Past Medical History Medical History CVA (cerebral vascular accident) Hemorrhagic stroke HLD (hyperlipidemia) Seizure disorder Seizures Family History Family History Other Diabetes HTN (hypertension) Surgical History Surgical History H/O craniotomy H/O lithotripsy Social History Social History Household Members: Family Housing: House Do you presently have visiting nurse or other home services: No Unable to assess alcohol history related to: Unknown Alcohol intake: current Alcohol intake frequency: holidays/special occasions only Alcohol type: beer Patient Tobacco Use Status: Former Tobacco user Quit Date: 2012 Tobacco use type: Cigarette Years Smoked: 2009 Second Hand Smoke Exposure: No service: No Current occupational status: disabled Meds Allergies Allergy/AdvReac Type Severity Reaction Status Date / Time No Known Allergies Allergy Verified 10/20/22 15:50 [No Known Allergies*] Active Medications: Current Medications Acetaminophen (Acetaminophen 325 Mg Tablet) 650 mg PO Q6H PRN PRN Reason: Pain, Mild (Pain Scale 1-3) Allopurinol (Allopurinol 100 Mg Tablet) 100 mg PO DAILY PRN PRN Reason: renal stone Atorvastatin Calcium (Atorvastatin Calcium 40 Mg Tablet) 40 mg PO DAILY [facility] Last Admin: 10/28/22 11:12 Dose: 40 mg Clopidogrel Bisulfate (Clopidogrel Bisulfate 75 Mg Tablet) 75 mg PO DAILY [facility] Last Admin: 10/28/22 11:12 Dose: 75 mg Docusate Sodium (Docusate Sodium 100 Mg Capsule) 100 mg PO DAILY PRN PRN Reason: Constipation Enoxaparin Sodium (Enoxaparin Sodium 40 Mg/0.4 Ml Syringe) 40 mg SUBCUT Q24H [facility] Last Admin: 10/28/22 03:17 Dose: 40 mg Lactated Ringer's (Lr) 1,000 mls @ 100 mls/hr IVCONT .Q10H [facility] Last Admin: 10/28/22 03:17 Dose: 100 mls/hr Ceftriaxone Sodium 1 gm/ (Sodium Chloride) 50 mls @ 100 mls/hr IV Q24H [facility] Levetiracetam (Levetiracetam 250 Mg Tablet) 750 mg PO BID [facility] Last Admin: 10/28/22 11:13 Dose: 750 mg Non-Formulary Medication (Riboflavin (Vitamin B2) [Vitamin B-2]) 1 tab PO DAILY [facility] Ondansetron HCl (Ondansetron Hcl 4 Mg/2 Ml Vial) 4 mg IVPUSH Q8H PRN PRN Reason: Nausea and Vomiting Polyethylene Glycol (Polyethylene Glycol 3350 17 Gm Powd.Pack) 17 gm PO DAILY PRN PRN Reason: Constipation Pyridoxine HCl (Pyridoxine Hcl (Vitamin B6) 50 Mg Tablet) 100 mg PO DAILY [facility] Last Admin: 10/28/22 11:12 Dose: 100 mg Sodium Chloride (0.9 % Sodium Chloride Flush 3 Ml Syringe) 3 ml IVFLUSH QSHIFT [facility] Last Admin: 10/28/22 07:33 Dose: Not Given Topiramate (Topiramate 25 Mg Tablet) 150 mg PO BEDTIME [facility] Topiramate (Topiramate 100 Mg Tablet) 200 mg PO DAILY [facility] Last Admin: 10/28/22 11:13 Dose: 200 mg Home Medications Medication Instructions Recorded Confirmed Last Taken Type clopidogrel 75 mg tablet 1 tab PO DAILY 08/09/22 10/28/22 10/27/22 History topiramate 50 mg tablet 200 mg PO DAILY 08/09/22 10/28/22 10/27/22 History acetaminophen 325 mg tablet 650 mg PO Q6H PRN Pain 10/28/22 10/28/22 Unknown History (Tylenol) allopurinol 100 mg tablet 1 tab PO DAILY PRN renal stone 10/28/22 10/28/22 Unknown History atorvastatin 40 mg tablet 1 tab PO DAILY 10/28/22 10/28/22 10/27/22 History ibuprofen 200 mg tablet 400 mg PO Q8H PRN Pain 10/28/22 10/28/22 Unknown History levetiracetam 750 mg tablet 3 tab PO BID 10/28/22 10/28/22 10/27/22 History levofloxacin 500 mg tablet 1 tab PO DAILY 10/28/22 10/28/22 10/27/22 History polyethylene glycol 3350 17 17 g PO DAILY PRN Constipation 10/28/22 10/28/22 Unknown History gram/dose oral powder pyridoxine (vitamin B6) 100 mg 1 tab PO DAILY 10/28/22 10/28/22 10/27/22 History tablet riboflavin (vitamin B2) 100 mg 1 tab PO DAILY 10/28/22 10/28/22 10/27/22 History tablet (Vitamin B-2) topiramate 50 mg tablet 150 mg PO BEDTIME 10/28/22 10/28/22 10/27/22 History Physical Exam Vital Signs: Vital Signs: Last Vital Signs Temp 97.0 F 10/28/22 07:57 Pulse 57 10/28/22 07:57 Resp 16 10/28/22 07:57 BP 128/70 10/28/22 07:57 Pulse Ox 100 10/28/22 07:57 O2 Del Method 10/28/22 07:57 BMI result Body Mass Index 20.9 Const: General: no acute distress and well developed Orientation/consciousness: patient oriented x3 HEENT: Head: Yes normocephalic and Yes atraumatic Eyes: Conjunctivae: conjunctivae normal Neck: Neck: Yes normal visual inspection Chest: Chest palpation & inspection: normal inspection of the chest Resp: Effort & Inspection: normal respiratory effort Cardio: Rate: regular rate GI: Inspection: Yes normal to inspection Palpation (GI): Soft to palpation : Other: valdez in place, urine clear Penis: normal penis Scrotum: scrotum normal Skin: General skin exam: no rashes or lesions noted Neuro: General: patient oriented x3 Extrem: General: No pedal edema Psych: Appearance: grossly normal Affect: normal affect Results Labs Result diagrams: 10/27/22 20:15 12/16/22 20:15 Labs: Abnormal lab results 10/27/22 10/27/22 10/27/22 Range/Units 20:15 20:15 23:00 WBC 12.6 H (4.8-10.8) X10*3/uL Neut % (Auto) 75.0 H (45-73) % Lymph % (Auto) 16.6 L (20-40) % Abs Immat Gran (auto) 0.04 H (0.00-0.03) X10*3/uL Absolute Neuts (auto) 9.5 H (2.0-8.3) x10*3/uL Chloride 115 H (96-108) mmol/L Carbon Dioxide 18 L (22-29) mmol/L Calcium 12.6 H* D (8.4-10.2) mg/dL Alkaline Phosphatase 123 H (39-117) U/L Urine Color Cooper A Urine Protein 100 (2+) H (Neg-Trace) mg/dL Urine Blood Large (3+) H (Negative) Ur Leukocyte Esterase Moderate (2+) H (Negative) Urine RBC >20 H (0-2) /HPF Urine WBC 21-50 H (0-5) /HPF Short CBC 10/27/22 Range/Units 20:15 WBC 12.6 H (4.8-10.8) X10*3/uL Hgb 14.9 (14.0-18.0) g/dl Hct 45.8 D (42.0-52.0) % Plt Count 334 (160-400) X10*3/uL BMP 10/27/22 20:15 Sodium 142 Potassium 4.8 Chloride 115 H Carbon Dioxide 18 L BUN 15 Creatinine 1.26 Calcium 12.6 H* D Liver Function 10/27/22 Range/Units 20:15 Total Bilirubin 0.7 (0.0-1.0) mg/dL AST 33 (5-37) U/L ALT 17 (0-40) U/L Alkaline Phosphatase 123 H (39-117) U/L Albumin 4.4 (3.5-5.0) g/dL Urine 10/27/22 Range/Units 23:00 Urine Color Cooper A Urine Appearance Cloudy Urine pH 7.0 (5.0-9.0) Ur Specific [place] 1.015 (1.005-1.025) Urine Protein 100 (2+) H (Neg-Trace) mg/dL Urine Glucose (UA) Negative (Negative) mg/dL Imaging Abdomen CT scan report/results: report reviewed and image reviewed CT scan - pelvis: report reviewed and image reviewed Additional studies: Date of Service: 10/27/22 Procedure(s): CT abdomen pelvis wo IV con Accession Number(s): [id number] cc: Aydee Camejo~ EXAMINATION: CT ABDOMEN AND PELVIS WITHOUT CONTRAST CLINICAL INFORMATION: Urinary hesitancy/history of kidney stones . COMPARISON: 08/09/2020. TECHNIQUE: Multidetector volumetric imaging was performed from the superior aspect of the liver through the pubic symphysis without contrast per renal stone protocol. Sagittal and coronal reformatted images were obtained on the technologist workstation. This CT examination was performed using dose optimization techniques as appropriate, variously including the following: *Automated exposure control *Adjustment of mA and/or kV according to patient size (this includes techniques or standardized protocols for targeted exams where dose is matched to indication/reason for exam; i.e. extremities or head) *Use of iterative reconstruction technique DLP: 501 mGy-cm. FINDINGS: LUNG BASES: The visualized lung bases are unremarkable. LIVER, GALLBLADDER, BILIARY TREE: The non-contrast liver is normal in size, shape, and attenuation. No focal hepatic lesion or biliary ductal dilatation is present.? The gallbladder is unremarkable with no evidence of radiopaque gallstones, gallbladder wall thickening, or obvious pericholecystic inflammatory changes. PANCREAS: Unremarkable. SPLEEN: Unremarkable. ADRENAL GLANDS: Unremarkable. KIDNEYS AND URETERS: Left-sided ureteric stent is in place with the proximal aspect in the renal pelvis and the distal aspect within the bladder. Chronic fullness to the left collecting system. Innumerable intrarenal calculi are seen in the left kidney. Small amount of air in the left renal collecting system may reflect patency of the stent. Infectious etiology or be clinically correlated the with clinical symptoms. I do not appreciate any intraluminal air in the bladder. BLADDER: No bladder air. There are multiple tiny bladder calculi along the dependent bladder. Bladder is relatively distended GASTROINTESTINAL TRACT: The small and large bowel are unremarkable. The appendix is nonvisualized but no focal inflammatory changes are seen in the expected right lower quadrant.. ABDOMINAL WALL: No significant hernia is appreciated. LYMPHOVASCULAR STRUCTURES: No lymphadenopathy.? The aorta is unremarkable.. PELVIC VISCERA: Unremarkable. OSSEUS STRUCTURES: Unremarkable. CT/CT abdomen pelvis wo IV con IMPRESSION: Left ureteric stent is in place. Multiple calcifications seen in the left renal collecting system as well as the dependent bladder.? Assessment and Plan (1) Hypercalcemia: Status: Acute (2) Acute UTI: Status: Acute (3) Acute urinary retention: Status: Acute Plan Recommend start Flomax Hold on oxybutynin or any anticholinergics for bladder spasms Time Spent With Patient Time: Total time managing care of this patient today ____ minutes. Procedures Date of Service Date of Service: 10/28/22
[2022-10-28 15:03] VITALS: BP 107/68; PULSE 87; RESP 18; TEMP 36.5; O2SAT 98
[2022-10-28 19:43] VITALS: BP 115/69; PULSE 71; RESP 18; TEMP 36.8; O2SAT 100
[2022-10-28] MEDS: Topiramate 25 MG TABLET 150 MG PO (22:01)
[2022-10-28] MEDS: Tamsulosin HCL 0.4 MG CAPSULE PO (22:01)
[2022-10-29 03:11] VITALS: BP 119/72; PULSE 84; RESP 16; TEMP 37.2; O2SAT 97
[2022-10-29] MEDS: Enoxaparin Sodium 40 MG/0.4 ML SYRINGE SUBCUT (04:00)
[2022-10-29 07:20] VITALS: BP 136/75; PULSE 96; RESP 18; TEMP 37.6; O2SAT 96
[2022-10-29] MEDS: Acetaminophen 325 MG TABLET 650 MG PO (07:30)
[2022-10-29] MEDS: Lactated Ringers 1,000 ML 100 ML IVCONT ×2 (07:32→17:27)
[2022-10-29] MEDS: levETIRAcetam 250 MG TABLET 750 MG PO ×2 (09:35→21:10)
[2022-10-29] MEDS: Clopidogrel Bisulfate 75 MG TABLET PO (09:35)
[2022-10-29] MEDS: Pyridoxine HCl (Vitamin B6) 50 MG TABLET 100 MG PO (09:35)
[2022-10-29] MEDS: Atorvastatin Calcium 40 MG TABLET PO (09:35)
[2022-10-29] MEDS: Topiramate 100 MG TABLET 200 MG PO (09:35)
--- NOTE | 2022-10-29 10:59 | HO.PM.IMPN ---
Subjective Subjective Date of Service: 10/29/22 Interval History: urinary retention,uti Review of Systems denies any pain or fevers denies any chest pain or sob Physical Exam Vital Signs: Vital Signs: Last Vital Signs Temp 99.6 F 10/29/22 07:20 Pulse 96 10/29/22 07:20 Resp 18 10/29/22 07:20 BP 136/75 10/29/22 07:20 Pulse Ox 96 10/29/22 07:20 O2 Del Method 10/29/22 07:20 BMI result Body Mass Index 20.9 ?Appearance: awake,alert,? Seems uncomfortable CVS: Normal heart rate and rhythm.? Respiratory: clear to ausculatation,no rales or wheezing Abdomen: Soft, nd,nt,bs present Gu: has valdez Extremities: No lower extremity edema, No Rash Neuro :grosslly fine Psych: calm Objective Data Active Medications Acetaminophen (Acetaminophen 325 Mg Tablet) 650 mg PO Q6H PRN PRN Reason: Pain, Mild (Pain Scale 1-3) Last Admin: 10/29/22 07:30 Dose: 650 mg Documented By: GROVER Allopurinol (Allopurinol 100 Mg Tablet) 100 mg PO DAILY PRN PRN Reason: renal stone Atorvastatin Calcium (Atorvastatin Calcium 40 Mg Tablet) 40 mg PO DAILY [facility] Last Admin: 10/29/22 09:35 Dose: 40 mg Documented By: GROVER Clopidogrel Bisulfate (Clopidogrel Bisulfate 75 Mg Tablet) 75 mg PO DAILY [facility] Last Admin: 10/29/22 09:35 Dose: 75 mg Documented By: GROVER Docusate Sodium (Docusate Sodium 100 Mg Capsule) 100 mg PO DAILY PRN PRN Reason: Constipation Enoxaparin Sodium (Enoxaparin Sodium 40 Mg/0.4 Ml Syringe) 40 mg SUBCUT Q24H [facility] Last Admin: 10/29/22 04:00 Dose: 40 mg Documented By: LORENE Lactated Ringer's (Lr) 1,000 mls @ 100 mls/hr IVCONT .Q10H [facility] Last Admin: 10/29/22 07:32 Dose: 100 mls/hr Documented By: GROVER Ceftriaxone Sodium 1 gm/ (Sodium Chloride) 50 mls @ 100 mls/hr IV Q24H [facility] Last Infusion: 12/17/22 22:50 Dose: 0 mls/hr Documented By: LORENE Levetiracetam (Levetiracetam 250 Mg Tablet) 750 mg PO BID [facility] Last Admin: 10/29/22 09:35 Dose: 750 mg Documented By: GROVER Non-Formulary Medication (Riboflavin (Vitamin B2) [Vitamin B-2]) 1 tab PO DAILY [facility] Ondansetron HCl (Ondansetron Hcl 4 Mg/2 Ml Vial) 4 mg IVPUSH Q8H PRN PRN Reason: Nausea and Vomiting Polyethylene Glycol (Polyethylene Glycol 3350 17 Gm Powd.Pack) 17 gm PO DAILY PRN PRN Reason: Constipation Pyridoxine HCl (Pyridoxine Hcl (Vitamin B6) 50 Mg Tablet) 100 mg PO DAILY [facility] Last Admin: 10/29/22 09:35 Dose: 100 mg Documented By: GROVER Sodium Chloride (0.9 % Sodium Chloride Flush 3 Ml Syringe) 3 ml IVFLUSH QSHIFT [facility] Last Admin: 10/29/22 07:25 Dose: Not Given Documented By: GROVER Non-Admin Reason: IV Running Tamsulosin HCl (Tamsulosin Hcl 0.4 Mg Capsule) 0.4 mg PO BEDTIME [facility] Last Admin: 10/28/22 22:01 Dose: 0.4 mg Documented By: LORENE Topiramate (Topiramate 25 Mg Tablet) 150 mg PO BEDTIME [facility] Last Admin: 10/28/22 22:01 Dose: 150 mg Documented By: LORENE Topiramate (Topiramate 100 Mg Tablet) 200 mg PO DAILY [facility] Last Admin: 10/29/22 09:35 Dose: 200 mg Documented By: GROVER Labs CBC & Chem 7: 10/27/22 20:15 10/27/22 20:15 Microbiology Microbiology Results: Microbiology 10/28/22 02:04 Blood Culture - Preliminary Blood - Venous No growth after 24 hours. 10/28/22 01:00 Blood Culture - Preliminary Blood - Venous No growth after 24 hours. Assessment and Plan (1) Hypercalcemia: Status: Acute (2) Acute UTI: Status: Acute (3) Acute urinary retention: Status: Acute Plan ?52-year-old male with past medical history of hemorrhagic CVA, ureteral stone,? ureterolithiasis history of obstructive uropathy and urinary retention status post Valdez catheterization placement presents to the hospital after failed voiding trial found to have hypokalemia #? acute hypercalcemia -? likely secondary to dehydration -? will treat with IV fluids -? follow calcium level -? patient received IV pamidronate pth added nephrolohy eval-workup added ,bmp today #? urinary? retention -? unclear etiology, patient previously had bladder spasms started on oxytocin -? at this time Valdez catheter placed once again -? urology consult-started on flomax,hold oxybutinin due to bladder spasm #? acute UTI -? has leukocytosis -? positive UA - ? will treat with antibiotics -? follow cultures # ? History of seizure -? continue Keppra ?DVT prophylaxis: Lovenox. inpatient need : acute hypercalcemia -need workup and electrolytic monitering ,uti/urinary retention-on iv antibiotics ,need urologic workup. Time Spent With Patient Time: Total time managing care of this patient today ____ minutes. Quality Stroke Does the patient have a stroke diagnosis?: No VTE Prior VTE?: No VTE Risk Level:: Medical - moderate - high VTE Device Contraindication: Treatment Not Indicated VTE Drug Contraindication: N/A - Med Ordered
[2022-10-29 12:30] VITALS: TEMP 36.6
--- NOTE | 2022-10-29 14:56 | CONS_ITS ---
DATE OF SERVICE: 10/28/2022 REASON FOR CONSULTATION: I was asked to see patient to assist in evaluation and management of patient's hypercalcemia with a calcium level of 12.6 last night on admission, whereas in the past, his calciums have been in the 9.5 to 10.9 range. HISTORY OF PRESENT ILLNESS: In summary, the patient is a 52-year-old gentleman with a history of hemorrhagic stroke, hyperlipidemia, seizure disorder, was admitted to the hospital with urinary retention. Apparently, this has been on and off problem. Back in August, he had an episode of urinary retention with obstructive uropathy and was seen by Urology. It is unclear what happened after the August hospitalization as he presents now without the Shin catheter or urologic followup noted. The patient is a poor historian. Information obtained from the electronic medical record. In the ER, he had a bladder scan, which showed over 600 cc of urine in his bladder and Shin was replaced. PAST MEDICAL HISTORY: As noted above. MEDICATIONS: On admission are noted in the admitting notes include allopurinol, Lipitor, Plavix, Topamax, Keppra, oxybutynin. In particular, there is no mention made of the calcium or thiazide diuretic. ALLERGIES: HE HAS NO KNOWN DRUG ALLERGIES. FAMILY HISTORY: Unable to obtain. REVIEW OF SYSTEMS: Unable to obtain. ALCOHOL OR DRUG HISTORY: Unable to obtain. PHYSICAL EXAMINATION: VITAL SIGNS: Blood pressure 110/70, heart rate in the 80s, he is afebrile. HEENT: Head is atraumatic and normocephalic. NECK: Supple. Mucous membranes are moist. LUNGS: Clear. CARDIAC: Regular rate and rhythm. ABDOMEN: Soft. EXTREMITIES: No edema. LABORATORY DATA: From last night on admission; sodium 142, potassium 4.8, chloride 115, bicarb 18, BUN 15, creatinine 1.26, calcium 12.6, alkaline phosphatase 123, serum albumin 4.4. Back in July, during the prior admission, his creatinine was 5 and at time of discharge, it was down to 1.18. Other labs show hemoglobin 14.9, hematocrit 45.8, white blood cell count 12.6. Urine studies showed 2+ protein. There is remote blood and white cells noted as well. He had a CAT scan on admission, which showed a left ureteral stent. Multiple calcifications in the left renal collecting system as well as the bladder. IMPRESSION: A 52-YEAR-OLD ADMITTED TO THE HOSPITAL WITH URINARY RETENTION, AND NOTED TO HAVE HYPERCALCEMIA. 1. Hypercalcemia. This needs further evaluation with laboratory studies and IV fluids. It appears he already got a dose of pamidronate last night. 2. Urinary retention. Recommendations include the following; obtain intact PTH and vitamin D25 and vitamin and D125 level. Repeat potassium level. Continue IV fluids. Check a PTH related protein. Check a urine study, urine calcium/creatinine ratio. Once we obtain these results, we can see how we will proceed. MD MAT Morrow/LARA / [phone]
[2022-10-29 15:08] VITALS: BP 109/67; PULSE 73; RESP 18; TEMP 37.1; O2SAT 98
[2022-10-29 15:37] LABS: Anion Gap 9 (12-20); Blood Urea Nitrogen 8 mg/dL (9-16); Calcium 10.3 mg/dL (8.4-10.2); Carbon Dioxide 20 mmol/L (22-29); Chloride 114 mmol/L (96-108); Estimated Glomerular Filt Rate > 60; Glucose Random 96 mg/dL (60-115); Potassium 3.4 mmol/L (3.3-5.1); Sodium 140 mmol/L (135-145)
[2022-10-29 15:46] LABS: Vitamin D 25-OH Total 10.6 ng/mL (>30)
--- NOTE | 2022-10-29 17:08 | PM.PNNEP ---
Subjective Subjective Date of Service: 10/29/22 Interval history: Seen and examined, events noted Physical Exam Vital Signs: Vital Signs: Last Vital Signs Temp 98.7 F 10/29/22 15:08 Pulse 73 10/29/22 15:08 Resp 18 10/29/22 15:08 BP 109/67 10/29/22 15:08 Pulse Ox 98 10/29/22 15:08 O2 Del Method 10/29/22 15:08 BMI result Body Mass Index 20.9 Const: Other: awake, cooperative, able to give much history due to baseline [facility] General: cooperative, no acute distress and well developed Orientation/consciousness: patient oriented x3 HEENT: Head: Yes normocephalic and Yes atraumatic Eyes: General: appearance normal, both eyes and all related structures Conjunctivae: conjunctivae normal Neck: Neck: Yes normal visual inspection Chest: Chest palpation & inspection: normal inspection of the chest Resp: Effort & Inspection: normal respiratory effort Auscultation: clear to auscultation bilaterally Cardio: Rate: regular rate Rhythm: regular rhythm GI: Inspection: Yes normal to inspection Palpation (GI): Soft to palpation Auscultation: normal bowel sounds : Other: valdez in place, urine clear Penis: normal penis Scrotum: scrotum normal Skin: General skin exam: no rashes or lesions noted Neuro: General: patient oriented x3 Extrem: General: Yes normal to inspection, Yes no pedal edema and No pedal edema Psych: Appearance: grossly normal Affect: normal affect Objective Data Labs CBC & Chem 7: 10/27/22 20:15 10/29/22 14:50 Labs: Laboratory Results - last 24 hr 10/29/22 10/29/22 14:50 14:50 Sodium 140 Potassium 3.4 D Chloride 114 H Carbon Dioxide 20 L Anion Gap 9 L BUN 8 L Creatinine 0.82 Estim Creat Clear Calc 110.0 Estimated GFR > 60 Random Glucose 96 Calcium 10.3 H D 25-OH Vitamin D Total 10.6 Microbiology Microbiology Results: Microbiology 10/28/22 Unknown Urine clean catch - Urine montero top Urine Culture - Final No growth. 10/28/22 02:04 Blood - Venous Blood Culture - Preliminary No growth after 24 hours. 10/28/22 01:00 Blood - Venous Blood Culture - Preliminary No growth after 24 hours. Procedures Date of Service Date of Service: 10/29/22 Assessment & Plan Assessment and plan (1) Hypercalcemia: Status: Acute (2) Acute UTI: Status: Acute (3) Acute urinary retention: Status: Acute Plan ?52-year-old male with past medical history of hemorrhagic CVA, ureteral stone,? ureterolithiasis history of obstructive uropathy and urinary retention status post Valdez catheterization placement presents to the hospital after failed voiding trial found to have hypercalemia HyoerCa: w/u in progress; s/p palmidronate x1 and CA decr Urinary Retention: s/p valdez REC: contiVF, trackCa,check lab w/u for causes of hyperCa Time Spent With Patient Time: Total time managing care of this patient today ____ minutes. Progress Note: Quality Stroke Does the patient have a stroke diagnosis?: No
[2022-10-29 19:36] VITALS: BP 111/64; PULSE 101; RESP 18; TEMP 37.3; O2SAT 97
[2022-10-29] MEDS: Topiramate 25 MG TABLET 150 MG PO (21:10)
[2022-10-29] MEDS: Tamsulosin HCL 0.4 MG CAPSULE PO (21:10)
[2022-10-29] MEDS: 0.9 % Sodium Chloride Flush 3 ML SYRINGE IVFLUSH (21:11)
[2022-10-29] MEDS: cefTRIAXone sodium 1 GM in 0.9 % Sodium Chloride 50 ML IV (21:14)
[2022-10-30] MEDS: Enoxaparin Sodium 40 MG/0.4 ML SYRINGE SUBCUT (03:14)
[2022-10-30 03:50] VITALS: BP 118/76; PULSE 89; RESP 18; TEMP 36.9; O2SAT 96
[2022-10-30] MEDS: Acetaminophen 325 MG TABLET 650 MG PO (05:07)
[2022-10-30 07:57] VITALS: BP 108/73; PULSE 81; RESP 16; TEMP 36.1; O2SAT 97
[2022-10-30] MEDS: Clopidogrel Bisulfate 75 MG TABLET PO (08:38)
[2022-10-30] MEDS: 0.9 % Sodium Chloride Flush 3 ML SYRINGE IVFLUSH (08:38)
[2022-10-30] MEDS: Topiramate 100 MG TABLET 200 MG PO (08:38)
[2022-10-30] MEDS: Pyridoxine HCl (Vitamin B6) 50 MG TABLET 100 MG PO (08:39)
[2022-10-30] MEDS: Atorvastatin Calcium 40 MG TABLET PO (08:39)
[2022-10-30] MEDS: levETIRAcetam 250 MG TABLET 750 MG PO ×2 (08:39→20:15)
[2022-10-30] MEDS: 0.9 % Sodium Chloride 1,000 ML 80 ML IVCONT ×2 (08:40→20:15)
--- NOTE | 2022-10-30 09:33 | PM.PNNEP ---
Subjective Subjective Date of Service: 10/30/22 Interval history: Seen and examined, events noted Physical Exam Vital Signs: Vital Signs: Last Vital Signs Temp 96.9 F 10/30/22 07:57 Pulse 81 10/30/22 07:57 Resp 16 10/30/22 07:57 BP 108/73 10/30/22 07:57 Pulse Ox 97 10/30/22 07:57 O2 Del Method 10/30/22 07:57 BMI result Body Mass Index 20.9 Const: Other: awake, cooperative, able to give much history due to baseline VA General: cooperative, no acute distress and well developed Orientation/consciousness: patient oriented x3 HEENT: Head: Yes normocephalic and Yes atraumatic Eyes: General: appearance normal, both eyes and all related structures Conjunctivae: conjunctivae normal Neck: Neck: Yes normal visual inspection Chest: Chest palpation & inspection: normal inspection of the chest Resp: Effort & Inspection: normal respiratory effort Auscultation: clear to auscultation bilaterally Cardio: Rate: regular rate Rhythm: regular rhythm GI: Inspection: Yes normal to inspection Palpation (GI): Soft to palpation Auscultation: normal bowel sounds : Other: valdez in place, urine clear Penis: normal penis Scrotum: scrotum normal Skin: General skin exam: no rashes or lesions noted Neuro: General: patient oriented x3 Extrem: General: Yes normal to inspection, Yes no pedal edema and No pedal edema Psych: Appearance: grossly normal Affect: normal affect Objective Data Labs CBC & Chem 7: 10/27/22 20:15 10/29/22 14:50 Labs: Laboratory Results - last 24 hr 10/29/22 10/29/22 14:50 14:50 Sodium 140 Potassium 3.4 D Chloride 114 H Carbon Dioxide 20 L Anion Gap 9 L BUN 8 L Creatinine 0.82 Estim Creat Clear Calc 110.0 Estimated GFR > 60 Random Glucose 96 Calcium 10.3 H D 25-OH Vitamin D Total 10.6 Microbiology Microbiology Results: Microbiology 10/28/22 02:04 Blood - Venous Blood Culture - Preliminary No growth after 48 hours. 10/28/22 01:00 Blood - Venous Blood Culture - Preliminary No growth after 48 hours. 10/28/22 Unknown Urine clean catch - Urine montero top Urine Culture - Final No growth. Procedures Date of Service Date of Service: 10/30/22 Assessment & Plan Assessment and plan (1) Hypercalcemia: Status: Acute Assessment and Plan: w/u in progress IEP FLC and PTH pending (2) Acute UTI: Status: Acute (3) Acute urinary retention: Status: Acute Plan ?52-year-old male with past medical history of hemorrhagic CVA, ureteral stone,? ureterolithiasis history of obstructive uropathy and urinary retention status post Valdez catheterization placement presents to the hospital after failed voiding trial found to have hypercalemia HyoerCa: w/u in progress; s/p palmidronate x1 and CA decr Urinary Retention: s/p valdez REC: contiVF, trackCa,check lab w/u for causes of hyperCa Time Spent With Patient Time: Total time managing care of this patient today ____ minutes. Progress Note: Quality Stroke Does the patient have a stroke diagnosis?: No
--- NOTE | 2022-10-30 11:03 | P.PNIM_ITS ---
Subjective Subjective Date of Service: 10/30/22 Interval History: hypercalcemia Review of Systems denies any pain or fevers denies any chest pain or sob Physical Exam Vital Signs: Vital Signs: Last Vital Signs Temp 96.9 F 10/30/22 07:57 Pulse 81 10/30/22 07:57 Resp 16 10/30/22 07:57 BP 108/73 10/30/22 07:57 Pulse Ox 97 10/30/22 07:57 O2 Del Method 10/30/22 07:57 BMI result Body Mass Index 20.9 ??Appearance: awake,alert,? Seems uncomfortable CVS: Normal heart rate and rhythm.? Respiratory: clear to ausculatation,no rales or wheezing Abdomen: Soft, nd,nt,bs present Gu: has valdez Extremities: No lower extremity edema, No Rash Neuro :grosslly fine Psych: calm Objective Data Active Medications Acetaminophen (Acetaminophen 325 Mg Tablet) 650 mg PO Q6H PRN PRN Reason: Pain, Mild (Pain Scale 1-3) Last Admin: 10/30/22 05:07 Dose: 650 mg Documented By: JERICA Allopurinol (Allopurinol 100 Mg Tablet) 100 mg PO DAILY PRN PRN Reason: renal stone Atorvastatin Calcium (Atorvastatin Calcium 40 Mg Tablet) 40 mg PO DAILY [facility] Last Admin: 10/30/22 08:39 Dose: 40 mg Documented By: PEPPER Clopidogrel Bisulfate (Clopidogrel Bisulfate 75 Mg Tablet) 75 mg PO DAILY [facility] Last Admin: 10/30/22 08:38 Dose: 75 mg Documented By: PEPPER Docusate Sodium (Docusate Sodium 100 Mg Capsule) 100 mg PO DAILY PRN PRN Reason: Constipation Enoxaparin Sodium (Enoxaparin Sodium 40 Mg/0.4 Ml Syringe) 40 mg SUBCUT Q24H [facility] Last Admin: 10/30/22 03:14 Dose: 40 mg Documented By: JERICA Ceftriaxone Sodium 1 gm/ (Sodium Chloride) 50 mls @ 100 mls/hr IV Q24H [facility] Last Infusion: 10/29/22 21:49 Dose: 0 mls/hr Documented By: JERICA Sodium Chloride (Ns) 1,000 mls @ 80 mls/hr IVCONT .[id number] [facility] Last Admin: 10/30/22 08:40 Dose: 80 mls/hr Documented By: PEPPER Levetiracetam (Levetiracetam 250 Mg Tablet) 750 mg PO BID [facility] Last Admin: 10/30/22 08:39 Dose: 750 mg Documented By: PEPPER Ondansetron HCl (Ondansetron Hcl 4 Mg/2 Ml Vial) 4 mg IVPUSH Q8H PRN PRN Reason: Nausea and Vomiting Polyethylene Glycol (Polyethylene Glycol 3350 17 Gm Powd.Pack) 17 gm PO DAILY PRN PRN Reason: Constipation Pyridoxine HCl (Pyridoxine Hcl (Vitamin B6) 50 Mg Tablet) 100 mg PO DAILY [facility] Last Admin: 10/30/22 08:39 Dose: 100 mg Documented By: PEPPER Sodium Chloride (0.9 % Sodium Chloride Flush 3 Ml Syringe) 3 ml IVFLUSH QSHIFT [facility] Last Admin: 10/30/22 08:38 Dose: 3 ml Documented By: PEPPER Tamsulosin HCl (Tamsulosin Hcl 0.4 Mg Capsule) 0.4 mg PO BEDTIME [facility] Last Admin: 10/29/22 21:10 Dose: 0.4 mg Documented By: JERICA Topiramate (Topiramate 25 Mg Tablet) 150 mg PO BEDTIME [facility] Last Admin: 10/29/22 21:10 Dose: 150 mg Documented By: JERICA Topiramate (Topiramate 100 Mg Tablet) 200 mg PO DAILY [facility] Last Admin: 10/30/22 08:38 Dose: 200 mg Documented By: PEPPER Labs CBC & Chem 7: 10/27/22 20:15 10/29/22 14:50 Labs: Laboratory Results - last 24 hr 10/29/22 10/29/22 14:50 14:50 Anion Gap 9 L Estim Creat Clear Calc 110.0 Estimated GFR > 60 Random Glucose 96 Calcium 10.3 H D 25-OH Vitamin D Total 10.6 Microbiology Microbiology Results: Microbiology 10/28/22 02:04 Blood Culture - Preliminary Blood - Venous No growth after 48 hours. 10/28/22 01:00 Blood Culture - Preliminary Blood - Venous No growth after 48 hours. 10/28/22 Unknown Urine Culture - Final Urine clean catch - Urine montero top No growth. Assessment and Plan (1) Hypercalcemia: Status: Acute (2) Acute UTI: Status: Acute (3) Acute urinary retention: Status: Acute Plan ?52-year-old male with past medical history of hemorrhagic CVA, ureteral stone,? ureterolithiasis history of obstructive uropathy and urinary retention status post Valdez catheterization placement presents to the hospital after failed voiding trial found to have hypokalemia #? acute hypercalcemia -? likely secondary to dehydration improvin with IV fluids, received IV pamidronate on admission. pth added nephrolohyfollowing-continue hydration ,moniter bmp #? urinary? retention -? unclear etiology, patient previously had bladder spasms started on oxytocin -? at this time Valdez catheter placed once again -? urology consult-started on flomax,hold oxybutinin due to bladder spasm #? acute UTI -? has leukocytosis -? positive UA - ? will treat with antibiotics -? follow cultures # ? History of seizure -? continue Keppra ?DVT prophylaxis: Lovenox. inpatient need : acute hypercalcemia -need workup and electrolytic monitering ,uti/urinary retention-on iv antibiotics ,need urologic workup. Time Spent With Patient Time: Total time managing care of this patient today ____ minutes. Quality Stroke Does the patient have a stroke diagnosis?: No VTE Prior VTE?: No VTE Risk Level:: Medical - moderate - high VTE Device Contraindication: Treatment Not Indicated VTE Drug Contraindication: N/A - Med Ordered
--- NOTE | 2022-10-30 12:20 | MHC.CM.PN ---
EMR REVIEWED PER MD ROUNDS, PT NOT MEDICALLY CLEARED TO DC HOME (HYPERCALCEMIA, ELECTROLYTE MONITORING, UTI/URINARY RETENTION) CM WILL CONTINUE TO FOLLOW.
[2022-10-30 15:28] VITALS: BP 114/70; PULSE 76; RESP 15; TEMP 36.4; O2SAT 99
[2022-10-30 15:29] LABS: Kappa/Lambda Lt Ch Free Ratio 1.72 (0.26-1.65); Lambda Light Chain, Free Serum 22.1 mg/L (5.7-26.3)
[2022-10-30 19:23] VITALS: BP 119/73; PULSE 68; RESP 16; TEMP 36.3; O2SAT 98
[2022-10-30] MEDS: Topiramate 25 MG TABLET 150 MG PO (20:15)
[2022-10-30] MEDS: Tamsulosin HCL 0.4 MG CAPSULE PO (20:15)
[2022-10-30] MEDS: cefTRIAXone sodium 1 GM in 0.9 % Sodium Chloride 50 ML IV (21:10)
[2022-10-30 23:28] LABS: Calcium (PTHI) 10.6 mg/dL (8.6-10.3); PTHI 89 pg/mL (16-77)
[2022-10-31 03:41] VITALS: BP 109/63; PULSE 64; RESP 18; TEMP 36.4; O2SAT 98
[2022-10-31] MEDS: 0.9 % Sodium Chloride Flush 3 ML SYRINGE IVFLUSH ×2 (03:41→20:06)
[2022-10-31] MEDS: Enoxaparin Sodium 40 MG/0.4 ML SYRINGE SUBCUT (03:41)
[2022-10-31 07:51] VITALS: BP 102/64; PULSE 68; RESP 17; TEMP 36.9; O2SAT 96
[2022-10-31] MEDS: Topiramate 100 MG TABLET 200 MG PO (08:28)
[2022-10-31] MEDS: Clopidogrel Bisulfate 75 MG TABLET PO (08:28)
[2022-10-31] MEDS: levETIRAcetam 250 MG TABLET 750 MG PO ×2 (08:28→20:06)
[2022-10-31] MEDS: Pyridoxine HCl (Vitamin B6) 50 MG TABLET 100 MG PO (08:28)
[2022-10-31] MEDS: Atorvastatin Calcium 40 MG TABLET PO (08:28)
[2022-10-31] MEDS: 0.9 % Sodium Chloride 1,000 ML 80 ML IVCONT (08:32)
[2022-10-31 10:59] LABS: Anion Gap 8 (12-20); Blood Urea Nitrogen 8 mg/dL (9-16); Calcium 9.9 mg/dL (8.4-10.2); Carbon Dioxide 19 mmol/L (22-29); Chloride 118 mmol/L (96-108); Creatinine Clr Calc Pharmacy 115.7; Estimated Glomerular Filt Rate > 60; Glucose Random 90 mg/dL (60-115); Potassium 3.9 mmol/L (3.3-5.1); Sodium 141 mmol/L (135-145)
[2022-10-31 12:20] LABS: Calcium, Ionized 6.1 mg/dL (4.8-5.6)
[2022-10-31 15:18] VITALS: BP 109/66; PULSE 67; RESP 18; TEMP 36.4; O2SAT 97
--- NOTE | 2022-10-31 15:23 | HO.PM.IMPN ---
Subjective Subjective Date of Service: 10/31/22 Interval History: offers no acute complaints, resting comfortably cooperative willing to have labs drawn, no acute overnight events, no fevers, no chills Shin catheter with clear urine, tolerating diet with no nausea no vomiting no diarrhea. Review of Systems [employer] no lightheadedness, no dizziness CVS no chest pain no urinary symptoms Review of Systems: Yes all other systems are reviewed and are negative Physical Exam Vital Signs: Vital Signs: Last Vital Signs Temp 97.6 F 10/31/22 15:18 Pulse 67 10/31/22 15:18 Resp 18 10/31/22 15:18 BP 109/66 10/31/22 15:18 Pulse Ox 97 10/31/22 15:18 O2 Del Method 10/31/22 15:18 BMI result Body Mass Index 20.9 Const: Other: General: AO X 3, no acute distress neck supple Resp:? CTA bilateral CVS: S1,S2,RRR GI: +BS, NT, no distention Skin: No rash Neuro right hemiparesis Psych: appropriate affect? Objective Data Active Medications Acetaminophen (Acetaminophen 325 Mg Tablet) 650 mg PO Q6H PRN PRN Reason: Pain, Mild (Pain Scale 1-3) Last Admin: 10/30/22 05:07 Dose: 650 mg Documented By: JERICA Allopurinol (Allopurinol 100 Mg Tablet) 100 mg PO DAILY PRN PRN Reason: renal stone Atorvastatin Calcium (Atorvastatin Calcium 40 Mg Tablet) 40 mg PO DAILY [facility] Last Admin: 10/31/22 08:28 Dose: 40 mg Documented By: DABKetty Clopidogrel Bisulfate (Clopidogrel Bisulfate 75 Mg Tablet) 75 mg PO DAILY [facility] Last Admin: 10/31/22 08:28 Dose: 75 mg Documented By: PEPE Docusate Sodium (Docusate Sodium 100 Mg Capsule) 100 mg PO DAILY PRN PRN Reason: Constipation Enoxaparin Sodium (Enoxaparin Sodium 40 Mg/0.4 Ml Syringe) 40 mg SUBCUT Q24H [facility] Last Admin: 10/31/22 03:41 Dose: 40 mg Documented By: LESVIA Ceftriaxone Sodium 1 gm/ (Sodium Chloride) 50 mls @ 100 mls/hr IV Q24H [facility] Last Infusion: 10/30/22 22:05 Dose: 0 mls/hr Documented By: LESVIA Sodium Chloride (Ns) 1,000 mls @ 80 mls/hr IVCONT .[id number] [facility] Last Admin: 10/31/22 08:32 Dose: 80 mls/hr Documented By: PEPE Levetiracetam (Levetiracetam 250 Mg Tablet) 750 mg PO BID [facility] Last Admin: 10/31/22 08:28 Dose: 750 mg Documented By: PEPE Ondansetron HCl (Ondansetron Hcl 4 Mg/2 Ml Vial) 4 mg IVPUSH Q8H PRN PRN Reason: Nausea and Vomiting Polyethylene Glycol (Polyethylene Glycol 3350 17 Gm Powd.Pack) 17 gm PO DAILY PRN PRN Reason: Constipation Pyridoxine HCl (Pyridoxine Hcl (Vitamin B6) 50 Mg Tablet) 100 mg PO DAILY [facility] Last Admin: 10/31/22 08:28 Dose: 100 mg Documented By: PEPE Sodium Chloride (0.9 % Sodium Chloride Flush 3 Ml Syringe) 3 ml IVFLUSH QSHIFT [facility] Last Admin: 10/31/22 13:25 Dose: Not Given Documented By: PEPE Non-Admin Reason: IV Running Tamsulosin HCl (Tamsulosin Hcl 0.4 Mg Capsule) 0.4 mg PO BEDTIME [facility] Last Admin: 10/30/22 20:15 Dose: 0.4 mg Documented By: LESVIA Topiramate (Topiramate 25 Mg Tablet) 150 mg PO BEDTIME [facility] Last Admin: 10/30/22 20:15 Dose: 150 mg Documented By: LESVIA Topiramate (Topiramate 100 Mg Tablet) 200 mg PO DAILY [facility] Last Admin: 10/31/22 08:28 Dose: 200 mg Documented By: PEPE Labs CBC & Chem 7: 10/27/22 20:15 10/31/22 10:29 Labs: Laboratory Results - last 24 hr 10/29/22 10/29/22 10/29/22 14:50 14:50 14:50 Anion Gap Estim Creat Clear Calc Estimated GFR Random Glucose Calcium Ionized Calcium 6.1 H PTH Intact 89 H Calcium (PTH Intact) 10.6 H Free [place] LC, Quant 38.0 H Free Lambda LC, Quant 22.1 Free [place]/Lambda Ratio 1.72 H 10/31/22 10:29 Anion Gap 8 L Estim Creat Clear Calc 115.7 Estimated GFR > 60 Random Glucose 90 Calcium 9.9 Ionized Calcium PTH Intact Calcium (PTH Intact) Free [place] LC, Quant Free Lambda LC, Quant Free [place]/Lambda Ratio Assessment and Plan (1) Hypercalcemia: Status: Acute (2) Acute UTI: Status: Acute (3) Acute urinary retention: Status: Acute Plan ?52-year-old male with past medical history of hemorrhagic CVA, ureteral stone,? ureterolithiasis history of obstructive uropathy and urinary retention status post Shin catheterization placement presents to the hospital after failed voiding trial found to have hypokalemia #? acute hypercalcemia -? likely secondary to dehydration, is status post IV fluid, IV pamidronate calcium normalized, PTH 89,PTH related protein is pending, 25 hydroxyvitamin D 10.6, will DC IV fluids, Nephro recommends outpatient follow-up. #? urinary? retention/ history of kidney stones currently with left ureteral stent is status post laser lithotripsy of UPJ stone, large stones in left kidney and smaller stone 5 mm in the right kidney -? unclear etiology, patient previously had bladder spasms started on oxybutynin,now has Shin catheter, and on Flomax, oxybutynin discontinued case discussed with Urology they recommend voiding trial at 06:00 tomorrow if able to urinate can be discharged home #? acute UTI felt to have UTI due to positive UA and leukocytosis however urine cultures negative will DC IV antibiotics # ? History of seizure -? continue Keppra ?DVT prophylaxis: Lovenox. inpatient need : voiding trial in next 24 hours and monitoring of calcium and pth Time Spent With Patient Time: Total time managing care of this patient today ____ minutes. Quality Stroke Does the patient have a stroke diagnosis?: No VTE Prior VTE?: No VTE Risk Level:: Medical - moderate - high VTE Device Contraindication: Treatment Not Indicated VTE Drug Contraindication: N/A - Med Ordered
[2022-10-31 15:58] LABS: IgA 232 mg/dL (47-310); IgG 866 mg/dL (600-1640); IgM 254 mg/dL (50-300)
[2022-10-31 16:48] LABS: Calcium, Random Urine 12.1 mg/dL
[2022-10-31 19:42] VITALS: BP 106/66; PULSE 75; RESP 18; TEMP 36.4; O2SAT 97
[2022-10-31] MEDS: Topiramate 25 MG TABLET 150 MG PO (20:06)
[2022-10-31] MEDS: Tamsulosin HCL 0.4 MG CAPSULE PO (20:06)
[2022-11-01] MEDS: Enoxaparin Sodium 40 MG/0.4 ML SYRINGE SUBCUT (03:13)
[2022-11-01 03:14] VITALS: BP 116/67; PULSE 76; RESP 18; TEMP 36.3; O2SAT 96
--- NOTE | 2022-11-01 06:08 | PC.NURSE ---
valdez catheter removed at 0600.
--- NOTE | 2022-11-01 07:19 | PC.NURSE ---
valdez removed at 0600 , pt voided 100mls pink urine at 0720
[2022-11-01] MEDS: Clopidogrel Bisulfate 75 MG TABLET PO (07:26)
[2022-11-01] MEDS: Pyridoxine HCl (Vitamin B6) 50 MG TABLET 100 MG PO (07:26)
[2022-11-01] MEDS: levETIRAcetam 250 MG TABLET 750 MG PO (07:26)
[2022-11-01] MEDS: Topiramate 100 MG TABLET 200 MG PO (07:27)
[2022-11-01] MEDS: Atorvastatin Calcium 40 MG TABLET PO (07:27)
[2022-11-01] MEDS: 0.9 % Sodium Chloride Flush 3 ML SYRINGE IVFLUSH (07:28)
[2022-11-01 08:00] VITALS: BP 117/75; PULSE 71; RESP 18; TEMP 36.4; O2SAT 98
--- NOTE | 2022-11-01 09:19 | PM.DS ---
DS: Providers Provider Date of Service: 11/01/22 Date of admission: 10/28/22 01:33 Primary care physician: PATRICK Gasca Consults: 10/28/22 06:42 Consult to Urology Routine Consulting Provider: Candy Ferrera Reason for consultation: Urinary retention 10/28/22 07:25 Consult to Nephrology Routine Consulting Provider: Benjamin Stephenson Reason for consultation: hypercalcemia Has provider been notified: No DS: Diagnosis Discharge Diagnosis (1) Hypercalcemia: Status: Acute (2) Acute UTI: Status: Acute (3) Acute urinary retention: Status: Acute DS: Summary Hospital Course Hospital Course: Date of Service: 10/28/22 Chief Complaint: urinary retention ?52-year-old male with past medical history of hemorrhagic CVA, HLD, seizure disorder, presents to the hospital with complaints of urinary tension.? It appears that patient has developed urinary retention since recent admission to the hospital in August for obstructive uropathy, he was seen by Urology in a.m. for Shin remover to evaluate for voiding trial, but patient went home and continued to have urinary retention therefore came to the hospital.? Patient is a very historian as a result of his history of hemorrhagic stroke and therefore history is obtained mostly from ED physician. ? On arrival to the ED patient with dynamic least stable no significant abnormal vitals ? labs are significant for WBC count 12.6, chloride of 115, calcium of 12.6, urine positive for leukocyte Estrace as well as WBC Bladder scan showed 623 mL in the bladder.? Patient Shin catheter placed, started on IV fluids, will be admitted for further management hospital course 52-year-old male with past medical history of hemorrhagic CVA, ureteral stone,? ureterolithiasis history of obstructive uropathy and urinary retention status post Shin catheterization placement presents to the hospital after failed voiding trial found to have hypokalemia #? acute hypercalcemia patient treated with IV fluid, IV pamidronate,? calcium normalized,? PTH 89,PTH related protein is 89,? 25 hydroxyvitamin D 10.6, patient likely has primary parathyroidism recommend outpatient follow-up with Nephrology for further workup and treatment meanwhile recommend to drink fluids, patient also noted to have 25 hydroxyvitamin D of 10.[address] on vitamin-D supplement 1000 units daily #? urinary? retention/ history of kidney stones currently with left ureteral stent is status post laser lithotripsy of UPJ stone on 10/24, large stones in left kidney and smaller stone 5 mm in the right kidney patient previously had bladder spasms started on? oxybutynin, but due to urinary retention oxybutynin discontinued patient placed on Flomax and Shin catheter placed prior to discharge voiding trial given patient has voided twice prior to discharge, and now being discharged home with recommendation to have outpatient follow-up with Urology #? acute UTI felt to have UTI due to positive UA and leukocytosis however urine cultures negative therefore divided discontinued. # ? History of seizure-? continue Keppra Time Spent with Patient Time attestation: Total time managing care of this patient today ____ minutes. Discharge coordination time: Greater than 30 minutes Quality: Safe Use of Opioids Does Pt have an Active Cancer Diagnosis on the Problem List?: No Quality: Stroke Does the patient have a stroke diagnosis?: No Physical Exam Vital Signs: Vital Signs: Last Vital Signs Temp 97.5 F 11/01/22 08:00 Pulse 71 11/01/22 08:00 Resp 18 11/01/22 08:00 BP 117/75 11/01/22 08:00 Pulse Ox 98 11/01/22 08:00 O2 Del Method 11/01/22 08:00 BMI result Body Mass Index 20.9 Const: Other: General: AO X 3, no acute distress neck supple Resp:? CTA bilateral CVS: S1,S2,RRR GI: +BS, NT, no distention Skin: No rash Neuro right hemiparesis Psych: appropriate affect? DS: Data Data Completed and Pending Completed studies during hospitalization [Text1]: Procedures Dilation of Bilateral Ureters with Intraluminal Device, Via Natural or Artificial Opening Endoscopic (08/09/22) Fluoroscopy of Kidneys, Ureters and Bladder (08/09/22) Fragmentation in Left Ureter, Via Natural or Artificial Opening Endoscopic (08/09/22) Fragmentation in Right Ureter, Via Natural or Artificial Opening Endoscopic (08/09/22) Removal of Intraluminal Device from Ureter, Via Natural or Artificial Opening Endoscopic (08/09/22) Labs on day of discharge: Laboratory Results - last 24 hr 10/28/22 10/29/22 10/29/22 15:47 14:50 14:50 Sodium Potassium Chloride Carbon Dioxide Anion Gap BUN Creatinine Estim Creat Clear Calc Estimated GFR Random Glucose Calcium Ionized Calcium 6.1 H Ur Random Calcium 12.1 IgG Total 866 IgA Total 232 IgM 254 VINICIO Interpretation 10/31/22 10:29 Sodium 141 Potassium 3.9 Chloride 118 H Carbon Dioxide 19 L Anion Gap 8 L BUN 8 L Creatinine 0.78 Estim Creat Clear Calc 115.7 Estimated GFR > 60 Random Glucose 90 Calcium 9.9 Ionized Calcium Ur Random Calcium IgG Total IgA Total IgM VINICIO Interpretation Preliminary micro results at discharge 10/28/22 02:04 Blood Culture - Preliminary Blood - Venous No growth after 48 hours. 10/28/22 01:00 Blood Culture - Preliminary Blood - Venous No growth after 48 hours. Discharge Plan Discharge Anticipated Discharge Date/Time: 11/01/22 09:14 Patient Disposition: Home, Self-Care Discharge Diagnosis: Acute hypercalcemia urinary retention history of seizure Referrals: Laura Miles PA [Primary Care Provider] - 1 Week Discharge Medications: New tamsulosin 0.4 mg Capsule 0.4 mg PO BEDTIME Qty: 30 0RF Continued atorvastatin 40 mg tablet 1 tab PO DAILY riboflavin (vitamin B2) [Vitamin B-2] 100 mg tablet 1 tab PO DAILY allopurinol 100 mg tablet 1 tab PO DAILY PRN (Reason: renal stone) levetiracetam 750 mg tablet 3 tab PO BID polyethylene glycol 3350 17 gram/dose powder 17 g PO DAILY PRN (Reason: Constipation) pyridoxine (vitamin B6) 100 mg tablet 1 tab PO DAILY topiramate 50 mg tablet 150 mg PO BEDTIME acetaminophen [Tylenol] 325 mg Tablet 650 mg PO Q6H PRN (Reason: Pain) clopidogrel 75 mg tablet 1 tab PO DAILY Hold Instructions: Resume on 08/31/22. Resume after urology procedure topiramate 50 mg tablet 200 mg PO DAILY Discontinued levofloxacin 500 mg tablet 1 tab PO DAILY ibuprofen 200 mg Tablet 400 mg PO Q8H PRN (Reason: Pain) Discharge Orders: Discharge Order (Routine); Ordered 11/01/22 Ordered By: Ingrid Molina Diet: Low fat, low cholesterol Activity on Discharge: As tolerated Stand Alone Forms: Patient Portal Discharge page Care Plan Goals: hypercalcemia resolved, drink plenty of fluids take Flomax for urinary retention and follow-up with Urology in regard to seizure disorder take Keppra 750 mg twice Daily Health Concerns: continue all home medication avoid aspirin and Motrin drugs to avoid GI upset and increased risk of bleeding while on Plavix Plan of Treatment: outpatient follow-up with primary care physician and with electric motor and generator assembler Dr. Anthony Champion for primary parathyroidism Assessment: as above
--- NOTE | 2022-11-01 09:31 | MHC.CM.PN ---
DP: PT MEDICALLY CLEARED TO DISCHARGE HOME, NO SERVICES. RN AWARE. BROTHER UPDATED AND WILL TRANSPORT.
--- NOTE | 2022-11-01 09:34 | PM.PNNEP ---
Subjective Subjective Date of Service: 11/01/22 Interval history: offers no acute complaints, resting comfortably cooperative willing to have labs drawn, no acute overnight events, no fevers, no chills Valdez catheter with clear urine, tolerating diet with no nausea no vomiting no diarrhea. Physical Exam Vital Signs: Vital Signs: Last Vital Signs Temp 97.5 F 11/01/22 08:00 Pulse 71 11/01/22 08:00 Resp 18 11/01/22 08:00 BP 117/75 11/01/22 08:00 Pulse Ox 98 11/01/22 08:00 O2 Del Method 11/01/22 08:00 BMI result Body Mass Index 20.9 Const: Other: General: AO X 3, no acute distress neck supple Resp:? CTA bilateral CVS: S1,S2,RRR GI: +BS, NT, no distention Skin: No rash Neuro right hemiparesis Psych: appropriate affect? General: cooperative, no acute distress and well developed Orientation/consciousness: patient oriented x3 Neuro: General: patient oriented x3 Objective Data Labs CBC & Chem 7: 10/27/22 20:15 10/31/22 10:29 Labs: Laboratory Results - last 24 hr 10/28/22 10/29/22 10/29/22 15:47 14:50 14:50 Sodium Potassium Chloride Carbon Dioxide Anion Gap BUN Creatinine Estim Creat Clear Calc Estimated GFR Random Glucose Calcium Ionized Calcium 6.1 H Ur Random Calcium 12.1 IgG Total 866 IgA Total 232 IgM 254 VINICIO Interpretation 10/31/22 10:29 Sodium 141 Potassium 3.9 Chloride 118 H Carbon Dioxide 19 L Anion Gap 8 L BUN 8 L Creatinine 0.78 Estim Creat Clear Calc 115.7 Estimated GFR > 60 Random Glucose 90 Calcium 9.9 Ionized Calcium Ur Random Calcium IgG Total IgA Total IgM VINICIO Interpretation Microbiology Microbiology Results: Microbiology 10/28/22 02:04 Blood - Venous Blood Culture - Preliminary No growth after 48 hours. 10/28/22 01:00 Blood - Venous Blood Culture - Preliminary No growth after 48 hours. 10/28/22 Unknown Urine clean catch - Urine montero top Urine Culture - Final No growth. Procedures Date of Service Date of Service: 11/01/22 Assessment & Plan Assessment and plan (1) Hypercalcemia: Status: Acute Assessment and Plan: To the mural electrophoresis is negative free light chains are normal PTH is elevated in the face of hyper calcemia so this is primary hyperparathyroidism the next step is to get a parathyroid ultrasound and nuclear scan to look for adenoma and then refer for parathyroidectomy we will do this all as an outpatient (2) Acute UTI: Status: Acute (3) Acute urinary retention: Status: Acute Plan ?52-year-old male with past medical history of hemorrhagic CVA, ureteral stone,? ureterolithiasis history of obstructive uropathy and urinary retention status post Valdez catheterization placement presents to the hospital after failed voiding trial found to have hypercalemia HyoerCa: w/u in progress; s/p palmidronate x1 and CA decr Urinary Retention: s/p valdez REC: contiVF, trackCa,check lab w/u for causes of hyperCa Time Spent With Patient Time: Total time managing care of this patient today ____ minutes. Progress Note: Quality Stroke Does the patient have a stroke diagnosis?: No
[2022-11-01 18:27] LABS: Parathyroid Hormone Related Pr 9 pg/mL (11-20)
[2022-11-04 14:48] LABS: VITAMIN D (1,25 OH) D3 55 pg/mL; Vit D (1,25-Dihydroxy) Total 55 pg/mL (18-72); Vitamin D (1,25 OH) D2 <8 pg/mL
== END 2022-11-01 12:02 | disposition home or self-care (01) | DRG 644 ==
LOC: HO.ED 10-28 00:41 → HO.EDOVER 10-28 01:45 → HO.S3 10-28 02:14
PROVIDERS: Internal Medicine; Internal Medicine Nephrology; Physician Assistant Medical; Admitting Provider Internal Medicine; Emergency Provider Emergency Medicine; PCP Physician Assistant; Visit Provider Hospitalist
DX: E21.0 Primary hyperparathyroidism (principal); I69.351 Hemiplegia and hemiparesis following cerebral infarction affecting right dominant side; N39.0 Urinary tract infection, site not specified; R33.9 Retention of urine, unspecified; E86.0 Dehydration; E87.5 Hyperkalemia; G40.909 Epilepsy, unspecified, not intractable, without status epilepticus; Z87.891 Personal history of nicotine dependence; Z87.442 Personal history of urinary calculi; Z79.02 Long term (current) use of antithrombotics/antiplatelets; Z79.899 Other long term (current) drug therapy
CPT/HCPCS: 0241U; 36415; 51798; 74176; 80048; 80053; 81001; 81003; 82306; 82310; 82330; 82652; 82784; 83519; 83521; 83605; 83735; 83970; 85025; 85610; 86334; 87040; 87086; 96361; 96374; 99285; J0696; J1650; J2430

== ENCOUNTER 2022-11-07 08:01 | Day surgery (SDC) | payer MEDICARE, SELFPAY ==
--- NOTE | 2022-11-03 09:30 | HO.ANESPROP2 ---
Documented by User: Faviola Garay NP 11/03/22 09:35 HPI - Anesthesia Eval Consult details Narrative: 52yo M for Cystoscopy & Stent Removal, possible ureteroscopy,retrogrades and laser [facility] [place] admit 11/01/22 with hypercalcemia, UTI, retention s/p Left Cystoscopy, Ureteroroscopy, Retro, Laser with stent exchange 10/24/22 with GA-LMA 4 hx of hemmorhagic stroke with craniotomy ~2013 Plavix for CVA prophylaxis PMFSH Active Problems Active Problems: All Active Problems (Updated 10/28/22 @ 00:41 by Sherley Valdez MD) Ureterolithiasis (Acute) Obstructive uropathy (Acute) Bilateral kidney stones (Acute) Kidney stone on left side (Acute) Ureteral stone (Acute) Hypercalcemia (Acute) Acute UTI (Acute) Acute urinary retention (Acute) Past Medical History Medical History CVA (cerebral vascular accident) Hemorrhagic stroke HLD (hyperlipidemia) Seizure disorder Seizures Family History Family History Other Diabetes HTN (hypertension) Family history of problems with anesthesia: No Surgical History Surgical History H/O craniotomy H/O lithotripsy History of cystoscopy History of Problems with Anesthesia: No Social History Social History Household Members: Family Housing: House Do you presently have visiting nurse or other home services: No Unable to assess alcohol history related to: Unknown Alcohol intake: current Alcohol intake frequency: holidays/special occasions only Alcohol type: beer Patient Tobacco Use Status: Former Tobacco user Quit Date: 10 YR AGO Tobacco use type: Cigarette Years Smoked: 2009 Second Hand Smoke Exposure: No Use of substances other than those prescribed or required for medical reasons: No Are you DNR?: No Advance Directives: No Advance Directives Information Provided: Yes service: No Current occupational status: disabled Meds Allergies Allergy/AdvReac Type Severity Reaction Status Date / Time No Known Allergies Allergy Verified 11/07/22 08:46 [No Known Allergies*] Home Medications Medication Instructions Recorded Confirmed Last Taken Type clopidogrel 75 mg tablet 1 tab PO DAILY 08/09/22 11/07/22 11/01/22 History topiramate 50 mg tablet 200 mg PO DAILY 08/09/22 11/07/22 10/27/22 History acetaminophen 325 mg tablet 650 mg PO Q6H PRN Pain 10/28/22 11/07/22 Unknown History (Tylenol) allopurinol 100 mg tablet 1 tab PO DAILY PRN renal stone 10/28/22 11/07/22 Unknown History atorvastatin 40 mg tablet 1 tab PO DAILY 10/28/22 11/07/22 10/27/22 History levetiracetam 750 mg tablet 3 tab PO BID 10/28/22 11/07/22 10/27/22 History polyethylene glycol 3350 17 17 g PO DAILY PRN Constipation 10/28/22 11/07/22 Unknown History gram/dose oral powder pyridoxine (vitamin B6) 100 mg 1 tab PO DAILY 10/28/22 11/07/22 10/27/22 History tablet riboflavin (vitamin B2) 100 mg 1 tab PO DAILY 10/28/22 11/07/22 10/27/22 History tablet (Vitamin B-2) topiramate 50 mg tablet 150 mg PO BEDTIME 10/28/22 11/07/22 10/27/22 History Exam Exam Date and Time: November 03, [id number] Pertinent Lab Results Pertinent Lab Results: Laboratory Tests 10/27/22 10/31/22 20:15 10:29 WBC 12.6 H Hgb 14.9 Hct 45.8 D Plt Count 334 Sodium 141 Potassium 3.9 Chloride 118 H Carbon Dioxide 19 L BUN 8 L Creatinine 0.78 Assessment and Plan Assessment Anesthesia Assessment: Chart Reviewed Final Anesthetic Review Family History of Problems with Anesthesia: No History of Problems with Anesthesia: No Documented by User: Mami Terrazas MD 11/07/22 11:03 [facility] Past Medical History Medical History CVA (cerebral vascular accident) Hemorrhagic stroke HLD (hyperlipidemia) Seizure disorder Seizures Family History Family History Other Diabetes HTN (hypertension) Surgical History Surgical History H/O craniotomy H/O lithotripsy History of cystoscopy Social History Social History Household Members: Family Housing: House Do you presently have visiting nurse or other home services: No Unable to assess alcohol history related to: Unknown Alcohol intake: current Alcohol intake frequency: holidays/special occasions only Alcohol type: beer Patient Tobacco Use Status: Former Tobacco user Quit Date: 10 YR AGO Tobacco use type: Cigarette Years Smoked: 2009 Second Hand Smoke Exposure: No Use of substances other than those prescribed or required for medical reasons: No Are you DNR?: No Advance Directives: No Advance Directives Information Provided: Yes service: No Current occupational status: disabled Meds Allergies Allergy/AdvReac Type Severity Reaction Status Date / Time No Known Allergies Allergy Verified 11/07/22 08:46 [No Known Allergies*] Home Medications Medication Instructions Recorded Confirmed Last Taken Type clopidogrel 75 mg tablet 1 tab PO DAILY 08/09/22 11/07/22 11/01/22 History topiramate 50 mg tablet 200 mg PO DAILY 08/09/22 11/07/22 10/27/22 History acetaminophen 325 mg tablet 650 mg PO Q6H PRN Pain 10/28/22 11/07/22 Unknown History (Tylenol) allopurinol 100 mg tablet 1 tab PO DAILY PRN renal stone 10/28/22 11/07/22 Unknown History atorvastatin 40 mg tablet 1 tab PO DAILY 10/28/22 11/07/22 10/27/22 History levetiracetam 750 mg tablet 3 tab PO BID 10/28/22 11/07/22 10/27/22 History polyethylene glycol 3350 17 17 g PO DAILY PRN Constipation 10/28/22 11/07/22 Unknown History gram/dose oral powder pyridoxine (vitamin B6) 100 mg 1 tab PO DAILY 10/28/22 11/07/22 10/27/22 History tablet riboflavin (vitamin B2) 100 mg 1 tab PO DAILY 10/28/22 11/07/22 10/27/22 History tablet (Vitamin B-2) topiramate 50 mg tablet 150 mg PO BEDTIME 10/28/22 11/07/22 10/27/22 History Exam Airway Mallampati Class: II TM Dist: >3cm Neck ROM: Full Heart: rr Lungs: cta Other: caps [id number] Assessment and Plan Assessment Anesthesia Assessment: Anesthesia Plan Discussed Final Anesthetic Review NPO: Yes (Seizure meds w sip) ASA Class: II Final Preanesthetic Review: No Changes in Pt Med Stat, Meds/Allgs Chart Reviewed, Consent Obtained/Reviewed and Anes Risks/Benef Reviewed Patient Risk: Intermediate Procedure Risk: Low Anesthetic Plan Anesthetic Plan: GA Disposition: Standard PACU
[2022-11-07] VITALS (9 sets, daily range): BP systolic 104–129; BP diastolic 52–84; PULSE 55–69; RESP 15–16; TEMP 36.1–36.3; O2SAT 99–100; BMI 21.1
--- NOTE | ~2022-11-07 | FL_ITS ---
EXAMINATION: XR FLUOROSCOPY WITH IMAGES CLINICAL INFORMATION: Stone/stent COMPARISON: CT abdomen and pelvis noncontrast 10/27/2022 TECHNIQUE: Fluoroscopy Supervised By: Dr. Ferrera. Fluoroscopy Time: 33 seconds. Cumulative Dose: 6.96 mGy. Images: 2. FINDINGS: There is contrast in the left renal collecting system with mild fullness infundibula. No extravasation of contrast. Final image shows left ureteral stent in position. FL/FL guidance in OR IMPRESSION: Fluoroscopy for urologic procedures.
[2022-11-07] MEDS: Lactated Ringers 1,000 ML 100 ML IVCONT (08:46)
--- NOTE | 2022-11-07 10:22 | MHC.SHP ---
Pre-Procedural Eval Section A Date of Service: 11/07/22 The patient is an INPATIENT: No The History & Physical has been completed within 30 days and I have reviewed it.: Yes Section B Chief Complaint: Calculus of kidney Allergies: Allergies Allergy/AdvReac Type Severity Reaction Status Date / Time No Known Allergies Allergy Verified 11/07/22 08:46 [No Known Allergies*] Plan I have reviewed the history and physical and performed a pertinent physical examination on my patient. No changes have occurred unless specified. cysto Left ureteral stent removal possible ureteroscopy laser. Risks discussed included but not limited to, possible need to repeat procedure if stone is not completely fragmented, Irritative voiding symptoms, bladder spasms, urgency, blood in urine. Time Spent With Patient Time: Total time managing care of this patient today ____ minutes.
--- NOTE | 2022-11-07 11:50 | W.PM.OPN ---
Operative Note Operative Note Date of Service: 11/07/22 Narrative: PreOperative Diagnosis:?? Left ureteral stone Post Operative Diagnosis:?? ? left ureteral stone Procedure: - cystoscopy, left retrograde - left ureteral stent exchange Surgeon:?Dr Candy eFrrera Anesthesia:? General Indications for procedure: The patient has h/o nephrolithiasis with obstructing proximal left ureteral stone 8 mm x 13 mm on 07/2022 CT scan, he had a ureteral stent placed initially followed by multiple procedures including ureteroscopy laser, and ESWL, due to the fact that the stone was impacted and embedded into the ureteral mucosa causing the stone management course to be complicated. Procedure: After informed consent was verified the patient was brought to the operating placed on the OR table in supine position.? General Anesthesia was administered per protocol.? The patient was placed in lithotomy position, prepped and draped in the usual sterile fashion.? Safety pause time-out and side of surgery confirmed.? Antibiotics confirmed. 2% lidocaine jelly was passed transurethrally. A 22 [place] cystoscope was inserted transurethrally, the bulbous urethra was within normal limits, the prostatic urethra moderately obstructing median lobe. The bladder was visualized.? Both ureteric orifices were in normal position. The stent was visualized. The distal end of the stent was grasped and brought through the urethra. The?Left ureteric orifice was cannulated? and a retrograde examination was performed, which noted some narrowing of the proximal urethra just below the UPJ where the stone was previously; due to this finding the decision was made to place another stent: size 7 Ukrainian by 28 cm. A hydrophilic guidewire was placed up to the level of the renal pelvis under fluoroscopy. A? 7 [place] by 28 length stent was placed into the ureter and renal pelvis under a combination of fluoroscopy and direct visualization. Plan will be to keep stent in place for about 6 weeks. The bladder was emptied.? The rigid cystoscope was removed. ? The patient tolerated the procedure well and was brought to the recovery room in stable condition. Complications: None Drains: Ureteral stent as dictated above
[2022-11-07] MEDS: Acetaminophen 1,000 MG/100 ML PIGGYBACK 400 MG IV (11:59)
== END 2022-11-07 13:22 | disposition home or self-care (01) ==
PROVIDERS: PCP Internal Medicine; Visit Provider Urology
PROC: (CPT 52310; principal; 2022-11-07 09:20)
DX: N20.1 Calculus of ureter (principal); Z87.442 Personal history of urinary calculi; Z46.6 Encounter for fitting and adjustment of urinary device; G40.909 Epilepsy, unspecified, not intractable, without status epilepticus; E78.5 Hyperlipidemia, unspecified; Z79.899 Other long term (current) drug therapy; Z86.73 Personal history of transient ischemic attack (TIA), and cerebral infarction without residual deficits; Z87.891 Personal history of nicotine dependence; Z98.890 Other specified postprocedural states
CPT/HCPCS: 52332; C1758; C2617; J0131; J0690; J2250; J2405; J3010; Q9967

== ENCOUNTER 2023-01-25 13:05 | Outpatient (REF) | payer MEDICARE, MEDICAID, SELFPAY | END 2023-01-25 13:06 | disposition home or self-care (01) | LOC: HO.LAB 13:05 | PROVIDERS: PCP Internal Medicine; Visit Provider Urology | DX: R31.9 Hematuria, unspecified (principal); N20.0 Calculus of kidney | CPT/HCPCS: 51798; 87086; 99212 ==

== ENCOUNTER 2023-01-30 08:55 | Day surgery (SDC) | payer MEDICARE, MEDICAID, SELFPAY ==
--- NOTE | 2023-01-29 12:17 | P.CONAN_ITS ---
Documented by User: Faviola Graay NP 01/29/23 12:18 HPI - Anesthesia Eval Consult details Narrative: 52yo M for Left Cystoscopy, retrograde & Stent Removal [facility] [place] 11/01/22 with hypercalcemia, UTI, retention s/p Left Cystoscopy, etc 10/2022 with GA-LMA 3 hx of hemmorhagic stroke with craniotomy ~2013 Plavix for CVA prophylaxis PMFSH Active Problems Active Problems: All Active Problems (Updated 11/04/22 @ 00:02 by Background Angelo) Ureterolithiasis (Acute) Obstructive uropathy (Acute) Bilateral kidney stones (Acute) Kidney stone on left side (Acute) Ureteral stone (Acute) Past Medical History Medical History (Updated 01/30/23 @ 11:15 by Alberta Skelton MD) CVA (cerebral vascular accident) Hemorrhagic stroke HLD (hyperlipidemia) Seizure disorder Family History Family History Other Diabetes HTN (hypertension) Family history of problems with anesthesia: No Surgical History Surgical History H/O craniotomy H/O lithotripsy History of cystoscopy History of Problems with Anesthesia: No Social History Social History Household Members: Family Housing: House Do you presently have visiting nurse or other home services: No Unable to assess alcohol history related to: Unknown Alcohol intake: current Alcohol intake frequency: holidays/special occasions only Alcohol type: beer Patient Tobacco Use Status: Former Tobacco user Quit Date: 9 yrs ago Tobacco use type: Cigarette Years Smoked: 2009 Second Hand Smoke Exposure: No Use of substances other than those prescribed or required for medical reasons: No Are you DNR?: No Advance Directives: No Advance Directives Information Provided: Yes service: No Current occupational status: disabled Meds Allergies Allergy/AdvReac Type Severity Reaction Status Date / Time No Known Allergies Allergy Verified 01/30/23 09:19 [No Known Allergies*] Home Medications Medication Instructions Recorded Confirmed Last Taken Type clopidogrel 75 mg tablet (Plavix) 1 tab PO DAILY 08/09/22 01/30/23 01/26/23 History topiramate 50 mg tablet (Topamax) 200 mg PO DAILY 08/09/22 01/30/23 01/30/23 07:00 History acetaminophen 325 mg tablet 650 mg PO Q6H PRN Pain 10/28/22 01/30/23 Unknown History (Tylenol) atorvastatin 40 mg tablet (Lipitor) 1 tab PO DAILY 10/28/22 01/30/23 01/30/23 07:00 History levetiracetam 750 mg tablet 3 tab PO BID 10/28/22 01/30/23 01/30/23 07:00 History (Keppra) polyethylene glycol 3350 17 17 g PO DAILY PRN Constipation 10/28/22 01/30/23 Unknown History gram/dose oral powder (Miralax) riboflavin (vitamin B2) 100 mg 1 tab PO DAILY 10/28/22 01/30/23 10/27/22 History tablet (Vitamin B-2) topiramate 50 mg tablet (Topamax) 150 mg PO BEDTIME 10/28/22 01/30/23 10/27/22 History allopurinol 100 mg tablet 100 mg PO BID renal stone 01/30/23 01/30/23 01/30/23 07:00 History (Zyloprim) pyridoxine (vitamin B6) 100 mg 100 mg PO DAILY kidney stones 01/30/23 01/30/23 Unknown History tablet (Vitamin B-6) tamsulosin 0.4 mg capsule (Flomax) 0.4 mg PO BEDTIME 01/30/23 01/30/23 Unknown History Exam Exam Date and Time: January 29, 2023 121 Pertinent Lab Results Pertinent Lab Results: Laboratory Tests 10/27/22 10/31/22 20:15 10:29 WBC 12.6 H Hgb 14.9 Hct 45.8 D Plt Count 334 Sodium 141 Potassium 3.9 Chloride 118 H Carbon Dioxide 19 L BUN 8 L Creatinine 0.78 Assessment and Plan Assessment Anesthesia Assessment: Chart Reviewed Final Anesthetic Review Family History of Problems with Anesthesia: No History of Problems with Anesthesia: No Documented by User: Alberta Skelton MD 01/30/23 11:15 HPI - Anesthesia Eval Consult details Narrative: 52yo M for Cystoscopy,Left retrograde & Stent Removal [facility] [place] 11/01/22 with hypercalcemia, UTI, retention s/p Left Cystoscopy, etc 10/2022 with GA-LMA 3 hx of hemmorhagic stroke with craniotomy ~2013 Plavix for CVA prophylaxis. Last dose 01/25/23 PMFSH Past Medical History Medical History (Updated 01/30/23 @ 11:15 by Alberta Skelton MD) CVA (cerebral vascular accident) Hemorrhagic stroke HLD (hyperlipidemia) Seizure disorder Family History Family History Other Diabetes HTN (hypertension) Surgical History Surgical History H/O craniotomy H/O lithotripsy History of cystoscopy Social History Social History Household Members: Family Housing: House Do you presently have visiting nurse or other home services: No Unable to assess alcohol history related to: Unknown Alcohol intake: current Alcohol intake frequency: holidays/special occasions only Alcohol type: beer Patient Tobacco Use Status: Former Tobacco user Quit Date: 9 yrs ago Tobacco use type: Cigarette Years Smoked: 2009 Second Hand Smoke Exposure: No Use of substances other than those prescribed or required for medical reasons: No Are you DNR?: No Advance Directives: No Advance Directives Information Provided: Yes service: No Current occupational status: disabled Meds Allergies Allergy/AdvReac Type Severity Reaction Status Date / Time No Known Allergies Allergy Verified 01/30/23 09:19 [No Known Allergies*] Home Medications Medication Instructions Recorded Confirmed Last Taken Type clopidogrel 75 mg tablet (Plavix) 1 tab PO DAILY 08/09/22 01/30/23 01/26/23 History topiramate 50 mg tablet (Topamax) 200 mg PO DAILY 08/09/22 01/30/23 01/30/23 07:00 History acetaminophen 325 mg tablet 650 mg PO Q6H PRN Pain 10/28/22 01/30/23 Unknown History (Tylenol) atorvastatin 40 mg tablet (Lipitor) 1 tab PO DAILY 10/28/22 01/30/23 01/30/23 07:00 History levetiracetam 750 mg tablet 3 tab PO BID 10/28/22 01/30/23 01/30/23 07:00 History (Keppra) polyethylene glycol 3350 17 17 g PO DAILY PRN Constipation 10/28/22 01/30/23 Unknown History gram/dose oral powder (Miralax) riboflavin (vitamin B2) 100 mg 1 tab PO DAILY 10/28/22 01/30/23 10/27/22 History tablet (Vitamin B-2) topiramate 50 mg tablet (Topamax) 150 mg PO BEDTIME 10/28/22 01/30/23 10/27/22 History allopurinol 100 mg tablet 100 mg PO BID renal stone 01/30/23 01/30/23 01/30/23 07:00 History (Zyloprim) pyridoxine (vitamin B6) 100 mg 100 mg PO DAILY kidney stones 01/30/23 01/30/23 Unknown History tablet (Vitamin B-6) tamsulosin 0.4 mg capsule (Flomax) 0.4 mg PO BEDTIME 01/30/23 01/30/23 Unknown History Exam Height,Weight and Vital Signs: Height 6 ft 1 in Weight 72.575 kg Vital Signs Temp Pulse Resp BP Pulse Ox O2 Del Method 01/30/23 10:14 97.9 F 64 16 126/79 98 Room Air Airway Mallampati Class: II TM Dist: >3cm Neck ROM: Full Loose/Missing/Broken Teeth: Yes (Many missing, broken) Heart: RRR Lungs: CTAB Assessment and Plan Assessment Anesthesia Assessment: Anesthesia Plan Discussed Final Anesthetic Review NPO: Yes ASA Class: III Final Preanesthetic Review: No Changes in Pt Med Stat, Meds/Allgs Chart Reviewed, Consent Obtained/Reviewed and Anes Risks/Benef Reviewed Patient Risk: Intermediate Procedure Risk: Low Assessment/Block/Sedation in SS: Assess/Block/Sedation-SS Anesthetic Plan Anesthetic Plan: GA Disposition: Standard PACU
[2023-01-30] VITALS (7 sets, daily range): BP systolic 116–126; BP diastolic 77–80; PULSE 54–64; RESP 12–18; TEMP 36.2–36.6; O2SAT 97–100; BMI 21.1
--- NOTE | ~2023-01-30 | FL_ITS ---
EXAMINATION: XR FLUOROSCOPY WITH IMAGES CLINICAL INFORMATION: Urinary tract calculi. Stent. COMPARISON: None available. TECHNIQUE: Fluoroscopy Supervised By: Dr. Ferrera. Fluoroscopy Time: 30 seconds. Cumulative Dose: 7.85 mGy. Images: 4. FINDINGS: There is a left ureteral stent in position. There is contrast in the collecting system without extravasation. There is mild hydronephrosis with caliectasis and some scattered small filling defects corresponding to calculi on recent imaging. FL/FL guidance in OR IMPRESSION: Fluoroscopy for urologic procedures.
[2023-01-30] MEDS: Lactated Ringers 1,000 ML 100 ML IVCONT (10:40)
--- NOTE | 2023-01-30 10:48 | MHC.SHP ---
Pre-Procedural Eval Section A Date of Service: 01/30/23 The patient is an INPATIENT: No The History & Physical has been completed within 30 days and I have reviewed it.: Yes Section B Chief Complaint: Calculus of ureter Allergies: Allergies Allergy/AdvReac Type Severity Reaction Status Date / Time No Known Allergies Allergy Verified 01/30/23 09:19 [No Known Allergies*] Plan Diagnosis/Plan: Unchanged I have reviewed the history and physical and performed a pertinent physical examination on my patient. No changes have occurred unless specified. Cystoscopy, retrograde, left, remove vs stent exchange Time Spent With Patient Time: Total time managing care of this patient today ____ minutes.
--- NOTE | 2023-01-30 11:50 | W.PM.OPN ---
Operative Note Operative Note Date of Service: 01/30/23 Narrative: PreOperative Diagnosis:?? ?H/O impacted Left ureteral stone Post Operative Diagnosis:?? H/O?impacted left ureteral stone Procedure: - ? Cystoscopy,? left retrograde - ? left ureteral stent? removal Surgeon:?? Candy Ferrera Anesthesia:? General Indications for procedure:?The patient has h/o nephrolithiasis with obstructing proximal left ureteral stone 8 mm x 13 mm on 07/2022 CT scan, he had a ureteral stent placed initially followed by multiple procedures including ureteroscopy laser, and ESWL, due to the fact that the stone was impacted and embedded into the ureteral mucosa causing the stone management course to be complicated. He had stent exchange on 10/24/22. He is here for further evaluation and stent removal. Procedure: After informed consent was verified the patient was brought to the operating placed on the OR table in supine position.? General Anesthesia was administered per protocol.? The patient was placed in? lithotomy position, prepped and draped in the usual sterile fashion.? Safety pause time-out and side of surgery confirmed.? Antibiotics confirmed. 2% lidocaine jelly was passed transurethrally.? A 22 [place] cystoscope was inserted transurethrally, ? the bulbous urethra was within normal limits, the prostatic urethra was nonobstructive.? The bladder was visualized.? Both ureteric orifices were in normal position. ? The stent was visualized.? The distal end of the stent was grasped and brought through the urethra. The?Left? ureteric orifice was cannulated? and a retrograde examination was performed,? which noted persistent narrowing of the proximal urethra just below the UPJ where the stone was previously; at this time decision is to leave urinary tract unstented. Will monitor clinically and with follow up imaging. The bladder was emptied.? The rigid cystoscope was removed. ??2% lidocaine jelly was passed transurethrally.? The patient tolerated the procedure well and was? brought to? the recovery room in stable condition. Complications:?None Drains:?None
== END 2023-01-30 13:11 | disposition home or self-care (01) ==
PROVIDERS: PCP Internal Medicine; Visit Provider Urology
PROC: (CPT 52310; principal; 2023-01-30 10:50)
DX: N35.819 Other urethral stricture, male, unspecified site (principal); Z87.442 Personal history of urinary calculi; R31.9 Hematuria, unspecified; G40.909 Epilepsy, unspecified, not intractable, without status epilepticus; Z79.899 Other long term (current) drug therapy; Z86.73 Personal history of transient ischemic attack (TIA), and cerebral infarction without residual deficits; Z87.891 Personal history of nicotine dependence
CPT/HCPCS: 52310; C1758; C1769; J0690; J1100; J2250; J2405; J3010

== ENCOUNTER 2023-02-12 14:22 | Outpatient (REF) | payer MEDICARE, MEDICAID, SELFPAY ==
--- NOTE | ~2023-02-12 | US_ITS ---
EXAMINATION: US RETROPERITONEAL LIMITED (RENAL ONLY) CLINICAL INFORMATION: Calculus of kidney. COMPARISON: CT abdomen and pelvis without contrast 10/27/2022. X-ray abdomen KUB 10/17/2022 and 09/27/2022. Ultrasound retroperitoneal limited (renal only) 04/14/2021 and 04/12/2020. TECHNIQUE: Real-time imaging of the kidneys. FINDINGS: RIGHT KIDNEY: 11.8 x 4.7 x 6.0 cm (SAG x AP x TRV). The kidney is normal in size and contour. Renal cortical thickness is normal. No focal parenchymal lesions or hydronephrosis. There are numerous echogenic foci present within the collecting system. Within the lower pole there is a cluster of calcifications present measuring 1.2 x 0.7 x 1.3 cm in size. Within the midpole there is a cluster of echogenic structures measuring 9 x 8 x 3 mm in size. Within the midpole there is also a 5 x 4 x 3 mm calculus. LEFT KIDNEY: 11.3 x 4.5 x 4.2 cm (SAG x AP x TRV). The kidney is normal in size and contour. Renal cortical thickness is normal. No focal parenchymal lesions. There is fullness of the left upper collecting system Multiple echogenic foci representing calculi are present. Within the lower pole there is either a cluster of calculi versus a staghorn measuring 1.8 x 0.8 x 2.4 cm in size. Within the lower pole there is a 1.4 x 0.5 x 0.8 cm echogenic focus consistent with a calculus. Within the upper pole there is a 2.6 x 0.5 x 1.0 cm echogenic focus consistent with calculus. Within the upper pole there is a 1.4 x 0.7 x 0.8 cm calculus. Within the midpole there is a 1.1 x 0.7 x 1.0 cm calculus. US/US renal BI IMPRESSION: Bilateral nephrolithiasis with mild prominence of the left upper collecting system.
== END 2023-02-12 14:23 | disposition home or self-care (01) ==
LOC: HO.HMGCX 14:22
PROVIDERS: PCP Internal Medicine; Visit Provider Urology
DX: N20.0 Calculus of kidney (principal)
CPT/HCPCS: 76775

== ENCOUNTER → 2023-03-16 15:26 | Outpatient (BNVA) | payer MEDICARE, MEDICAID, SELFPAY | PROVIDERS: PCP Internal Medicine; Visit Provider Urology | DX: N20.0 Calculus of kidney (principal) | CPT/HCPCS: Q3014 ==

== ENCOUNTER 2023-05-16 15:08 | Outpatient (AMB) | payer MEDICARE, MEDICAID, SELFPAY ==
--- NOTE | 2023-05-16 13:32 | A.OFFVIS_ITS ---
Intake Intake Visit Reasons: 2m follow up/litholink Intake Note: * Patient presents today for a 2mo follow-up with Litholink Results. * Meds- Vit B6, Tamsulosin * Allergies to Antibiotic- None * Blood Thinner- None Sales Marketing Required: No Accompanied by: Brother Allergies No Known Allergies [No Known Allergies*] Allergy (Verified 03/16/23 15:27) HPI HPI Comments History of Present Illness Details Yony is a 53-year-old male who is here for tele-health follow-up to discuss 24-hour urine collection test results. 05/16/23-- History was taken from patient's brother. Discussed 24 hour urine results-- collected--05/11/23--Total volume 740 mL, Calcium 79 mg; Oxalate 19 mg, Sodium 76, Citrate <11 mg. Instructed on importance of fluid intake, Low oxalate diet, low sodium diet. Blood work results reviewed--Parathyroid hormone level?10/29/22?89. Calcium-- 10/29/22--10.6, repeat calcium on 10/31/22 was 9.9. Review of chart: Last tele-health visit--03/16/23--Yony is a 52-year-old male who is here for tele-visit for discussion of KUB and US results. The patient is s/p left ureteral stent removal on 01/30/23 The history was taken from the patient's brother who is also his power of criminal attorney. The patient is not having flank pain. He did not pass renal calculi in the interim. OV--01/25/23-- S/P cystoscopy, left retrograde-left ureteral stent exchange for left ureteral stone. CAT scan- 10/27/22-Innumerable intrarenal calculi are seen in the left kidney. OR procedure done on 10/28/2022-- left ureteral stent exchange because of the narrowing at the UPJ on the left side. Left ESWL - 09/27/2022 KUB was not done, Reviewed Renal retroperitoneal US results reviewed?02/12/23-- findings of multiple calcification in the left kidney. Plan:24-hour urine collection test was ordered. Tele-health follow-up in 2 months for discussion of 24-hour urine results. 05/16/23 Plan: Discussed to consume water, juices like lemonade, orange juice and cranberry. Instructed to avoid tea and can consume 10 ounces of coffee in a day. Urocit-K 15 mg TID. Discussed to take the medication with food to avoid stomach irritation. Endocrinology referral was made. Repeat 24-hour urine collection in next 3 months. Right ESWL discussed to be scheduled. [facility] Medical History CVA (cerebral vascular accident) Hemorrhagic stroke HLD (hyperlipidemia) Seizure disorder Surgical History H/O craniotomy H/O lithotripsy History of cystoscopy Family History Other Diabetes HTN (hypertension) Social History Household Members: Family Housing: House Do you presently have visiting nurse or other home services: No Unable to assess alcohol history related to: Unknown Alcohol intake: current Alcohol intake frequency: holidays/special occasions only Alcohol type: beer Patient Tobacco Use Status: Former Tobacco user Quit Date: 9 yrs ago Tobacco use type: Cigarette Years Smoked: 2009 Second Hand Smoke Exposure: No service: No Current occupational status: disabled Review of Systems Const All systems reviewed & are unremarkable except as noted in HPI and below Reports no additional complaints Eyes Reports no additional complaints ENT Denies neck pain Card Denies leg edema Resp Denies cough GI Denies constipation Musc Reports no additional complaints and Denies neck pain Skin/Breast Denies rash and Denies unusual bruising Neuro Reports no additional complaints Psych Reports no additional complaints Endo Reports no additional complaints Otto/Lymph Reports no additional complaints Aller/Immun Reports no additional complaints Assessment & Plan Assessment & Plan (1) Hyperparathyroidism: Code(s): E21.3 - Hyperparathyroidism, unspecified (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 Instructed to avoid tea and can consume 10 ounces of coffee in a day. Urocit-K 15 mg TID. Discussed to take the medication with food to avoid stomach irritation. Endocrinology referral was made. Repeat 24-hour urine collection in next 3 months. Right ESWL discussed to be scheduled. Orders: Referrals Endocrinology Referral E21.3 - Hyperparathyroidism, unspecified, N20.0 - Calculus of kidney Medications: New potassium citrate ER (Urocit-K 15) 15 mEq PO TID 90 tabs 3RF Patient Instructions: The patient had an opportunity to ask questions regarding treatment plan. All questions were answered. Laboratory studies results were discussed and reviewed in detail. No major barriers to understanding were identified. The patient expressed understanding and agreement with the above treatment plan. The patient is aware they should contact our office by phone for worsening of their current condition or the appearance of new symptoms. Compliance is encouraged with any medications and followup testing that is ordered. It is a privilege to be allowed the opportunity to participate in the urologic care of your patient. If you have any questions or concerns regarding treatment for the above conditions please do not hesitate to contact me. The office telephone contact is [phone]. This note is constructed in part using voice recognition software. While every effort has been made to ensure accuracy gas treater errors may have been included. Yours sincerely, Candy Ferrera MD Telehealth Telehealth Location of provider rendering services: practice address Location of patient: address on file Patient Identification confirmed using: Name, : Yes Telehealth method: voice only Patient verbally consented to treatment: Yes Patient verbally consented to billing insurance company: Yes Patient informed of any privacy concerns related to visit: Yes Minutes spent on Phone/Video with Pt.: 23 Coding Level of Care Code Tele Est Pt Level 4 (28526) Diagnoses Hyperparathyroidism E21.3 Hypocitraturia R82.991 Bilateral kidney stones N20.0
== END 2023-05-16 15:48 | disposition home or self-care (01) ==
LOC: HO.HUSH 15:08
PROVIDERS: PCP Internal Medicine; Visit Provider Urology
DX: E21.3 Hyperparathyroidism, unspecified (principal); R82.991 Hypocitraturia; N20.0 Calculus of kidney
CPT/HCPCS: 99443

== ENCOUNTER → 2023-05-16 15:08 | Outpatient (BNVA) | payer MEDICARE, MEDICAID, SELFPAY | PROVIDERS: PCP Internal Medicine; Visit Provider Urology ==

== ENCOUNTER 2023-07-18 07:26 | Day surgery (SDC) | payer MEDICARE, MEDICAID, SELFPAY ==
--- NOTE | 2023-07-17 09:15 | P.CONAN_ITS ---
HPI - Anesthesia Eval Consult details Narrative: 53yo M for Right ESWL s/p Cystoscopy,Left retrograde & Stent Removal 01/2023 with GA-LMA 5 hx of hemmorhagic stroke with craniotomy ~2013 Plavix for CVA prophylaxis. Last dose 01/25/23 [facility] Active Problems Active Problems: All Active Problems (Updated 05/16/23 @ 15:45 by Becca Bruno) Hypocitraturia (Acute) Hyperparathyroidism (Acute) Ureterolithiasis (Acute) Obstructive uropathy (Acute) Bilateral kidney stones (Acute) Kidney stone on left side (Acute) Ureteral stone (Acute) Past Medical History Medical History CVA (cerebral vascular accident) Hemorrhagic stroke HLD (hyperlipidemia) Seizure disorder Family History Family History Other Diabetes HTN (hypertension) Family history of problems with anesthesia: No Surgical History Surgical History H/O craniotomy H/O lithotripsy History of cystoscopy History of Problems with Anesthesia: No Social History Social History Household Members: Family Housing: House Do you presently have visiting nurse or other home services: No Unable to assess alcohol history related to: Unknown Alcohol intake: current Alcohol intake frequency: holidays/special occasions only Alcohol type: beer Patient Tobacco Use Status: Former Tobacco user Quit Date: 9 yrs ago Tobacco use type: Cigarette Years Smoked: 2009 Second Hand Smoke Exposure: No Use of substances other than those prescribed or required for medical reasons: No Advance Directives: No Advance Directives Information Provided: Yes service: No Current occupational status: disabled Meds Allergies Allergy/AdvReac Type Severity Reaction Status Date / Time No Known Allergies Allergy Verified 03/16/23 15:27 [No Known Allergies*] Home Medications Medication Instructions Recorded Confirmed Last Taken Type clopidogrel 75 mg tablet (Plavix) 1 tab PO DAILY 08/09/22 01/30/23 01/26/23 Hi story topiramate 50 mg tablet (Topamax) 200 mg PO DAILY 08/09/22 01/30/23 01/30/23 07:00 History acetaminophen 325 mg tablet 650 mg PO Q6H PRN Pain 10/28/22 01/30/23 Unknown History (Tylenol) atorvastatin 40 mg tablet (Lipitor) 1 tab PO DAILY 10/28/22 01/30/23 01/30/23 07:00 History levetiracetam 750 mg tablet 3 tab PO BID 10/28/22 07/18/23 07/18/23 History (Keppra) polyethylene glycol 3350 17 17 g PO DAILY PRN Constipation 10/28/22 01/30/23 Unknown History gram/dose oral powder (Miralax) riboflavin (vitamin B2) 100 mg 1 tab PO DAILY 10/28/22 01/30/23 10/27/22 History tablet (Vitamin B-2) topiramate 50 mg tablet (Topamax) 150 mg PO BEDTIME 10/28/22 07/18/23 07/18/23 History allopurinol 100 mg tablet 100 mg PO BID renal stone 01/30/23 01/30/23 01/30/23 07:00 History (Zyloprim) pyridoxine (vitamin B6) 100 mg 100 mg PO DAILY kidney stones 01/30/23 01/30/23 Unknown History tablet (Vitamin B-6) tamsulosin 0.4 mg capsule (Flomax) 0.4 mg PO BEDTIME 01/30/23 01/30/23 Unknown History Exam Exam Date and Time: July 17, [id number] Pertinent Lab Results Pertinent Lab Results: Laboratory Tests 10/27/22 10/31/22 20:15 10:29 WBC 12.6 H Hgb 14.9 Hct 45.8 D Plt Count 334 Sodium 141 Potassium 3.9 Chloride 118 H Carbon Dioxide 19 L BUN 8 L Creatinine 0.78 Assessment and Plan Assessment Anesthesia Assessment: Chart Reviewed Final Anesthetic Review Family History of Problems with Anesthesia: No History of Problems with Anesthesia: No
--- NOTE | ~2023-07-18 | XR_ITS ---
EXAMINATION: XR ABDOMEN KUB CLINICAL INDICATION: Bilateral kidney stones. COMPARISON: Ultrasound kidneys 02/12/2023. TECHNIQUE: AP view of the abdomen. FINDINGS: There are clusters of echogenic stones in the mid and lower pole calyx left kidney. The right kidney is suboptimally visualized due to overlying gas and stool. There is scattered stool and gas in the colon without distention. No organomegaly. No gross bony abnormality. XR/XR KUB IMPRESSION: Multiple clusters of radiopaque calculi mid and lower pole left kidney. The right kidney is suboptimally visualized and radiopaque calculi cannot be excluded.
[2023-07-18 08:22] VITALS: BMI 24.5
[2023-07-18 08:44] VITALS: BP 123/79; PULSE 72; RESP 16; TEMP 36.3; O2SAT 96
[2023-07-18] MEDS: Lactated Ringers 1,000 ML 100 ML IVCONT (08:54)
--- NOTE | 2023-07-18 09:17 | HO.ANESPROP2 ---
HPI - Anesthesia Eval Consult details Narrative: 53 yo male patient for Right ESWL PMFSH Active Problems Active Problems: All Active Problems (Updated 07/18/23 @ 09:10 by Alberta Skelton MD) Hypocitraturia (Acute) Hyperparathyroidism (Acute) Ureterolithiasis (Acute) Obstructive uropathy (Acute) Bilateral kidney stones (Acute) Kidney stone on left side (Acute) Ureteral stone (Acute) H/o cough on and off recently. Productive of thick yellowish sputum.?Treated in the past. Asymptomatic presently. Lungs clear Last dose of plavix 5-7 days ago Past Medical History Medical History CVA (cerebral vascular accident) Hemorrhagic stroke HLD (hyperlipidemia) Seizure disorder Family History Family History Other Diabetes HTN (hypertension) Family history of problems with anesthesia: No Surgical History Surgical History H/O craniotomy H/O lithotripsy History of cystoscopy History of Problems with Anesthesia: No Social History Social History Household Members: Family Housing: House Do you presently have visiting nurse or other home services: No Unable to assess alcohol history related to: Unknown Alcohol intake: current Alcohol intake frequency: holidays/special occasions only Alcohol type: beer Patient Tobacco Use Status: Former Tobacco user Quit Date: 9 yrs ago Tobacco use type: Cigarette Years Smoked: 2009 Second Hand Smoke Exposure: No Use of substances other than those prescribed or required for medical reasons: No Advance Directives: No Advance Directives Information Provided: Yes service: No Current occupational status: disabled Meds Allergies Allergy/AdvReac Type Severity Reaction Status Date / Time No Known Allergies Allergy Verified 03/16/23 15:27 [No Known Allergies*] Active Medications: Current Medications Gentamicin Sulfate 120 mg/ (Sodium Chloride) 103 mls @ 100 mls/hr IV ONCE ONE Stop: 07/17/23 16:30 Lactated Ringer's (Lr) 1,000 mls @ 100 mls/hr IVCONT .Q10H ISAC Last Admin: 07/18/23 08:54 Dose: 100 mls/hr Home Medications Medication Instructions Recorded Confirmed Last Taken Type clopidogrel 75 mg tablet (Plavix) 1 tab PO DAILY 08/09/22 01/30/23 01/26/23 History topiramate 50 mg tablet (Topamax) 200 mg PO DAILY 08/09/22 01/30/23 01/30/23 07:00 History acetaminophen 325 mg tablet 650 mg PO Q6H PRN Pain 10/28/22 01/30/23 Unknown History (Tylenol) atorvastatin 40 mg tablet (Lipitor) 1 tab PO DAILY 10/28/22 01/30/23 01/30/23 07:00 History levetiracetam 750 mg tablet 3 tab PO BID 10/28/22 07/18/23 07/18/23 History (Keppra) polyethylene glycol 3350 17 17 g PO DAILY PRN Constipation 10/28/22 01/30/23 Unknown History gram/dose oral powder (Miralax) riboflavin (vitamin B2) 100 mg 1 tab PO DAILY 10/28/22 01/30/23 10/27/22 History tablet (Vitamin B-2) topiramate 50 mg tablet (Topamax) 150 mg PO BEDTIME 10/28/22 07/18/23 07/18/23 History allopurinol 100 mg tablet 100 mg PO BID renal stone 01/30/23 01/30/23 01/30/23 07:00 History (Zyloprim) pyridoxine (vitamin B6) 100 mg 100 mg PO DAILY kidney stones 01/30/23 01/30/23 Unknown History tablet (Vitamin B-6) tamsulosin 0.4 mg capsule (Flomax) 0.4 mg PO BEDTIME 01/30/23 01/30/23 Unknown History Exam Exam Date and Time: July 18, [id number] Height,Weight and Vital Signs: Height 6 ft 1 in Weight 84.17 kg Last Vital Signs Temp 97.4 F 07/18/23 08:44 Pulse 72 07/18/23 08:44 Resp 16 07/18/23 08:44 BP 123/79 07/18/23 08:44 Pulse Ox 96 07/18/23 08:44 O2 Del Method Room Air 07/18/23 08:44 Airway Mallampati Class: II TM Dist: >3cm Neck ROM: Full Loose/Missing/Broken Teeth: Yes (Many missing, broken.) Heart: RRR Lungs: CTAB Assessment and Plan Assessment Anesthesia Assessment: Anesthesia Plan Discussed and Chart Reviewed Final Anesthetic Review Family History of Problems with Anesthesia: No History of Problems with Anesthesia: No NPO: No (A mint about 2.5 hours ago) ASA Class: III Final Preanesthetic Review: No Changes in Pt Med Stat, Meds/Allgs Chart Reviewed, Consent Obtained/Reviewed and Anes Risks/Benef Reviewed Patient Risk: Intermediate Procedure Risk: Low Assessment/Block/Sedation in SS: Assess/Block/Sedation-SS Anesthetic Plan Anesthetic Plan: GA and MAC: Disposition: Standard PACU
--- NOTE | 2023-07-18 09:42 | MHC.SHP ---
Pre-Procedural Eval Section A Date of Service: 07/18/23 The patient is an INPATIENT: No The History & Physical has been completed within 30 days and I have reviewed it.: No Section B Chief Complaint: Calculus of kidney Details of Present Illness: Yony is a 53 year old with bilateral kidney stones, the patient has had multiple Lithotripsy procedures on the left kidney stones due to significant stone burden. KUB today notes persistent left nephrolithiasis, discussed with the patient and brother, [place] his POA repeat Left ESWL Medical History: Significant History (h/o stroke ) Allergies: Allergies Allergy/AdvReac Type Severity Reaction Status Date / Time No Known Allergies Allergy Verified 03/16/23 15:27 [No Known Allergies*] Review of Systems Review of Systems Comment: 10 point ROS negative other than stated in HPI Exam Surgical H&P Exam: Normal: HEENT, Normal: Heart, Normal: Lungs and Normal: Skin Plan I have reviewed the history and physical and performed a pertinent physical examination on my patient. No changes have occurred unless specified. Left ESWL. Discussed risks to include but not limited to, blood in the urine, bruising to the skin, kidney hematoma, possible need for another procedure if a stone fragment obstructs the ureter while passing, possible need to repeat procedure if stone is not completely fragmented. Time Spent With Patient Time: Total time managing care of this patient today ____ minutes.
[2023-07-18 10:44] VITALS: BP 130/87; PULSE 64; RESP 18; TEMP 36.2; O2SAT 96
--- NOTE | 2023-07-18 10:50 | P.OP_ITS ---
Operative Note Operative Note Date of Service: 07/18/23 Narrative: PreOperative Diagnosis:? ? Bilateral Renal stones, stone burden Left > Right Post Operative Diagnosis:?Bilateral Renal stones, stone burden Left > Right Procedure:?Left? ESWL Surgeon:?Dr Candy Ferrera Anesthesia:? MAC Indications for procedure: The patient understands ESWL may be a staged procedure and subsequent intervention may be required based on imaging after ESWL.? They also understand? there is a risk of bleeding to the kidney, infection, damage to adjacent organs, and stone migration following the procedure. Multiple Left kidney stones. Procedure today focused on the 8 mm left renal pelvis stone - Imaging 8 mm stone Procedure: After informed consent was verified the patient was brought to the operating room and placed in a supine position.? Anesthesia was performed per protocol. Safety pause time-out was performed. Imaging was displayed in the room and laterality confirmed. ESWL was performed.?The stone was visualized on both fluoroscopy and ultrasound.? Shockwave lithotripsy was performed, the first 300 shocks at 60 her tz.? A pause for 3 minutes.? A total of 2500 shocks to a maximum of power of 18 with a maximum rate of 120 hertz.? Good fragmentation of the stone was appreciated. The patient tolerated the procedure well and was transferred to the recovery area upon completion. Complications: None
[2023-07-18 10:59] VITALS: BP 143/91; PULSE 61; RESP 16; O2SAT 97
[2023-07-18 11:14] VITALS: BP 128/88; PULSE 58; RESP 16; O2SAT 97
[2023-07-18 11:29] VITALS: BP 138/58; PULSE 55; RESP 16; TEMP 36.3; O2SAT 99
== END 2023-07-18 12:50 | disposition home or self-care (01) ==
PROVIDERS: PCP Internal Medicine; Visit Provider Urology
PROC: (CPT 50590; principal; 2023-07-18 09:10)
DX: N20.0 Calculus of kidney (principal); I69.351 Hemiplegia and hemiparesis following cerebral infarction affecting right dominant side; G40.909 Epilepsy, unspecified, not intractable, without status epilepticus; Z87.891 Personal history of nicotine dependence; Z79.899 Other long term (current) drug therapy
CPT/HCPCS: 50590; 74018; J0131; J0690; J1580

== ENCOUNTER → 2023-07-18 07:26 | Outpatient (BNV) | payer MEDICARE, MEDICAID, SELFPAY | PROVIDERS: PCP Internal Medicine; Visit Provider Urology | DX: N20.0 Calculus of kidney (principal) | CPT/HCPCS: 50590 ==

== ENCOUNTER 2023-09-04 08:27 | Outpatient (REF) | payer MEDICARE, MEDICAID, SELFPAY ==
--- NOTE | ~2023-09-04 | CT_ITS ---
EXAMINATION: CT ABDOMEN AND PELVIS WITHOUT CONTRAST CLINICAL INFORMATION: Bilateral nephrolithiasis COMPARISON: 10/27/2022 TECHNIQUE: Multidetector volumetric imaging was performed from the superior aspect of the liver through the pubic symphysis. Sagittal and coronal reformatted images were obtained on the technologist's workstation. This CT examination was performed using dose optimization techniques as appropriate, variously including the following: *Automated exposure control *Adjustment of mA and/or kV according to patient size (this includes techniques or standardized protocols for targeted exams where dose is matched to indication/reason for exam; i.e. extremities or head) *Use of iterative reconstruction technique DLP: 699 mGy-cm FINDINGS: LUNG BASES: The visualized lung bases are unremarkable. LIVER, GALLBLADDER, AND BILIARY TREE: The liver is normal in size, shape, and attenuation. No focal hepatic lesion or biliary ductal dilatation is present. The gallbladder is unremarkable with no evidence of radiopaque gallstones, gallbladder wall thickening, or obvious pericholecystic inflammatory changes. PANCREAS: Unremarkable. SPLEEN: Unremarkable. ADRENAL GLANDS: Unremarkable. KIDNEYS AND URETERS: Right kidney revealed lower pole conglomerate of stones, measured 0.8 cm. Left kidney demonstrate numerous stones in the collecting system, lobe pole and left proximal ureter left kidney is atrophic and irregular. The calculus in the proximal ureter measured approximately 0.4 cm. There is no hydroureteronephrosis. BLADDER: Unremarkable. GASTROINTESTINAL TRACT: The small and large bowel are unremarkable. The appendix is not seen. ABDOMINAL WALL: No significant hernia is appreciated. LYMPH NODES: Normal. VASCULAR: Unremarkable. PELVIC VISCERA: Unremarkable. OSSEOUS STRUCTURES: Unremarkable. CT/CT abdomen pelvis wo IV con IMPRESSION: Bilateral nephrolithiasis with scarring and deformity of left kidney and small stone is identified in the proximal left ureter. Fleischner guidelines were followed.
== END 2023-09-04 08:28 | disposition home or self-care (01) ==
LOC: HO.CT 08:27
PROVIDERS: PCP Internal Medicine; Visit Provider Urology
DX: N20.0 Calculus of kidney (principal)
CPT/HCPCS: 74176

== ENCOUNTER → 2023-09-20 14:23 | Outpatient (BNVA) | payer MEDICARE, MEDICAID, SELFPAY | PROVIDERS: PCP Internal Medicine; Visit Provider Urology ==

== ENCOUNTER 2023-12-24 21:09 | Emergency (ER) | payer MEDICARE, MEDICAID, SELFPAY ==
[2023-12-24 21:15] VITALS: BP 136/88; BP 136/95; PULSE 78; PULSE 81; RESP 18; TEMP 36.6; O2SAT 96; O2SAT 99; BMI 23.7
[2023-12-24 22:00] LABS: MANUAL DIFF FLAG NO
[2023-12-24 22:01] LABS: Basophils Percent Auto 0.2 % (0-2); Eosinophils Percent Auto 0.1 % (0-4); Hemoglobin 14.8 g/dl (14.0-18.0); Imm Gran Abs Auto 0.06 X10*3/uL (0.00-0.03); Imm Gran Pct Auto 0.4 % (0.0-0.4); Lymphocytes Absolute Auto 1.2 X10*3/uL (1.2-4.9); Lymphocytes Percent Auto 7.3 % (20-40); Mean Corpuscular HGB Conc 32.2 g/dl (31.0-36.0); Mean Corpuscular Hemoglobin 29.4 pg (27.0-33.0); Mean Corpuscular Volume 91.3 fL (80.0-98.0); Mean Platelet Volume 10.3 fL (9.4-12.4); Monocytes Absolute Auto 0.8 X10*3/uL (0.1-1.2); Monocytes Percent Auto 4.9 % (2-11); Neutrophils Absolute Auto 14.1 x10*3/uL (2.0-8.3); Neutrophils Percent Auto 87.1 % (45-73); Platelet Count 267 X10*3/uL (160-400); Red Blood Count 5.04 X10*6/uL (4.60-5.80); Red Cell Distribution Width 14.2 % (11.0-16.0); White Blood Count 16.2 X10*3/uL (4.8-10.8)
[2023-12-24 22:17] LABS: Alanine Aminotransferase 44 U/L (0-40); Albumin Level 4.3 g/dL (3.5-5.0); Alkaline Phosphatase 110 U/L (39-117); Anion Gap 15 (12-20); Aspartate Amino Transferase 43 U/L (5-37); Bilirubin Direct 0.2 mg/dL (0.0-0.5); Bilirubin Total 0.5 mg/dL (0.0-1.0); Blood Urea Nitrogen 19 mg/dL (9-16); Carbon Dioxide 18 mmol/L (22-29); Chloride 115 mmol/L (96-108); Creatinine Clr Calc Pharmacy 73.7; Estimated Glomerular Filt Rate 56; Glucose Random 134 mg/dL (60-115); Lipase 64 U/L (8-78); Potassium 4.1 mmol/L (3.3-5.1); Sodium 144 mmol/L (135-145); Total Protein 8.3 g/dL (6.5-8.0)
== END 2023-12-24 22:47 | disposition left against medical advice (07) ==
PROVIDERS: Emergency Provider Emergency Medicine
DX: R10.9 Unspecified abdominal pain (principal); Z79.899 Other long term (current) drug therapy
CPT/HCPCS: 36415; 80048; 80076; 83690; 85025; 99281; 99283

== ENCOUNTER 2023-12-25 14:42 | Emergency (ER) | payer MEDICARE, MEDICAID, SELFPAY ==
--- NOTE | ~2023-12-25 | CT_ITS ---
EXAMINATION: CT ABDOMEN AND PELVIS WITHOUT CONTRAST CLINICAL INFORMATION: Pain rule out kidney stone COMPARISON: CT abdomen from 09/04/2023 TECHNIQUE: Multidetector volumetric imaging was performed from the superior aspect of the liver through the pubic symphysis. Sagittal and coronal reformatted images were obtained on the technologist's workstation. This CT examination was performed using dose optimization techniques as appropriate, variously including the following: *Automated exposure control *Adjustment of mA and/or kV according to patient size (this includes techniques or standardized protocols for targeted exams where dose is matched to indication/reason for exam; i.e. extremities or head) *Use of iterative reconstruction technique DLP: Bibasilar atelectasis versus scarring. No pneumothorax. No large. mGy-cm FINDINGS: LUNG BASES: The visualized lung bases are unremarkable. LIVER, GALLBLADDER, AND BILIARY TREE: The liver is normal in size, shape, and attenuation. No focal hepatic lesion or biliary ductal dilatation is present. The gallbladder is unremarkable with no evidence of radiopaque gallstones, gallbladder wall thickening, or obvious pericholecystic inflammatory changes. PANCREAS: Mild fatty infiltration along the pancreatic head otherwise unremarkable. SPLEEN: Unremarkable. Multiple splenules are noted the largest measuring up to 1.1 cm. ADRENAL GLANDS: Unremarkable. KIDNEYS AND URETERS: Mild right-sided hydroureteronephrosis secondary to a 1.2 cm calculus along the right proximal ureter/ureteral pelvic junction with perinephric stranding. Additional calculi are noted the conglomerate in the right lower lobe measuring up to 9 mm. Redemonstration of left-sided nephrolithiasis the largest extending from the lower pole into the pelvis measuring up to 2.8 cm. Stable 3 mm calculus in the left proximal ureter without hydronephrosis. BLADDER: Unremarkable. GASTROINTESTINAL TRACT: The small and large bowel are unremarkable. The appendix is not definitively visualized. ABDOMINAL WALL: Fat filled umbilical hernia. LYMPH NODES: A few subcentimeter mesenteric and right lower quadrant lymph nodes are noted the largest anterior to the right psoas measuring 8 mm, not enlarged per size criteria. VASCULAR: Abdominal aorta is nonaneurysmal. PELVIC VISCERA: Prostate measures 4.5 cm. OSSEOUS STRUCTURES: Osteopenia. Multilevel degenerative changes of the thoracolumbar and lumbosacral spine. CT/CT abdomen pelvis wo IV con IMPRESSION: 1. Mild right-sided hydroureteronephrosis secondary to a 1.2 cm calculus along the right proximal ureter/ureteral pelvic junction with perinephric stranding. Additional calculi are noted conglomerate in the right lower lobe measuring up to 9 mm. 2. Redemonstration of left-sided nephrolithiasis the largest extending from the lower pole into the pelvis measuring up to 2.8 cm. Stable 3 mm calculus in the left proximal ureter without hydronephrosis. 3. Fat filled umbilical hernia. 4. Osteopenia.
[2023-12-25 15:09] VITALS: BP 120/56; PULSE 76; RESP 18; TEMP 36.1; O2SAT 94; BMI 22.4
--- NOTE | 2023-12-25 15:12 | ED.GENADULT ---
HPI - General Adult General Chief complaint: Abdominal Pain Stated complaint: kidney stone pain Time Seen by Provider: 12/25/23 23:01 History of Present Illness HPI narrative: Patient is a 53-year-old male with past medical history of hemorrhagic CVA, hyperlipidemia, seizure disorder presenting to emergency department for evaluation of right flank pain and dysuria which feels similar to prior kidney stones. Today reports only having urinated twice. Denies fevers, chills, nausea, vomiting, hematuria, recent treatment for infection. Has a history of obstructive uropathy, requiring Shin catheter in the past. His brother is his primary bleacher sulfite pulp, however he is unfortunately not here, as he recently had surgery and swollen he presents here with mother instead does not provide much specific medical history. Related Data Home Medications Medication Instructions Recorded Confirmed clopidogrel 75 mg tablet (Plavix) 1 tab PO DAILY 08/09/22 01/30/23 topiramate 50 mg tablet (Topamax) 200 mg PO DAILY 08/09/22 01/30/23 acetaminophen 325 mg tablet 650 mg PO Q6H PRN Pain 10/28/22 01/30/23 (Tylenol) atorvastatin 40 mg tablet (Lipitor) 1 tab PO DAILY 10/28/22 01/30/23 levetiracetam 750 mg tablet 3 tab PO BID 10/28/22 07/18/23 (Keppra) polyethylene glycol 3350 17 17 g PO DAILY PRN Constipation 10/28/22 01/30/23 gram/dose oral powder (Miralax) riboflavin (vitamin B2) 100 mg 1 tab PO DAILY 10/28/22 01/30/23 tablet (Vitamin B-2) topiramate 50 mg tablet (Topamax) 150 mg PO BEDTIME 10/28/22 07/18/23 allopurinol 100 mg tablet 100 mg PO BID renal stone 01/30/23 01/30/23 (Zyloprim) pyridoxine (vitamin B6) 100 mg 100 mg PO DAILY kidney stones 01/30/23 01/30/23 tablet (Vitamin B-6) tamsulosin 0.4 mg capsule (Flomax) 0.4 mg PO BEDTIME 01/30/23 01/30/23 Previous Rx's Medication Instructions Recorded ketoconazole 2 % topical cream 1 appl topical BID #60 grams 11/07/22 oxycodone-acetaminophen 5 mg-325 1 tab PO Q6H PRN pain #10 tabs 11/07/22 mg tablet (Percocet) amoxicillin 500 mg-potassium 1 tab PO BID 7 days #14 tabs 01/30/23 clavulanate 125 mg tablet (Augmentin) hydromorphone 2 mg tablet 2 mg PO Q6H PRN pain #8 tabs 07/18/23 (Dilaudid) pyridoxine (vitamin B6) 100 mg 100 mg PO DAILY kidney stones 90 08/15/23 tablet days #90 tabs allopurinol 100 mg tablet 100 mg PO BID #60 tabs 11/02/23 potassium citrate 15 mEq (1,620 15 meq PO TID #90 tabs 11/20/23 mg) tablet,extended release oxycodone 5 mg tablet 5 mg PO Q6H PRN pain #10 tabs 12/26/23 Allergies Allergy/AdvReac Type Severity Reaction Status Date / Time No Known Allergies Allergy Verified 12/24/23 21:23 [No Known Allergies*] [facility] Past Medical History Medical History CVA (cerebral vascular accident) Hemorrhagic stroke HLD (hyperlipidemia) Seizure disorder Surgical History H/O craniotomy H/O lithotripsy History of cystoscopy Family History Family History Other Diabetes HTN (hypertension) Social History Social History Household Members: Family Housing: House Do you presently have visiting nurse or other home services: No Unable to assess alcohol history related to: Unknown Alcohol intake: current Alcohol intake frequency: holidays/special occasions only Alcohol type: beer Patient Tobacco Use Status: Former Tobacco user Quit Date: 9 yrs ago Tobacco use type: Cigarette Years Smoked: 2009 Second Hand Smoke Exposure: No Advance Directives: Yes Advance Directives on File: Yes Advance Directives Date on File: 07/19/23 service: No Current occupational status: disabled Physical Exam ED Vital Signs: Vital Signs - 24 hr 12/25/23 15:09 12/25/23 18:21 12/25/23 21:21 Temperature 97.0 F 96.9 F 97.8 F Pulse Rate 76 69 68 Respiratory Rate 18 18 18 Blood Pressure 120/56 L 118/77 115/74 Pulse Oximetry 94 97 97 Oxygen Delivery Method Room Air Room Air Room Air 12/25/23 23:17 12/26/23 01:55 Temperature 97.9 F 97.9 F Pulse Rate 67 58 Respiratory Rate 17 16 Blood Pressure 117/77 98/56 L Pulse Oximetry 98 96 Oxygen Delivery Method Room Air Room Air BMI result Body Mass Index 22.4 Medications Administered Discontinued Medications Generic Name Dose Route Start Last Admin Trade Name Freq PRN Reason Stop Dose Admin Sodium Chloride 1,000 mls @ 999 mls/hr 12/25/23 23:15 12/26/23 01:00 Ns IV 12/26/23 00:15 Infused .Q1H1M ISAC Infusion Levetiracetam 2,000 mg 12/25/23 17:37 12/25/23 18:24 Levetiracetam 1,000 Mg Tablet PO 12/25/23 17:38 2,000 mg ONCE ONE Administration Morphine Sulfate 4 mg 12/25/23 23:14 12/25/23 23:43 Morphine Sulfate 4 Mg/Ml Cartridge IVPUSH 12/25/23 23:15 4 mg ONCE ONE Administration Protocol Ondansetron HCl 4 mg 12/25/23 23:14 12/25/23 23:42 Ondansetron Hcl 4 Mg/2 Ml Vial IVPUSH 12/25/23 23:15 4 mg ONCE ONE Administration Topiramate 150 mg 12/25/23 17:39 12/25/23 18:24 Topiramate 100 Mg Tablet PO 12/25/23 17:40 150 mg ONCE ONE Administration Medical Decision Making Medical Decision Making MDM Narrative: Patient is a 53-year-old male ast medical history of hemorrhagic CVA, hyperlipidemia, seizure disorder presenting to the ED for right flank pain and difficulty urinating. Was seen by Urology in July 2023, underwent ESWL, shockwave lithotripsy, otherwise is not been seen at this hospital since 2021. I presented the patient has likely been following [facility] Urology, patient reports he has been seen ?10 times? by Urology but what has been done is unclear. I will ask alumnae secretary to request records from [facility] urology if available. Reviewed workup from waiting room, CBC with a leukocytosis of 11.9. CMP consistent with HONG, BUN/creatinine 23/1.68 which is increased when compared to labs that were obtained yesterday; /.34 - who presented here via EMS yesterday for evaluation similar symptoms but ultimately left without being seen. Urinalysis with microscopic hematuria, no evidence of UTI. CT abdomen and pelvis reveals mild right hydroureter nephrosis with 1.2 cm calculus at the right UPJ and perinephric stranding, left nephrolithiasis with largest at the lower pole into the pelvis measuring 2.8 cm. Patient to receive 1 L normal saline IV fluid, Zofran IV, and morphine IV for pain management. Anticipate that he will likely require admission for management of stone given its size and prior history. Will consult with Urology Pain well managed with morphine, reports 80% improvement. Tolerating oral intake. No retention. Differential Diagnosis Differential Diagnoses: The differential diagnosis associated with the presentation includes (Nephrolithiasis, ureteral calculi, obstructive calculi, hydronephrosis, UTI, renal colic) Admission/Observation Consideration of admission/observation: Escalation of care including admission/observation considered Admission considered, consult with Urology, recommends outpatient follow-up. Placed in physician observation as he does not have a safe way home, due to his history not feel comfortable discharging patient to waiting room. Consult Healthcare Provider Management of the patient was discussed with: [employer] (Urology) Dr. Ferrera recommends IV hydration, pain management, and outpatient follow-up Lab Data MDM Lab Attestation statement: I reviewed the patient's lab results. (See narrative above) 12/25/23 16:05 12/26/23 01:41 Labs: Lab Results 12/25/23 12/25/23 12/26/23 Range/Units 16:05 20:34 01:41 WBC 11.9 H (4.8-10.8) X10*3/uL RBC 4.71 (4.60-5.80) X10*6/uL Hgb 13.9 L (14.0-18.0) g/dl Hct 43.4 (42.0-52.0) % MCV 92.1 (80.0-98.0) fL MCH 29.5 (27.0-33.0) pg MCHC 32.0 (31.0-36.0) g/dl RDW 14.2 (11.0-16.0) % Plt Count 254 (160-400) X10*3/uL MPV 10.5 (9.4-12.4) fL Immature Gran % (Auto) 0.3 (0.0-0.4) % Neut % (Auto) 68.8 (45-73) % Lymph % (Auto) 22.8 (20-40) % [place] % (Auto) 7.0 (2-11) % Eos % (Auto) 0.8 (0-4) % Baso % (Auto) 0.3 (0-2) % Lymph # (Auto) 2.7 (1.2-4.9) X10*3/uL [place] # (Auto) 0.8 (0.1-1.2) X10*3/uL Eos # (Auto) 0.1 (0.0-0.4) X10*3/uL Baso # (Auto) 0.0 (0.0-0.2) X10*3/uL Abs Immat Gran (auto) 0.04 H (0.00-0.03) X10*3/uL Absolute Neuts (auto) 8.2 (2.0-8.3) x10*3/uL Absolute Nucleated RBC 0.000 (0.0-0.012) X10*3/uL Nucleated RBC % (auto) 0.0 (0.0-0.2) /100WBC Sodium 142 144 (135-145) mmol/L Potassium 3.5 4.3 D (3.3-5.1) mmol/L Chloride 112 H 115 H (96-108) mmol/L Carbon Dioxide 21 L 21 L (22-29) mmol/L Anion Gap 13 12 (12-20) BUN 23 H 23 H (9-16) mg/dL Creatinine 1.68 H 1.45 H (0.5-1.4) mg/dL Estim Creat Clear Calc 56.7 65.7 Estimated GFR 43 51 Random Glucose 107 89 (60-115) mg/dL Calcium 11.1 H 9.6 D (8.4-10.2) mg/dL Total Bilirubin 0.6 (0.0-1.0) mg/dL Direct Bilirubin 0.3 (0.0-0.5) mg/dL AST 27 (5-37) U/L ALT 34 (0-40) U/L Alkaline Phosphatase 99 (39-117) U/L Total Protein 7.9 (6.5-8.0) g/dL Albumin 4.2 (3.5-5.0) g/dL Lipase 114 H (8-78) U/L Urine Color Yellow Urine Appearance Clear Urine pH 6.0 (5.0-9.0) Ur Specific [place] 1.015 (1.005-1.025) Urine Protein 30 (1+) H (Neg-Trace) mg/dL Urine Glucose (UA) Negative (Negative) mg/dL Urine Ketones Negative (Negative) mg/dL Urine Blood Large (3+) H (Negative) Urine Nitrite Negative (Negative) Ur Leukocyte Esterase Small (1+) H (Negative) Urine RBC >20 H (0-2) /HPF Urine WBC 6-10 H (0-5) /HPF Ur Squamous Epith Cells 0-2 (0-2) /HPF Urine Bacteria None Seen (None Seen) Hyaline Casts 0-2 (0-2) /LPF Independent Interpretation I performed an independent interpretation of an: CT Scan (Bilateral stones with hydronephrosis) Radiology Impression Discussion of test interpretation with radiology: I have reviewed the radiologist's reading. Radiologist Impression: CT/CT abdomen pelvis wo IV con IMPRESSION: 1. Mild right-sided hydroureteronephrosis secondary to a 1.2 cm calculus along the right proximal ureter/ureteral pelvic junction with perinephric stranding. Additional calculi are noted conglomerate in the right lower lobe measuring up to 9 mm. 2. Redemonstration of left-sided nephrolithiasis the largest extending from the lower pole into the pelvis measuring up to 2.8 cm. Stable 3 mm calculus in the left proximal ureter without hydronephrosis. 3. Fat filled umbilical hernia. 4. Osteopenia. Independent Historian Clinical information obtained from an independent historian. History obtained from or confirmed by: Parent External Record Review External record reviewed: Outpatient record and Other ([facility]) Critical Care Time Critical Care Time Critical Care Time: Yes Total Critical Care Time: 40 Attestation: I personally attest to this critical care time spent taking care of the patient exclusive of all other billable procedures was approximately 40 minutes including initial evaluation of patient, ordering tests,CT interpretation, pain management, medical consultation, documentation, re-evaluation. Discharge Plan Discharge Clinical Impression: Ureteral stone, HONG (acute kidney injury) Patient Disposition: Still a Patient Instructions: Acute Kidney Injury (DC), Hydronephrosis (ED), Ureteral Stones (ED) Additional Instructions: Take tamsulosin daily at bedtime. A prescription for oxycodone was sent to your pharmacy for pain management, this medication may make you drowsy, should not drive, drink alcohol, or work while taking this medication. Contact the urology office to schedule a follow-up visit. Return back to emergency department any new or worsening symptoms or concerns. Prescriptions: New oxycodone 5 mg tablet 5 mg PO Q6H PRN (Reason: pain) Qty: 10 0RF Rx Instructions: Partial Fill upon patient request. No Action ketoconazole 2 % cream 1 appl topical BID Qty: 60 0RF Rx Instructions: Apply to left groin twice daily for 10 days then prn pyridoxine (vitamin B6) 100 mg tablet 100 mg PO DAILY 90 Days Qty: 90 1RF allopurinol 100 mg tablet 100 mg PO BID Qty: 60 3RF potassium citrate 15 mEq tablet extended release 15 meq PO TID Qty: 90 5RF oxycodone-acetaminophen [Percocet] 5-325 mg tablet 1 tab PO Q6H PRN (Reason: pain) Qty: 10 0RF Rx Instructions: Partial Fill upon patient request. Take every 6 hours as needed for pain atorvastatin [Lipitor] 40 mg tablet 1 tab PO DAILY riboflavin (vitamin B2) [Vitamin B-2] 100 mg tablet 1 tab PO DAILY levetiracetam [Keppra] 750 mg tablet 3 tab PO BID polyethylene glycol 3350 [Miralax] 17 gram/dose powder 17 g PO DAILY PRN (Reason: Constipation) topiramate [Topamax] 50 mg tablet 150 mg PO BEDTIME acetaminophen [Tylenol] 325 mg Tablet 650 mg PO Q6H PRN (Reason: Pain) allopurinol [Zyloprim] 100 mg tablet 100 mg PO BID tamsulosin [Flomax] 0.4 mg capsule 0.4 mg PO BEDTIME pyridoxine (vitamin B6) [Vitamin B-6] 100 mg tablet 100 mg PO DAILY amoxicillin-pot clavulanate [Augmentin] 500-125 mg tablet 1 tab PO BID 7 Days Qty: 14 0RF clopidogrel [Plavix] 75 mg tablet 1 tab PO DAILY Hold Instructions: Resume on 08/31/22. Resume after urology procedure topiramate [Topamax] 50 mg tablet 200 mg PO DAILY hydromorphone [Dilaudid] 2 mg tablet 2 mg PO Q6H PRN (Reason: pain) Qty: 8 0RF Rx Instructions: Partial Fill upon patient request. Referrals: Candy Ferrera MD [Physician] -
[2023-12-25 16:08] LABS: MANUAL DIFF FLAG NO
[2023-12-25 16:11] LABS: Basophils Percent Auto 0.3 % (0-2); Eosinophils Absolute Auto 0.1 X10*3/uL (0.0-0.4); Eosinophils Percent Auto 0.8 % (0-4); Hematocrit 43.4 % (42.0-52.0); Hemoglobin 13.9 g/dl (14.0-18.0); Imm Gran Abs Auto 0.04 X10*3/uL (0.00-0.03); Imm Gran Pct Auto 0.3 % (0.0-0.4); Lymphocytes Absolute Auto 2.7 X10*3/uL (1.2-4.9); Lymphocytes Percent Auto 22.8 % (20-40); Mean Corpuscular Hemoglobin 29.5 pg (27.0-33.0); Mean Corpuscular Volume 92.1 fL (80.0-98.0); Mean Platelet Volume 10.5 fL (9.4-12.4); Monocytes Absolute Auto 0.8 X10*3/uL (0.1-1.2); Neutrophils Absolute Auto 8.2 x10*3/uL (2.0-8.3); Neutrophils Percent Auto 68.8 % (45-73); Platelet Count 254 X10*3/uL (160-400); Red Blood Count 4.71 X10*6/uL (4.60-5.80); Red Cell Distribution Width 14.2 % (11.0-16.0); White Blood Count 11.9 X10*3/uL (4.8-10.8)
[2023-12-25 16:27] LABS: Alanine Aminotransferase 34 U/L (0-40); Albumin Level 4.2 g/dL (3.5-5.0); Alkaline Phosphatase 99 U/L (39-117); Anion Gap 13 (12-20); Aspartate Amino Transferase 27 U/L (5-37); Bilirubin Direct 0.3 mg/dL (0.0-0.5); Bilirubin Total 0.6 mg/dL (0.0-1.0); Blood Urea Nitrogen 23 mg/dL (9-16); Calcium 11.1 mg/dL (8.4-10.2); Carbon Dioxide 21 mmol/L (22-29); Chloride 112 mmol/L (96-108); Creatinine Clr Calc Pharmacy 56.7; Estimated Glomerular Filt Rate 43; Glucose Random 107 mg/dL (60-115); Lipase 114 U/L (8-78); Potassium 3.5 mmol/L (3.3-5.1); Sodium 142 mmol/L (135-145); Total Protein 7.9 g/dL (6.5-8.0)
[2023-12-25 18:21] VITALS: BP 118/77; PULSE 69; RESP 18; TEMP 36.1; O2SAT 97
[2023-12-25] MEDS: levETIRAcetam 1,000 MG TABLET 2000 MG PO (18:24)
[2023-12-25] MEDS: Topiramate 100 MG TABLET 150 MG PO (18:24)
[2023-12-25 20:57] LABS: Appearance Urine Clear; Color Urine Yellow; Glucose Urine UA Negative (Negative); Leukocyte Esterase Urine Small (1+) (Negative); Nitrite Urine Negative (Negative); Specific Gravity - Urine 1.015 (1.005-1.025); UMIC TRIGGER UACC YES; Urine Blood Large (3+) (Negative); Urine Ketones Negative (Negative); Urine Protein 30 (1+) mg/dL (Neg-Trace)
[2023-12-25 21:02] LABS: Bacteria Urine None Seen (None Seen); Hyaline Casts Urine 0-2 /LPF (0-2); RBC Urine >20 /HPF (0-2); Squamous Epithelial Cell Urine 0-2 /HPF (0-2); UACC Culture Trigger YES
[2023-12-25 21:21] VITALS: BP 115/74; PULSE 68; RESP 18; TEMP 36.6; O2SAT 97
[2023-12-25 23:17] VITALS: BP 117/77; PULSE 67; RESP 17; TEMP 36.6; O2SAT 98
[2023-12-25] MEDS: ondansetron HCL 4 MG/2 ML VIAL IVPUSH (23:42)
[2023-12-25] MEDS: Morphine Sulfate 4 MG/ML CARTRIDGE IVPUSH (23:43)
[2023-12-25] MEDS: 0.9 % Sodium Chloride 1,000 ML 999 ML IV (23:47)
[2023-12-26 01:55] VITALS: BP 98/56; PULSE 58; RESP 16; TEMP 36.6; O2SAT 96
[2023-12-26 02:08] LABS: Anion Gap 12 (12-20); Blood Urea Nitrogen 23 mg/dL (9-16); Calcium 9.6 mg/dL (8.4-10.2); Carbon Dioxide 21 mmol/L (22-29); Chloride 115 mmol/L (96-108); Creatinine Clr Calc Pharmacy 65.7; Estimated Glomerular Filt Rate 51; Glucose Random 89 mg/dL (60-115); Potassium 4.3 mmol/L (3.3-5.1); Sodium 144 mmol/L (135-145)
[2023-12-26] MEDS: Tamsulosin HCL 0.4 MG CAPSULE PO (03:07)
[2023-12-26 06:09] VITALS: BP 115/72; PULSE 74; RESP 16; TEMP 36.7; O2SAT 95
[2023-12-26] MEDS: oxyCODONE HCl Immed Release 5 MG TABLET PO (06:17)
== END 2023-12-26 06:45 | disposition home or self-care (01) ==
PROVIDERS: Nurse Practitioner Family; Physician Assistant Medical; Emergency Provider Emergency Medicine
DX: N20.1 Calculus of ureter (principal); N17.9 Acute kidney failure, unspecified; R33.9 Retention of urine, unspecified; Z87.891 Personal history of nicotine dependence; Z79.899 Other long term (current) drug therapy
CPT/HCPCS: 36415; 74176; 80048; 80076; 81001; 83690; 85025; 87086; 96361; 96374; 96375; 99284; 99285; J2270; J2405

== ENCOUNTER 2024-01-03 15:34 | Outpatient (AMB) | payer MEDICARE, MEDICAID, SELFPAY ==
--- NOTE | 2024-01-03 15:51 | A.OFFVIS_ITS ---
Intake Intake Visit Reasons: 4w follow up Intake Note: Patient presents today for a follow-up on Litholink Results Meds- Vitamin B6 Allergies to Antibiotic- No Known Allergies Blood Thinner- Plavix Patient Symptoms: None Food Safety Coordinator Required: No Accompanied by: Sister Allergies No Known Allergies [No Known Allergies*] Allergy (Verified 01/03/24 16:05) HPI HPI Comments History of Present Illness Details 01/04/24--Yony is here with his cousin maxi carmona was in the emergency room on 12/25 23 for right flank pain. I have reviewed the imaging with the patient and family member. 12/25/23--CTAP-- Mild right-sided hydrour eteronephrosis secondary to a 1.2 cm calculus along the right proximal ureter/ureteral pelvic junction with perinephric stranding. Additional calculi are noted conglomerate in the right lower lobe measuring up to 9 mm. Redemonstration of left-sided nephrolithiasis the largest extending from the lower pole into the pelvis measuring up to 2.8 cm. Stable 3 mm calculus in the left proximal ureter without hydronephrosis. 05/16/23--Yony is a 53-year-old male who is here for tele-health follow-up to discuss 24-hour urine collection test results. History was taken from patient's brother. Discussed 24 hour urine results-- collected--05/11/23--Total volume 740 mL, Calcium 79 mg; Oxalate 19 mg, Sodium 76, Citrate <11 mg. Instructed on importance of fluid intake, Low oxalate diet, low sodium diet. Blood work results reviewed--Parathyroid hormone level?10/29/22?89. Calcium--10/29/22--10.6, repeat calcium on 10/31/22 was 9.9. Discussed to consume water, juices like lemonade, orange juice and cranberry. Instructed to avoid tea and can consume 10 ounces of coffee in a day. Urocit-K 15 mg TID. Discussed to take the medication with food to avoid stomach irritation. Endocrinology referral was made. Repeat 24-hour urine collection in next 3 months. Right ESWL discussed to be scheduled. tele-health visit--03/16/23--Yony is a 52-year-old male who is here for tele- visit for discussion of KUB and US results. The patient is s/p left ureteral stent removal on 01/30/23 The history was taken from the patient's brother who is also his power of patent prosecution attorney. The patient is not having flank pain. He did not pass renal calculi in the interim. OV--01/25/23-- S/P cystoscopy, left retrograde-left ureteral stent exchange for left ureteral stone. CAT scan- 10/27/22-Innumerable intrarenal calculi are seen in the left kidney. OR procedure done on 10/28/2022-- left ureteral stent exchange because of the narrowing at the UPJ on the left side. Left ESWL - 09/27/2022 KUB was not done, Reviewed Renal retroperitoneal US results reviewed?02/12/23-- findings of multiple calcification in the left kidney. Plan:24-hour urine collection test was ordered. Tele-health follow-up in 2 months for discussion of 24-hour urine results. 01/04/24-- Plan: Discussed right ESWL. Patient will need to stop the Plavix 7 days prior [facility] Medical History Hemorrhagic stroke Seizure disorder HLD (hyperlipidemia) CVA (cerebral vascular accident) Surgical History History of cystoscopy H/O lithotripsy H/O craniotomy Family History Other Diabetes HTN (hypertension) Social History Household Members: Family Housing: House Do you presently have visiting nurse or other home services: No Unable to assess alcohol history related to: Unknown Alcohol intake: never Patient Tobacco Use Status: Former Tobacco user Quit Date: 9 yrs ago Tobacco use type: Cigarette Years Smoked: 2009 Second Hand Smoke Exposure: No Advance Directives Date on File: 07/19/23 service: No Current occupational status: disabled Review of Systems Const All systems reviewed & are unremarkable except as noted in HPI and below Reports no additional complaints Eyes Reports no additional complaints ENT Reports no additional complaints Card Denies dyspnea Resp Denies cough and Denies dyspnea GI Reports no additional complaints Musc Reports no additional complaints Skin/Breast Denies rash and Denies unusual bruising Neuro Reports no additional complaints Psych Reports no additional complaints Endo Reports no additional complaints Otto/Lymph Reports no additional complaints Aller/Immun Reports no additional complaints Office Procedures Post Void Residual Post Residual Void Post Void Residual (PVR): 58 [id number] Void Residual by ultrasound Results Reviewed Results Reviewed: Date of Service: 12/25/23 EXAMINATION: CT ABDOMEN AND PELVIS WITHOUT CONTRAST CLINICAL INFORMATION: Pain rule out kidney stone COMPARISON: CT abdomen from 09/04/2023 TECHNIQUE: Multidetector volumetric imaging was performed from the superior aspect of the liver through the pubic symphysis. Sagittal and coronal reformatted images were obtained on the technologist's workstation. This CT examination was performed using dose optimization techniques as appropriate, variously including the following: *Automated exposure control *Adjustment of mA and/or kV according to patient size (this includes techniques or standardized protocols for targeted exams where dose is matched to indication/reason for exam; i.e. extremities or head) *Use of iterative reconstruction technique DLP: Bibasilar atelectasis versus scarring. No pneumothorax. No large. mGy-cm FINDINGS: LUNG BASES: The visualized lung bases are unremarkable. LIVER, GALLBLADDER, AND BILIARY TREE: The liver is normal in size, shape, and attenuation. No focal hepatic lesion or biliary ductal dilatation is present. The gallbladder is unremarkable with no evidence of radiopaque gallstones, gallbladder wall thickening, or obvious pericholecystic inflammatory changes. PANCREAS: Mild fatty infiltration along the pancreatic head otherwise unremarkable. SPLEEN: Unremarkable. Multiple splenules are noted the largest measuring up to 1.1 cm. ADRENAL GLANDS: Unremarkable. KIDNEYS AND URETERS: Mild right-sided hydroureteronephrosis secondary to a 1.2 cm calculus along the right proximal ureter/ureteral pelvic junction with perinephric stranding. Additional calculi are noted the conglomerate in the right lower lobe measuring up to 9 mm. Redemonstration of left-sided nephrolithiasis the largest extending from the lower pole into the pelvis measuring up to 2.8 cm. Stable 3 mm calculus in the left proximal ureter without hydronephrosis. BLADDER: Unremarkable. GASTROINTESTINAL TRACT: The small and large bowel are unremarkable. The appendix is not definitively visualized. ABDOMINAL WALL: Fat filled umbilical hernia. LYMPH NODES: A few subcentimeter mesenteric and right lower quadrant lymph nodes are noted the largest anterior to the right psoas measuring 8 mm, not enlarged per size criteria. VASCULAR: Abdominal aorta is nonaneurysmal. PELVIC VISCERA: Prostate measures 4.5 cm. OSSEOUS STRUCTURES: Osteopenia. Multilevel degenerative changes of the thoracolumbar and lumbosacral spine. IMPRESSION: 1. Mild right-sided hydroureteronephrosis secondary to a 1.2 cm calculus along the right proximal ureter/ureteral pelvic junction with perinephric stranding. Additional calculi are noted conglomerate in the right lower lobe measuring up to 9 mm. 2. Redemonstration of left-sided nephrolithiasis the largest extending from the lower pole into the pelvis measuring up to 2.8 cm. Stable 3 mm calculus in the left proximal ureter without hydronephrosis. 3. Fat filled umbilical hernia. 4. Osteopenia. Date of Service: 09/04/23 EXAMINATION: CT ABDOMEN AND PELVIS WITHOUT CONTRAST CLINICAL INFORMATION: Bilateral nephrolithiasis COMPARISON: 10/27/2022 TECHNIQUE: Multidetector volumetric imaging was performed from the superior aspect of the liver through the pubic symphysis. Sagittal and coronal reformatted images were obtained on the technologist's workstation. This CT examination was performed using dose optimization techniques as appropriate, variously including the following: *Automated exposure control *Adjustment of mA and/or kV according to patient size (this includes techniques or standardized protocols for targeted exams where dose is matched to indication/reason for exam; i.e. extremities or head) *Use of iterative reconstruction technique DLP: 699 mGy-cm FINDINGS: LUNG BASES: The visualized lung bases are unremarkable. LIVER, GALLBLADDER, AND BILIARY TREE: The liver is normal in size, shape, and attenuation. No focal hepatic lesion or biliary ductal dilatation is present. The gallbladder is unremarkable with no evidence of radiopaque gallstones, gallbladder wall thickening, or obvious pericholecystic inflammatory changes. PANCREAS: Unremarkable. SPLEEN: Unremarkable. ADRENAL GLANDS: Unremarkable. KIDNEYS AND URETERS: Right kidney revealed lower pole conglomerate of stones, measured 0.8 cm. Left kidney demonstrate numerous stones in the collecting system, lobe pole and left proximal ureter left kidney is atrophic and irregular. The calculus in the proximal ureter measured approximately 0.4 cm. There is no hydroureteronephrosis. BLADDER: Unremarkable. GASTROINTESTINAL TRACT: The small and large bowel are unremarkable. The appendix is not seen. ABDOMINAL WALL: No significant hernia is appreciated. LYMPH NODES: Normal. VASCULAR: Unremarkable. PELVIC VISCERA: Unremarkable. OSSEOUS STRUCTURES: Unremarkable. IMPRESSION: Bilateral nephrolithiasis with scarring and deformity of left kidney and small stone is identified in the proximal left ureter. 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 Patient will need to stop the Plavix 7 days prior Orders: Orders AMB Post Void Residual by ultrasound 01/03/24 N39.8 - Other specified disorders of urinary system Medications: Refilled oxycodone Partial Fill upon patient request. 5 mg PO Q6H PRN 10 tabs 0RF pain Patient Instructions: The patient had an opportunity to ask questions regarding treatment plan. All questions were answered. Imaging, Laboratory studies and physical exam results were discussed and reviewed in detail. No major barriers to understanding were identified. The patient expressed understanding and agreement with the above treatment plan. The patient is aware they should contact our office by phone for worsening of their current condition or the appearance of new symptoms. Compliance is encouraged with any medications and followup testing that is ordered. It is a privilege to be allowed the opportunity to participate in the urologic care of your patient. If you have any questions or concerns regarding treatment for the above conditions please do not hesitate to contact me. The office telephone contact is [phone]. This note is constructed in part using voice recognition software. While every effort has been made to ensure accuracy physician credentialing specialist errors may have been included. Yours sincerely, Candy Ferrera MD Coding Level of Care Code Est Pt Level 4 (54268) Diagnoses Hyperparathyroidism E21.3 Hypocitraturia R82.991 Bilateral kidney stones N20.0 Right ureteral stone N20.1 Hydronephrosis N13.30 CPT Codes Post Residual Void - PVR CPT Code: 43665-Xbin Void Residual by ultrasound ([id number])
== END 2024-01-03 16:26 | disposition home or self-care (01) ==
PROVIDERS: Visit Provider Urology
DX: E21.3 Hyperparathyroidism, unspecified (principal); R82.991 Hypocitraturia; N20.0 Calculus of kidney; N20.1 Calculus of ureter; N13.30 Unspecified hydronephrosis
CPT/HCPCS: 99214

== ENCOUNTER → 2024-01-03 15:34 | Outpatient (BNVA) | payer MEDICARE, MEDICAID, SELFPAY | PROVIDERS: Visit Provider Urology | DX: E21.3 Hyperparathyroidism, unspecified (principal); R82.991 Hypocitraturia; N20.0 Calculus of kidney; N20.1 Calculus of ureter; N13.30 Unspecified hydronephrosis | CPT/HCPCS: 51798; 99212 ==

== ENCOUNTER 2024-01-16 10:19 | Day surgery (SDC) | payer MEDICARE, MEDICAID, SELFPAY ==
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
[2024-01-14 14:39] VITALS: BMI 24.9
--- NOTE | ~2024-01-16 | XR_ITS ---
EXAMINATION: XR ABDOMEN KUB CLINICAL INDICATION: Renal calculi COMPARISON: CT abdomen pelvis December 25, 2023 and abdominal KUB July 18, 2023 TECHNIQUE: Single view, two film KUB of the abdomen was obtained. Overlying stool limits sensitivity for small renal calculi. FINDINGS: Similar appearance of severe calcifications ejected over the mid and lower pole the left renal shadow with less prominent calcifications projecting over the right renal shadow. Approximately 1 cm calcification on the right may represent previously visualized calcification within the right renal pelvis. No definitive calcifications identified along the course of either ureter. Pelvic calcifications are likely vascular in nature. Nonobstructive bowel gas pattern. Mild to moderate colonic stool burden. No acute osseous abnormality. XR/XR KUB IMPRESSION: Bilateral renal calculi again demonstrated, more prominent on the left. Approximately 1 cm calcification on the right may represent previously visualized calcification within the right renal pelvis. Cross-sectional imaging would be required for confirmation.
[2024-01-16 11:53] VITALS: BP 117/71; PULSE 71; RESP 18; TEMP 36.7; O2SAT 96
--- NOTE | 2024-01-16 12:27 | HO.ANESPROP2 ---
[facility] Active Problems Active Problems: All Active Problems (Updated 01/05/24 @ 18:50 by Candy Ferrera MD) Hydronephrosis (Acute) Right ureteral stone (Acute) Hypocitraturia (Acute) Hyperparathyroidism (Acute) Ureterolithiasis (Acute) Obstructive uropathy (Acute) Bilateral kidney stones (Acute) Kidney stone on left side (Acute) Ureteral stone (Acute) Past Medical History Medical History Hemorrhagic stroke Seizure disorder HLD (hyperlipidemia) CVA (cerebral vascular accident) Family History Family History Other Diabetes HTN (hypertension) Family history of problems with anesthesia: No Surgical History Surgical History History of cystoscopy H/O lithotripsy H/O craniotomy History of Problems with Anesthesia: No Social History Social History Household Members: Family Housing: House Do you presently have visiting nurse or other home services: No Unable to assess alcohol history related to: Unknown Alcohol intake: never Patient Tobacco Use Status: Former Tobacco user Quit Date: 9 yrs ago Tobacco use type: Cigarette Years Smoked: 2009 Second Hand Smoke Exposure: No Are you DNR?: No Advance Directives: No Advance Directives Information Provided: Yes Advance Directives Date on File: 07/19/23 Nutrition Risks: No Nutritional Risk service: No Current occupational status: disabled Meds Allergies Allergy/AdvReac Type Severity Reaction Status Date / Time No Known Allergies Allergy Verified 01/16/24 12:13 [No Known Allergies*] Active Medications: Current Medications Lactated Ringer's (Lr) 1,000 mls @ 100 mls/hr IVCONT .Q10H [facility] Home Medications Medication Instructions Recorded Confirmed Last Taken Type clopidogrel 75 mg tablet (Plavix) 1 tab PO DAILY 08/09/22 01/16/24 01/09/24 History topiramate 50 mg tablet (Topamax) 200 mg PO DAILY 08/09/22 01/16/24 01/16/24 History acetaminophen 325 mg tablet 650 mg PO Q6H PRN Pain 10/28/22 01/16/24 Unknown History (Tylenol) atorvastatin 40 mg tablet (Lipitor) 1 tab PO DAILY 10/28/22 01/16/24 01/16/24 History levetiracetam 750 mg tablet 3 tab PO BID 10/28/22 01/16/24 01/16/24 History (Keppra) polyethylene glycol 3350 17 17 g PO DAILY PRN Constipation 10/28/22 01/16/24 Unknown History gram/dose oral powder (Miralax) riboflavin (vitamin B2) 100 mg 1 tab PO DAILY 10/28/22 01/16/24 10/27/22 History tablet (Vitamin B-2) topiramate 50 mg tablet (Topamax) 150 mg PO BEDTIME 10/28/22 01/16/24 07/18/23 History allopurinol 100 mg tablet 100 mg PO BID renal stone 01/30/23 01/16/24 01/30/23 07:00 History (Zyloprim) pyridoxine (vitamin B6) 100 mg 100 mg PO DAILY kidney stones 01/30/23 01/16/24 Unknown History tablet (Vitamin B-6) tamsulosin 0.4 mg capsule (Flomax) 0.4 mg PO BEDTIME 01/30/23 01/16/24 Unknown History Exam Height,Weight and Vital Signs: Height 6 ft 0.83 in Weight 85.1 kg Last Vital Signs Temp 98.0 F 01/16/24 11:53 Pulse 71 01/16/24 11:53 Resp 18 01/16/24 11:53 BP 117/71 01/16/24 11:53 Pulse Ox 96 01/16/24 11:53 O2 Del Method Room Air 01/16/24 11:53 Airway Mallampati Class: II TM Dist: >3cm Neck ROM: Full Heart: RRR Lungs: CTA Assessment and Plan Assessment Anesthesia Assessment: Anesthesia Plan Discussed and Smoking Cess. Discussed Final Anesthetic Review Family History of Problems with Anesthesia: No History of Problems with Anesthesia: No NPO: Yes ASA Class: III Final Preanesthetic Review: Meds/Allgs Chart Reviewed, Consent Obtained/Reviewed and Anes Risks/Benef Reviewed Patient Risk: Intermediate Procedure Risk: Low Anesthetic Plan Anesthetic Plan: GA Disposition: Standard PACU
--- NOTE | 2024-01-16 13:30 | W.PM.OPN ---
Operative Note Operative Note Date of Service: 01/16/24 Narrative: PreOperative Diagnosis:? ? Right Renal stone Post Operative Diagnosis:?Right? Renal stone Procedure:?Right? ESWL Surgeon:?Dr Candy Ferrera Anesthesia:? General Indications for procedure: The patient understands there is a risk of bruising or hematoma to the kidney, infection, and stone migration following the procedure and subsequent intervention may be required.? - Imaging 2.0 x 1.0 cm stone Procedure: After informed consent was verified the patient was brought to the operating room and placed in a supine position.? Anesthesia was performed per protocol. Safety pause time-out was performed. Imaging was displayed in the room and laterality confirmed. ESWL was performed.?The stone was visualized on both fluoroscopy and ultrasound.? Shockwave lithotripsy was performed, with a maximum rate of 120 hertz. After the first 300 shocks a pause for 3 minutes was completed.? A total of 2500 shocks to a maximum of power of 18 with a maximum rate of 120 hertz.? Some fragmentation of the stone was appreciated. Fluoroscopy time 0.24 minutes. The patient tolerated the procedure well and was transferred to the recovery area upon completion. Complications: None
[2024-01-16 13:55] VITALS: BP 124/72; PULSE 71; RESP 16; TEMP 36.4; O2SAT 94
[2024-01-16 14:00] VITALS: BP 123/74; PULSE 59; RESP 16; O2SAT 97
[2024-01-16 14:05] VITALS: BP 115/75; PULSE 60; RESP 16; O2SAT 96
[2024-01-16 14:10] VITALS: BP 122/75; PULSE 61; RESP 16; TEMP 36.1; O2SAT 96
--- NOTE | 2024-01-16 14:12 | HO.POSTANES ---
Post Anesthesia Evaluation Post Anesthesia Evaluation Date of Service: 01/16/24 Vital Signs: Vital Signs Temp Pulse Resp BP Pulse Ox O2 Del Method 01/16/24 14:10 97 F 61 16 122/75 96 Room Air 01/16/24 14:05 60 16 115/75 96 Room Air 01/16/24 14:00 59 16 123/74 97 Room Air 01/16/24 13:55 97.5 F 71 16 124/72 94 Room Air 01/16/24 11:53 98.0 F 71 18 117/71 96 Room Air Anesthesia: General LMA Mental Status: Awake and Sedated Pain Control: Satisfactory Nausea/Vomiting: None Hydration: Adequate Anesthesia-Related Issues: No Anes. Related Issues
[2024-01-16 14:25] VITALS: BP 121/70; PULSE 54; RESP 18; TEMP 36.1; O2SAT 98
== END 2024-01-16 15:28 | disposition home or self-care (01) ==
PROVIDERS: Visit Provider Urology
PROC: (CPT 50590; principal; 2024-01-16 12:10)
DX: N20.0 Calculus of kidney (principal); R82.991 Hypocitraturia; G40.909 Epilepsy, unspecified, not intractable, without status epilepticus; I69.951 Hemiplegia and hemiparesis following unspecified cerebrovascular disease affecting right dominant side; E78.5 Hyperlipidemia, unspecified; E21.3 Hyperparathyroidism, unspecified; Z79.01 Long term (current) use of anticoagulants; Z79.899 Other long term (current) drug therapy; Z98.890 Other specified postprocedural states; Z87.891 Personal history of nicotine dependence
CPT/HCPCS: 50590; 74018; J0131; J0690; J1100; J1940; J2250; J2405; J2704; J3010

== ENCOUNTER → 2024-01-16 10:19 | Outpatient (BNV) | payer MEDICARE, MEDICAID, SELFPAY | PROVIDERS: Visit Provider Urology | DX: N20.0 Calculus of kidney (principal) | CPT/HCPCS: 50590 ==

== ENCOUNTER 2024-02-01 14:45 | Outpatient (REF) | payer MEDICARE, MEDICAID, SELFPAY ==
--- NOTE | ~2024-02-01 | XR_ITS ---
EXAMINATION: XR ABDOMEN KUB CLINICAL INDICATION: Status post right ESWL. COMPARISON: 01/16/2024. TECHNIQUE: 3 AP views of the abdomen. FINDINGS: Nonobstructive bowel gas pattern. [id number] amount of stool in the colon. Redemonstration of multiple calcifications overlying the mid to lower pole of the left kidney with decreased upper calcifications. Previously identified 1 cm calcification overlying the right kidney is no longer visualized. Small calcifications measuring up to 5-6 mm overlying the right kidney. XR/XR KUB IMPRESSION: 1. Redemonstration of multiple calcifications overlying the left kidney with decreased upper calcifications. 2. Previously identified 1 cm calcification right kidney is not visualized. Small calcifications measuring up to 5-6 mm overlying the right kidney.
== END 2024-02-01 14:46 | disposition home or self-care (01) ==
LOC: HO.XRAY 14:45
PROVIDERS: Visit Provider Urology
DX: N20.0 Calculus of kidney (principal)
CPT/HCPCS: 74018

== ENCOUNTER 2024-02-27 14:56 | Outpatient (AMB) | payer MEDICARE, MEDICAID, SELFPAY ==
--- NOTE | 2024-02-27 15:15 | A.OFFVIS_ITS ---
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 He is s/p Right ESWL on 01/16/24-- I have discussed that follow up KUB notes good fragmentation and that the treated stone is no longer seen. He still has significant stone burden in the left kidney. KUB Xray--02/01/24-- Previously identified 1 cm calcification right kidney is not visualized. Small calcifications measuring up to 5-6 mm overlying the right kidney. Review of chart: 01/04/24--Yony is here with his cousin he was in the emergency room on 12/25 23 for right flank pain. I have reviewed the imaging with the patient and family member. CTAP--12/25/23-- Mild right-sided hydroureteronephrosis secondary to a 1.2 cm summer culus along the right proximal ureter/ureteral pelvic junction with perinephric stranding. Additional calculi are noted conglomerate in the right lower lobe measuring up to 9 mm. Redemonstration of left-sided nephrolithiasis the largest extending from the lower pole into the pelvis measuring up to 2.8 cm. Stable 3 mm calculus in the left proximal ureter without hydronephrosis. 05/16/23--Yony is a 53-year-old male who is here for tele-health follow-up to discuss 24-hour urine collection test results. History was taken from patient's brother. Discussed 24 hour urine results-- collected--05/11/23--Total volume 740 mL, Calcium 79 mg; Oxalate 19 mg, Sodium 76, Citrate <11 mg. Instructed on importance of fluid intake, Low oxalate diet, low sodium diet. Blood work results reviewed--Parathyroid hormone level?10/29/22?89. Calcium--10/29/22--10.6, repeat calcium on 10/31/22 was 9.9. Discussed to consume water, juices like lemonade, orange juice and cranberry. Instructed to avoid tea and can consume 10 ounces of coffee in a day. Urocit-K 15 mg TID. Discussed to take the medication with food to avoid stomach irritation. Endocrinology referral was made. Repeat 24-hour urine collection in next 3 months. Right ESWL discussed to be scheduled. tele-health visit--03/16/23--Yony is a 52-year-old male who is here for tele- visit for discussion of KUB and US results. The patient is s/p left ureteral stent removal on 01/30/23 The history was taken from the patient's brother who is also his power of contracts attorney. The patient is not having flank pain. He did not pass renal calculi in the interim. OV--01/25/23-- S/P cystoscopy, left retrograde-left ureteral stent exchange for left ureteral stone. CAT scan- 10/27/22-Innumerable intrarenal calculi are seen in the left kidney. OR procedure done on 10/28/2022-- left ureteral stent exchange because of the narrowing at the UPJ on the left side. Left ESWL - 09/27/2022 KUB was not done, Reviewed Renal retroperitoneal US results reviewed?02/12/23-- findings of multiple calcification in the left kidney. Plan:24-hour urine collection test was ordered. Tele-health follow-up in 2 months for discussion of 24-hour urine results. [facility] Medical History Hemorrhagic stroke Seizure disorder HLD (hyperlipidemia) CVA (cerebral vascular accident) Surgical History History of cystoscopy H/O lithotripsy H/O craniotomy Family History Other Diabetes HTN (hypertension) Social History Household Members: Family Housing: House Do you presently have visiting nurse or other home services: No Unable to assess alcohol history related to: Unknown Alcohol intake: never Patient Tobacco Use Status: Former Tobacco user Quit Date: 9 yrs ago Tobacco use type: Cigarette Years Smoked: 2009 Second Hand Smoke Exposure: No Advance Directives Date on File: 07/19/23 service: No Current occupational status: disabled Telehealth Telehealth Location of provider rendering services: practice address Location of patient: address on file Patient Identification confirmed using: Name, : Yes Telehealth method: voice only Patient verbally consented to treatment: Yes Patient verbally consented to billing insurance company: Yes Patient informed of any privacy concerns related to visit: Yes Minutes spent on Phone/Video with Pt.: 15 Results Reviewed Results Reviewed: Date of Service: 02/01/24 EXAMINATION: XR ABDOMEN KUB CLINICAL INDICATION: Status post right ESWL. COMPARISON: 01/16/2024. TECHNIQUE: 3 AP views of the abdomen. FINDINGS: Nonobstructive bowel gas pattern. [id number] amount of stool in the colon. Redemonstration of multiple calcifications overlying the mid to lower pole of the left kidney with decreased upper calcifications. Previously identified 1 cm calcification overlying the right kidney is no longer visualized. Small calcifications measuring up to 5-6 mm overlying the right kidney. IMPRESSION: 1. Redemonstration of multiple calcifications overlying the left kidney with decreased upper calcifications. 2. Previously identified 1 cm calcification right kidney is not visualized. Small calcifications measuring up to 5-6 mm overlying the right kidney. Date of Service: 12/25/23 EXAMINATION: CT ABDOMEN AND PELVIS WITHOUT CONTRAST CLINICAL INFORMATION: Pain rule out kidney stone COMPARISON: CT abdomen from 09/04/2023 FINDINGS: LUNG BASES: The visualized lung bases are unremarkable. LIVER, GALLBLADDER, AND BILIARY TREE: The liver is normal in size, shape, and attenuation. No focal hepatic lesion or biliary ductal dilatation is present. The gallbladder is unremarkable with no evidence of radiopaque gallstones, gallbladder wall thickening, or obvious pericholecystic inflammatory changes. PANCREAS: Mild fatty infiltration along the pancreatic head otherwise unremarkable. SPLEEN: Unremarkable. Multiple splenules are noted the largest measuring up to 1.1 cm. ADRENAL GLANDS: Unremarkable. KIDNEYS AND URETERS: Mild right-sided hydroureteronephrosis secondary to a 1.2 cm calculus along the right proximal ureter/ureteral pelvic junction with perinephric stranding. Additional calculi are noted the conglomerate in the right lower lobe measuring up to 9 mm. Redemonstration of left-sided nephrolithiasis the largest extending from the lower pole into the pelvis measuring up to 2.8 cm. Stable 3 mm calculus in the left proximal ureter without hydronephrosis. BLADDER: Unremarkable. GASTROINTESTINAL TRACT: The small and large bowel are unremarkable. The appendix is not definitively visualized. ABDOMINAL WALL: Fat filled umbilical hernia. LYMPH NODES: A few subcentimeter mesenteric and right lower quadrant lymph nodes are noted the largest anterior to the right psoas measuring 8 mm, not enlarged per size criteria. VASCULAR: Abdominal aorta is nonaneurysmal. PELVIC VISCERA: Prostate measures 4.5 cm. OSSEOUS STRUCTURES: Osteopenia. Multilevel degenerative changes of the thoracolumbar and lumbosacral spine. IMPRESSION: 1. Mild right-sided hydroureteronephrosis secondary to a 1.2 cm calculus along the right proximal ureter/ureteral pelvic junction with perinephric stranding. Additional calculi are noted conglomerate in the right lower lobe measuring up to 9 mm. 2. Redemonstration of left-sided nephrolithiasis the largest extending from the lower pole into the pelvis measuring up to 2.8 cm. Stable 3 mm calculus in the left proximal ureter without hydronephrosis. 3. Fat filled umbilical hernia. 4. Osteopenia. Date of Service: 09/04/23 EXAMINATION: CT ABDOMEN AND PELVIS WITHOUT CONTRAST CLINICAL INFORMATION: Bilateral nephrolithiasis COMPARISON: 10/27/2022 FINDINGS: LUNG BASES: The visualized lung bases are unremarkable. LIVER, GALLBLADDER, AND BILIARY TREE: The liver is normal in size, shape, and attenuation. No focal hepatic lesion or biliary ductal dilatation is present. The gallbladder is unremarkable with no evidence of radiopaque gallstones, gallbladder wall thickening, or obvious pericholecystic inflammatory changes. PANCREAS: Unremarkable. SPLEEN: Unremarkable. ADRENAL GLANDS: Unremarkable. KIDNEYS AND URETERS: Right kidney revealed lower pole conglomerate of stones, measured 0.8 cm. Left kidney demonstrate numerous stones in the collecting system, lobe pole and left proximal ureter left kidney is atrophic and irregular. The calculus in the proximal ureter measured approximately 0.4 cm. There is no hydroureteronephrosis. BLADDER: Unremarkable. GASTROINTESTINAL TRACT: The small and large bowel are unremarkable. The appendix is not seen. ABDOMINAL WALL: No significant hernia is appreciated. LYMPH NODES: Normal. VASCULAR: Unremarkable. PELVIC VISCERA: Unremarkable. OSSEOUS STRUCTURES: Unremarkable. IMPRESSION: Bilateral nephrolithiasis with scarring and deformity of left kidney and small stone is identified in the proximal left ureter. 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 Left kidney - large stone burden remains. FU in 6 months, KUB, PSA prior. Patient Instructions: The patient had an opportunity to ask questions regarding treatment plan. The patient expressed understanding and agreement with the above treatment plan. The patient is aware they should contact our office by phone for worsening of their current condition or the appearance of new symptoms. Compliance is encouraged with any medications and followup testing that is ordered. It is a privilege to be allowed the opportunity to participate in the urologic care of your patient. If you have any questions or concerns regarding treatment for the above conditions please do not hesitate to contact me. The office telephone contact is [phone]. This note is constructed in part using voice recognition software. While every effort has been made to ensure accuracy jig maker errors may have been included. Yours sincerely, Candy Ferrera MD Coding Level of Care Code Global (76349) Diagnoses Hyperparathyroidism E21.3 Hypocitraturia R82.991 Bilateral kidney stones N20.0 Right ureteral stone N20.1
== END 2024-02-27 16:16 | disposition home or self-care (01) ==
LOC: HO.HUSH 14:56
PROVIDERS: Visit Provider Urology
DX: E21.3 Hyperparathyroidism, unspecified (principal); R82.991 Hypocitraturia; N20.0 Calculus of kidney; N20.1 Calculus of ureter
CPT/HCPCS: 99024

== ENCOUNTER → 2024-02-27 14:56 | Outpatient (BNVA) | payer MEDICARE, MEDICAID, SELFPAY | PROVIDERS: Visit Provider Urology | DX: N20.0 Calculus of kidney (principal); Z98.890 Other specified postprocedural states | CPT/HCPCS: 99212 ==

== ENCOUNTER 2024-07-02 18:22 | Emergency (ER) | payer MEDICARE, MEDICAID, SELFPAY ==
--- NOTE | ~2024-07-02 | XR_ITS ---
Exam: X-rays ankle and foot, right INDICATION: Pain. COMPARISON: None. TECHNIQUE:: 3 views of the right foot and 2 views of the right ankle FINDINGS: LImited evaluation due to technique. There is no fracture or dislocation. Ankle mortise is intact. No foreign body. Mild soft tissue prominence. XR/XR ankle RT min 3V IMPRESSION: No fracture or dislocation in the foot and ankle. Mild soft tissue prominence. Electronically signed by: Hari Hammond MD 07/02/2024 08:51 PM EDT
--- NOTE | ~2024-07-02 | XR_ITS ---
Exam: X-rays ankle and foot, right INDICATION: Pain. COMPARISON: None. TECHNIQUE:: 3 views of the right foot and 2 views of the right ankle FINDINGS: LImited evaluation due to technique. There is no fracture or dislocation. Ankle mortise is intact. No foreign body. Mild soft tissue prominence. XR/XR foot RT min 3V IMPRESSION: No fracture or dislocation in the foot and ankle. Mild soft tissue prominence. Electronically signed by: Hari Hammond MD 07/02/2024 08:51 PM EDT
--- NOTE | ~2024-07-02 | US_ITS ---
EXAMINATION: US TRIPLEX LOWER EXTREMITY, RIGHT CLINICAL INFORMATION: Pain and swelling COMPARISON: None available. TECHNIQUE: Color-flow triplex imaging with spectral analysis and compression Doppler were performed on the right lower extremity. FINDINGS: The common femoral vein is compressible and exhibits a normal phasic waveform; this suggests that the iliac veins are widely patent above. Within the proximal thigh, the visualized profunda femoris vein is normal. The examined greater saphenous vein and saphenofemoral junction are normal. Superficial femoral vein is patent in the proximal, mid and distal thigh. Popliteal vein is normal to the level of the trifurcation. On compression fritz scale and color Doppler images, the visualized posterior tibial vein is normal. The peroneal vein is not adequately visualized. No evidence of Green's cyst. US/US venous duplex LE RT IMPRESSION: * No evidence of deep vein thrombosis in the right lower extremity. * Although no venous thrombosis is detected, the peroneal vein in the calf is not adequately visualized for diagnostic assessment. A repeat Doppler ultrasound may be considered in 5-7 days if there is any ongoing clinical suspicion. Electronically signed by: Rancho Trejo MD 07/02/2024 07:44 PM EDT
[2024-07-02 18:39] VITALS: BP 124/75; PULSE 88; RESP 18; TEMP 36.9; O2SAT 97; BMI 23.6
--- NOTE | 2024-07-02 18:39 | ED.GENADULT ---
HPI - General Adult General Stated complaint: foot swelling, sent by to R/O Related Data Home Medications ?Medication ?Instructions ?Recorded ?Confirmed clopidogrel 75 mg tablet (Plavix) 1 tab PO DAILY 08/09/22 01/16/24 topiramate 50 mg tablet (Topamax) 200 mg PO DAILY 08/09/22 01/16/24 acetaminophen 325 mg tablet 650 mg PO Q6H PRN Pain 10/28/22 01/16/24 (Tylenol) atorvastatin 40 mg tablet (Lipitor) 1 tab PO DAILY 10/28/22 01/16/24 levetiracetam 750 mg tablet 3 tab PO BID 10/28/22 01/16/24 (Keppra) polyethylene glycol 3350 17 17 g PO DAILY PRN Constipation 10/28/22 01/16/24 gram/dose oral powder (Miralax) riboflavin (vitamin B2) 100 mg 1 tab PO DAILY 10/28/22 01/16/24 tablet (Vitamin B-2) topiramate 50 mg tablet (Topamax) 150 mg PO BEDTIME 10/28/22 01/16/24 pyridoxine (vitamin B6) 100 mg 100 mg PO DAILY kidney stones 01/30/23 01/16/24 tablet (Vitamin B-6) tamsulosin 0.4 mg capsule (Flomax) 0.4 mg PO BEDTIME 01/30/23 01/16/24 Previous Rx's ?Medication ?Instructions ?Recorded ketoconazole 2 % topical cream 1 appl topical BID #60 grams 11/07/22 oxycodone-acetaminophen 5 mg-325 1 tab PO Q6H PRN pain #10 tabs 11/07/22 mg tablet (Percocet) amoxicillin 500 mg-potassium 1 tab PO BID 7 days #14 tabs 01/30/23 clavulanate 125 mg tablet (Augmentin) hydromorphone 2 mg tablet 2 mg PO Q6H PRN pain #8 tabs 07/18/23 (Dilaudid) oxycodone 5 mg tablet 5 mg PO Q6H PRN pain #10 tabs 01/03/24 oxycodone-acetaminophen 5 mg-325 1 tab PO Q6H PRN pain #10 tabs 01/16/24 mg tablet (Percocet) pyridoxine (vitamin B6) 100 mg 100 mg PO DAILY #90 tabs 02/14/24 tablet allopurinol 100 mg tablet 100 mg PO BID renal stone 90 days 02/29/24 (Zyloprim) #180 tabs potassium citrate 15 mEq (1,620 15 meq PO TID #90 tabs 05/07/24 mg) tablet,extended release Allergies Allergy/AdvReac Type Severity Reaction Status Date / Time No Known Allergies Allergy Verified 02/27/24 15:16 [No Known Allergies*] [facility] Past Medical History Medical History Hemorrhagic stroke Seizure disorder HLD (hyperlipidemia) CVA (cerebral vascular accident) Surgical History History of cystoscopy H/O lithotripsy H/O craniotomy Family History Family History Other Diabetes HTN (hypertension) Social History Social History Household Members: Family Housing: House Do you presently have visiting nurse or other home services: No Unable to assess alcohol history related to: Unknown Alcohol intake: never Patient Tobacco Use Status: Former Tobacco user Tobacco use type: Cigarette Years Smoked: 2009 Second Hand Smoke Exposure: No Advance Directives Date on File: 07/19/23 service: No Current occupational status: disabled Course Course Course Narrative: RME, this is a rapid medical exam performed by Espinoza Goodwin please refer to primary provider for complete H&P- 54-year-old male presents for evaluation of right foot pain and swelling. He reports the symptoms started 3 days ago. He reports that he may have injured it by twisting in the shower but denies any other specific injury. Plan for x-rays of the right foot and ankle an ultrasound of the right lower extremity. Discharge Plan Discharge Prescriptions: No Action ketoconazole 2 % cream 1 appl topical BID Qty: 60 0RF Rx Instructions: Apply to left groin twice daily for 10 days then prn pyridoxine (vitamin B6) 100 mg tablet 100 mg PO DAILY Qty: 90 3RF allopurinol [Zyloprim] 100 mg tablet 100 mg PO BID 90 Days Qty: 180 1RF potassium citrate 15 mEq tablet extended release 15 meq PO TID Qty: 90 3RF oxycodone-acetaminophen [Percocet] 5-325 mg tablet 1 tab PO Q6H PRN (Reason: pain) Qty: 10 0RF Rx Instructions: Partial Fill upon patient request. Take every 6 hours as needed for pain atorvastatin [Lipitor] 40 mg tablet 1 tab PO DAILY riboflavin (vitamin B2) [Vitamin B-2] 100 mg tablet 1 tab PO DAILY levetiracetam [Keppra] 750 mg tablet 3 tab PO BID polyethylene glycol 3350 [Miralax] 17 gram/dose powder 17 g PO DAILY PRN (Reason: Constipation) topiramate [Topamax] 50 mg tablet 150 mg PO BEDTIME acetaminophen [Tylenol] 325 mg Tablet 650 mg PO Q6H PRN (Reason: Pain) tamsulosin [Flomax] 0.4 mg capsule 0.4 mg PO BEDTIME pyridoxine (vitamin B6) [Vitamin B-6] 100 mg tablet 100 mg PO DAILY amoxicillin-pot clavulanate [Augmentin] 500-125 mg tablet 1 tab PO BID 7 Days Qty: 14 0RF clopidogrel [Plavix] 75 mg tablet 1 tab PO DAILY Hold Instructions: Resume on 08/31/22. Resume after urology procedure topiramate [Topamax] 50 mg tablet 200 mg PO DAILY hydromorphone [Dilaudid] 2 mg tablet 2 mg PO Q6H PRN (Reason: pain) Qty: 8 0RF Rx Instructions: Partial Fill upon patient request. oxycodone-acetaminophen [Percocet] 5-325 mg tablet 1 tab PO Q6H PRN (Reason: pain) Qty: 10 0RF Rx Instructions: Partial Fill upon patient request. oxycodone 5 mg tablet 5 mg PO Q6H PRN (Reason: pain) Qty: 10 0RF Rx Instructions: Partial Fill upon patient request. Print Language: Citizen Of [place]
--- NOTE | 2024-07-02 21:12 | PC.NURSE ---
pt and family stating wish to leave and return later. Advised by this RN to stay and be seen my provider, pt refused. Left WCT.
== END 2024-07-02 21:34 | disposition left against medical advice (07) ==
LOC: HO.ED 21:26
PROVIDERS: Emergency Provider Emergency Medicine
DX: M79.671 Pain in right foot (principal); M79.89 Other specified soft tissue disorders; Z53.21 Procedure and treatment not carried out due to patient leaving prior to being seen by health care provider
CPT/HCPCS: 73610; 73630; 93971; 99281

== ENCOUNTER 2024-07-16 09:02 | Outpatient (AMB) | payer MEDICARE, MEDICAID, SELFPAY ==
[2024-07-16 09:36] VITALS: BP 138/94; PULSE 82; TEMP 36.7; O2SAT 96; BMI 23.6
--- NOTE | 2024-07-16 09:36 | MHC.OFFWIV ---
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 Started 2 weeks ago. Seen at urgent care and ED. [place] [facility] [place] Tobacco Use Status: Former Tobacco user Allergies No Known Allergies [No Known Allergies*] Allergy (Verified 07/16/24 09:43) Do you need a note to return to daycare/school/sports/work: No HPI HPI Comments History of Present Illness Details Patient is a 54-year-old male complaining of right lower extremity swelling and pain and discoloration. He states this started on June 30. He went to the [facility] emergency department on July 02 where they did a foot x-ray and ankle x-ray which were both negative for fractures or dislocations. They also did an ultrasound of the right lower extremity to rule out a DVT but the peroneal vein could not be visualized and they recommended a follow-up in 5-7 days. He did not have that follow-up study done. He states the swelling continues in the pain in the discoloration continues. 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 [facility] Medical History Hemorrhagic stroke Seizure disorder HLD (hyperlipidemia) CVA (cerebral vascular accident) Surgical History History of cystoscopy H/O lithotripsy H/O craniotomy Family History Other Diabetes HTN (hypertension) Social History Household Members: Family Housing: House Do you presently have visiting nurse or other home services: No Unable to assess alcohol history related to: Unknown Alcohol intake: never Patient Tobacco Use Status: Former Tobacco user Tobacco use type: Cigarette Years Smoked: 2009 Second Hand Smoke Exposure: No Advance Directives Date on File: 01/17/24 service: No Current occupational status: disabled Review of Systems Const All systems reviewed & are unremarkable except as noted in HPI and below Physical Exam Vital Signs: BMI result Body Mass Index 23.6 Const General: cooperative, healthy appearing, comfortable and no acute distress Orientation/consciousness: patient oriented x3 Limitations: wheelchair HEENT Head: Yes normal to inspection Resp Effort & Inspection: normal respiratory effort and able to speak in complete sentences Neuro General: patient oriented x3 Extrem Other: Right side paralysis upper and lower extremities General: Yes muscle atrophy (right side) Right lower extremity: foot Details: abnormal to inspection (Diffusely swollen and discolored), tenderness (entire foot), abnormal ROM of toe (paralysis), edema (discoloration) Location: diffusely, tendon exam and motor-sensory exam (paralysis); no unusual warmth Assessment & Plan Assessment & Plan (1) Swelling of right lower extremity: Code(s): M79.89 - Other specified soft tissue disorders Plan: We will get stat ultrasound to rule out DVT as original ultrasound did not visualize all of the veins. Plan See above Orders: Orders US venous duplex LE RT Today R22.41 - Localized swelling, mass and lump, right lower limb Coding Level of Care Code New Pt Level 4 (87724) Diagnoses Swelling of right lower extremity M79.89
== END 2024-07-16 10:21 | disposition home or self-care (01) ==
PROVIDERS: PCP Internal Medicine; Visit Provider Physician Assistant
DX: M79.89 Other specified soft tissue disorders (principal)
CPT/HCPCS: 99204

== ENCOUNTER 2024-07-16 10:21 | Outpatient (REF) | payer MEDICARE, MEDICAID, SELFPAY ==
--- NOTE | ~2024-07-16 | US_ITS ---
EXAMINATION: US TRIPLEX LOWER EXTREMITY, RIGHT CLINICAL INFORMATION: Right lower extremity pain COMPARISON: 07/02/2024 TECHNIQUE: Color-flow triplex imaging with spectral analysis and compression Doppler were performed on the right lower extremity. FINDINGS: Respiratory variation, normal compression and augmented flow are noted throughout the right lower extremity. The visualized common femoral vein, superficial femoral vein, profunda femoral vein, popliteal vein and midcalf peroneal and posterior tibial venous segments show no evidence of deep venous thrombosis. There is no Green's cyst. US/US venous duplex LE RT IMPRESSION: No evidence of deep venous thrombosis involving the right lower extremity. Electronically signed by: Cem Kellogg MD 07/16/2024 11:30 AM EDT
== END 2024-07-16 10:22 | disposition home or self-care (01) ==
LOC: HO.HMGCX 10:21
PROVIDERS: PCP Internal Medicine; Visit Provider Physician Assistant
DX: M79.604 Pain in right leg (principal); R22.41 Localized swelling, mass and lump, right lower limb
CPT/HCPCS: 93971

== ENCOUNTER 2025-02-18 13:20 | Outpatient (REF) | payer MEDICARE, MEDICAID, SELFPAY ==
--- NOTE | ~2025-02-18 | XR_ITS ---
EXAMINATION: XR ABDOMEN 1 VIEW (KUB) HISTORY: N20.0 - Calculus of kidney COMPARISON: Comparison is made with the prior examination dated 02/01/2024. FINDINGS: Three supine views of the abdomen are submitted. The bowel gas pattern is unremarkable, without evidence of mechanical obstruction. Again seen are calcifications overlying the mid to lower pole of the right kidney. These measure up to 7 mm in size and are larger than on the prior study. Numerous calcifications are again noted overlying the mid to lower pole portion of the left kidney. There are a greater number of calcifications than on the prior study. These measure up to 10 mm in size. There are phleboliths in the pelvis. There are no abnormal soft tissue masses. The bones are intact. XR/XR KUB IMPRESSION: Bilateral nephrolithiasis as described. Electronically signed by: Hari Garcia MD 02/19/2025 07:17 AM EDT
--- OUTSIDE RECORDS SUMMARY | 2025-02-18 15:28 | XMS_ITS | Clinical Summary ---
Author Organization Formerly [facility] Address [address] [place] [id number] Care Team Providers Care Collection Supervisor Name Role Phone Unavailable Primary Care Provider Unavailabl e Social History Tobacco Use Types Packs/Day Years Used Date Smoking Tobacco: Never Assessed Sex and Gender Information Value Date Recorded Sex Assigned at Not on file Gender Identity Not on file Sexual Orientation Not on file Plan of Treatment Health Maintenance Due Date Last Done Comments DTaP/Tdap/Td Vaccines (1 - Tdap) 1991 Hepatitis B Vaccines (1 of 3 - 19+ 3-dose series) 1991 Pneumococcal Vaccines 50+ (1 of 1 - PCV) 2022 Zoster (Shingles) Vaccine (1 of 2) 2022 COVID-19 Vaccine (1 - 2023-2 5 season) 2024 HIV Screening Completed 01/05/2014 Hepatitis C Virus Screening Completed 02/2014, 01/12/2014 Pneumococcal Vaccine: Pediatric (0-5 Years) and At-Risk Patients (6 to 49 Years) Aged Out No longer eligible b ased on patient's age to complete this topic Procedures Procedure Name Priority Date/Time Associated Diagnosis Comments [facility] HEPATITIS ACUTE SCREEN PANEL Routine 01/13/2014 9:55 AM EST [facility] HIV 1/2 AG/AB CMIA REFLEX TO CONFIRMATION. Routine 01/05/2014 4:04 PM EST from Last 3 Months or Most Recently Relevant to Health Maintenance Results * Hepatitis Acute Screen Panel (01/13/2014 9:55 AM EST) Hepatitis A Antibody IgM 0.65 <0.80 S/CO SUNQUEST Hepatitis B Core Antibody IgM Negative Performed at [facility] [place], [place] License No. [id number] ?? CLIA No. [id number] NEG SUNQUEST Hepatitis B Surface Ag Screen Negative Performed at [facility] [place], [place] License No. [id number] ?? CLIA No. [id number] NEG SUNQUEST Hepatitis Interpretatio n: Results inconsistent with acute Hepatitis A, B or C Virus infection. Performed at [place], [place] License No. [id number] ?? CLIA No. [id number] SUNQUEST Hepatitis C Antibody 0.16 0.00 - 0.79 S/CO ratio SUNQUEST 01/13/2014 9:55 AM EST Conversion Provider MD [facility] Performing Organization Address City/[facility]/[place] Co de Phone Number SUNQUEST * HIV 1/2 Ag/Ab Cmia Reflex To Confirmation. (01/05/2014 4:04 PM EST) Pathologist [facility] HIV 1/2 Ag/Ab CMIA Negative Results show no evidence of infection by HIV 1/2. If clinically indicated, repeat CMIA or test by nucleic acid amplification. Performed at [place], [place] License No. [id number] ?? CLIA No. [id number] NEG SUNQUEST 01/05/2014 4:04 PM EST Conversion Provider MD CASEY SILVA SUNQUEST from Last 3 Months or Most Recently Relevant to Health Maintenance
--- OUTSIDE RECORDS SUMMARY | 2025-02-18 15:28 | XMS_ITS | Clinical Summary ---
Author Organization [facility] Facility Address [address] [address] Care Team Providers Care Carton Liner Name Role Phone Laura Miles Primary Care Provider [phone] Medications atorvastatin (LIPITOR) 40 MG tablet Take 40 mg by mouth 11/29/2021 Active allopurinol (ZYLOPRIM) 100 MG tablet Take 100 mg by mouth 09/29/2021 Active levETIRAcetam (KEPPRA) 750 MG tablet Take 3 tablets by mouth 08/30/2022 Active polyethylene glycol (MiraLax) 17 GM/SCOOP powder Take 17 g by mouth 08/28/2022 Active Riboflavin (Vitamin B-2) 100 MG tablet Take 100 mg by mouth 09/12/2022 08/27/20 25 Active topiramate (TOPAMAX) 50 MG tablet See Instructions, 4 tablet po in the AM, with 3 taqblet in the PM, # 630 tablet, 3 Refills, Maintenance, 08/30/22 13:31:00 EDT, [id number], 185, cm, 08/28/22 14:27:00 EDT, Height 08/30/2022 Active clopidogrel (PLAVIX) 75 MG tablet Take 1 tablet by mouth 11/18/2021 Active tamsulosin (FLOMAX) 0.4 MG 24 hr capsule Take 0.4 mg by mouth 1 (one) time each day Active Active Problems Problem Noted Date Diagnosed Date Nephrolithiasis 11/28/2022 Social History Tobacco Use Types Packs/Day Years Used Date Smoking Tobacco: Never Assessed Tobacco Cessation:Counseling Given: Not Answered Alcohol Use Standard Drinks/Week Comments Yes 0 (1 standard drink = 0.6 oz pur e alcohol) Sex and Gender Information Value Date Recorded Sex Assigned at Not on file Legal Sex Male 9:01 AM EST Gender Identity Not on file Sexual Orientation Not on file Plan of Treatment Health Maintenance Due Date Last Done Comments Hepatitis B Vaccine (1 of 3 - 19+ 3-dose series) 1991 Colorectal Cancer Screening: Annual FOBT 2021 Colorectal Cancer Screening: Colonoscopy 2021 Colorectal Cancer Screening: Sigmoidoscopy 2021 Influenza Vaccine (Season Ended) 2025 Pneumococcal Vaccine: Pediat rics (0 to 5 Years) and At-Risk Patients (6 to 64 Years) Aged Out No longer eligible b ased on patient's age to complete this topic Insurance MEDICARE MEDICARE Care Teams Carton Liner Relationship Specialty Start Date End Date Laura Miles [facility] - General 10/31/22
[2025-02-18 16:53] LABS: PSA,Total (Free>4and<10) 1.71 ng/mL (0.00-4.00)
== END 2025-02-18 13:21 | disposition home or self-care (01) ==
LOC: HO.HMGCX 13:20
PROVIDERS: PCP Internal Medicine; Visit Provider Urology
DX: Z12.5 Encounter for screening for malignant neoplasm of prostate (principal); N20.0 Calculus of kidney
CPT/HCPCS: 36415; 74018; 84153

== ENCOUNTER → 2025-02-18 13:30 | Outpatient (BNV) | payer MEDICARE, MEDICAID, SELFPAY | PROVIDERS: PCP Internal Medicine; Visit Provider Radiology Diagnostic Radiology | DX: N20.0 Calculus of kidney (principal) | CPT/HCPCS: 74018 ==

== ENCOUNTER 2025-02-20 13:58 | Outpatient (AMB) | payer MEDICARE, MEDICAID, SELFPAY ==
--- NOTE | 2025-02-20 13:21 | A.OFFVIS_ITS ---
Intake Visit Reasons: Followup/KUB/PSA Intake Note: Patient presents today for a follow-up/KUB/PSA Meds- Vitamin B6, Vitamin B 2, Allopurinol Allergies to Antibiotic- No Known Allergies Blood Thinner- Plavix Audiology Doctor Required: No Accompanied by: Brother Wellington Allergies No Known Allergies [No Known Allergies*] Allergy (Verified 03/26/25 07:11) HPI Comments Details: 02/20/25--Yony is followed for nephrolithiasis, multiple medical conditions including h/o stroke, hyperparathyroidism. He has had multiple procedures, including ESWL's and Ureteroscopy/laser lithotripsy. I have reviewed recent KUB, there is still significant stone burden bilaterally Left > Right. Will try to clear right kidney, plan Right ESWL. The patient will need to stop his blood thinner prior. Discussed risks to include but not limited to, blood in the urine, bruising to the skin, kidney hematoma, possible need for another p rocedure if a stone fragment obstructs the ureter while passing, possible need to repeat procedure if stone is not completely fragmented. 30 minutes spent in review of records pertaining to this visit and including telehealth discussion with the patient and documentation of this visit. Results: KUB 02/18/25--calcifications overlying the mid to lower pole of the right kidney. measuring up to 7 mm in size and are Numerous calcifications Left kidney. 02/27/24--Yony is followed for nephrolithiasis, multiple medical conditions including h/o stroke, hyperparathyroidism. He is s/p Right ESWL on 01/16/24-- I have discussed that follow up KUB notes good fragmentation and that the treated stone is no longer seen. He still has significant stone burden in the left kidne y. KUB Xray--02/01/24-- Previously identified 1 cm calcification right kidney is not visualized. Small calcifications measuring up to 5-6 mm overlying the right kidney. 01/04/24--Yony is here with his cousin he was in the emergency room on 12/25 23 for right flank pain. I have reviewed the imaging with the patient and family member. CTAP--12/25/23-- Mild right-sided hydroureteronephrosis secondary to a 1.2 cm calculus along the right proximal ureter/ureteral pelvic junction with perinephric stranding. Additional calculi are noted conglomerate in the right lower lobe measuring up to 9 mm. Redemonstration of left-sided nephrolithiasis the largest extending from the lower pole into the pelvis measuring up to 2.8 cm. Stable 3 mm calculus in the left proximal ureter without hydronephrosis. 05/16/23--Yony is a 53-year-old male who is here for tele-health follow-up to discuss 24-hour urine collection test results. History was taken from patient's brother. Discussed 24 hour urine results-- collected--05/11/23--Total volume 740 mL, Calcium 79 mg; Oxalate 19 mg, Sodium 76, Citrate <11 mg. Instructed on importance of fluid intake, Low oxalate diet, low sodium diet. Blood work results reviewed--Parathyroid hormone level?10/29/22?89. Calcium--10/29/22--10.6, repeat calcium on 10/31/22 was 9.9. Discussed to consume water, juices like lemonade, orange juice and cranberry. Instructed to avoid tea and can consume 10 ounces of coffee in a day. Urocit-K 15 mg TID. Discussed to take the medication with food to avoid stomach irritation. Endocrinology referral was made. Repeat 24-hour urine collection in next 3 months. Right ESWL discussed to be scheduled. tele-health visit--03/16/23--Yony is a 52-year-old male who is here for tele- visit for discussion of KUB and US results. The patient is s/p left ureteral stent removal on 01/30/23 The history was taken from the patient's brother who is also his power of contract attorney. The patient is not having flank pain. He did not pass renal calculi in the interim. OV--01/25/23-- S/P cystoscopy, left retrograde-left ureteral stent exchange for left ureteral stone. CAT scan- 10/27/22-Innumerable intrarenal calculi are seen in the left kidney. OR procedure done on 10/28/2022-- left ureteral stent exchange because of the narrowing at the UPJ on the left side. Left ESWL - 09/27/2022 KUB was not done, Reviewed Renal retroperitoneal US results reviewed?02/12/23-- findings of multiple calcification in the left kidney. Plan:24-hour urine collection test was ordered. Tele-health follow-up in 2 months for discussion of 24-hour urine results. [facility] Medical History (Updated 04/14/25 @ 13:05 by Jessica Ibarra RN) Memory deficit Hemorrhagic stroke Seizure disorder HLD (hyperlipidemia) CVA (cerebral vascular accident) Surgical History (Updated 04/13/25 @ 14:47 by Evelyn Hernandez RN) History of cystoscopy H/O lithotripsy H/O craniotomy Family History Other Diabetes HTN (hypertension) Social History Household Members: Family Housing: House Do you presently have visiting nurse or other home services: No Unable to assess alcohol history related to: Unknown Alcohol intake: never Patient Tobacco Use Status: Former Tobacco user Tobacco use type: Cigarette Years Smoked: 2010 Second Hand Smoke Exposure: No Advance Directives: No Advance Directives Information Provided: Yes Advance Directives Date on File: 01/17/24 service: No Current occupational status: disabled Telehealth Telehealth Telehealth Platform: Telephone Location of provider rendering services: practice address Location of patient: address on file Patient Identification confirmed using: Name, : Yes Telehealth method: voice only Patient verbally consented to treatment: Yes Patient verbally consented to billing insurance company: Yes Patient informed of any privacy concerns related to visit: Yes Minutes spent on Phone/Video with Pt.: 14 Results Reviewed Results Reviewed: Date of Service: 02/18/25 HISTORY: N20.0 - Calculus of kidney COMPARISON: Comparison is made with the prior examination dated 02/01/2024. FINDINGS: Three supine views of the abdomen are submitted. The bowel gas pattern is unremarkable, without evidence of mechanical obstruction. Again seen are calcifications overlying the mid to lower pole of the right kidney. These measure up to 7 mm in size and are larger than on the prior study. Numerous calcifications are again noted overlying the mid to lower pole portion of the left kidney. There are a greater number of calcifications than on the prior study. These measure up to 10 mm in size. There are phleboliths in the pelvis. There are no abnormal soft tissue masses. The bones are intact. IMPRESSION: Bilateral nephrolithiasis as described. Date of Service: 02/01/24 EXAMINATION: XR ABDOMEN KUB CLINICAL INDICATION: Status post right ESWL. COMPARISON: 01/16/2024. TECHNIQUE: 3 AP views of the abdomen. FINDINGS: Nonobstructive bowel gas pattern. [id number] amount of stool in the colon. Redemonstration of multiple calcifications overlying the mid to lower pole of the left kidney with decreased upper calcifications. Previously identified 1 cm calcification overlying the right kidney is no longer visualized. Small calcifications measuring up to 5-6 mm overlying the right kidney. IMPRESSION: 1. Redemonstration of multiple calcifications overlying the left kidney with decreased upper calcifications. 2. Previously identified 1 cm calcification right kidney is not visualized. Small calcifications measuring up to 5-6 mm overlying the right kidney. Date of Service: 12/25/23 EXAMINATION: CT ABDOMEN AND PELVIS WITHOUT CONTRAST CLINICAL INFORMATION: Pain rule out kidney stone COMPARISON: CT abdomen from 09/04/2023 FINDINGS: LUNG BASES: The visualized lung bases are unremarkable. LIVER, GALLBLADDER, AND BILIARY TREE: The liver is normal in size, shape, and attenuation. No focal hepatic lesion or biliary ductal dilatation is present. The gallbladder is unremarkable with no evidence of radiopaque gallstones, gallbladder wall thickening, or obvious pericholecystic inflammatory changes. PANCREAS: Mild fatty infiltration along the pancreatic head otherwise unremarkable. SPLEEN: Unremarkable. Multiple splenules are noted the largest measuring up to 1.1 cm. ADRENAL GLANDS: Unremarkable. KIDNEYS AND URETERS: Mild right-sided hydroureteronephrosis secondary to a 1.2 cm calculus along the right proximal ureter/ureteral pelvic junction with perinephric stranding. Additional calculi are noted the conglomerate in the right lower lobe measuring up to 9 mm. Redemonstration of left-sided nephrolithiasis the largest extending from the lower pole into the pelvis measuring up to 2.8 cm. Stable 3 mm calculus in the left proximal ureter without hydronephrosis. BLADDER: Unremarkable. GASTROINTESTINAL TRACT: The small and large bowel are unremarkable. The appendix is not definitively visualized. ABDOMINAL WALL: Fat filled umbilical hernia. LYMPH NODES: A few subcentimeter mesenteric and right lower quadrant lymph nodes are noted the largest anterior to the right psoas measuring 8 mm, not enlarged per size criteria. VASCULAR: Abdominal aorta is nonaneurysmal. PELVIC VISCERA: Prostate measures 4.5 cm. OSSEOUS STRUCTURES: Osteopenia. Multilevel degenerative changes of the thoracolumbar and lumbosacral spine. IMPRESSION: 1. Mild right-sided hydroureteronephrosis secondary to a 1.2 cm calculus along the right proximal ureter/ureteral pelvic junction with perinephric stranding. Additional calculi are noted conglomerate in the right lower lobe measuring up to 9 mm. 2. Redemonstration of left-sided nephrolithiasis the largest extending from the lower pole into the pelvis measuring up to 2.8 cm. Stable 3 mm calculus in the left proximal ureter without hydronephrosis. 3. Fat filled umbilical hernia. 4. Osteopenia. Date of Service: 09/04/23 EXAMINATION: CT ABDOMEN AND PELVIS WITHOUT CONTRAST CLINICAL INFORMATION: Bilateral nephrolithiasis COMPARISON: 10/27/2022 FINDINGS: LUNG BASES: The visualized lung bases are unremarkable. LIVER, GALLBLADDER, AND BILIARY TREE: The liver is normal in size, shape, and attenuation. No focal hepatic lesion or biliary ductal dilatation is present. The gallbladder is unremarkable with no evidence of radiopaque gallstones, gallbladder wall thickening, or obvious pericholecystic inflammatory changes. PANCREAS: Unremarkable. SPLEEN: Unremarkable. ADRENAL GLANDS: Unremarkable. KIDNEYS AND URETERS: Right kidney revealed lower pole conglomerate of stones, measured 0.8 cm. Left kidney demonstrate numerous stones in the collecting system, lobe pole and left proximal ureter left kidney is atrophic and irregular. The calculus in the proximal ureter measured approximately 0.4 cm. There is no hydroureteronephrosis. BLADDER: Unremarkable. GASTROINTESTINAL TRACT: The small and large bowel are unremarkable. The appendix is not seen. ABDOMINAL WALL: No significant hernia is appreciated. LYMPH NODES: Normal. VASCULAR: Unremarkable. PELVIC VISCERA: Unremarkable. OSSEOUS STRUCTURES: Unremarkable. IMPRESSION: Bilateral nephrolithiasis with scarring and deformity of left kidney and small stone is identified in the proximal left ureter. 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 Pt instructed to stop blood thinner prior. Patient Instructions: The patient had an opportunity to ask questions regarding treatment plan. The patient expressed understanding and agreement with the above treatment plan. The patient is aware they should contact our office by phone for worsening of their current condition or the appearance of new symptoms. Compliance is encouraged with any medications and followup testing that is ordered. It is a privilege to be allowed the opportunity to participate in the urologic care of your patient. If you have any questions or concerns regarding treatment for the above conditions please do not hesitate to contact me. The office telephone contact is [phone]. This note is constructed in part using voice recognition software. While every effort has been made to ensure accuracy community arts centre manager errors may have been included. Yours sincerely, Candy Ferrera MD Coding Level of Care Code Tele Est Pt Level 4 (08679) Diagnoses Hyperparathyroidism E21.3 Hypocitraturia R82.991 Bilateral kidney stones N20.0
--- OUTSIDE RECORDS SUMMARY | 2025-02-20 14:21 | XMS_ITS | Clinical Summary ---
Author Organization [facility] Address [address] [place] [address] Care Team Providers Care Hvac Project Manager Name Role Phone Unavailable Primary Care Provider [...] Procedure Name Priority Date/Time Associated Diagnosis Comments [facility] HEPATITIS ACUTE SCREEN PANEL Routine 01/13/2014 9:55 AM EST [facility] HIV 1/2 AG/AB CMIA REFLEX TO CONFIRMATION. Routine 01/05/2014 4:04 PM EST from Last 3 Months or Most Recently Relevant to Health Maintenance Results * Hepatitis Acute Screen Panel (01/13/2014 9:55 AM EST) Hepatitis A Antibody IgM 0.65 <0.80 S/CO SUNQUEST Hepatitis B Core Antibody IgM Negative Performed at [facility] [place], [place] License No. [id number] ?? CLIA No. [id number] NEG SUNQUEST Hepatitis B Surface Ag Screen Negative Performed at [facility] [place], [place] License No. [id number] ?? CLIA No. [id number] NEG SUNQUEST Hepatitis Interpretatio n: Results inconsistent with acute Hepatitis A, B or C Virus infection. Performed at [place], [place] ?? [place] License No. [id number] ?? CLIA No. [id number] SUNQUEST Hepatitis C Antibody 0.16 0.00 - 0.79 S/CO ratio SUNQUEST 01/13/2014 9:55 AM EST Conversion Provider MD [facility] Performing Organization Address City/[facility] Co de Phone Number SUNQUEST * HIV 1/2 Ag/Ab Cmia Reflex To Confirmation. (01/05/2014 4:04 PM EST) Pathologist [facility] HIV 1/2 Ag/Ab CMIA Negative Results show no evidence of infection by HIV 1/2. If clinically indicated, repeat CMIA or test by nucleic acid amplification. Performed at [place], [place] License No. [id number] ?? CLIA No. [id number] NEG SUNQUEST 01/05/2014 4:04 PM EST Conversion Provider MD CASEY SILVA SUNQUEST from Last 3 Months or Most Recently Relevant to Health Maintenance
--- OUTSIDE RECORDS SUMMARY | 2025-02-20 14:21 | XMS_ITS | Clinical Summary ---
Author Organization [facility] Facility Address [address] [address] Care Team Providers Care Kindergartners Helper Name Role Phone Laura Miles Primary Care Provider [phone] Medications atorvastatin (LIPITOR) 40 MG tablet Take [...] tablet, 3 Refills, Maintenance, 08/30/22 13:31:00 EDT, [id number], 185, cm, 08/28/22 14:27:00 [...] Influenza Vaccine (Season Ended) 2025 Pneumococcal Vaccine: Peds ( 0 to 5 Years) and At-Risk Patients (6 to 49 Years) Aged Out No longer eligible b ased on patient's age to complete this topic Insurance Medicare Medicare Care Teams Kindergartners Helper Relationship Specialty Start Date End Date Laura Miles [facility] - General 10/31/22
== END 2025-02-20 16:30 | disposition home or self-care (01) ==
LOC: HO.HUSH 13:58
PROVIDERS: PCP Internal Medicine; Visit Provider Urology
DX: E21.3 Hyperparathyroidism, unspecified (principal); R82.991 Hypocitraturia; N20.0 Calculus of kidney
CPT/HCPCS: 99214

== ENCOUNTER → 2025-02-20 13:58 | Outpatient (BNVA) | payer MEDICARE, MEDICAID, SELFPAY | PROVIDERS: PCP Internal Medicine; Visit Provider Urology ==

== ENCOUNTER 2025-03-26 07:06 | Inpatient (IN) | payer MEDICARE, MEDICAID, SELFPAY ==
[2025-03-26] VITALS (8 sets, daily range): BP systolic 138–158; BP diastolic 81–99; PULSE 71–91; RESP 16–21; TEMP 36.6–36.7; O2SAT 94–96; BMI 25.1
--- NOTE | ~2025-03-26 | CT_ITS ---
EXAMINATION: CT HEAD WITHOUT CONTRAST CLINICAL INFORMATION: Severe headache, history of hemorrhagic CVA. COMPARISON: None available. TECHNIQUE: Contiguous axial imaging was performed from the skull base to vertex without intravenous administration of contrast. This CT examination was performed using dose optimization techniques as appropriate, variously including the following: *Automated exposure control *Adjustment of mA and/or kV according to patient size (this includes techniques or standardized protocols for targeted exams where dose is matched to indication/reason for exam; i.e. extremities or head) *Use of iterative reconstruction technique FINDINGS: There is no evidence of intracranial hemorrhage or extra-axial fluid collection. There is no mass effect, or edema. No CT evidence of acute territorial infarct. Entire left MCA territory cystic encephalomalacia from prior infarct. Associated ex vacuo dilatation of left lateral ventricle body, anterior horn, atrium, and temporal horn. There has been an overlying craniotomy. Ventricles, sulci, and cisterns are otherwise normal in size and configuration for patient age. No hydrocephalus. No midline shift. Negative hyperdense MCA sign. Negative insular ribbon sign. 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 Patchy periventricular and deep white matter hypoattenuation is consistent with mild small vessel ischemic changes. Normal pituitary. Mild atheromatous calcification of the bilateral carotid siphons and V4 segments vertebral arteries bilaterally. Globes and orbital contents image normally. No extracranial soft tissue abnormalities. Small mucous retention cyst in the right maxillary sinus. The paranasal sinuses, mastoid air cells, and tympanic cavities are otherwise normally aerated. No suspicious bony abnormalities. There are no acute fractures evident. Old left frontotemporal parietal craniotomy. CT/CT head/brain wo IV con IMPRESSION: 1. No acute intracranial abnormality. 2. 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 Overlying old craniotomy. 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 Electronically signed by: Monico Be MD 03/26/2025 09:10 AM EDT
[2025-03-26 07:28] LABS: MANUAL DIFF FLAG NO
[2025-03-26 07:30] LABS: Basophils Percent Auto 0.3 % (0-2); Eosinophils Absolute Auto 0.1 X10*3/uL (0.0-0.4); Eosinophils Percent Auto 0.6 % (0-4); Hematocrit 45.3 % (42.0-52.0); Hemoglobin 15.2 g/dl (14.0-18.0); Imm Gran Abs Auto 0.05 X10*3/uL (0.00-0.03); Imm Gran Pct Auto 0.4 % (0.0-0.4); Lymphocytes Absolute Auto 2.4 X10*3/uL (1.2-4.9); Lymphocytes Percent Auto 20.1 % (20-40); Mean Corpuscular HGB Conc 33.6 g/dl (31.0-36.0); Mean Corpuscular Hemoglobin 29.5 pg (27.0-33.0); Mean Corpuscular Volume 87.8 fL (80.0-98.0); Mean Platelet Volume 9.9 fL (9.4-12.4); Monocytes Absolute Auto 0.7 X10*3/uL (0.1-1.2); Neutrophils Absolute Auto 8.7 x10*3/uL (2.0-8.3); Neutrophils Percent Auto 72.6 % (45-73); Platelet Count 324 X10*3/uL (160-400); Red Blood Count 5.16 X10*6/uL (4.60-5.80); Red Cell Distribution Width 13.7 % (11.0-16.0)
[2025-03-26 07:46] LABS: Alanine Aminotransferase 39 U/L (0-40); Albumin Level 4.4 g/dL (3.5-5.0); Alkaline Phosphatase 130 U/L (39-117); Anion Gap 16 (12-20); Aspartate Amino Transferase 39 U/L (5-37); Bilirubin Total 0.8 mg/dL (0.0-1.0); Blood Urea Nitrogen 14 mg/dL (9-16); Calcium 12.2 mg/dL (8.4-10.2); Carbon Dioxide 23 mmol/L (22-29); Chloride 106 mmol/L (96-108); Creatinine Clr Calc Pharmacy 89.5; Estimated Glomerular Filt Rate > 60; Glucose Random 119 mg/dL (60-115); Potassium 3.9 mmol/L (3.3-5.1); Sodium 141 mmol/L (135-145); Total Protein 8.3 g/dL (6.5-8.0)
--- NOTE | 2025-03-26 08:11 | ED_ITS ---
HPI - Headache General Chief Complaint: Headache Stated Complaint: headaches Time Seen by Provider: 03/26/25 08:03 Source: patient, family, RN notes reviewed and old records reviewed Mode of arrival: ambulatory Limitations: no limitations History of Present Illness ED Provider: Maurice Larkin PA-C HPI Narrative: 54-year-old male with a history of hemorrhagic stroke (left MCA s/p craniotomy 2013) with residual right hemiplegia, seizure disorder, HLD, UTI, kidney stones with obstructive uropathy, hx hypercalcemia who presents to the ER for evaluation of 10 generalized headache that started early this morning. He took oxycodone at home and has had no improvement. He has been suffering from frequent headaches for the last couple of months. Today's headache is worse. No vision changes, nausea, vomiting, lethargy, confusion. He lives with his brother who is concerned about how much Excederin and OTC meds he takes for headaches. MD elicited complaint: headache Pertinent past history: other (frequent headaches, hx hemorrhagic stroke) Onset (ago): hour(s) Onset description: suddenly Location: frontal and generalized Severity: severe Pain scale (0-10): 10 Quality & Timing: aching Exacerbating factors: light and noise Relieving factors: nothing Context: occurred at rest Associated symptoms: none Treatments prior to arrival: prescription analgesic Related Data Home Medications ?Medication ?Instructions ?Recorded ?Confirmed clopidogrel 75 mg tablet (Plavix) 1 tab PO DAILY 08/09/22 01/16/24 acetaminophen 325 mg tablet 650 mg PO Q6H PRN Pain 10/28/22 01/16/24 (Tylenol) atorvastatin 40 mg tablet (Lipitor) 1 tab PO DAILY 10/28/22 01/16/24 levetiracetam 750 mg tablet 3 tab PO BID 10/28/22 01/16/24 (Keppra) polyethylene glycol 3350 17 17 g PO DAILY PRN Constipation 10/28/22 01/16/24 gram/dose oral powder (Miralax) riboflavin (vitamin B2) 100 mg 1 tab PO DAILY 10/28/22 01/16/24 tablet (Vitamin B-2) fluocinonide 0.05 % topical topical 07/16/24 solution Previous Rx's ?Medication ?Instructions ?Recorded pyridoxine (vitamin B6) 100 mg 100 mg PO DAILY #90 tabs 02/14/24 tablet allopurinol 100 mg tablet 100 mg PO BID renal stone 90 days 02/16/25 (Zyloprim) #180 tabs Allergies Allergy/AdvReac Type Severity Reaction Status Date / Time No Known Allergies Allergy Verified 03/26/25 07:11 [No Known Allergies*] Review of Systems 2 Review of Systems: Yes all other systems are reviewed and are negative [facility] Past Medical History Medical History Hemorrhagic stroke Seizure disorder HLD (hyperlipidemia) CVA (cerebral vascular accident) Surgical History History of cystoscopy H/O lithotripsy H/O craniotomy Family History Family History Other Diabetes HTN (hypertension) Social History Social History Household Members: Family Housing: House Do you presently have visiting nurse or other home services: No Unable to assess alcohol history related to: Unknown Alcohol intake: never Patient Tobacco Use Status: Former Tobacco user Tobacco use type: Cigarette Years Smoked: 2009 Second Hand Smoke Exposure: No Advance Directives: Yes Advance Directives on File: Yes Advance Directives Date on File: 01/17/24 service: No Current occupational status: disabled Physical Exam 2 Vital Signs: Vital Signs: Last Vital Signs Temp 98.0 F 03/26/25 07:10 Pulse 87 03/26/25 10:06 Resp 16 03/26/25 10:06 BP 144/95 H 03/26/25 10:06 Pulse Ox 95 03/26/25 10:06 O2 Del Method Room Air 03/26/25 10:06 BMI result Body Mass Index 25.1 Appearance: Alert. Oriented X3. No acute distress. Head: normocephalic, atraumatic. Craniotomy scar on the left side of the scalp Eyes: Pupils equal, round and reactive to light. ENT: Pharynx normal. No tonsillar swelling or exudate. Neck: Normal inspection. Neck supple. CVS: Normal heart rate and rhythm. Pulses normal. Respiratory: No respiratory distress. Breath sounds normal. Abdomen: Soft and nontender. +BS x4 Skin: Skin warm and dry. Normal skin color. Normal skin turgor. No rashes. Extremities: Right foot with moderate swelling, internal rotation Neuro/psych: Oriented X 3. Right-sided weakness present. CN II-XII intact. Normal speech. Medications Administered Generic Name Dose Route Start Last Admin Trade Name Freq PRN Reason Stop Dose Admin Sodium Chloride 1,000 mls @ 999 mls/hr 03/26/25 10:45 03/26/25 10:44 Ns IV 03/26/25 11:45 999 mls/hr .Q1H1M ISAC Administration Discontinued Medications Generic Name Dose Route Start Last Admin Trade Name Freq PRN Reason Stop Dose Admin Sodium Chloride 1,000 mls @ 999 mls/hr 03/26/25 08:45 03/26/25 10:44 Ns IV 03/26/25 09:45 Infused .Q1H1M ISAC Infusion Medical Decision Making Medical Decision Making [facility] Narrative: 54-year-old male with history of hemorrhagic stroke in 2013 with residual right- sided weakness, seizure disorder, hypercalcemia in the past who presents to the ER for evaluation of 10 headache that started this morning. He has been having frequent and severe headaches for the last couple of months. CT scan of the head was done which did not show any acute bleed, chronic changes from his prior stroke and surgeries. Labs showing elevated calcium of 12.2. He has history of hypercalcemia in the past and was treated with bisphosphonates inpatient. He has been having fatigue, frequent headaches, ongoing issues with kidney stones. Concern this is symptomatic hypercalcemia. Will check EKG. Will give a 2 L of IV fluids to help with excretion, consider Lasix and bisphosphonates. PTH added. Spoke with the patient's brother who he lives with and discussed the elevated calcium levels. He remembers hearing about this a couple of years ago when he was admitted however does not think that they had follow-up with endocrinology or Nephrology about management of or workup for hypercalcemia. Will plan to admit for further management Differential Diagnosis Differential Diagnoses: The differential diagnosis associated with the presentation includes Recurrent hemorrhagic stroke, migraine, dehydration, symptomatic hypercalcemia Admission/Observation Consideration of admission/observation: Escalation of care including admission/observation considered Consult Healthcare Provider Management of the patient was discussed with: Hospitalist Lab Data [facility] Lab Attestation statement: I reviewed the patient's lab results. Mild leukocytosis, hypercalcemia 03/26/25 07:24 03/26/25 07:24 Labs: Lab Results 03/26/25 Range/Units 07:24 WBC 12.0 H (4.8-10.8) X10*3/uL RBC 5.16 (4.60-5.80) X10*6/uL Hgb 15.2 (14.0-18.0) g/dl Hct 45.3 (42.0-52.0) % MCV 87.8 (80.0-98.0) fL MCH 29.5 (27.0-33.0) pg MCHC 33.6 (31.0-36.0) g/dl RDW 13.7 (11.0-16.0) % Plt Count 324 D (160-400) X10*3/uL MPV 9.9 (9.4-12.4) fL Immature Gran % (Auto) 0.4 (0.0-0.4) % Neut % (Auto) 72.6 (45-73) % Lymph % (Auto) 20.1 (20-40) % [place] % (Auto) 6.0 (2-11) % Eos % (Auto) 0.6 (0-4) % Baso % (Auto) 0.3 (0-2) % Lymph # (Auto) 2.4 (1.2-4.9) X10*3/uL [place] # (Auto) 0.7 (0.1-1.2) X10*3/uL Eos # (Auto) 0.1 (0.0-0.4) X10*3/uL Baso # (Auto) 0.0 (0.0-0.2) X10*3/uL Abs Immat Gran (auto) 0.05 H (0.00-0.03) X10*3/uL Absolute Neuts (auto) 8.7 H (2.0-8.3) x10*3/uL Absolute Nucleated RBC 0.000 (0.0-0.012) X10*3/uL Nucleated RBC % (auto) 0.0 (0.0-0.2) /100WBC Sodium 141 (135-145) mmol/L Potassium 3.9 (3.3-5.1) mmol/L Chloride 106 (96-108) mmol/L Carbon Dioxide 23 (22-29) mmol/L Anion Gap 16 (12-20) BUN 14 (9-16) mg/dL Creatinine 1.09 (0.5-1.4) mg/dL Estim Creat Clear Calc 89.5 Estimated GFR > 60 Random Glucose 119 H (60-115) mg/dL Calcium 12.2 H D (8.4-10.2) mg/dL Magnesium 2.0 (1.6-2.6) mg/dL Total Bilirubin 0.8 (0.0-1.0) mg/dL AST 39 H (5-37) U/L ALT 39 (0-40) U/L Alkaline Phosphatase 130 H (39-117) U/L Total Protein 8.3 H (6.5-8.0) g/dL Albumin 4.4 (3.5-5.0) g/dL Independent Interpretation I performed an independent interpretation of an: EKG and CT Scan Interpretation: Normal sinus rhythm, ventricular rate 77 beats per minute, normal NM interval, normal QTC, no ST segment elevations or depressions, Q-waves in leads [address] head with chronic postoperative changes, no acute bleed appreciated Radiology Impression Discussion of test interpretation with radiology: I have reviewed the radiologist's reading. Radiologist Impression: CT/CT head/brain wo IV con IMPRESSION: 1. No acute intracranial abnormality. 2. 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 Overlying old craniotomy. 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 Independent Historian Clinical information obtained from an independent historian. History obtained from or confirmed by: Other (brother at bedside) External Record Review External record reviewed: Inpatient record and Prior outpatient labs Prescription Management I considered prescription management with: Pain Medication and Other (lasix, bisphosphonate) Chronic Conditions Patient?s care impacted by: Other (CVA, right sided weakness, seizures) Social Determinants Patient?s care significantly limited by Social Determinants of Health including: Other Social Determinant of Health Critical Care Time Critical Care Time Critical Care Time: Yes Total Critical Care Time: 32 Attestation: I have personally provided critical care time exclusive of time spent on separately billable procedures. Time includes review of lab data, radiology results, discussion with consultants, and monitoring for potential decompensation. Intervention performed as documented. Discharge Plan Discharge Clinical Impression: Hypercalcemia Headache Qualifiers: Headache type: unspecified Headache chronicity pattern: unspecified pattern I ntractability: not intractable Qualified Code(s): R51.9 - Headache, unspecified Patient Disposition: Admitted As Inpatient
--- OUTSIDE RECORDS SUMMARY | 2025-03-26 08:18 | XMS_ITS | Clinical Summary ---
Author Organization [facility] Address [address] [address] Care Team Providers Care Rounding Machine Tender Name Role Phone Laura Miles Primary Care Provider Medications atorvastatin (LIPITOR) 40 MG tablet Take [...] tablet, 3 Refills, Maintenance, 08/30/22 13:31:00 EDT, [id number], 185, cm, 08/28/22 14:27:00 [...] 022 Influenza Vaccine (Season Ended) 2025 Insurance [id number] Medicare [facility] Medicare Care Teams Rounding Machine Tender Relationship Specialty Start Date End Date Laura Miles PCP - General 10/31/22
--- OUTSIDE RECORDS SUMMARY | 2025-03-26 08:18 | XMS_ITS | Clinical Summary ---
Author Organization [facility] Address [address] [place] [id number] Care Team Providers Care Calculation Clerk Name Role Phone Unavailable Primary Care Provider [...] Procedure Name Priority Date/Time Associated Diagnosis Comments [facility] HEPATITIS ACUTE SCREEN PANEL Routine 01/13/2014 9:55 AM EST [facility] HIV 1/2 AG/AB CMIA REFLEX TO CONFIRMATION. Routine 01/05/2014 4:04 PM EST from Last 3 Months or Most Recently Relevant to Health Maintenance Results * Hepatitis Acute Screen Panel (01/13/2014 9:55 AM EST) Hepatitis A Antibody IgM 0.65 <0.80 S/CO [facility] Hepatitis B Core Antibody IgM Negative Performed at [facility] [place], [place] License No. [id number] ?? CLIA No. [id number] NEG [facility] Hepatitis B Surface Ag Screen Negative Performed at [facility] [place], [place] License No. [id number] ?? CLIA No. [id number] NEG [facility] Hepatitis Interpretatio n: Results inconsistent with acute Hepatitis A, B or C Virus infection. Performed at [facility] [place], [place] ?? [place] License No. [id number] ?? CLIA No. [id number] [facility] Hepatitis C Antibody 0.16 0.00 - 0.79 S/CO ratio [facility] 01/13/2014 9:55 AM EST us Conversion Provider MD [facility] Final Res ult Performing Organization Address City/State/[facility] Co de Phone Number [facility]QUEST * HIV 1/2 Ag/Ab Cmia Reflex To Confirmation. (01/05/2014 4:04 PM EST) Pathologist [facility] HIV 1/2 Ag/Ab CMIA Negative Results show no evidence of infection by HIV 1/2. If clinically indicated, repeat CMIA or test by nucleic acid amplification. Performed at [facility] [place], [place] ?? [place] License No. [id number] ?? CLIA No. [id number] NEG [facility] 01/05/2014 4:04 PM EST us Conversion Provider MD [facility] Final Res ult [facility] from Last 3 Months or Most Recently Relevant to Health Maintenance
[2025-03-26] MEDS: 0.9 % Sodium Chloride 1,000 ML 999 ML IV ×2 (08:58→10:44)
--- NOTE | 2025-03-26 10:35 | ECG_ITS ---
Test Reason : hypercalcemia Blood Pressure : */* mmHG Vent. Rate : 77 BPM Atrial Rate : 77 BPM P-R Int : 170 ms QRS Dur : 86 ms QT Int : 380 ms P-R-T Axes : 51 8 30 degrees QTcB Int : 430 ms Normal sinus rhythm Inferior infarct , age undetermined Abnormal ECG When compared with ECG of 30-Aug-2014 11:36, Inferior infarct is now Present Referred By: Gracy Larkin Electronically Signed By: CRISTOBAL ZHAO MD
--- NOTE | 2025-03-26 11:31 | PM.IMHP ---
History of Present Illness Date of Service: 03/26/25 Attending physician on admission: Marin Mae Chief Complaint: Headache Pt is a 54-year-old male with a PMH significant for?hx of hemorrhagic stroke of left MCA s/p craniotomy in 2013 with residual right hemiplegia, seizure disorder, chronic aphasia, HLD, hyperparathyroidism, hx of hypercalcemia, nephrolithiasis, who presents to the ED with?intractable headache and difficulty sleeping. Pt with chronic aphasia and is a limited historian. He is accompanied by his brother with whom he lives with, and who helps supplement [facility]. Pt has been experiencing headaches for the past 6 months, worse the past 2-3 weeks. Presents today as symptoms have worsened and pt can no longer tolerate headaches. No acute vision changes. Denies lightheadedness or dizziness. Also complains of chronic abdominal pain that has been ongoing for the past 6 months. Pt previously diagnosed with hyperparathyroidism that was thought possibly caused by topiramate. Review of records indicates pt has stopped taking topiramate in June of last year due to possible side effects of nephrolithiasis and hyperparathyroidism. In the ED pt was hypertensive up to 155/99 otherwise vitals stable. Labs were significant for leukocytosis of 12.0 (chronically elevated, around baseline), calcium 12.2, AST 39, alk-phos 130,. Stable H&H. No significant electrolyte abnormalities. Renal function WNL. CTA of head negative for acute intracranial abnormality. Does show chronic cystic encephalomalacia of entire left MCA territory from prior infarct, and overlying craniotomy. EKG demonstrated normal sinus rhythm without evidence of significant ST elevations or depressions. Pt was treated in the ED with IVF. Pt is admitted to the hospital for treatment and further evaluation of hypercalcemia and intractable headaches. Review of Systems Review of Systems: Negative except for that which is stated in the [facility] Medical History Hemorrhagic stroke Seizure disorder HLD (hyperlipidemia) CVA (cerebral vascular accident) Family History Other Diabetes HTN (hypertension) Surgical History History of cystoscopy H/O lithotripsy H/O craniotomy Social History Household Members: Family Housing: House Do you presently have visiting nurse or other home services: No Unable to assess alcohol history related to: Unknown Alcohol intake: never Patient Tobacco Use Status: Former Tobacco user Tobacco use type: Cigarette Years Smoked: 2009 Second Hand Smoke Exposure: No Advance Directives: Yes Advance Directives on File: Yes Advance Directives Date on File: 01/17/24 Nutrition Risks: No Nutritional Risk service: No Current occupational status: disabled Meds Allergies Allergy/AdvReac Type Severity Reaction Status Date / Time No Known Allergies Allergy Verified 03/26/25 07:11 [No Known Allergies*] Active Medications: Current Medications Sodium Chloride (Ns) 1,000 mls @ 999 mls/hr IV .Q1H1M ISAC Stop: 03/26/25 11:45 Last Admin: 03/26/25 10:44 Dose: 999 mls/hr Home Medications ?Medication ?Instructions ?Recorded ?Confirmed ?Last Taken ?Type clopidogrel 75 mg tablet (Plavix) 75 mg PO DAILY 08/09/22 03/26/25 03/26/25 History acetaminophen 325 mg tablet 650 mg PO Q6H PRN Pain 10/28/22 03/26/25 Unknown History (Tylenol) atorvastatin 40 mg tablet (Lipitor) 40 mg PO DAILY 10/28/22 03/26/25 03/26/25 History levetiracetam 750 mg tablet 2,250 mg PO BID 10/28/22 03/26/25 03/26/25 History (Keppra) polyethylene glycol 3350 17 17 g PO DAILY PRN Constipation 10/28/22 03/26/25 Unknown History gram/dose oral powder (Miralax) riboflavin (vitamin B2) 100 mg 100 mg PO DAILY 10/28/22 03/26/25 03/26/25 History tablet (Vitamin B-2) fluocinonide 0.05 % topical 1 appl topical DAILY 07/16/24 03/26/25 03/26/25 History solution cholecalciferol (vitamin D3) 25 25 mcg PO DAILY 03/26/25 03/26/25 03/25/25 History mcg (1,000 unit) tablet (Vitamin D3) diphenhydramine 25 2 tab PO BEDTIME PRN Sleep 03/26/25 03/26/25 Unknown History mg-acetaminophen 500 mg tablet (Tylenol PM Extra Strength) lacosamide 100 mg tablet 100 mg PO BID 03/26/25 03/26/25 03/26/25 History melatonin 5 mg tablet 5 mg PO BEDTIME PRN Sleep 03/26/25 03/26/25 Unknown History Physical Exam Vital Signs and Narrative: Vital Signs: Last Vital Signs Temp 98.0 F 03/26/25 07:10 Pulse 87 03/26/25 10:06 Resp 16 03/26/25 10:06 BP 144/95 H 03/26/25 10:06 Pulse Ox 95 03/26/25 10:06 O2 Del Method Room Air 03/26/25 10:06 BMI result Body Mass Index 25.1 General: AOx3, no acute distress Resp: CTA bilaterally CVS: S1, S2, RRR GI: +BS, no distention, mild epigastric tenderness Skin: Warm, dry Neuro: Right hemiparesis. Significant aphasia and difficulty word finding. Extremities: 1+ bilateral lower leg edema, 2+ pitting edema of left foot pitting edema of left foot Psych: Minimal engagement Results Labs 03/26/25 07:24 03/26/25 07:24 Labs: Laboratory Results - last 24 hr 03/26/25 07:24 MCV 87.8 MCH 29.5 MCHC 33.6 RDW 13.7 Plt Count 324 D MPV 9.9 Immature Gran % (Auto) 0.4 Neut % (Auto) 72.6 Lymph % (Auto) 20.1 [place] % (Auto) 6.0 Eos % (Auto) 0.6 Baso % (Auto) 0.3 Lymph # (Auto) 2.4 [place] # (Auto) 0.7 Eos # (Auto) 0.1 Baso # (Auto) 0.0 Abs Immat Gran (auto) 0.05 H Absolute Neuts (auto) 8.7 H Absolute Nucleated RBC 0.000 Nucleated RBC % (auto) 0.0 Anion Gap 16 Estim Creat Clear Calc 89.5 Estimated GFR > 60 Random Glucose 119 H Calcium 12.2 H D Magnesium 2.0 Total Bilirubin 0.8 AST 39 H ALT 39 Alkaline Phosphatase 130 H Total Protein 8.3 H Albumin 4.4 Imaging Radiologist's Impressions: Impressions Head CT 03/26/25 08:44 IMPRESSION: 1. No acute intracranial abnormality. 2. 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 Overlying old craniotomy. 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 Electronically signed by: Monico Be MD 03/26/2025 09:10 AM EDT RP Assessment and Plan (1) Hypercalcemia: Status: Acute (2) Headache: Qualifiers: Headache chronicity pattern: unspecified pattern Headache type: unspecified Intractability: not intractable Qualified Code(s): R51.9 - Headache, unspecified Status: Acute Plan Pt is a 54-year-old male with a PMH significant for?hx of hemorrhagic stroke of left MCA s/p craniotomy in 2013 with residual right hemiplegia, seizure disorder, chronic aphasia, HLD, hyperparathyroidism, hx of hypercalcemia, nephrolithiasis, who presents to the ED with?intractable headache and difficulty sleeping. Pt is admitted to the hospital for treatment and further evaluation of hypercalcemia and intractable headaches. Hypercalcemia Calcium 12.2 at time of presentation Patient's topiramate held in June of last topiramate stopped last year in June due to possible side effect of hypercalcemia Has hx of elevated calcium, as high as 12.6 on 10/27/2022 Unclear if followed up outpatient with Nephrology PTH elevated at 205.2, increased from 89 on 10/29/2022 TSH and 25 OH vitamin-D WNL Pt given IVF in the ED Will hold on bisphosphonates and/or steroids pending Nephrology input Nephrology consult Monitor on telemetry Intractable headache Experiencing headaches x6 months, worse the past 2-3 weeks especially in the past 2-3 days Patient's topiramate stopped 9 months ago due to concern for possible nephrolithiasis and hypercalcemia side effects Possibly in the setting of hypercalcemia CTA of head negative for acute abnormality Will treat with Fioricet for now Consider neurology consult if headache persists despite treatment Lower leg edema Chronic, has followed up outpatient with little intervention possible Hx of CVA/HLD Continue statin, Plavix Seizure disorder Continue Keppra Full Code Attending:?Dr. Mae DVT Prophylaxis: Lovenox Pt will require a hospitalization of at least two nights for treatment of?hypercalcemia and intractable headache requiring close monitoring of labs and specialist consultation with Nephrology. Quality Stroke Does the patient have a stroke diagnosis?: No VTE Prior VTE?: No VTE Risk Level:: Medical - moderate - high VTE Device Contraindication: Treatment Not Indicated VTE Drug Contraindication: N/A - Med Ordered
[2025-03-26 11:54] LABS: TSH reflex Free T4 0.64 uIU/mL (0.32-4.0); Vitamin D 25-OH Total 34.5 ng/mL (>30)
--- NOTE | 2025-03-26 11:58 | PC.NURSE ---
patient requested medicine to help with head pain, inpatient provider notified, awaiting new orders
--- NOTE | 2025-03-26 13:46 | PHA.MEDREC ---
Addendum entered by Howie Joel [facility] 03/26/25 14:48: MED REC CHECKED BY [facility] Original Note: Pharmacy Consult ? Medication Reconciliation Pharmacy has completed the medication reconciliation. Spoke with patients family at bedside who was able to confirm the pt medications. Patient stopped the Potassium Chloride tablet about 1-2 months ago due to developing issues while taking it, per the family at bedside.
[2025-03-26] MEDS: Butalb/Acetamin/Caff 50/325/40 TABLET 1 TAB PO (14:30)
[2025-03-26] MEDS: Enoxaparin Sodium 40 MG/0.4 ML SYRINGE SUBCUT (14:31)
[2025-03-26 16:26] LABS: Parathyroid Hormone Intact 205.2 pg/mL (8.7-77.1)
[2025-03-26] MEDS: levETIRAcetam 1,000 MG TABLET 2000 MG PO (22:19)
[2025-03-26] MEDS: allopurinoL 100 MG TABLET PO (22:20)
[2025-03-26] MEDS: Lacosamide 100 MG TABLET PO (22:20)
[2025-03-26] MEDS: levETIRAcetam 250 MG TABLET PO (22:30)
[2025-03-26] MEDS: Acetaminophen 325 MG TABLET 650 MG PO (22:30)
[2025-03-27 02:13] VITALS: BP 140/89; PULSE 63; RESP 18; TEMP 36.7; O2SAT 95
[2025-03-27] MEDS: 0.9 % Sodium Chloride Flush 3 ML SYRINGE IVFLUSH ×2 (03:35→08:10)
[2025-03-27] MEDS: traMADoL HCL 50 MG TABLET PO (04:02)
[2025-03-27] MEDS: Butalb/Acetamin/Caff 50/325/40 TABLET 1 TAB PO (07:36)
[2025-03-27 08:04] VITALS: BP 138/88; PULSE 66; RESP 20; TEMP 36.9; O2SAT 97
[2025-03-27] MEDS: Lacosamide 100 MG TABLET PO (08:05)
[2025-03-27] MEDS: Clopidogrel Bisulfate 75 MG TABLET PO (08:05)
[2025-03-27] MEDS: Pyridoxine HCl (Vitamin B6) 50 MG TABLET 100 MG PO (08:06)
[2025-03-27] MEDS: Atorvastatin Calcium 40 MG TABLET PO (08:06)
[2025-03-27] MEDS: levETIRAcetam 250 MG TABLET PO (08:06)
[2025-03-27] MEDS: levETIRAcetam 1,000 MG TABLET 2000 MG PO (08:06)
[2025-03-27] MEDS: Cholecalciferol (Vitamin D3) 25 MCG TABLET PO (08:06)
[2025-03-27] MEDS: allopurinoL 100 MG TABLET PO (08:06)
[2025-03-27 08:48] LABS: Anion Gap 12 (12-20); Blood Urea Nitrogen 10 mg/dL (9-16); Calcium 11.2 mg/dL (8.4-10.2); Carbon Dioxide 25 mmol/L (22-29); Chloride 109 mmol/L (96-108); Creatinine Clr Calc Pharmacy 102.7; Estimated Glomerular Filt Rate > 60; Glucose Random 137 mg/dL (60-115); Potassium 3.9 mmol/L (3.3-5.1); Sodium 142 mmol/L (135-145)
--- NOTE | 2025-03-27 09:19 | MHC.CM.PN ---
Patient has chronic Aphasia and is documented to be a limited Historian; CM spoke with Brother/HCP/Wellington @ [phone] and addressed IMM with him (original will be mailed certified letter to Brother and a copy will be placed on the chart). Patient lives on the first floor of a house with his Brother and he uses a w/c to assist with mobility. Patient has a [employer] 9hours/week and home/resume said services is the goal. CM has initiated and will follow for dc planning. PCP is Dr. Homer Hernandez and Brother will transport to home at time of dc.
[2025-03-27 12:20] VITALS: BP 136/87; PULSE 69; RESP 18; TEMP 36.7; O2SAT 97
--- NOTE | 2025-03-27 12:44 | PM.DS ---
DS: Providers Provider Date of Service: 03/27/25 Date of admission: 03/26/25 10:56 Date of discharge: 03/27/25 Primary care physician: Homer Hernandez MD Consults: 03/26/25 15:35 Consult to Nephrology Routine Consulting Provider: [facility] 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 Pt with chronic aphasia and is a limited historian. He is accompanied by his brother with whom he lives with, and who helps supplement HPI. Pt has been experiencing headaches for the past 6 months, worse the past 2-3 weeks. Presents today as symptoms have worsened and pt can no longer tolerate headaches. No acute vision changes. Denies lightheadedness or dizziness. Also complains of chronic abdominal pain that has been ongoing for the past 6 months. Pt previously diagnosed with hyperparathyroidism that was thought possibly caused by topiramate. Review of records indicates pt has stopped taking topiramate in June of last year due to possible side effects of nephrolithiasis and hyperparathyroidism. In the ED pt was hypertensive up to 155/99 otherwise vitals stable. Labs were significant for leukocytosis of 12.0 (chronically elevated, around baseline), calcium 12.2, AST 39, alk-phos 130,. Stable H&H. No significant electrolyte abnormalities. Renal function WNL. CTA of head negative for acute intracranial abnormality. Does show chronic cystic encephalomalacia of entire left MCA territory from prior infarct, and overlying craniotomy. EKG demonstrated normal sinus rhythm without evidence of significant ST elevations or depressions. Pt was treated in the ED with IVF. Pt is admitted to the hospital for treatment and further evaluation of hypercalcemia and intractable headaches. Hospital course The patient was admitted for evaluation of acute on chronic Hypercalcemia with Calcium 12.2 at time of presentation with PTH came back elevated at 205 with normal Vit D level. treated with IV fluids with good response as Calcium level improved to 11.2 this morning. discussed with Dr Wood from nephrology who suggested starting Cinacalcet 30 mg daily and to follow up as outpatient. Will repeat blood work next week. For his Intractable headache he reports experiencing headaches for the last 6 months, worse the past 2-3 weeks. CTA Head was negative for any acute findings. Improved with Fiorecit as he was able to tolerate diet. continued to report headache on occasions. Discussed with him and his HCP Wellington to continue PRN Fiorecit and follow up with neurology as outpatient. Discharge plan Use Fiorecit as needed for headache Start Cinacalcet for elevated calcium level repeat blood work next week Follow with dr Wood as outpatient The patient made quicker than expected recovery and will not need 2 overnight hospital stay. Time Attestation Discharge Coordination Time (in mins): 32 Quality: Safe Use of Opioids Does Pt have an Active Cancer Diagnosis on the Problem List?: No Quality: Stroke Does the patient have a stroke diagnosis?: No Physical Exam Vital Signs: Vital Signs: Last Vital Signs Temp 98.1 F 03/27/25 12:20 Pulse 69 03/27/25 12:20 Resp 18 03/27/25 12:20 BP 136/87 03/27/25 12:20 Pulse Ox 97 03/27/25 12:20 O2 Del Method Room Air 03/27/25 12:20 BMI result Body Mass Index 25.1 Const: Other: Constitutional : Awake, interactive, not in distress Neck : Normal inspection, Supple Cardiovascular : RRR, no JVP, trace bilateral lower extremity edema Respiratory : good bilateral air entry, no crackles, wheezes or rhonchi Gastrointestinal: soft, lax, Normal bowel sounds, Non tender Skin : Warm, Dry Neurological : Alert & oriented x3, right sided hemiparesis, expressive aphasia , speech fluent but partially impaired and having difficulties finding words DS: Data Data Completed and Pending Completed studies during hospitalization [Text1]: Procedures Dilation of Bilateral Ureters with Intraluminal Device, Via Natural or Artificial Opening Endoscopic (08/09/22) Fluoroscopy of Kidneys, Ureters and Bladder (08/09/22) Fragmentation in Left Ureter, Via Natural or Artificial Opening Endoscopic (08/09/22) Fragmentation in Right Ureter, Via Natural or Artificial Opening Endoscopic (08/09/22) Removal of Intraluminal Device from Ureter, Via Natural or Artificial Opening Endoscopic (08/09/22) Labs on day of discharge: Laboratory Results - last 24 hr 03/26/25 03/27/25 15:54 08:20 Sodium 142 Potassium 3.9 Chloride 109 H Carbon Dioxide 25 Anion Gap 12 BUN 10 Creatinine 0.95 Estim Creat Clear Calc 102.7 Estimated GFR > 60 Random Glucose 137 H Calcium 11.2 H D PTH Intact 205.[address] scan - head: Radiologist's impression: ITS Impressions Head CT 03/26/25 08:44 IMPRESSION: 1. No acute intracranial abnormality. 2. 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 Overlying old craniotomy. 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 Electronically signed by: Monico Be MD 03/26/2025 09:10 AM EDT RP Discharge Plan Discharge Anticipated Discharge Date/Time: 03/27/25 12:29 Patient Disposition: Home, Self-Care Discharge Diagnosis: Hypercalcemia Headache Referrals: Homer Hernandez MD [Primary Care Provider] - 1 Week Discharge Medications: New ygmxwdnvzv-xwjamjpyrhohl-izyf 50-325-40 mg Tablet 1 tab PO Q4H PRN (Reason: Headache) Qty: 20 1RF cinacalcet 30 mg tablet 30 mg PO DAILY Qty: 90 0RF Continued pyridoxine (vitamin B6) 100 mg tablet 100 mg PO DAILY Qty: 90 3RF allopurinol [Zyloprim] 100 mg tablet 100 mg PO BID 90 Days Qty: 180 0RF atorvastatin [Lipitor] 40 mg tablet 40 mg PO DAILY riboflavin (vitamin B2) [Vitamin B-2] 100 mg tablet 100 mg PO DAILY levetiracetam [Keppra] 750 mg tablet 2,250 mg PO BID polyethylene glycol 3350 [Miralax] 17 gram/dose powder 17 g PO DAILY PRN (Reason: Constipation) acetaminophen [Tylenol] 325 mg Tablet 650 mg PO Q6H PRN (Reason: Pain) clopidogrel [Plavix] 75 mg tablet 75 mg PO DAILY lacosamide 100 mg tablet 100 mg PO BID diphenhydramine-acetaminophen [Tylenol PM Extra Strength] 25-500 mg Tablet 2 tab PO BEDTIME MDD ie PRN (Reason: Sleep) cholecalciferol (vitamin D3) [Vitamin D3] 25 mcg (1,000 unit) Tablet 25 mcg PO DAILY melatonin 5 mg Tablet 5 mg PO BEDTIME PRN (Reason: Sleep) fluocinonide 0.05 % solution 1 appl topical DAILY Discharge Orders: Discharge Order (Routine); Ordered 03/27/25 Ordered By: Marin Mae Diet: Advance to usual diet Activity on Discharge: As tolerated Stand Alone Forms: Patient Portal Discharge page Print Language: Slovak Other Ambulatory Orders: Basic Metabolic Panel (Routine) Timeframe: 5 Days Facility: [facility] - Location: Laboratory Ordered By: Marin Mae Care Plan Goals: Use Fiorecit as needed for headache Start Cinacalcet for elevated calcium level repeat blood work next week Follow with dr Wood as outpatient Health Concerns: Elevated calcium level Headache Plan of Treatment: Cinacalcet Fiorecit as needed Assessment: as above
--- NOTE | 2025-03-27 12:49 | MHC.CM.PN ---
Patient has been medically cleared for dc to home today, self care.
[2025-03-27] MEDS: Ketorolac Tromethamine 15 MG/ML VIAL IVPUSH (13:05)
== END 2025-03-27 16:14 | disposition home or self-care (01) | DRG 644 ==
LOC: HO.ED 10:33 → HO.EDOVER 10:57
PROVIDERS: Admitting Provider Student in an Organized Health Care Education/Training Program; Emergency Provider Emergency Medicine; PCP Internal Medicine; Visit Provider Student in an Organized Health Care Education/Training Program
DX: E21.3 Hyperparathyroidism, unspecified (principal); I69.351 Hemiplegia and hemiparesis following cerebral infarction affecting right dominant side; R51.9 Headache, unspecified; E78.5 Hyperlipidemia, unspecified; G40.909 Epilepsy, unspecified, not intractable, without status epilepticus; Z87.891 Personal history of nicotine dependence; Z79.02 Long term (current) use of antithrombotics/antiplatelets; Z79.899 Other long term (current) drug therapy
CPT/HCPCS: 36415; 70450; 80048; 80053; 82306; 83735; 83970; 84443; 85025; 93005; 99285; J1650; J1885

== ENCOUNTER → 2025-03-26 08:26 | Outpatient (BNV) | payer MEDICARE, MEDICAID, SELFPAY | PROVIDERS: Emergency Provider Emergency Medicine; PCP Internal Medicine; Visit Provider Radiology Diagnostic Radiology | DX: R51.9 Headache, unspecified (principal) | CPT/HCPCS: 70450 ==

== ENCOUNTER → 2025-03-26 10:35 | Outpatient (BNV) | payer MEDICARE, MEDICAID, SELFPAY | PROVIDERS: Admitting Provider Student in an Organized Health Care Education/Training Program; Emergency Provider Emergency Medicine; PCP Internal Medicine; Visit Provider Internal Medicine Cardiovascular Disease | DX: R94.31 Abnormal electrocardiogram [ECG] [EKG] (principal); E83.52 Hypercalcemia | CPT/HCPCS: 93010 ==

== ENCOUNTER → 2025-03-26 10:56 | Outpatient (BNV) | payer MEDICARE, MEDICAID, SELFPAY | PROVIDERS: Admitting Provider Student in an Organized Health Care Education/Training Program; Emergency Provider Emergency Medicine; PCP Internal Medicine; Visit Provider Student in an Organized Health Care Education/Training Program | DX: E83.52 Hypercalcemia (principal); R51.9 Headache, unspecified | CPT/HCPCS: 99222; 99239 ==

== ENCOUNTER → 2025-04-15 07:59 | Day surgery (SDC) | payer MEDICARE, MEDICAID, SELFPAY ==
--- OUTSIDE RECORDS SUMMARY | 2025-03-10 07:53 | XMS_ITS | Clinical Summary ---
Author Organization [facility] Facility Address [address] [address] Care Team Providers Care Filling Station Attendant Name Role Phone Laura Miles Primary Care Provider [phone] Medications atorvastatin (LIPITOR) 40 MG tablet Take [...] tablet, 3 Refills, Maintenance, 08/30/22 13:31:00 EDT, [id number], 185, cm, 08/28/22 14:27:00 [...] (1 of 3 - 19+ 3-dose series) 04/03 Colorectal Cancer Screening: Annual FOBT 2021 Colorectal Cancer Screening: Colonoscopy 2021 Colorectal Cancer Screening: Sigmoidoscopy 2021 Pneumococcal Vaccine: 50+ Years (1 of 1 - PCV) 022 Influenza Vaccine (Season Ended) 2025 Insurance [id number] Medicare [facility] Medicare Care Teams Filling Station Attendant Relationship Specialty Start Date End Date Laura Miles PCP - General 10/31/22
--- OUTSIDE RECORDS SUMMARY | 2025-03-10 07:53 | XMS_ITS | Clinical Summary ---
Author Organization Formerly [facility] Address [address] [place] [id number] Care Team Providers Care Industrial Coffee Grinder Name Role Phone Unavailable Primary Care Provider Unavailabl e Social History Tobacco Use Types Packs/Day Years Used Date Smoking Tobacco: Never Assessed Sex and Gender Information Value Date Recorded Sex Assigned at Not on file Legal Sex Male 1:55 PM EDT Gender Identity Not on file Sexual Orientation Not on file Plan of Treatment Health Maintenance Due Date Last Done Comments DTaP/Tdap/Td Vaccines (1 - Tdap) 1991 Hepatitis B Vaccines (1 of 3 - 19+ 3-dose series) 1991 Pneumococcal Vaccines 50+ (1 of 1 - PCV) 2022 Zoster (Shingles) Vaccine (1 of 2) 2022 COVID-19 Vaccine (1 - 2023- season) 2024 HIV Screening Completed 01/05/2014 Hepatitis C Virus Screening Completed 01/13/2014, 0 01/12/2014 Procedures Procedure Name Priority Date/Time Associated Diagnosis Comments [facility] HEPATITIS ACUTE SCREEN PANEL Routine 01/13/2014 9:55 AM EST [facility] HIV 1/2 AG/AB CMIA REFLEX TO CONFIRMATION. Routine 01/05/2014 4:04 PM EST from Last 3 Months or Most Recently Relevant to Health Maintenance Results * Hepatitis Acute Screen Panel (01/13/2014 9:55 AM EST) Hepatitis A Antibody IgM 0.65 <0.80 S/CO [facility] Hepatitis B Core Antibody IgM Negative Performed at [facility] [place], [place] License [place]. [id number] ?? CLIA No. [id number] NEG [place] Hepatitis B Surface Ag Screen Negative Performed at [facility] [place] License No. [id number] ?? CLIA No. [id number] NEG [facility] Hepatitis Interpretatio n: Results inconsistent with acute Hepatitis A, B or C Virus infection. Performed at [facility] [place], [place] License No. [id number] ?? CLIA No. [id number] [facility] Hepatitis C Antibody 0.16 0.00 - 0.79 S/CO ratio [facility] 01/13/2014 9:55 AM EST us Conversion Provider MD [facility] Final Res ult Performing Organization Address City/State/[facility] Co de Phone Number SUNQUEST * HIV 1/2 Ag/Ab Cmia Reflex To Confirmation. (01/05/2014 4:04 PM EST) Pathologist [facility] HIV 1/2 Ag/Ab CMIA Negative Results show no evidence of infection by HIV 1/2. If clinically indicated, repeat CMIA or test by nucleic acid amplification. Performed at [facility] [place], [place] License No. [id number] ?? CLIA No. [id number] NEG [facility] 01/05/2014 4:04 PM EST us Conversion Provider MD [facility] Final Res ult [facility] from Last 3 Months or Most Recently Relevant to Health Maintenance
[2025-04-13 14:43] VITALS: BMI 22.5
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
--- NOTE | ~2025-04-15 | XR_ITS ---
CLINICAL HISTORY: pre Right ESWL Radiograph of the abdomen 1 view Comparison: None Findings: Number of film(s): 2. No abnormal bowel dilatation. Moderate amount of retained stool in the colon. No radiopaque foreign body. Numerous calcific densities project over the left renal outline measuring up to 9 mm. 6 mm and 7 mm calcific densities project over the right renal outline. Multiple pelvic phleboliths. No acute osseous abnormality. Impression: 1. Bilateral nephrolithiasis, numerous findings on the left. 2. Nonspecific and nonobstructive bowel gas pattern. This document has been electronically signed by: Lisbeth Blue DO on 04/15/2025 14:19:45
[2025-04-15] MEDS: Lactated Ringers 500 ML 999 ML IV (09:40)
[2025-04-15 09:52] VITALS: BP 149/89; PULSE 75; RESP 16; TEMP 36.6; O2SAT 92
[2025-04-15 09:53] LABS: Calcium 11.4 mg/dL (8.4-10.2)
[2025-04-15] MEDS: Lactated Ringers 1,000 ML 100 ML IVCONT (10:00)
--- NOTE | 2025-04-15 11:09 | MHC.SHP ---
Pre-Procedural Eval Section A - 24 Hr Update-Section A only Date of Service: 04/15/25 The patient is an INPATIENT: No The patient has been examined within 24 hours of the surgical procedure. The History & Physical has been completed within 30 days and I have reviewed it.: Yes Section B - Complete if H&P > 30 days Chief Complaint: Calculus of kidney, right Allergies: Allergies Allergy/AdvReac Type Severity Reaction Status Date / Time No Known Allergies Allergy Verified 04/15/25 09:24 [No Known Allergies*] Plan Diagnosis/Plan: Unchanged I have reviewed the history and physical and performed a pertinent physical examination on my patient. No changes have occurred unless specified. Right ESWL. Discussed risks to include but not limited to, blood in the urine, bruising to the skin, kidney hematoma, possible need for another procedure if a stone fragment obstructs the ureter while passing, possible need to repeat procedure if stone is not completely fragmented. Time Spent With Patient Time: Total time managing care of this patient today ____ minutes.
--- NOTE | 2025-04-15 11:55 | PC.NURSE ---
Anesthesia in preop was not made aware of pt report of seizure activity this morning. In this nurses report to PARCEL WRAPPER, anesthesia in the room questioned the seizure activity and has decided to cancel. I advised pt and brother to follow up with neurologist prior to rescheduling the ESWL.
== END ==
PROVIDERS: Nurse Practitioner; PCP Internal Medicine; Visit Provider Urology
DX: N20.0 Calculus of kidney (principal); Z53.09 Procedure and treatment not carried out because of other contraindication; R56.9 Unspecified convulsions
CPT/HCPCS: 36415; 74018; 82310; J0131; J0690

== ENCOUNTER → 2025-04-15 08:25 | Outpatient (BNV) | payer MEDICARE, MEDICAID, SELFPAY | PROVIDERS: PCP Internal Medicine; Visit Provider Radiology Diagnostic Radiology | DX: N20.1 Calculus of ureter (principal) | CPT/HCPCS: 74018 ==

== ENCOUNTER 2025-05-28 13:09 | Outpatient (AMB) | payer MEDICARE, MEDICAID, SELFPAY ==
--- NOTE | 2025-05-27 22:16 | MHC.OFFVIS ---
Intake Visit Reasons: Pre-op ESWL Intake Note: Patient presents today for a pre-op ESWL Urology Meds:Vitamin B6, Vitamin B 2, Allopurinol Allergies to Antibiotic:No Known Allergies Blood Thinner:Plavix Supervisor Nut Processing Required: No Accompanied by: Brother Wellington Allergies No Known Allergies (No Known Allergies*) Allergy (Verified 05/28/25 13:11) Medication List - Last Reconciled 05/28/25 by Candy Ferrera MD acetaminophen (Tylenol) 650 mg PO Q6H PRN allopurinol (Zyloprim) 100 mg PO BID 90 days atorvastatin (Lipitor) 40 mg PO DAILY lfjjiuibyb-sozaooqojqbar-mivb 50-325-40 mg 1 tab PO Q4H PRN cholecalciferol (vitamin D3) (Vitamin D3) 25 mcg PO DAILY cinacalcet 30 mg PO DAILY clopidogrel (Plavix) 75 mg PO DAILY diphenhydramine-acetaminophen 25-500 mg (Tylenol PM Extra Strength) 2 tabs PO BEDTIME PRN MDD ie fluocinonide 0.05% 1 appl topical DAILY lacosamide 100 mg PO BID levetiracetam (Keppra) 2,250 mg PO BID melatonin 5 mg PO BEDTIME PRN polyethylene glycol 3350 (Miralax) 17 grams PO DAILY PRN pyridoxine (vitamin B6) 100 mg PO DAILY riboflavin (vitamin B2) (Vitamin B-2) 100 mg PO DAILY HPI Comments Details: 05/28/25-- telehealth follow-up: sched for ESWL, h/o seizures, he was seen by his neurologist and condition is stable. Spoke with patient and brother Wellington. The patient complains of intermittent pain and urine darker color, denies cloudiness in the urine or dysuria. Patient encouraged to increase fluids. Plan reschedule right ESWL patient to stop Plavix 7 days prior. 02/20/25--Yony is followed for nephrolithiasis, multiple medical conditions including h/o stroke, hyperparathyroidism. He has had multiple procedures, including ESWL's and Ureteroscopy/laser lithotripsy. I have reviewed recent KUB, there is still significant stone burden bilaterally Left > Right. Will try to clear right kidney, plan Right ESWL. The patient will need to stop his blood thinner prior. Discussed risks to include but not limited to, blood in the urine, bruising to the skin, kidney hematoma, possible need for another procedure if a stone fragment obstructs the ureter while passing, possible need to repeat procedure if stone is not completely fragmented. 30 minutes spent in review of records pertaining to this visit and including telehealth discussion with the patient and documentation of this visit. Results: KUB 02/18/25--calcifications overlying the mid to lower pole of the right kidney. measuring up to 7 mm in size and are Numerous calcifications Left kidney. 02/27/24--Yony is followed for nephrolithiasis, multiple medical conditions including h/o stroke, hyperparathyroidism. He is s/p Right ESWL on 01/16/24-- I have discussed that follow up KUB notes good fragmentation and that the treated stone is no longer seen. He still has significant stone burden in the left kidney. KUB Xray--02/01/24-- Previously identified 1 cm calcification right kidney is not visualized. Small calcifications measuring up to 5-6 mm overlying the right kidney. 01/04/24--Yony is here with his cousin he was in the emergency room on 12/25 23 for right flank pain. I have reviewed the imaging with the patient and family member. CTAP--12/25/23-- Mild right-sided hydroureteronephrosis secondary to a 1.2 cm calculus along the right proximal ureter/ureteral pelvic junction with perinephric stranding. Additional calculi are noted conglomerate in the right lower lobe measuring up to 9 mm. Redemonstration of left-sided nephrolithiasis the largest extending from the lower pole into the pelvis measuring up to 2.8 cm. Stable 3 mm calculus in the left proximal ureter without hydronephrosis. 05/16/23--Yony is a 53-year-old male who is here for tele-health follow-up to discuss 24-hour urine collection test results. History was taken from patient's brother. Discussed 24 hour urine results-- collected--05/11/23--Total volume 740 mL, Calcium 79 mg; Oxalate 19 mg, Sodium 76, Citrate <11 mg. Instructed on importance of fluid intake, Low oxalate diet, low sodium diet. Blood work results reviewed--Parathyroid hormone level?10/29/22?89. Calcium--10/29/22--10.6, repeat calcium on 10/31/22 was 9.9. Discussed to consume water, juices like lemonade, orange juice and cranberry. Instructed to avoid tea and can consume 10 ounces of coffee in a day. Urocit-K 15 mg TID. Discussed to take the medication with food to avoid stomach irritation. Endocrinology referral was made. Repeat 24-hour urine collection in next 3 months. Right ESWL discussed to be scheduled. tele-health visit--03/16/23--Yony is a 52-year-old male who is here for tele-visit for discussion of KUB and US results. The patient is s/p left ureteral stent removal on 01/30/23 The history was taken from the patient's brother who is also his power of attorney recruiter. The patient is not having flank pain. He did not pass renal calculi in the interim. OV--01/25/23-- S/P cystoscopy, left retrograde-left ureteral stent exchange for left ureteral stone. CAT scan- 10/27/22-Innumerable intrarenal calculi are seen in the left kidney. OR procedure done on 10/28/2022-- left ureteral stent exchange because of the narrowing at the UPJ on the left side. Left ESWL - 09/27/2022 KUB was not done, Reviewed Renal retroperitoneal US results reviewed?02/12/23-- findings of multiple calcification in the left kidney. Plan:24-hour urine collection test was ordered. Tele-health follow-up in 2 months for discussion of 24-hour urine results. REPLACED BY [facility] Medical History Memory deficit Hemorrhagic stroke Seizure disorder HLD (hyperlipidemia) CVA (cerebral vascular accident) Surgical History History of cystoscopy H/O lithotripsy H/O craniotomy Family History Other Diabetes HTN (hypertension) Social History Household Members: Family Housing: House Do you presently have visiting nurse or other home services: No Unable to assess alcohol history related to: Unknown Alcohol intake: never Patient Tobacco Use Status: Former Tobacco user Tobacco use type: Cigarette Years Smoked: 2009 Second Hand Smoke Exposure: No Advance Directives Date on File: 01/17/24 service: No Current occupational status: disabled Review of Systems Const All systems reviewed & are unremarkable except as noted in HPI and below Reports no additional complaints Eyes Reports no additional complaints ENT Reports no additional complaints Card Reports no additional complaints Resp Reports no additional complaints GI Reports no additional complaints Reports as per HPI Musc Reports no additional complaints Skin/Breast Reports system reviewed and no additional complaints, except as documented Neuro Reports no additional complaints Psych Reports no additional complaints Endo Reports no additional complaints Otto/Lymph Reports no additional complaints Aller/Immun Reports no additional complaints Telehealth Telehealth Telehealth Platform: [facility] Location of provider rendering services: practice address Location of patient: address on file Patient Identification confirmed using: Name, : Yes Telehealth method: video Patient verbally consented to treatment: Yes Patient verbally consented to billing insurance company: Yes Patient informed of any privacy concerns related to visit: Yes Assessment & Plan Assessment & Plan (1) Hyperparathyroidism: Code(s): E21.3 - Hyperparathyroidism, unspecified Category: Medical (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 Patient Instructions: The patient had an opportunity to ask questions regarding treatment plan. The patient expressed understanding and agreement with the above treatment plan. The patient is aware they should contact our office by phone for worsening of their current condition or the appearance of new symptoms. Compliance is encouraged with any medications and followup testing that is ordered. It is a privilege to be allowed the opportunity to participate in the urologic care of your patient. If you have any questions or concerns regarding treatment for the above conditions please do not hesitate to contact me. The office telephone contact is [phone]. This note is constructed in part using voice recognition software. While every effort has been made to ensure accuracy oil burner servicer and installer errors may have been included. Yours sincerely, Candy Ferrera MD Coding Level of Care Code Tele Est Pt Level 3 (44287) Diagnoses Hyperparathyroidism E21.3 Hypocitraturia R82.991 Bilateral kidney stones N20.0
--- OUTSIDE RECORDS SUMMARY | 2025-05-28 13:38 | XMS_ITS | Clinical Summary ---
Author Organization [facility] Address [address] [place] [id number] Care Team Providers Care Catering Truck Operator Name Role Phone Unavailable Primary Care Provider [...] Procedure Name Priority Date/Time Associated Diagnosis Comments [facility] HEPATITIS ACUTE SCREEN PANEL Routine 01/13/2014 9:55 AM EST [facility] HIV 1/2 AG/AB CMIA REFLEX TO CONFIRMATION. Routine 01/05/2014 4:04 PM EST from Last 3 Months or Most Recently Relevant to Health Maintenance Results * Hepatitis Acute Screen Panel (01/13/2014 9:55 AM EST) Hepatitis A Antibody IgM 0.65 <0.80 S/CO [facility] Hepatitis B Core Antibody IgM Negative Performed at [facility] [place] [place] License No. [id number] CLIA No. [id number] NEG [facility] Hepatitis B Surface Ag Screen Negative Performed at [facility] [place] [place] License No. [id number] CLIA No. [id number] NEG [facility] Hepatitis Interpretatio n: Results inconsistent with acute Hepatitis A, B or C Virus infection. Performed at [facility] [place], [place] License No. [id number] CLIA No. [id number] [facility] Hepatitis C Antibody 0.16 0.00 - 0.79 S/CO ratio [facility] 01/13/2014 9:55 AM EST us Conversion Provider HX LAB Final Res ult [facility] * HIV 1/2 Ag/Ab Cmia Reflex To Confirmation. (01/05/2014 4:04 PM EST) HIV 1/2 Ag/Ab CMIA Negative Results show no evidence of infection by HIV 1/2. If clinically indicated, repeat CMIA or test by nucleic acid amplification. Performed at [facility] [place], [place] License No. [id number] CLIA No. [id number] NEG [facility] 01/05/2014 4:04 PM EST us Conversion Provider HX LAB Final Res ult [facility] from Last 3 Months or Most Recently Relevant to Health Maintenance
--- OUTSIDE RECORDS SUMMARY | 2025-05-28 13:38 | XMS_ITS | Clinical Summary ---
Author Organization [facility] Facility Address [address] [address] Care Team Providers Care Fuller Brush Worker Name Role Phone Laura Miles Primary Care Provider [phone] Medications atorvastatin (LIPITOR) 40 MG tablet Take [...] tablet, 3 Refills, Maintenance, 08/30/22 13:31:00 EDT, [id number], 185, cm, 08/28/22 14:27:00 [...] Cancer Screening: Sigmoidoscopy 2021 Pneumococcal Vaccine: 50+ Ye ars (1 of 1 - PCV) 2022 Influenza Vaccine (#1) 2025 08/15/2023, 2020 Insurance [facility] Medicare [facility] Medicare Care Teams Fuller Brush Worker Relationship Specialty Start Date End Date Laura Miles PCP - General 10/31/22
== END 2025-05-28 13:53 | disposition home or self-care (01) ==
LOC: HO.HUSH 13:09
PROVIDERS: PCP Internal Medicine; Visit Provider Urology
DX: E21.3 Hyperparathyroidism, unspecified (principal); R82.991 Hypocitraturia; N20.0 Calculus of kidney
CPT/HCPCS: 99213

== ENCOUNTER 2025-06-15 10:23 | Inpatient (IN) | payer MEDICARE, MEDICAID, SELFPAY ==
--- NOTE | ~2025-06-15 | FL_ITS ---
EXAMINATION: FL GUIDANCE ONLY HISTORY: cystoscopy, stent placement COMPARISON: Correlation is made with a CT of the abdomen and pelvis without contrast dated 06/15/2025. TECHNIQUE: Fluoroscopy time: 35.7. Cumulative Dose: 11.91 mGy. Images: 7. FINDINGS: Fluoroscopic spot films demonstrate placement of bilateral nephroureteral stents. FL/FL guidance in OR IMPRESSION: Fluoroscopy during procedure. Please see procedure report for additional information. Electronically signed by: Hari Garcia MD 06/17/2025 06:56 AM EDT
--- NOTE | ~2025-06-15 | CT_ITS ---
EXAMINATION: CT ABDOMEN AND PELVIS WITHOUT CONTRAST CLINICAL INFORMATION: Right flank pain, concern for stones. COMPARISON: 12/25/2023, 09/04/2023. TECHNIQUE: Multidetector volumetric imaging was performed from the superior aspect of the liver through the pubic symphysis. Sagittal and coronal reformatted images were obtained on the technologist's workstation. This CT examination was performed using dose optimization techniques as appropriate, variously including the following: *Automated exposure control *Adjustment of mA and/or kV according to patient size (this includes techniques or standardized protocols for targeted exams where dose is matched to indication/reason for exam; i.e. extremities or head) *Use of iterative reconstruction technique FINDINGS: LUNG BASES: Mild dependent type atelectasis in the lung bases with minor lower lobe fibrosis. Mild bronchiectasis in the lower lobes as well. No effusion. Heart size is normal. LIVER, GALLBLADDER, AND BILIARY TREE: The unenhanced liver is normal in size, shape, and attenuation. No focal hepatic lesion or biliary ductal dilatation is present. The gallbladder is unremarkable with no evidence of radiopaque gallstones, gallbladder wall thickening, or obvious pericholecystic inflammatory changes. PANCREAS: Unremarkable. SPLEEN: Unremarkable. ADRENAL GLANDS: Unremarkable. KIDNEYS AND URETERS: Right Kidney: Moderate right hydronephrosis and proximal hydroureter secondary to 2 obstructing stacked calculi in the proximal ureter, larger measuring 5 x 8 mm (series 7, image 45). There are several nonobstructing tiny right renal calculi, largest measuring 3 mm in the lower pole. There is moderate right perirenal stranding. Left Kidney: . The left kidney is atrophic to moderate degree. There are are staghorn type calculi present extending into the renal pelvis and ureteropelvic junction. There is no hydronephrosis. There is no hydroureter. There are no left renal masses. BLADDER: There are tiny stones within the dependent aspect of the urinary bladder. No wall thickening or mass. GASTROINTESTINAL TRACT: The stomach, duodenum, small bowel and appendix are normal. The colon is normal in course and caliber with moderate retained fecal material present. The redundant sigmoid is noted. No rectal abnormality. ABDOMINAL WALL: No significant hernia is appreciated. LYMPH NODES: No abnormal lymphadenopathy present. VASCULAR: Unremarkable. PELVIC VISCERA: The prostate and seminal vesicles are unremarkable. OSSEOUS STRUCTURES: No suspicious lytic or blastic bone lesions. CT/CT abdomen pelvis wo IV con IMPRESSION: 1. Moderate right hydronephrosis and proximal hydroureter secondary to 2 stacked proximal ureteral obstructing calculi, the larger measuring 5 x 8 mm. 2. There is nonobstructing right nephrolithiasis. 3. There are left kidney is mild to moderately atrophic. There is extensive nephrolithiasis of the left kidney as detailed. 4. Additional ancillary findings as discussed in the body the report. Electronically signed by: Monico Be MD 06/15/2025 01:17 PM EDT RP
[2025-06-15 11:27] VITALS: BP 152/94; PULSE 92; RESP 16; TEMP 36.4; O2SAT 97; BMI 23.1
--- NOTE | 2025-06-15 11:34 | ED.MALEGU ---
HPI - Male Genitourinary General Chief complaint: Urogenital-Male Stated complaint: Kidney stone Time Seen by Provider: 06/15/25 13:25 Source: patient and RN notes reviewed Mode of arrival: ambulatory Limitations: no limitations History of Present Illness ED Provider: Christa KIRBY Narrative: 55-year-old male presents for evaluation of lower abdominal pain. He follows with urology, Dr. Ferrera with plans for lithotripsy on 06/17/2025. However the patient has had increasing right lower abdominal pain since yesterday morning. His pain is currently an 8 or 9/10 in his stabbing. Denies any nausea vomiting. Denies any fevers or chills. The patient does have history of hemorrhagic stroke of left MCA with craniotomy in 2013, residual right hemiplegia, seizure disorder, chronic aphasia, hyperlipidemia, hyperparathyroidism, hypercalcemia Related Data Home Medications ?Medication ?Instructions ?Recorded ?Confirmed clopidogrel 75 mg tablet (Plavix) 75 mg PO DAILY 08/09/22 05/28/25 acetaminophen 325 mg tablet 650 mg PO Q6H PRN Pain 10/28/22 05/28/25 (Tylenol) atorvastatin 40 mg tablet (Lipitor) 40 mg PO DAILY 10/28/22 05/28/25 levetiracetam 750 mg tablet 2,250 mg PO BID 10/28/22 05/28/25 (Keppra) polyethylene glycol 3350 17 17 g PO DAILY PRN Constipation 10/28/22 05/28/25 gram/dose oral powder (Miralax) riboflavin (vitamin B2) 100 mg 100 mg PO DAILY 10/28/22 05/28/25 tablet (Vitamin B-2) fluocinonide 0.05 % topical 1 appl topical DAILY 07/16/24 05/28/25 solution cholecalciferol (vitamin D3) 25 25 mcg PO DAILY 03/26/25 05/28/25 mcg (1,000 unit) tablet (Vitamin D3) diphenhydramine 25 2 tab PO BEDTIME PRN Sleep 03/26/25 05/28/25 mg-acetaminophen 500 mg tablet (Tylenol PM Extra Strength) lacosamide 100 mg tablet 100 mg PO BID 03/26/25 05/28/25 melatonin 5 mg tablet 5 mg PO BEDTIME PRN Sleep 03/26/25 05/28/25 Previous Rx's ?Medication ?Instructions ?Recorded pyridoxine (vitamin B6) 100 mg 100 mg PO DAILY #90 tabs 02/14/24 tablet allopurinol 100 mg tablet 100 mg PO BID renal stone 90 days 02/16/25 (Zyloprim) #180 tabs haeajkxwyf-hkybxhytkgcwi-xgzdhpcl 1 tab PO Q4H PRN Headache #20 tabs 03/27/25 50 mg-325 mg-40 mg tablet cinacalcet 30 mg tablet 30 mg PO DAILY #90 tabs 03/27/25 Allergies Allergy/AdvReac Type Severity Reaction Status Date / Time No Known Allergies (No Known Allergy Verified 06/15/25 11:30 Allergies*) Review of Systems Constitutional: Constitutional: Denies body ache(s), Denies chills, Denies fever(s), Denies headache(s) and Denies weakness Eyes: Eyes: Denies blurry vision ENT: Denies headache(s) Cardiovascular: Cardiovascular: Denies chest pain and Denies dyspnea on exertion Respiratory: Respiratory: Denies cough and Denies dyspnea on exertion Gastrointestinal: Gastrointestinal: Reports abdominal pain, Denies nausea and Denies vomiting Genitourinary: Genitourinary: Denies dysuria, Reports flank pain and Denies testicular pain Musculoskeletal: Musculoskeletal: Reports back pain and Denies arthralgias Integumentary/Breasts: Skin/Breast: Denies rash Neurologic: Denies headache(s) and Denies weakness PMFSH Past Medical History Medical History Memory deficit Hemorrhagic stroke Seizure disorder HLD (hyperlipidemia) CVA (cerebral vascular accident) Surgical History History of cystoscopy H/O lithotripsy H/O craniotomy Family History Family History Other Diabetes HTN (hypertension) Social History Social History Household Members: Family Housing: House Do you presently have visiting nurse or other home services: No Unable to assess alcohol history related to: Unknown Alcohol intake: never Patient Tobacco Use Status: Former Tobacco user Tobacco use type: Cigarette Years Smoked: 2009 Smoked in Last 30 Days: No Second Hand Smoke Exposure: No Use of substances other than those prescribed or required for medical reasons: No Advance Directives Date on File: 01/17/24 service: No Current occupational status: disabled Physical Exam Vital Signs: Vital Signs: Last Vital Signs Temp 97.6 F 06/15/25 13:33 Pulse 92 06/15/25 13:33 Resp 16 06/15/25 13:33 BP 152/94 H 06/15/25 13:33 Pulse Ox 97 06/15/25 13:33 O2 Del Method Room Air 06/15/25 13:33 BMI result Body Mass Index 23.1 Const: General: healthy appearing, comfortable, no acute distress, alert and awake Nutritional Appearance: well nourished Orientation/consciousness: patient oriented x3 Eyes: Eyelids: Yes eyelids normal Conjunctivae: conjunctivae normal Sclerae: sclerae normal Corneas: corneas normal Pupils: Equal, round and reactive pupils present EOM: EOMs intact bilaterally Neck: Neck: Yes full ROM Resp: Effort & Inspection: normal respiratory effort, able to speak in complete sentences and not labored Cardio: Rate: regular rate Rhythm: regular rhythm GI: Inspection: No distended Palpation (GI): Soft to palpation, not firm, nontender, no guarding and not rigid Neuro: General: patient oriented x3 Cranial nerves: Yes CN's II-XII intact bilaterally, Yes Equal, round and reactive pupils present and Yes Bilaterally intact EOM present Cognition (Neuro): normal cognition Motor exam (neuro): strength not 5/5 throughout (Right-sided hemiplegia) Course Course Course Narrative: RME performed by Ksenia Amos PA-C. Patient is a 55 year old assigned male at presenting to the emergency department with flank pain. Patient states that he has a history of kidney stones and this pain feels similar. Detailed physical exam and review of systems are deferred to the plastic welding machine operator. Labs, imaging, and swabs ordered. Patient placed back in the waiting room pending room availability and results. Medications Administered Generic Name Dose Route Start Last Admin Trade Name Freq PRN Reason Stop Dose Admin Sodium Chloride 1,000 mls @ 999 mls/hr 06/15/25 13:45 06/15/25 13:43 Ns IV 06/15/25 14:45 999 mls/hr .Q1H1M ISAC Administration Discontinued Medications Generic Name Dose Route Start Last Admin Trade Name Migdalia PRN Reason Stop Dose Admin Morphine Sulfate 4 mg 06/15/25 13:32 06/15/25 13:44 Morphine Sulfate 4 Mg/Ml Cartridge IVPUSH 06/15/25 13:33 4 mg ONCE ONE Administration Protocol Ondansetron HCl 4 mg 06/15/25 13:33 06/15/25 13:44 Ondansetron Hcl 4 Mg/2 Ml Vial IVPUSH 06/15/25 13:34 4 mg ONCE ONE Administration Medical Decision Making Medical Decision Making [facility] Narrative: 55-year-old male presents for evaluation of lower abdominal pain. He has a longstanding history of obstructive kidney stones. He is due to see Urology in 2 days for lithotripsy, however he has an elevation of his creatinine to about double his baseline, CT scan shows 2 layering stones in the right proximal UVJ with the largest measuring up to 5 x 8 mm. I discussed with Urology, Dr. Quintin duque who will admit the patient with plan for stenting tomorrow [place] [address] we will add a dose of ceftriaxone. The patient is not septic as he is afebrile, there is no clear infection his urinalysis shows mostly hematuria Differential Diagnosis Differential Diagnoses: The differential diagnosis associated with the presentation includes Obstructive uropathy UTI Pyelonephritis HONG Consult Healthcare Provider Management of the patient was discussed with: Hospitalist (The patient admitted to the medical service) and Communications Station Manager (Urology) Lab Data [facility] Lab Attestation statement: I reviewed [place] [address] with a left shift. This may be reactive due to his pain and demargination. We are covering with antibiotics regardless. No significant anemia. Normal platelet count. No significant electrolyte abnormalities. Mild HONG as documented above. 06/15/25 11:45 06/15/25 11:45 Labs: Lab Results 06/15/25 Range/Units 11:45 WBC 17.3 H (4.8-10.8) X10*3/uL RBC 4.98 (4.60-5.80) X10*6/uL Hgb 15.3 (14.0-18.0) g/dl Hct 45.6 (42.0-52.0) % MCV 91.6 (80.0-98.0) fL MCH 30.7 (27.0-33.0) pg MCHC 33.6 (31.0-36.0) g/dl RDW 14.0 (11.0-16.0) % Plt Count 266 (160-400) X10*3/uL MPV 10.3 (9.4-12.4) fL Immature Gran % (Auto) 0.5 H (0.0-0.4) % Neut % (Auto) 85.9 H (45-73) % Lymph % (Auto) 6.6 L (20-40) % [place] % (Auto) 6.7 (2-11) % Eos % (Auto) 0.1 (0-4) % Baso % (Auto) 0.2 (0-2) % Lymph # (Auto) 1.1 L (1.2-4.9) X10*3/uL [place] # (Auto) 1.2 (0.1-1.2) X10*3/uL Eos # (Auto) 0.0 (0.0-0.4) X10*3/uL Baso # (Auto) 0.0 (0.0-0.2) X10*3/uL Abs Immat Gran (auto) 0.08 H (0.00-0.03) X10*3/uL Absolute Neuts (auto) 14.8 H (2.0-8.3) x10*3/uL Absolute Nucleated RBC 0.000 (0.0-0.012) X10*3/uL Nucleated RBC % (auto) 0.0 (0.0-0.2) /100WBC Sodium 141 (135-145) mmol/L Potassium 4.4 (3.3-5.1) mmol/L Chloride 108 (96-108) mmol/L Carbon Dioxide 23 (22-29) mmol/L Anion Gap 14 (12-20) BUN 31 H (9-16) mg/dL Creatinine 1.88 H (0.5-1.4) mg/dL Estim Creat Clear Calc 51.0 Estimated GFR 38 Random Glucose 114 (60-115) mg/dL Calcium 11.9 H (8.4-10.2) mg/dL Magnesium 2.0 (1.6-2.6) mg/dL Total Bilirubin 0.3 (0.0-1.0) mg/dL AST 38 H (5-37) U/L ALT 41 H (0-40) U/L Alkaline Phosphatase 167 H (39-117) U/L Total Protein 8.1 H (6.5-8.0) g/dL Albumin 4.6 (3.5-5.0) g/dL Urine Color Yellow Urine Appearance Clear Urine pH 8.0 (5.0-9.0) Ur Specific [place] 1.015 (1.005-1.025) Urine Protein 30 (1+) H (Neg-Trace) mg/dL Urine Glucose (UA) Negative (Negative) mg/dL Urine Ketones Negative (Negative) mg/dL Urine Blood Large (3+) H (Negative) Urine Nitrite Negative (Negative) Ur Leukocyte Esterase Trace H (Negative) Urine RBC >20 H (0-2) /HPF Urine WBC 0-5 (0-5) /HPF Ur Squamous Epith Cells 0-2 (0-2) /HPF Urine Bacteria None Seen (None Seen) Hyaline Casts 0-2 (0-2) /LPF Radiology Impression Discussion of test interpretation with radiology: I have reviewed the radiologist's reading. Radiologist Impression: FINDINGS: LUNG BASES: Mild dependent type atelectasis in the lung bases with minor lower lobe fibrosis. Mild bronchiectasis in the lower lobes as well. No effusion. Heart size is normal. LIVER, GALLBLADDER, AND BILIARY TREE: The unenhanced liver is normal in size, shape, and attenuation. No focal hepatic lesion or biliary ductal dilatation is present. The gallbladder is unremarkable with no evidence of radiopaque gallstones, gallbladder wall thickening, or obvious pericholecystic inflammatory changes. PANCREAS: Unremarkable. SPLEEN: Unremarkable. ADRENAL GLANDS: Unremarkable. KIDNEYS AND URETERS: Right Kidney: Moderate right hydronephrosis and proximal hydroureter secondary to 2 obstructing stacked calculi in the proximal ureter, larger measuring 5 x 8 mm (series 7, image 45). There are several nonobstructing tiny right renal calculi, largest measuring 3 mm in the lower pole. There is moderate right perirenal stranding. Left Kidney: . The left kidney is atrophic to moderate degree. There are are staghorn type calculi present extending into the renal pelvis and ureteropelvic junction. There is no hydronephrosis. There is no hydroureter. There are no left renal masses. BLADDER: There are tiny stones within the dependent aspect of the urinary bladder. No wall thickening or mass. GASTROINTESTINAL TRACT: The stomach, duodenum, small bowel and appendix are normal. The colon is normal in course and caliber with moderate retained fecal material present. The redundant sigmoid is noted. No rectal abnormality. ABDOMINAL WALL: No significant hernia is appreciated. LYMPH NODES: No abnormal lymphadenopathy present. VASCULAR: Unremarkable. PELVIC VISCERA: The prostate and seminal vesicles are unremarkable. OSSEOUS STRUCTURES: No suspicious lytic or blastic bone lesions. CT/CT abdomen pelvis wo IV con IMPRESSION: 1. Moderate right hydronephrosis and proximal hydroureter secondary to 2 stacked proximal ureteral obstructing calculi, the larger measuring 5 x 8 mm. 2. There is nonobstructing right nephrolithiasis. 3. There are left kidney is mild to moderately atrophic. There is extensive nephrolithiasis of the left kidney as detailed. 4. Additional ancillary findings as discussed in the body the report. Electronically signed by: Monico Be MD 06/15/2025 01:17 PM EDT External Record Review External record reviewed: Inpatient record, Outpatient record, Prior outpatient labs and Prior outpatient radiology Prescription Management I considered prescription management with: Pain Medication and Antibiotic Chronic Conditions Patient?s care impacted by: Other (Short hemiplegia) Discharge Plan Discharge Clinical Impression: Obstructive uropathy Patient Disposition: Admitted As Inpatient Print Language: Samoan
[2025-06-15 11:52] LABS: MANUAL DIFF FLAG NO
[2025-06-15 11:54] LABS: Appearance Urine Clear; Glucose Urine UA Negative (Negative); PH 8.0 (5.0-9.0); Specific Gravity - Urine 1.015 (1.005-1.025); UMIC TRIGGER UACC YES
[2025-06-15 11:56] LABS: Hematocrit 45.6 % (42.0-52.0); Hemoglobin 15.3 g/dl (14.0-18.0); Imm Gran Abs Auto 0.08 X10*3/uL (0.00-0.03); Imm Gran Pct Auto 0.5 % (0.0-0.4); Lymphocytes Absolute Auto 1.1 X10*3/uL (1.2-4.9); Mean Corpuscular HGB Conc 33.6 g/dl (31.0-36.0); Mean Corpuscular Hemoglobin 30.7 pg (27.0-33.0); Mean Corpuscular Volume 91.6 fL (80.0-98.0); NRBC Abs Auto 0.000 X10*3/uL (0.0-0.012); NRBC Pct Auto 0.0 /100WBC (0.0-0.2); Platelet Count 266 X10*3/uL (160-400); Red Blood Count 4.98 X10*6/uL (4.60-5.80); White Blood Count 17.3 X10*3/uL (4.8-10.8)
[2025-06-15 12:13] LABS: Alanine Aminotransferase 41 U/L (0-40); Albumin Level 4.6 g/dL (3.5-5.0); Alkaline Phosphatase 167 U/L (39-117); Anion Gap 14 (12-20); Aspartate Amino Transferase 38 U/L (5-37); Blood Urea Nitrogen 31 mg/dL (9-16); Calcium 11.9 mg/dL (8.4-10.2); Carbon Dioxide 23 mmol/L (22-29); Chloride 108 mmol/L (96-108); Creatinine Clr Calc Pharmacy 51.0; Estimated Glomerular Filt Rate 38; Magnesium 2.0 mg/dL (1.6-2.6); Potassium 4.4 mmol/L (3.3-5.1); Sodium 141 mmol/L (135-145); Total Protein 8.1 g/dL (6.5-8.0)
[2025-06-15 13:33] VITALS: BP 152/94; PULSE 92; RESP 16; TEMP 36.4; O2SAT 97
--- NOTE | 2025-06-15 14:09 | PM.IMHP ---
History of Present Illness Date of Service: 06/15/25 Chief Complaint: right flank pain 55M PMH hemorrhagic stroke with right hemiparesis 2013, seizure disorder, chronic aphasia, hyperlipidemia, hyperparathyroidism, nephrolithiasis presented with right flank pain and right lower quadrant abdominal pain. Patient states his pain is on and off has known kidney stones, plan was for lithotripsy on 06/17/2025. However patient could not wait due to pain so came to ED. denies any fever or chills. In ED noted to have leukocytosis, UA without bacteria but large RBCs. Lab significant for acute kidney injury with creatinine of 1.88, CT abdomen showed moderate right hydronephrosis and proximal hydroureter secondary to to stacked proximal ureteral obstructing calculi. Review of Systems Review of Systems: Yes all other systems are reviewed and are negative [facility] Medical History Memory deficit Hemorrhagic stroke Seizure disorder HLD (hyperlipidemia) CVA (cerebral vascular accident) Family History Other Diabetes HTN (hypertension) Surgical History History of cystoscopy H/O lithotripsy H/O craniotomy Social History Household Members: Family Housing: House Do you presently have visiting nurse or other home services: No Unable to assess alcohol history related to: Unknown Alcohol intake: never Patient Tobacco Use Status: Former Tobacco user Tobacco use type: Cigarette Years Smoked: 2010 Smoked in Last 30 Days: No Second Hand Smoke Exposure: No Use of substances other than those prescribed or required for medical reasons: No Advance Directives Date on File: 01/17/24 service: No Current occupational status: disabled Meds Allergies Allergy/AdvReac Type Severity Reaction Status Date / Time No Known Allergies (No Known Allergy Verified 06/15/25 11:30 Allergies*) Active Medications: Current Medications Acetaminophen (Acetaminophen 325 Mg Tablet) 650 mg PO Q6H PRN PRN Reason: Pain, Mild 1-3,fever,headache Calcium Carbonate (Calcium Carbonate 750 Mg Tab.Chew) 750 mg PO Q4H PRN PRN Reason: Heartburn Ceftriaxone Sodium (Ceftriaxone Sodium 1 Gm Vial) 1 gm IVPUSH Q24H ISAC Sodium Chloride (Ns) 1,000 mls @ 999 mls/hr IV .Q1H1M [facility] Stop: 06/15/25 14:45 Last Admin: 06/15/25 13:43 Dose: 999 mls/hr Sodium Chloride (Ns) 1,000 mls @ 80 mls/hr IVCONT .[id number] [facility] Last Admin: 06/15/25 14:07 Dose: 80 mls/hr Magnesium Hydroxide (Milk Of Magnesia 30 Ml Oral.Susp) 30 ml PO DAILY PRN PRN Reason: Constipation Melatonin (Melatonin 3 Mg Tablet) 6 mg PO BEDTIME PRN PRN Reason: Insomnia Sodium Chloride (0.9 % Sodium Chloride Flush 3 Ml Syringe) 3 ml IVFLUSH QSHIFT [facility] Home Medications ?Medication ?Instructions ?Recorded ?Confirmed ?Last Taken ?Type clopidogrel 75 mg tablet (Plavix) 75 mg PO DAILY 08/09/22 05/28/25 04/08/25 History acetaminophen 325 mg tablet 650 mg PO Q6H PRN Pain 10/28/22 05/28/25 Unknown History (Tylenol) atorvastatin 40 mg tablet (Lipitor) 40 mg PO DAILY 10/28/22 05/28/25 03/26/25 History levetiracetam 750 mg tablet 2,250 mg PO BID 10/28/22 05/28/25 04/15/25 04:00 History (Keppra) polyethylene glycol 3350 17 17 g PO DAILY PRN Constipation 10/28/22 05/28/25 Unknown History gram/dose oral powder (Miralax) riboflavin (vitamin B2) 100 mg 100 mg PO DAILY 10/28/22 05/28/25 03/26/25 History tablet (Vitamin B-2) fluocinonide 0.05 % topical 1 appl topical DAILY 07/16/24 05/28/25 03/26/25 History solution cholecalciferol (vitamin D3) 25 25 mcg PO DAILY 03/26/25 05/28/25 03/25/25 History mcg (1,000 unit) tablet (Vitamin D3) diphenhydramine 25 2 tab PO BEDTIME PRN Sleep 03/26/25 05/28/25 Unknown History mg-acetaminophen 500 mg tablet (Tylenol PM Extra Strength) lacosamide 100 mg tablet 100 mg PO BID 03/26/25 05/28/2525 04:00 History melatonin 5 mg tablet 5 mg PO BEDTIME PRN Sleep 03/26/25 05/28/25 Unknown History Physical Exam Vital Signs and Narrative: Vital Signs: Last Vital Signs Temp 97.6 F 06/15/25 13:33 Pulse 92 06/15/25 13:33 Resp 16 06/15/25 13:33 BP 152/94 H 06/15/25 13:33 Pulse Ox 97 06/15/25 13:33 O2 Del Method Room Air 06/15/25 13:33 BMI result Body Mass Index 23.1 General: AO X 3, no acute distress Resp: CTA bilateral, no accessory muscles used CVS: S1,S2,RRR GI: soft, non tender, non distended Neuro: Expressive aphasia, right hemiparesis Psych: appropriate affect, appropriate insight Results Labs 06/15/25 11:45 06/15/25 11:45 Labs: Laboratory Results - last 24 hr 06/15/25 11:45 MCV 91.6 MCH 30.7 MCHC 33.6 RDW 14.0 Plt Count 266 MPV 10.3 Immature Gran % (Auto) 0.5 H Neut % (Auto) 85.9 H Lymph % (Auto) 6.6 L [place] % (Auto) 6.7 Eos % (Auto) 0.1 Baso % (Auto) 0.2 Lymph # (Auto) 1.1 L [place] # (Auto) 1.2 Eos # (Auto) 0.0 Baso # (Auto) 0.0 Abs Immat Gran (auto) 0.08 H Absolute Neuts (auto) 14.8 H Absolute Nucleated RBC 0.000 Nucleated RBC % (auto) 0.0 Anion Gap 14 Estim Creat Clear Calc 51.0 Estimated GFR 38 Random Glucose 114 Calcium 11.9 H Magnesium 2.0 Total Bilirubin 0.3 AST 38 H ALT 41 H Alkaline Phosphatase 167 H Total Protein 8.1 H Albumin 4.6 Urine Color Yellow Urine Appearance Clear Urine pH 8.0 Ur Specific [place] 1.015 Urine Protein 30 (1+) H Urine Glucose (UA) Negative Urine Ketones Negative Urine Blood Large (3+) H Urine Nitrite Negative Ur Leukocyte Esterase Trace H Urine RBC >20 H Urine WBC 0-5 Ur Squamous Epith Cells 0-2 Urine Bacteria None Seen Hyaline Casts 0-2 Imaging Radiologist's Impressions: Impressions Abdomen/Pelvis CT 06/15/25 11:44 IMPRESSION: 1. Moderate right hydronephrosis and proximal hydroureter secondary to 2 stacked proximal ureteral obstructing calculi, the larger measuring 5 x 8 mm. 2. There is nonobstructing right nephrolithiasis. 3. There are left kidney is mild to moderately atrophic. There is extensive nephrolithiasis of the left kidney as detailed. 4. Additional ancillary findings as discussed in the body the report. Electronically signed by: Monico Be MD 06/15/2025 01:17 PM EDT RP Assessment and Plan (1) Hydronephrosis: Status: Acute Plan 55M PMH hemorrhagic stroke with right hemiparesis 2013, seizure disorder, chronic aphasia, hyperlipidemia, hyperparathyroidism, nephrolithiasis presented with right flank pain Acute kidney injury due to obstructing right ureteral stone with hydronephrosis Empiric IV antibiotics - no evidence of sepsis IV fluids NPO after midnight for cystoscopy Urology eval Hyperparathyroidism Continue cinacalcet Outpatient follow up Epilepsy Continue Keppra, lacosamide History of CVA with hemorrhage and right hemiparesis Holding antiplatelet for cystoscopy DVT prophylaxis-mechanical due to pending cystoscopy Full code Quality Stroke Does the patient have a stroke diagnosis?: No VTE Prior VTE?: No VTE Risk Level:: Medical - moderate - high VTE Device Contraindication: Treatment Not Indicated VTE Drug Contraindication: N/A - Med Ordered
--- OUTSIDE RECORDS SUMMARY | 2025-06-15 14:25 | XMS_ITS | Clinical Summary ---
Author Organization [facility] Address [address] [place] [id number] Care Team Providers Care Operating Room Registered Nurse Name Role Phone Unavailable Primary Care Provider [...] Procedure Name Priority Date/Time Associated Diagnosis Comments [facility] HEPATITIS ACUTE SCREEN PANEL Routine 01/13/2014 9:55 AM EST [facility] HIV 1/2 AG/AB CMIA REFLEX TO CONFIRMATION. Routine 01/05/2014 4:04 PM EST from Last 3 Months or Most Recently Relevant to Health Maintenance Results * Hepatitis Acute Screen Panel (01/13/2014 9:55 AM EST) Hepatitis A Antibody IgM 0.65 <0.80 S/CO [facility] Hepatitis B Core Antibody IgM Negative Performed at [facility] [place] License [place]. [id number] CLIA No. [id number] NEG [facility] Hepatitis B Surface Ag Screen Negative Performed at [facility] [place] [place] License No. [id number] CLIA No. [id number] NEG [facility] Hepatitis Interpretatio n: Results inconsistent with acute Hepatitis A, B or C Virus infection. Performed at [facility] [place], [place] License No. [id number] CLIA No. [id number] [facility] Hepatitis C Antibody 0.16 0.00 - [...] nucleic acid amplification. Performed at [facility] [place], [place] License No. [id number] CLIA No. [id number] NEG [facility] 01/05/2014 4:04 PM EST us Conversion Provider HX LAB Final Res ult [facility] from Last 3 Months or Most Recently Relevant to Health Maintenance
--- OUTSIDE RECORDS SUMMARY | 2025-06-15 14:25 | XMS_ITS | Clinical Summary ---
Author Organization [facility] Facility Address [address] [address] Care Team Providers Care Opticianry Teacher Name Role Phone Laura Miles Primary Care Provider [phone] Medications atorvastatin (LIPITOR) 40 MG tablet Take [...] tablet, 3 Refills, Maintenance, 08/30/22 13:31:00 EDT, [id number], 185, cm, 08/28/22 14:27:00 [...] Influenza Vaccine (#1) 2025 08/15/2023, 2020 Insurance [facility] Medicare [facility] Medicare Care Teams Opticianry Teacher Relationship Specialty Start Date End Date Laura Miles PCP - General 10/31/22
--- NOTE | 2025-06-15 15:34 | PHA.MEDREC ---
Addendum entered by Saumya Coello RPh 06/15/25 18:39: Vimpat and Keppra taken BID@0500,1700 Addendum entered by Saumya Coello [facility] 06/15/25 15:53: Reviewed by [facility] Original Note: Pharmacy Consult ? Medication Reconciliation Pharmacy has completed the medication reconciliation. Spoke to family at bedside to confirm med list. Family had a pictures of patient Rx bottles. Patient no longer takes Vitamin D3 25 mcg, Melatonin, Miralax 17 g , and vitamin B6 100. Patient had all his morning medications today at 5:00 am.
--- NOTE | 2025-06-15 15:42 | PM.UROCN ---
History of Present Illness Consult details Consult date: 06/15/25 Narrative: CC: Right proximal ureteric stones 55-year-old male Right hemiparesis since hemorrhagic stroke in 2014. Baseline seizure disorder and chronic aphasia. No nephrolithiasis. Presents with right-sided flank pain and right lower quadrant pain. Did have plan for lithotripsy 06/17/25 however pain could not be controlled. Noted to have large blood in UA. Negative bacteria. Creatinine 1.88 suggestive of acute renal injury. Imaging - CT scan Moderate right hydronephrosis and proximal hydroureter secondary to 2 obstructing stacked calculi in the proximal ureter, larger measuring 5 x 8 mm (series 7, image 45). There are several nonobstructing tiny right renal calculi, largest measuring 3 mm in the lower pole. There is moderate right perirenal stranding. Recommend cystoscopy, right retrograde, possible ureteroscopy, stent placement Keep NPO after midnight Review of Systems Constitutional: Constitutional: Reports as per HPI and Reports no additional constitutional complaints Cardiovascular: Cardiovascular: Reports as per HPI and Reports no additional cardiovascular complaints Respiratory: Respiratory: Reports as per HPI and Reports no additional respiratory complaints Gastrointestinal: Gastrointestinal: Reports as per HPI and Reports no additional gastrointestinal complaints Genitourinary: Genitourinary: Reports as per HPI Musculoskeletal: Musculoskeletal: Reports no additional musculoskeletal complaints and Reports as per HPI Neurologic: Reports system reviewed and no additional complaints, except as documented and Reports as per HPI [facility] Past Medical History Medical History Memory deficit Hemorrhagic stroke Seizure disorder HLD (hyperlipidemia) CVA (cerebral vascular accident) Family History Family History Other Diabetes HTN (hypertension) Surgical History Surgical History History of cystoscopy H/O lithotripsy H/O craniotomy Social History Social History Household Members: Family Housing: House Do you presently have visiting nurse or other home services: No Unable to assess alcohol history related to: Unknown Alcohol intake: never Patient Tobacco Use Status: Former Tobacco user Tobacco use type: Cigarette Years Smoked: 2010 Smoked in Last 30 Days: No Second Hand Smoke Exposure: No Use of substances other than those prescribed or required for medical reasons: No Advance Directives: Yes Advance Directives on File: Yes Advance Directives Date on File: 01/17/24 service: No Current occupational status: disabled Meds Allergies Allergy/AdvReac Type Severity Reaction Status Date / Time No Known Allergies (No Known Allergy Verified 06/15/25 11:30 Allergies*) Active Medications: Current Medications Acetaminophen (Acetaminophen 325 Mg Tablet) 650 mg PO Q6H PRN PRN Reason: Pain, Mild 1-3,fever,headache Acetaminophen/Butalbital/Caffeine (Butalb/Acetamin/Caff 50/325/40 Tablet) 1 tab PO Q4H PRN PRN Reason: Headache Atorvastatin Calcium (Atorvastatin Calcium 40 Mg Tablet) 40 mg PO DAILY [facility] Calcium Carbonate (Calcium Carbonate 750 Mg Tab.Chew) 750 mg PO Q4H PRN PRN Reason: Heartburn Ceftriaxone Sodium (Ceftriaxone Sodium 1 Gm Vial) 1 gm IVPUSH Q24H [facility] Cinacalcet (Cinacalcet Hcl 30 Mg Tablet) 30 mg PO DAILY [facility] Sodium Chloride (Ns) 1,000 mls @ 80 mls/hr IVCONT .[id number] [facility] Last Admin: 06/15/25 14:07 Dose: 80 mls/hr Lacosamide (Lacosamide 100 Mg Tablet) 100 mg PO BID [facility] Magnesium Hydroxide (Milk Of Magnesia 30 Ml Oral.Susp) 30 ml PO DAILY PRN PRN Reason: Constipation Melatonin (Melatonin 3 Mg Tablet) 6 mg PO BEDTIME PRN PRN Reason: Insomnia Morphine Sulfate (Morphine Sulfate 2 Mg/Ml Cartridge) 2 mg IVPUSH Q4H PRN; Protocol PRN Reason: Pain, Severe (Pain Scale 7-10) Non-Formulary Medication (Pantoprazole) 40 mg PO BID@0630,1630 [facility] Non-Formulary Medication (Levetiracetam [Keppra]) 2,250 mg PO BID [facility] Non-Formulary Medication (Riboflavin (Vitamin B2) [Vitamin B-2]) 100 mg PO DAILY [facility] Sodium Chloride (0.9 % Sodium Chloride Flush 3 Ml Syringe) 3 ml IVFLUSH QSHIFT [facility] Last Admin: 06/15/25 15:20 Dose: Not Given Home Medications ?Medication ?Instructions ?Recorded ?Confirmed ?Last Taken ?Type clopidogrel 75 mg tablet (Plavix) 75 mg PO DAILY 08/09/22 06/15/25 06/15/25 History atorvastatin 40 mg tablet (Lipitor) 40 mg PO DAILY 10/28/22 06/15/25 06/15/25 History levetiracetam 750 mg tablet 2,250 mg PO BID 10/28/22 06/15/25 06/15/25 History (Keppra) riboflavin (vitamin B2) 100 mg 100 mg PO DAILY 10/28/22 06/15/25 06/15/25 History tablet (Vitamin B-2) lacosamide 100 mg tablet 100 mg PO BID 03/26/25 06/15/25 06/15/25 History fluticasone propionate 50 1 - 2 spray intranasal DAILY PRN 06/15/25 06/15/25 Unknown History mcg/actuation nasal allergies spray,suspension pantoprazole 40 mg tablet,delayed 40 mg PO BID@0630,1630 06/15/25 06/15/25 06/15/25 History release Physical Exam Vital Signs: Vital Signs: Last Vital Signs Temp 97.6 F 06/15/25 13:33 Pulse 92 06/15/25 13:33 Resp 16 06/15/25 13:33 BP 152/94 H 06/15/25 13:33 Pulse Ox 97 06/15/25 13:33 O2 Del Method Room Air 06/15/25 13:33 BMI result Body Mass Index 23.1 Const: General: cooperative, healthy appearing, comfortable and no acute distress Orientation/consciousness: patient oriented x3 HEENT: Face and sinus: Yes normal facial exam Mouth: moist mucous membranes Neck: Neck: Yes normal visual inspection, Yes full ROM and Yes trachea midline Chest: Chest palpation & inspection: normal inspection of the chest Resp: Effort & Inspection: normal respiratory effort, able to speak in complete sentences and no respiratory distress GI: Inspection: Yes normal to inspection Back/Spine/Pelvis: Cervical Spine: normal cervical lordosis Thoracic/Lumbar Spine: thoracic and lumbar spine normal to inspection Skin: General skin exam: no rashes or lesions noted Neuro: General: patient oriented x3, tone normal and moves all extremities Extrem: General: Yes normal to inspection and Yes capillary refill normal Results Labs 06/15/25 11:45 06/15/25 11:45 Labs: Abnormal lab results 06/15/25 06/15/25 Range/Units 11:45 14:16 WBC 17.3 H (4.8-10.8) X10*3/uL Immature Gran % (Auto) 0.5 H (0.0-0.4) % Neut % (Auto) 85.9 H (45-73) % Lymph % (Auto) 6.6 L (20-40) % Lymph # (Auto) 1.1 L (1.2-4.9) X10*3/uL Abs Immat Gran (auto) 0.08 H (0.00-0.03) X10*3/uL Absolute Neuts (auto) 14.8 H (2.0-8.3) x10*3/uL BUN 31 H (9-16) mg/dL Creatinine 1.88 H (0.5-1.4) mg/dL Calcium 11.9 H (8.4-10.2) mg/dL AST 38 H (5-37) U/L ALT 41 H (0-40) U/L Alkaline Phosphatase 167 H (39-117) U/L Total Creatine Kinase 26 L (38-174) U/L Total Protein 8.1 H (6.5-8.0) g/dL Urine Protein 30 (1+) H (Neg-Trace) mg/dL Urine Blood Large (3+) H (Negative) Ur Leukocyte Esterase Trace H (Negative) Urine RBC >20 H (0-2) /HPF Short CBC 06/15/25 Range/Units 11:45 WBC 17.3 H (4.8-10.8) X10*3/uL Hgb 15.3 (14.0-18.0) g/dl Hct 45.6 (42.0-52.0) % Plt Count 266 (160-400) X10*3/uL BMP 06/15/25 11:45 Sodium 141 Potassium 4.4 Chloride 108 Carbon Dioxide 23 BUN 31 H Creatinine 1.88 H Calcium 11.9 H Cardiac Enzymes 06/15/25 Range/Units 14:16 Total Creatine Kinase 26 L (38-174) U/L Liver Function 06/15/25 Range/Units 11:45 Total Bilirubin 0.3 (0.0-1.0) mg/dL AST 38 H (5-37) U/L ALT 41 H (0-40) U/L Alkaline Phosphatase 167 H (39-117) U/L Albumin 4.6 (3.5-5.0) g/dL Urine 06/15/25 Range/Units 11:45 Urine Color Yellow Urine Appearance Clear Urine pH 8.0 (5.0-9.0) Ur Specific [place] 1.015 (1.005-1.025) Urine Protein 30 (1+) H (Neg-Trace) mg/dL Urine Glucose (UA) Negative (Negative) mg/dL All other labs normal. Assessment and Plan (1) Obstructive uropathy: Status: Acute (2) Right ureteral stone: Status: Acute Plan Risks, benefits and alternatives to therapy were discussed. These include but are not limited to infection, bleeding, damage to local organs and tissues, need for further interventions. Anesthetic risks regarding cardiac arrhythmia, blood clots, and potential mortality were discussed. The patient understands the typical recovery time and the outpatient nature of the procedure. After consideration of these risks the patient gives full informed consent and they wish to move ahead with the procedure. - cystoscopy, right retrograde, right stent placement possible ureteroscopy Procedures Date of Service Date of Service: 06/15/25
[2025-06-15 16:18] VITALS: BP 177/92; PULSE 74; RESP 19; TEMP 36.6; O2SAT 96
[2025-06-15] MEDS: LEVETIRACETAM 2250 MG PO (18:41)
[2025-06-15 19:23] VITALS: BP 117/64; PULSE 78; RESP 18; TEMP 36.3; O2SAT 93
--- NOTE | 2025-06-15 23:02 | MHC.PIE ---
p; pt c/o pain 08/21 to rlq abd/rt flank. note; prn morphine 2mg iv q4 given at 2026. i; dr larry notified - ok to give early dose e; will cont to monitor
[2025-06-16] VITALS (11 sets, daily range): BP systolic 129–159; BP diastolic 72–89; PULSE 72–96; RESP 14–18; TEMP 36.4–37.2; O2SAT 92–96
[2025-06-16] MEDS: LEVETIRACETAM 2250 MG PO ×2 (05:38→18:09)
[2025-06-16] MEDS: Butalb/Acetamin/Caff 50/325/40 TABLET 1 TAB PO (08:21)
[2025-06-16] MEDS: 0.9 % Sodium Chloride Flush 3 ML SYRINGE IVFLUSH ×2 (08:24→18:01)
--- NOTE | 2025-06-16 09:28 | HO.PM.IMPN ---
Subjective Subjective Date of Service: 06/16/25 Interval History: pain improved Physical Exam Vital Signs: Vital Signs: Last Vital Signs Temp 99.0 F 06/16/25 07:41 Pulse 72 06/16/25 07:41 Resp 16 06/16/25 07:41 BP 147/89 H 06/16/25 07:41 Pulse Ox 93 06/16/25 07:41 O2 Del Method Room Air 06/16/25 07:41 BMI result Body Mass Index 23.1 Const: General: cooperative, healthy appearing, comfortable and no acute distress Orientation/consciousness: patient oriented x3 HEENT: Face and sinus: Yes normal facial exam Mouth: moist mucous membranes Neck: Neck: Yes normal visual inspection, Yes full ROM and Yes trachea midline Chest: Chest palpation & inspection: normal inspection of the chest Resp: Effort & Inspection: normal respiratory effort, able to speak in complete sentences and no respiratory distress GI: Inspection: Yes normal to inspection Back/Spine/Pelvis: Cervical Spine: normal cervical lordosis Thoracic/Lumbar Spine: thoracic and lumbar spine normal to inspection Skin: General skin exam: no rashes or lesions noted Neuro: General: patient oriented x3, tone normal and moves all extremities Extrem: General: Yes normal to inspection and Yes capillary refill normal Objective Data Active Medications Acetaminophen (Acetaminophen 325 Mg Tablet) 650 mg PO Q6H PRN PRN Reason: Pain, Mild 1-3,fever,headache Last Admin: 06/16/25 03:38 Dose: 650 mg Documented By: INDERJIT Acetaminophen/Butalbital/Caffeine (Butalb/Acetamin/Caff 50/325/40 Tablet) 1 tab PO Q4H PRN PRN Reason: Headache Last Admin: 06/16/25 08:21 Dose: 1 tab Documented By: GLORIA Atorvastatin Calcium (Atorvastatin Calcium 40 Mg Tablet) 40 mg PO DAILY [facility] Last Admin: 06/16/25 08:21 Dose: 40 mg Documented By: GLORIA Calcium Carbonate (Calcium Carbonate 750 Mg Tab.Chew) 750 mg PO Q4H PRN PRN Reason: Heartburn Ceftriaxone Sodium (Ceftriaxone Sodium 1 Gm Vial) 1 gm IVPUSH Q24H [facility] Last Admin: 06/16/25 08:23 Dose: 1 gm Documented By: GLORIA Cinacalcet (Cinacalcet Hcl 30 Mg Tablet) 30 mg PO DAILY [facility] Last Admin: 06/16/25 08:21 Dose: 30 mg Documented By: GLORIA Sodium Chloride (Ns) 1,000 mls @ 80 mls/hr IVCONT .[id number] [facility] Last Admin: 06/16/25 01:18 Dose: 80 mls/hr Documented By: INDERJIT Lacosamide (Lacosamide 100 Mg Tablet) 200 mg PO BID@0500,1700 [facility] Last Admin: 06/16/25 05:38 Dose: 200 mg Documented By: INDERJIT Levetiracetam 2,000 mg/ (Levetiracetam 250 mg) 2,250 mg PO BID@0500,1700 [facility] Last Admin: 06/16/25 05:38 Dose: 2,250 mg Documented By: INDERJIT Magnesium Hydroxide (Milk Of Magnesia 30 Ml Oral.Susp) 30 ml PO DAILY PRN PRN Reason: Constipation Melatonin (Melatonin 3 Mg Tablet) 6 mg PO BEDTIME PRN PRN Reason: Insomnia Morphine Sulfate (Morphine Sulfate 2 Mg/Ml Cartridge) 2 mg IVPUSH Q4H PRN; Protocol PRN Reason: Pain, Severe (Pain Scale 7-10) Last Admin: 06/16/25 05:40 Dose: 2 mg Documented By: INDERJIT Omeprazole (Omeprazole 20 Mg Capsule.Dr) 20 mg PO BID@0630,1630 [facility] Last Admin: 06/16/25 05:38 Dose: 20 mg Documented By: INDERJIT Sodium Chloride (0.9 % Sodium Chloride Flush 3 Ml Syringe) 3 ml IVFLUSH QSHIFT [facility] Last Admin: 06/16/25 08:24 Dose: 3 ml Documented By: GLORIA Labs 06/15/25 11:45 06/15/25 11:45 Labs: Laboratory Results - last 24 hr 06/15/25 06/15/25 11:45 14:16 MCV 91.6 MCH 30.7 MCHC 33.6 RDW 14.0 Plt Count 266 MPV 10.3 Immature Gran % (Auto) 0.5 H Neut % (Auto) 85.9 H Lymph % (Auto) 6.6 L [place] % (Auto) 6.7 Eos % (Auto) 0.1 Baso % (Auto) 0.2 Lymph # (Auto) 1.1 L [place] # (Auto) 1.2 Eos # (Auto) 0.0 Baso # (Auto) 0.0 Abs Immat Gran (auto) 0.08 H Absolute Neuts (auto) 14.8 H Absolute Nucleated RBC 0.000 Nucleated RBC % (auto) 0.0 Anion Gap 14 Estim Creat Clear Calc 51.0 Estimated GFR 38 Random Glucose 114 Calcium 11.9 H Magnesium 2.0 Total Bilirubin 0.3 AST 38 H ALT 41 H Alkaline Phosphatase 167 H Total Creatine Kinase 26 L Total Protein 8.1 H Albumin 4.6 Urine Color Yellow Urine Appearance Clear Urine pH 8.0 Ur Specific [place] 1.015 Urine Protein 30 (1+) H Urine Glucose (UA) Negative Urine Ketones Negative Urine Blood Large (3+) H Urine Nitrite Negative Ur Leukocyte Esterase Trace H Urine RBC >20 H Urine WBC 0-5 Ur Squamous Epith Cells 0-2 Urine Bacteria None Seen Hyaline Casts 0-2 Assessment and Plan (1) Hyperparathyroidism: Status: Acute Plan 55M PMH hemorrhagic stroke with right hemiparesis 2013, seizure disorder, chronic aphasia, hyperlipidemia, hyperparathyroidism, nephrolithiasis presented with right flank pain Acute kidney injury due to obstructing right ureteral stone with hydronephrosis Empiric IV antibiotics - no evidence of sepsis IV fluids cystoscopy Urology following Hyperparathyroidism Continue cinacalcet Outpatient follow up Epilepsy Continue Keppra, lacosamide History of CVA with hemorrhage and right hemiparesis Holding antiplatelet for cystoscopy DVT prophylaxis-mechanical due to pending cystoscopy Full code reason for continued hospitalization:cultures Quality Stroke Does the patient have a stroke diagnosis?: No VTE Prior VTE?: No VTE Risk Level:: Medical - moderate - high VTE Device Contraindication: Treatment Not Indicated VTE Drug Contraindication: N/A - Med Ordered
[2025-06-16 09:43] LABS: Hematocrit 42.5 % (42.0-52.0); Hemoglobin 13.8 g/dl (14.0-18.0); Mean Corpuscular HGB Conc 32.5 g/dl (31.0-36.0); Mean Corpuscular Hemoglobin 30.3 pg (27.0-33.0); Mean Corpuscular Volume 93.2 fL (80.0-98.0); NRBC Abs Auto 0.000 X10*3/uL (0.0-0.012); NRBC Pct Auto 0.0 /100WBC (0.0-0.2); Platelet Count 219 X10*3/uL (160-400); Red Blood Count 4.56 X10*6/uL (4.60-5.80); White Blood Count 12.2 X10*3/uL (4.8-10.8)
[2025-06-16 10:03] LABS: Anion Gap 12 (12-20); Blood Urea Nitrogen 26 mg/dL (9-16); Calcium 11.0 mg/dL (8.4-10.2); Carbon Dioxide 21 mmol/L (22-29); Chloride 110 mmol/L (96-108); Creatinine Clr Calc Pharmacy 34.8; Estimated Glomerular Filt Rate 24; Potassium 4.4 mmol/L (3.3-5.1); Sodium 139 mmol/L (135-145)
--- NOTE | 2025-06-16 10:58 | MHC.CM.PN ---
IMM DELIVERED PT LIVES WITH BROTHER, WHO ASSISTS NEEDED AND HAS [employer] 9 HOURS/WK. PT HAS A W/C TO ASSIST WITH HIS MOBILITY PRN. PT WITH CHRONIC APHASIA S/P HX CVA. + HCP ON FILE AND VERIFIED. PCP DR. NUÑEZ AT [facility] DP: HOME WITH [employer]. BROTHER WILL TRANSPORT. CM WILL CONTINUE TO FOLLOW FOR ANY CHANGE TO DC PLAN/NEEDS.
--- NOTE | 2025-06-16 16:14 | P.CONAN_ITS ---
[facility] Active Problems Active Problems: All Active Problems (Updated 06/15/25 @ 14:00 by Rainer Goodwin) Swelling of right lower extremity (Acute) Screening PSA (prostate specific antigen) (Acute) Hydronephrosis (Acute) Right ureteral stone (Acute) Hypocitraturia (Acute) Hyperparathyroidism (Acute) Ureteral stone (Acute) Kidney stone on left side (Acute) Bilateral kidney stones (Acute) Obstructive uropathy (Acute) Ureterolithiasis (Acute) Past Medical History Medical History Memory deficit Hemorrhagic stroke Seizure disorder HLD (hyperlipidemia) CVA (cerebral vascular accident) Functional capacity: wheelchair bound Family History Family History Other Diabetes HTN (hypertension) Family history of problems with anesthesia: No Surgical History Surgical History History of cystoscopy H/O lithotripsy H/O craniotomy History of Problems with Anesthesia: No Social History Social History Household Members: Family Housing: Condominium Are you a primary vehicle care specialist to a significant other at home: No Do you presently have visiting nurse or other home services: No Unable to assess alcohol history related to: Unknown Alcohol intake: never Comment: Right sided weakness Patient Tobacco Use Status: Former Tobacco user Tobacco use type: Cigarette Years Smoked: 2009 Second Hand Smoke Exposure: No Advance Directives Date on File: 01/17/24 service: No Current occupational status: disabled Meds Allergies Allergy/AdvReac Type Severity Reaction Status Date / Time No Known Allergies (No Known Allergy Verified 06/15/25 11:30 Allergies*) Active Medications: Current Medications Acetaminophen (Acetaminophen 325 Mg Tablet) 650 mg PO Q6H PRN PRN Reason: Pain, Mild 1-3,fever,headache Last Admin: 06/16/25 03:38 Dose: 650 mg Acetaminophen/Butalbital/Caffeine (Butalb/Acetamin/Caff 50/325/40 Tablet) 1 tab PO Q4H PRN PRN Reason: Headache Last Admin: 06/16/25 08:21 Dose: 1 tab Atorvastatin Calcium (Atorvastatin Calcium 40 Mg Tablet) 40 mg PO DAILY [facility] Last Admin: 06/16/25 08:21 Dose: 40 mg Calcium Carbonate (Calcium Carbonate 750 Mg Tab.Chew) 750 mg PO Q4H PRN PRN Reason: Heartburn Ceftriaxone Sodium (Ceftriaxone Sodium 1 Gm Vial) 1 gm IVPUSH Q24H [facility] Last Admin: 06/16/25 08:23 Dose: 1 gm Cinacalcet (Cinacalcet Hcl 30 Mg Tablet) 30 mg PO DAILY [facility] Last Admin: 06/16/25 08:21 Dose: 30 mg Sodium Chloride (Ns) 1,000 mls @ 80 mls/hr IVCONT .[id number] [facility] Last Admin: 06/16/25 16:10 Dose: Not Given Lacosamide (Lacosamide 100 Mg Tablet) 200 mg PO BID@0500,1700 [facility] Last Admin: 06/16/25 05:38 Dose: 200 mg Levetiracetam 2,000 mg/ (Levetiracetam 250 mg) 2,250 mg PO BID@0500,1700 [facility] Last Admin: 06/16/25 05:38 Dose: 2,250 mg Magnesium Hydroxide (Milk Of Magnesia 30 Ml Oral.Susp) 30 ml PO DAILY PRN PRN Reason: Constipation Melatonin (Melatonin 3 Mg Tablet) 6 mg PO BEDTIME PRN PRN Reason: Insomnia Morphine Sulfate (Morphine Sulfate 2 Mg/Ml Cartridge) 2 mg IVPUSH Q4H PRN; Protocol PRN Reason: Pain, Severe (Pain Scale 7-10) Last Admin: 06/16/25 11:42 Dose: 2 mg Omeprazole (Omeprazole 20 Mg Capsule.) 20 mg PO BID@0630,1630 [facility] Last Admin: 06/16/25 05:38 Dose: 20 mg Sodium Chloride (0.9 % Sodium Chloride Flush 3 Ml Syringe) 3 ml IVFLUSH QSHIFT [facility] Last Admin: 06/16/25 16:11 Dose: Not Given Home Medications ?Medication ?Instructions ?Recorded ?Confirmed ?Last Taken ?Type clopidogrel 75 mg tablet (Plavix) 75 mg PO DAILY 08/0906/15/25 06/15/25 History atorvastatin 40 mg tablet (Lipitor) 40 mg PO DAILY 06/15/25 06/15/25 History levetiracetam 750 mg tablet 2,250 mg PO BID 10/28/22 0 06/15/25 06/15/25 History (Keppra) riboflavin (vitamin B2) 100 mg 100 mg PO DAILY 2 06/15/25 06/15/25 History tablet (Vitamin B-2) lacosamide 100 mg tablet 200 mg PO BID 03/26/2506/1506/15/25 History fluticasone propionate 50 1 - 2 spray intranasal DAILY PRN 06/15/25 06/15/25 Unknown History mcg/actuation nasal allergies spray,suspension pantoprazole 40 mg tablet,delayed 40 mg PO BID@0630,16 30 06/15/25 06/15/25 06/15/25 History release Exam Exam Date and Time: 06/16/2025 Height,Weight and Vital Signs: Height 6 ft 1 in Weight 79.379 kg Last Vital Signs Temp 98.6 F 06/16/25 14:46 Pulse 76 06/16/25 14:46 Resp 14 06/16/25 14:46 BP 140/72 H 06/16/25 14:46 Pulse Ox 96 06/16/25 14:46 O2 Del Method Room Air 06/16/25 14:46 Pertinent Lab Results Pertinent Lab Results: Laboratory Tests 06/15/25 06/15/25 06/16/25 11:45 14:16 09:17 WBC 17.3 H 12.2 H RBC 4.98 4.56 L Hgb 15.3 13.8 L Hct 45.6 42.5 MCV 91.6 93.2 MCH 30.7 30.3 MCHC 33.6 32.5 RDW 14.0 14.4 Plt Count 266 219 MPV 10.3 10.7 Immature Gran % (Auto) 0.5 H Neut % (Auto) 85.9 H Lymph % (Auto) 6.6 L [place] % (Auto) 6.7 Eos % (Auto) 0.1 Baso % (Auto) 0.2 Lymph # (Auto) 1.1 L [place] # (Auto) 1.2 Eos # (Auto) 0.0 Baso # (Auto) 0.0 Abs Immat Gran (auto) 0.08 H Absolute Neuts (auto) 14.8 H Absolute Nucleated RBC 0.000 0.000 Nucleated RBC % (auto) 0.0 0.0 Sodium 141 139 Potassium 4.4 4.4 Chloride 108 110 H Carbon Dioxide 23 21 L Anion Gap 14 12 BUN 31 H 26 H Creatinine 1.88 H 2.75 H Estim Creat Clear Calc 51.0 34.8 Estimated GFR 38 24 Random Glucose 114 106 Calcium 11.9 H 11.0 H D Magnesium 2.0 Total Bilirubin 0.3 AST 38 H ALT 41 H Alkaline Phosphatase 167 H Total Creatine Kinase 26 L Total Protein 8.1 H Albumin 4.6 Urine Color Yellow Urine Appearance Clear Urine pH 8.0 Ur Specific [place] 1.015 Urine Protein 30 (1+) H Urine Glucose (UA) Negative Urine Ketones Negative Urine Blood Large (3+) H Urine Nitrite Negative Ur Leukocyte Esterase Trace H Urine RBC >20 H Urine WBC 0-5 Ur Squamous Epith Cells 0-2 Urine Bacteria None Seen Hyaline Casts 0-2 Airway TM Dist: >3cm Neck ROM: Full Loose/Missing/Broken Teeth: No Heart: rrr Lungs: cta Other: normal Assessment and Plan Assessment Anesthesia Assessment: Anesthesia Plan Discussed Final Anesthetic Review Family History of Problems with Anesthesia: No History of Problems with Anesthesia: No NPO: Yes ASA Class: III Final Preanesthetic Review: No Changes in Pt Med Stat, Meds/Allgs Chart Reviewed, Consent Obtained/Reviewed and Anes Risks/Benef Reviewed Patient Risk: Low Procedure Risk: Low Anesthetic Plan Anesthetic Plan: MAC: Disposition: Standard PACU
--- NOTE | 2025-06-16 16:17 | MHC.SHP ---
Pre-Procedural Eval Section A - 24 Hr Update-Section A only Date of Service: 06/16/25 The patient is an INPATIENT: Yes The patient has been examined within 24 hours of the surgical procedure. The History & Physical has been completed within 30 days and I have reviewed it.: Yes Section B - Complete if H&P > 30 days Chief Complaint: obstructive uropathy, bilateral nephrolithiasis Allergies: Allergies Allergy/AdvReac Type Severity Reaction Status Date / Time No Known Allergies (No Known Allergy Verified 06/15/25 11:30 Allergies*) Plan Diagnosis/Plan: Unchanged I have reviewed the history and physical and performed a pertinent physical examination on my patient. No changes have occurred unless specified. Cystoscopy right ureteral stent insertion, possible right ureteroscopy, left ureteral stent insertion. Time Spent With Patient Time: Total time managing care of this patient today ____ minutes.
--- NOTE | 2025-06-16 16:17 | W.PM.OPN ---
Operative Note Operative Note Date of Service: 06/16/25 Narrative: PreOperative Diagnosis:?? Right hydronephrosis, bilateral nephrolithiasis, left kidney cortical thinning and scarring, HONG Post Operative Diagnosis:?? Right hydronephrosis, bilateral nephrolithiasis, left kidney cortical thinning and scarring, HONG Procedure: Cystoscopy, bilateral retrograde right ureteral stent insertion, size 7 [place] by 28 cm, left ureteral stent 7 [place] by 26 cm Surgeon:?Dr Candy Ferrera Anesthesia:? General Procedure: After informed consent was verified the patient was brought to the operating placed on the OR table in supine position.? General Anesthesia was administered per protocol.? The patient was placed in lithotomy position, prepped and draped in the usual sterile fashion.? Safety pause time-out and side of surgery confirmed.? Antibiotics confirmed. A 22 [place] cystoscope was inserted transurethrally, the bulbous urethra was within normal limits. The prostatic urethra was nonobstructive. The bladder was visualized.? Both ureteric orifices were in normal position. The? right ureteric orifice was cannulated? a retrograde examination was performed. A guidewire was placed up to the level of the renal pelvis under fluoroscopy. A 7 fr by 28 cm ureteral stent was passed over the guide wire under fluoroscopic guidance. The guide wire was removed. This was repeated on the left side with insertion of a left ureteral stent size 7 [place] by 26 cm. The bladder was emptied.? The rigid cystoscope was removed. ? The patient tolerated the procedure well and was brought to the recovery room in stable condition. Complications: None EBL: minimal (<5 mL) Drains: Ureteral stents as dictated above
[2025-06-17] MEDS: Butalb/Acetamin/Caff 50/325/40 TABLET 1 TAB PO ×3 (03:59→20:40)
[2025-06-17 04:00] VITALS: BP 138/72; PULSE 77; RESP 18; TEMP 36.2; O2SAT 94
[2025-06-17] MEDS: LEVETIRACETAM 2250 MG PO ×2 (05:18→17:22)
[2025-06-17 07:01] LABS: Anion Gap 15 (12-20); Blood Urea Nitrogen 22 mg/dL (9-16); Calcium 11.1 mg/dL (8.4-10.2); Carbon Dioxide 24 mmol/L (22-29); Chloride 108 mmol/L (96-108); Creatinine Clr Calc Pharmacy 54.1; Estimated Glomerular Filt Rate 40; Potassium 4.8 mmol/L (3.3-5.1); Sodium 142 mmol/L (135-145)
[2025-06-17 07:06] LABS: Hematocrit 42.2 % (42.0-52.0); Hemoglobin 13.4 g/dl (14.0-18.0); Mean Corpuscular HGB Conc 31.8 g/dl (31.0-36.0); Mean Corpuscular Hemoglobin 29.8 pg (27.0-33.0); Mean Corpuscular Volume 93.8 fL (80.0-98.0); NRBC Abs Auto 0.000 X10*3/uL (0.0-0.012); NRBC Pct Auto 0.0 /100WBC (0.0-0.2); Platelet Count 245 X10*3/uL (160-400); Red Blood Count 4.50 X10*6/uL (4.60-5.80); White Blood Count 10.2 X10*3/uL (4.8-10.8)
[2025-06-17 07:35] VITALS: BP 146/89; PULSE 72; RESP 18; TEMP 36.3; O2SAT 95
[2025-06-17] MEDS: 0.9 % Sodium Chloride Flush 3 ML SYRINGE IVFLUSH ×2 (08:00→20:36)
--- NOTE | 2025-06-17 08:43 | HO.POSTANES ---
Post Anesthesia Evaluation Post Anesthesia Evaluation Date of Service: 06/17/25 Vital Signs: Vital Signs Temp Pulse Resp BP Pulse Ox O2 Del Method 06/17/25 07:35 97.4 F 72 18 146/89 H 95 Room Air 06/17/25 04:00 97.2 F 77 18 138/72 94 Room Air 06/16/25 22:26 98.1 F 83 18 134/75 93 Room Air Anesthesia: General Mental Status: Awake Pain Control: Satisfactory Nausea/Vomiting: None Hydration: Adequate Anesthesia-Related Issues: No Anes. Related Issues
--- NOTE | 2025-06-17 13:15 | HO.PM.IMPN ---
Subjective Subjective Date of Service: 06/17/25 Interval History: obstructing right ureteral stone with hydronephrosis Review of Systems denies much pain no new c/o Physical Exam Exam: Exam: Appearance: Alert.? Oriented . cvs: rrr, [id number]. res: clear to auscultation . abd: no rebound or guarding ,nt, bs present. ext pulses present , no cyanosis . neuro: nonfocal. Vital Signs: Vital Signs: Last Vital Signs Temp 97.4 F 06/17/25 07:35 Pulse 72 06/17/25 07:35 Resp 18 06/17/25 07:35 BP 146/89 H 06/17/25 07:35 Pulse Ox 95 06/17/25 07:35 O2 Del Method Room Air 06/17/25 07:35 O2 Flow Rate 2 06/16/25 18:01 BMI result Body Mass Index 23.1 Objective Data Active Medications Acetaminophen (Acetaminophen 325 Mg Tablet) 650 mg PO Q6H PRN PRN Reason: Pain, Mild 1-3,fever,headache Last Admin: 06/16/25 03:38 Dose: 650 mg Documented By: INDERJIT Acetaminophen/Butalbital/Caffeine (Butalb/Acetamin/Caff 50/325/40 Tablet) 1 tab PO Q4H PRN PRN Reason: Headache Last Admin: 06/17/25 11:23 Dose: 1 tab Documented By: GLORIA Atorvastatin Calcium (Atorvastatin Calcium 40 Mg Tablet) 40 mg PO DAILY [facility]CLUDES [facility] Last Admin: 06/17/25 07:58 Dose: 40 mg Documented By: GLORIA Calcium Carbonate (Calcium Carbonate 750 Mg Tab.Chew) 750 mg PO Q4H PRN PRN Reason: Heartburn Ceftriaxone Sodium (Ceftriaxone Sodium 1 Gm Vial) 1 gm IVPUSH Q24H COUNT INCLUDES THE [facility] Last Admin: 06/17/25 08:01 Dose: 1 gm Documented By: GLORIA Cinacalcet (Cinacalcet Hcl 30 Mg Tablet) 30 mg PO DAILY COUNT [facility]CLUDES THE [facility] Last Admin: 06/17/25 07:58 Dose: 30 mg Documented By: GLORIA Sodium Chloride (Ns) 1,000 mls @ 80 mls/hr IVCONT .[id number] COUNT INCLUDES THE [facility] Last Admin: 06/17/25 05:17 Dose: 80 mls/hr Documented By: TERE Lactated Ringer's (Lr) 500 mls @ 20 mls/hr IVCONT .Q24H COUNT [facility]CLUDES THE [facility] Last Admin: 06/16/25 18:10 Dose: Not Given Documented By: GLORIA Non-Admin Reason: PACU order Lacosamide (Lacosamide 100 Mg Tablet) 200 mg PO BID@0500,1700 COUNT INCLUDES THE [facility] Last Admin: 06/17/25 05:18 Dose: 200 mg Documented By: TERE Levetiracetam 2,000 mg/ (Levetiracetam 250 mg) 2,250 mg PO BID@0500,1700 COUNT [facility]CLUDES THE [facility] Last Admin: 06/17/25 05:18 Dose: 2,250 mg Documented By: TERE Magnesium Hydroxide (Milk Of Magnesia 30 Ml Oral.Susp) 30 ml PO DAILY PRN PRN Reason: Constipation Melatonin (Melatonin 3 Mg Tablet) 6 mg PO BEDTIME PRN PRN Reason: Insomnia Morphine Sulfate (Morphine Sulfate 2 Mg/Ml Cartridge) 2 mg IVPUSH Q4H PRN; Protocol PRN Reason: Pain, Severe (Pain Scale 7-10) Last Admin: 06/16/25 11:42 Dose: 2 mg Documented By: GLORIA Naloxone HCl (Naloxone Hcl 0.4 Mg/Ml Vial) 0.04 mg IVPUSH Q5M PRN PRN Reason: Excessive sedation or RR < 8 Omeprazole (Omeprazole 20 Mg Capsule.Dr) 20 mg PO BID@0630,1630 COUNT INCLUDES THE [facility] Last Admin: 06/17/25 05:20 Dose: 20 mg Documented By: TERE Sodium Chloride (0.9 % Sodium Chloride Flush 3 Ml Syringe) 3 ml IVFLUSH QSHIFT COUNT INCLUDES THE [facility] Last Admin: 06/17/25 08:00 Dose: 3 ml Documented By: GLORIA Labs 06/17/25 05:40 06/17/25 05:39 Labs: Laboratory Results - last 24 hr 06/17/25 06/17/25 05:39 05:40 MCV 93.8 MCH 29.8 MCHC 31.8 RDW 14.3 Plt Count 245 MPV 11.1 Absolute Nucleated RBC 0.000 Nucleated RBC % (auto) 0.0 Anion Gap 15 Estim Creat Clear Calc 54.1 Estimated GFR 40 Random Glucose 96 Calcium 11.1 H Assessment and Plan (1) Hyperparathyroidism: Status: Acute Plan 55M PMH hemorrhagic stroke with right hemiparesis 2013, seizure disorder, chronic aphasia, hyperlipidemia, hyperparathyroidism, nephrolithiasis presented with right flank pain Acute kidney injury due to obstructing right ureteral stone with hydronephrosis oscar improving Empiric IV antibiotics - no evidence of sepsis IV fluids cystoscopy Urology following Hyperparathyroidism Continue cinacalcet Outpatient follow up Epilepsy Continue Keppra, lacosamide History of CVA with hemorrhage and right hemiparesis Holding antiplatelet for cystoscopy DVT prophylaxis-mechanical due to pending cystoscopy Full code reason for continued hospitalization:cultures Quality Stroke Does the patient have a stroke diagnosis?: No VTE Prior VTE?: No VTE Risk Level:: Medical - moderate - high VTE Device Contraindication: Treatment Not Indicated VTE Drug Contraindication: N/A - Med Ordered
[2025-06-17] MEDS: Lactated Ringers 500 ML 80 ML IVCONT (14:34)
[2025-06-17 15:22] VITALS: BP 157/85; PULSE 78; RESP 18; TEMP 36.6; O2SAT 96
--- NOTE | 2025-06-17 15:56 | MHC.CM.PN ---
[facility] REVIEWED AND PER MD ROUNDS, PT IS NOT MEDICALLY CLEARED FOR DC.(HONG IMPROVING) [facility]MA UPDATED PER PT'S REQUEST. CM WILL CONTINUE TO FOLLOW.
[2025-06-17 19:55] VITALS: BP 162/90; PULSE 78; RESP 20; TEMP 36.6; O2SAT 95
[2025-06-18] MEDS: Butalb/Acetamin/Caff 50/325/40 TABLET 1 TAB PO ×2 (01:26→10:15)
[2025-06-18 03:24] VITALS: BP 141/90; PULSE 73; RESP 20; TEMP 36.7; O2SAT 92
[2025-06-18] MEDS: LEVETIRACETAM 2250 MG PO (05:04)
[2025-06-18 07:06] VITALS: BP 135/83; PULSE 94; RESP 16; TEMP 36.9; O2SAT 94
[2025-06-18] MEDS: 0.9 % Sodium Chloride Flush 3 ML SYRINGE IVFLUSH (08:11)
[2025-06-18 08:32] LABS: Anion Gap 11 (12-20); Blood Urea Nitrogen 19 mg/dL (9-16); Calcium 11.3 mg/dL (8.4-10.2); Carbon Dioxide 25 mmol/L (22-29); Chloride 108 mmol/L (96-108); Creatinine Clr Calc Pharmacy 89.6; Estimated Glomerular Filt Rate > 60; Potassium 3.7 mmol/L (3.3-5.1); Sodium 140 mmol/L (135-145)
--- NOTE | 2025-06-18 10:32 | PM.CNNEP ---
History of Present Illness Reason for Consult Consult date: 06/18/25 Chief Complaint Chief complaint: obstructive uropathy, bilateral nephrolithiasis History of Present Illness Narrative: 55 y/o male with a medical history of recurrent renal stones associated with HONG, hyperparathyroidism, right hemiparesis since 2013 s/p right hemorrhagic stroke, seizure disorder, expressive aphasia. Patient here with HONG due to obstructing renal stone with hydronephrosis- stents placed per urology and HONG has resolved. Nephrology consulted for hypercalcemia. calcium level chronically elevated PTH elevated to 205 in March patient takes cinacalcet 30mg PO daily as outpatient Review of Systems Review of Systems Yes Unobtainable due to mental condition (expressive aphasia) [facility] Past Medical History Medical History Memory deficit Hemorrhagic stroke Seizure disorder HLD (hyperlipidemia) CVA (cerebral vascular accident) Family History Family History Other Diabetes HTN (hypertension) Surgical History Surgical History History of cystoscopy H/O lithotripsy H/O craniotomy Social History Social History Household Members: [facility] Are you a primary intensive care medicine specialist to a significant other at home: No Do you presently have visiting nurse or other home services: No Unable to assess alcohol history related to: Unknown Alcohol intake: never Comment: Right sided weakness Patient Tobacco Use Status: Former Tobacco user Tobacco use type: Cigarette Years Smoked: 2009 Second Hand Smoke Exposure: No Advance Directives Date on File: 01/17/24 service: No Current occupational status: disabled Meds Allergies Allergy/AdvReac Type Severity Reaction Status Date / Time No Known Allergies (No Known Allergy Verified 06/15/25 11:30 Allergies*) Active Medications: Current Medications Acetaminophen (Acetaminophen 325 Mg Tablet) 650 mg PO Q6H PRN PRN Reason: Pain, Mild 1-3,fever,headache Last Admin: 06/16/25 03:38 Dose: 650 mg Acetaminophen/Butalbital/Caffeine (Butalb/Acetamin/Caff 50/325/40 Tablet) 1 tab PO Q4H PRN PRN Reason: Headache Last Admin: 06/18/25 01:26 Dose: 1 tab Atorvastatin Calcium (Atorvastatin Calcium 40 Mg Tablet) 40 mg PO DAILY [facility] Last Admin: 06/18/25 08:12 Dose: 40 mg Calcium Carbonate (Calcium Carbonate 750 Mg Tab.Chew) 750 mg PO Q4H PRN PRN Reason: Heartburn Ceftriaxone Sodium (Ceftriaxone Sodium 1 Gm Vial) 1 gm IVPUSH Q24H [facility] Last Admin: 06/18/25 08:17 Dose: 1 gm Cinacalcet (Cinacalcet Hcl 30 Mg Tablet) 60 mg PO DAILY [facility] Clopidogrel Bisulfate (Clopidogrel Bisulfate 75 Mg Tablet) 75 mg PO DAILY [facility] Last Admin: 06/18/25 09:47 Dose: 75 mg Lactated Ringer's (Lr) 500 mls @ 80 mls/hr IVCONT .Q6H15M [facility] Last Admin: 06/18/25 09:43 Dose: Not Given Lacosamide (Lacosamide 100 Mg Tablet) 200 mg PO BID@0500,1700 [facility] Last Admin: 06/18/25 05:04 Dose: 200 mg Levetiracetam 2,000 mg/ (Levetiracetam 250 mg) 2,250 mg PO BID@0500,1700 [facility] Last Admin: 06/18/25 05:04 Dose: 2,250 mg Magnesium Hydroxide (Milk Of Magnesia 30 Ml Oral.Susp) 30 ml PO DAILY PRN PRN Reason: Constipation Melatonin (Melatonin 3 Mg Tablet) 6 mg PO BEDTIME PRN PRN Reason: Insomnia Morphine Sulfate (Morphine Sulfate 2 Mg/Ml Cartridge) 2 mg IVPUSH Q4H PRN; Protocol PRN Reason: Pain, Severe (Pain Scale 7-10) Last Admin: 06/16/25 11:42 Dose: 2 mg Naloxone HCl (Naloxone Hcl 0.4 Mg/Ml Vial) 0.04 mg IVPUSH Q5M PRN PRN Reason: Excessive sedation or RR < 8 Pantoprazole Sodium (Pantoprazole Sodium 20 Mg Tablet.Dr) 40 mg PO BID@0630,1630 [facility] Sodium Chloride (0.9 % Sodium Chloride Flush 3 Ml Syringe) 3 ml IVFLUSH QSHIFT [facility] Last Admin: 06/18/25 08:11 Dose: 3 ml Home Medications ?Medication ?Instructions ?Recorded ?Confirmed ?Last Taken ?Type clopidogrel 75 mg tablet (Plavix) 75 mg PO DAILY 08/09/22 06/15/25 06/15/25 History atorvastatin 40 mg tablet (Lipitor) 40 mg PO DAILY 10/28/22 06/15/25 06/15/25 History levetiracetam 750 mg tablet 2,250 mg PO BID 10/28/22 06/15/25 06/15/25 History (Keppra) riboflavin (vitamin B2) 100 mg 100 mg PO DAILY 10/28/22 06/15/25 06/15/25 History tablet (Vitamin B-2) lacosamide 100 mg tablet 200 mg PO BID 03/26/25 06/15/25 06/15/25 History fluticasone propionate 50 1 - 2 spray intranasal DAILY PRN 06/15/25 06/15/25 Unknown History mcg/actuation nasal allergies spray,suspension pantoprazole 40 mg tablet,delayed 40 mg PO BID@0630,1630 06/15/25 06/15/25 06/15/25 History release Physical Exam Vital Signs: Last Vital Signs Temp 98.5 F 06/18/25 07:06 Pulse 94 06/18/25 07:06 Resp 16 06/18/25 07:06 BP 135/83 06/18/25 07:06 Pulse Ox 94 06/18/25 07:06 O2 Del Method Room Air 06/18/25 07:06 O2 Flow Rate 2 06/16/25 18:01 BMI result Body Mass Index 23.1 Const General: no acute distress, alert and awake Resp Effort & Inspection: normal respiratory effort and able to speak in complete sentences Auscultation: clear to auscultation bilaterally Cardio Rate: regular rate Rhythm: regular rhythm Heart sounds: S1 normal heart sound present and S2 normal heart sound present GI Palpation (GI): Soft to palpation and nontender General: Yes no CVA tenderness Back/Spine/Pelvis Back: no CVA tenderness Skin Rashes: no rashes Extrem General: No edema Results Lab Results 06/17/25 05:40 06/18/25 08:06 Lab results: Chemistry 06/15/25 06/16/25 06/17/25 11:45 09:17 05:39 Sodium 141 139 142 Potassium 4.4 4.4 4.8 Carbon Dioxide 23 21 L 24 BUN 31 H 26 H 22 H Creatinine 1.88 H 2.75 H 1.77 H Calcium 11.9 H 11.0 H D 11.1 H 06/18/25 08:06 Sodium 140 Potassium 3.7 D Carbon Dioxide 25 BUN 19 H Creatinine 1.07 Calcium 11.3 H Hematology 06/15/25 06/16/25 06/17/25 11:45 09:17 05:40 WBC 17.3 H 12.2 H 10.2 Hgb 15.3 13.8 L 13.4 L Plt Count 266 219 245 Urinalysis 06/15/25 11:45 Urine Color Yellow Urine Appearance Clear Urine pH 8.0 Ur Specific [place] 1.015 Urine Protein 30 (1+) H Urine Glucose (UA) Negative Urine Ketones Negative Urine Blood Large (3+) H Urine Nitrite Negative Ur Leukocyte Esterase Trace H Urine RBC >20 H Urine WBC 0-5 Ur Squamous Epith Cells 0-2 Hyaline Casts 0-2 Assessment and Plan (1) Hyperparathyroidism: Status: Acute Plan Patient with known hyperparathyroidism- primary; pt does not have significant renal disease to cause secondary hyperparathyrodism. Appears to have had this since at least 2021 per lab work. calcium is fairly stable though elevated, will increase cinacalcet to 60mg daily. Calcium is chronically elevated, ok to continue workup as outpatient. recommend outpatient parathyroid scan if patient has not yet already had one. Will sign off, happy to follow up if new changes or concerns arise. Discussed with Dr Stephenson. Procedures Date of Service Date of Service: 06/18/25
--- NOTE | 2025-06-18 14:00 | P.DS_ITS ---
DS: Providers Provider Date of Service: 06/18/25 Date of admission: 06/15/25 14:23 Date of discharge: 06/18/25 Primary care physician: Homer Hernandez MD Consults: 06/15/25 13:56 Consult to Urology Routine Consulting Provider: [facility] Reason for consultation: stone 06/18/25 08:58 Consult to Nephrology Routine Consulting Provider: [facility] Reason for consultation: Hypercalcemia Has provider been notified: No Attending physician on discharge: Jud Espinoza Discharging clinician: Jud Espinoza DS: Diagnosis Discharge Diagnosis (1) Hyperparathyroidism: Status: Acute DS: Summary Hospital Course Hospital Course: HPI:55M PMH hemorrhagic stroke with right hemiparesis 2013, seizure disorder, c hronic aphasia, hyperlipidemia, hyperparathyroidism, nephrolithiasis presented with right flank pain and right lower quadrant abdominal pain. Patient states his pain is on and off has known kidney stones, plan was for lithotripsy on 06/17/2025. However patient could not wait due to pain so came to ED. denies any fever or chills. In ED noted to have leukocytosis, UA without bacteria but large RBCs. Lab significant for acute kidney injury with creatinine of 1.88, CT abdomen showed moderate right hydronephrosis and proximal hydroureter secondary to to stacked proximal ureteral obstructing calculi. Hospital course: Acute kidney injury due to obstructing right ureteral stone with right hydronephrosis: Patient is started on IV hydration, IV antibiotics, urine cultures sent, subsequently patient had cystoscopy with bilateral retrograde stent insertion. Urine culture negative. complete ceftin 250 mg po bidx4 days Chronic hypercalcemia possibly related to Hyperparathyroidism-patient takes cinacalcet at home. Nephrology adjusted cinacalcet to 60 mg daily. 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 plan: discussed with urology -complete ceftin 500 mg po bidx3 more days. HONG seems to be improved after stent placement as well as hydration. Hematuria seems to be improved significantly, urology recommended to start back his home Plavix. Follow-up with BMP, PTH level outpatient. Patient was advised to follow up with PCP, Endocrinology, Urology outpatient, in addition consider outpatient Nephrology evaluation. Above management patient is brother understand in detail, time spent 45 minute, all question answered. Any new worsening hematuria or fever or new symptoms go to nearest emergency room for further evaluation. Time Attestation Total time managing care of this patient today: 45 mintues. Discharge Coordination Time (in mins): 45 min Quality: Safe Use of Opioids Does Pt have an Active Cancer Diagnosis on the Problem List?: No Quality: Stroke Does the patient have a stroke diagnosis?: No Physical Exam Exam: Exam: Appearance: Alert.? Oriented . cvs: rrr, [id number]. res: clear to auscultation . abd: no rebound or guarding ,nt, bs present. ext pulses present , no cyanosis . neuro: nonfocal. Vital Signs: Vital Signs: Last Vital Signs Temp 98.5 F 06/18/25 07:06 Pulse 94 06/18/25 07:06 Resp 16 06/18/25 07:06 BP 135/83 06/18/25 07:06 Pulse Ox 94 06/18/25 07:06 O2 Del Method Room Air 06/18/25 07:06 O2 Flow Rate 2 06/16/25 18:01 BMI result Body Mass Index 23.1 DS: Data Data Completed and Pending Completed studies during hospitalization [Text1]: Procedures Dilation of Bilateral Ureters with Intraluminal Device, Via Natural or Artificial Opening Endoscopic (08/09/22) Fluoroscopy of Kidneys, Ureters and Bladder (08/09/22) Fragmentation in Left Ureter, Via Natural or Artificial Opening Endoscopic (08/09/22) Fragmentation in Right Ureter, Via Natural or Artificial Opening Endoscopic (08/09/22) Removal of Intraluminal Device from Ureter, Via Natural or Artificial Opening Endoscopic (08/09/22) Labs on day of discharge: Laboratory Results - last 24 hr 06/18/25 08:06 Sodium 140 Potassium 3.7 D Chloride 108 Carbon Dioxide 25 Anion Gap 11 L BUN 19 H Creatinine 1.07 Estim Creat Clear Calc 89.6 Estimated GFR > 60 Random Glucose 116 H Calcium 11.3 H Imaging Chest x-ray: Radiologist's impression: ITS Impressions Abdomen/Pelvis CT 06/15/25 11:44 IMPRESSION: 1. Moderate right hydronephrosis and proximal hydroureter secondary to 2 stacked proximal ureteral obstructing calculi, the larger measuring 5 x 8 mm. 2. There is nonobstructing right nephrolithiasis. 3. There are left kidney is mild to moderately atrophic. There is extensive nephrolithiasis of the left kidney as detailed. 4. Additional ancillary findings as discussed in the body the report. Guidance Fluoroscopy 06/16/25 16:45 IMPRESSION: Fluoroscopy during procedure. Please see procedure report for additional information. Discharge Plan Discharge Anticipated Discharge Date/Time: 06/18/25 12:49 Patient Disposition: Home, Self-Care Discharge Diagnosis: hong ,hematuria , ch hypercalcemia Referrals: Candy Ferrera MD [Physician, Urology] - 1 Week Benjamin Stephenson MD [Physician, Nephrology] - 1 Week Homer Hernandez MD [Primary Care Provider, Internal Medicine] - 1 Week Discharge Medications: New cefuroxime axetil 500 mg tablet 500 mg PO BID Qty: 6 0RF Continued allopurinol [Zyloprim] 100 mg tablet 100 mg PO BID 90 Days Qty: 180 0RF atorvastatin [Lipitor] 40 mg tablet 40 mg PO DAILY riboflavin (vitamin B2) [Vitamin B-2] 100 mg tablet 100 mg PO DAILY levetiracetam [Keppra] 750 mg tablet 2,250 mg PO BID clopidogrel [Plavix] 75 mg tablet 75 mg PO DAILY pantoprazole 40 mg tablet,delayed release (DR/EC) 40 mg PO BID@0630,1630 fluticasone propionate 50 mcg/actuation spray,suspension 1 - 2 spray intranasal DAILY PRN (Reason: allergies) lacosamide 100 mg tablet 200 mg PO BID [id number] 50-325-40 mg Tablet 1 tab PO Q4H PRN (Reason: Headache) Qty: 20 1RF Changed cinacalcet 30 mg tablet 60 mg PO DAILY Qty: 90 0RF Discharge Orders: Discharge Order (Routine); Ordered 06/18/25 Ordered By: Jud Espinoza Diet: Advance to usual diet Activity on Discharge: As tolerated Stand Alone Forms: Patient Portal Discharge page Print Language: Malay Other Ambulatory Orders: Basic Metabolic Panel (Routine) Timeframe: 1 Week Facility: [facility] - Location: Laboratory Ordered By: Jud Espinoza Parathyroid Hormone Intact (Routine) Timeframe: 1 Week Facility: [facility] - Location: Laboratory Ordered By: Jud Espinoza Care Plan Goals: as above. Health Concerns: As above. Plan of Treatment: complete ceftin 500 mg po bidx3 days. HONG seems to be improved after stent placement as well as hydration. Hematuria seems to be improved significantly, urology recommended to start back his home Plavix. Follow-up with BMP, PTH level outpatient. Patient was advised to follow up with PCP, Endocrinology, Urology outpatient, in addition consider outpatient Nephrology evaluation. Assessment: As above.
--- NOTE | 2025-06-18 14:01 | MHC.CM.PN ---
DP: PT HAS BEEN MEDICALLY CLEARED FOR DC HOME, NO SERVICES. PT WILL RESUME MANAGER [employer] SERVICES /SUPPORT FROM BROTHER. [facility] WILL TRANSPORT HOME.
== END 2025-06-18 14:49 | disposition home or self-care (01) | DRG 660 ==
LOC: HO.ED 14:22 → HO.EDOVER 14:24 → HO.S3 15:12
PROVIDERS: Physician Assistant Medical; Urology; Admitting Provider Internal Medicine; Emergency Provider Emergency Medicine Emergency Medical Services; PCP Internal Medicine; Visit Provider Internal Medicine
PROC: 0T788DZ Dilation of Bilateral Ureters with Intraluminal Device, Via Natural or Artificial Opening Endoscopic (ICD-10-PCS; principal; 2025-06-16 15:50)
DX: N13.2 Hydronephrosis with renal and ureteral calculous obstruction (principal); I69.351 Hemiplegia and hemiparesis following cerebral infarction affecting right dominant side; G40.909 Epilepsy, unspecified, not intractable, without status epilepticus; E21.3 Hyperparathyroidism, unspecified; Z87.891 Personal history of nicotine dependence; N17.9 Acute kidney failure, unspecified; Z79.02 Long term (current) use of antithrombotics/antiplatelets; Z79.899 Other long term (current) drug therapy
CPT/HCPCS: 36415; 74176; 80048; 80053; 81001; 82550; 83735; 85025; 85027; 99285; C1758; C1769; C2617; J0696; J1956; J2003; J2250; J2270; J2405; J2704; J3010; J7120; Q9967

== ENCOUNTER → 2025-06-15 10:23 | Outpatient (BNV) | payer MEDICARE, MEDICAID, SELFPAY | PROVIDERS: Emergency Provider Emergency Medicine Emergency Medical Services; Visit Provider Internal Medicine | DX: N13.30 Unspecified hydronephrosis (principal) | CPT/HCPCS: 99223; 99231; 99239 ==

== ENCOUNTER → 2025-06-15 11:35 | Outpatient (BNV) | payer MEDICARE, MEDICAID, SELFPAY | PROVIDERS: Emergency Provider Emergency Medicine Emergency Medical Services; Visit Provider Radiology Diagnostic Radiology | DX: N13.2 Hydronephrosis with renal and ureteral calculous obstruction (principal); N26.1 Atrophy of kidney (terminal) | CPT/HCPCS: 74176 ==

== ENCOUNTER → 2025-06-15 14:23 | Outpatient (BNV) | payer MEDICARE, MEDICAID, SELFPAY | PROVIDERS: Admitting Provider Internal Medicine; Emergency Provider Emergency Medicine Emergency Medical Services; PCP Internal Medicine; Visit Provider Urology | DX: N13.9 Obstructive and reflux uropathy, unspecified (principal); N20.1 Calculus of ureter | CPT/HCPCS: 99222 ==

== ENCOUNTER → 2025-06-15 14:23 | Outpatient (BNV) | payer MEDICARE, MEDICAID, SELFPAY | PROVIDERS: Admitting Provider Internal Medicine; Emergency Provider Emergency Medicine Emergency Medical Services; PCP Internal Medicine; Visit Provider Nurse Practitioner Family | DX: E21.3 Hyperparathyroidism, unspecified (principal) | CPT/HCPCS: 99221 ==

== ENCOUNTER 2025-06-26 15:22 | Outpatient (AMB) | payer MEDICARE, MEDICAID, SELFPAY ==
--- OUTSIDE RECORDS SUMMARY | 2025-06-26 15:24 | XMS_ITS | Clinical Summary ---
Author Organization [facility] Address [address] [place] [address] Care Team Providers Care Freight Receiver Name Role Phone Unavailable Primary Care Provider [...] Name Priority Date/Time Associated Diagnosis Comments [facility] HEPATITIS ACUTE SCREEN PANEL Routine 01/13/2014 9:55 AM EST [facility] HIV 1/2 AG/AB CMIA REFLEX TO CONFIRMATION. Routine 01/05/2014 4:04 PM EST from Last 3 Months or Most Recently Relevant to Health Maintenance Results * Hepatitis Acute Screen Panel (01/13/2014 9:55 AM EST) Hepatitis A Antibody IgM 0.65 <0.80 S/CO [facility] Hepatitis B Core Antibody IgM Negative Performed at [facility] [place] License No. [id number] CLIA No. [id number] NEG [facility] Hepatitis B Surface Ag Screen Negative Performed at [facility] [place] [place] License No. [id number] CLIA No. [id number] NEG [facility] Hepatitis Interpretatio n: Results inconsistent with acute Hepatitis A, B or C Virus infection. Performed at [facility] [place], [place] License No. [id number] CLIA No. [id number] [facility] Hepatitis C Antibody 0.16 0.00 - [...] nucleic acid amplification. Performed at [facility] [place], [place] License No. [id number] CLIA No. [id number] NEG [facility] 01/05/2014 4:04 PM EST us Conversion Provider HX LAB Final Res ult [facility] from Last 3 Months or Most Recently Relevant to Health Maintenance
--- OUTSIDE RECORDS SUMMARY | 2025-06-26 15:24 | XMS_ITS | Clinical Summary ---
Author Organization [facility] Facility Address [address] [address] Care Team Providers Care Kick Press Setter Name Role Phone Laura Miles Primary Care Provider [phone] Medications atorvastatin (LIPITOR) 40 MG tablet Take [...] tablet, 3 Refills, Maintenance, 08/30/22 13:31:00 EDT, [id number], 185, cm, 08/28/22 14:27:00 EDT, [...] Influenza Vaccine (#1) 2025 08/15/2023, 2020 Insurance [facility] Medicare [facility] Medicare Care Teams Kick Press Setter Relationship Specialty Start Date End Date Laura Miles PCP - General 10/31/22
--- NOTE | 2025-06-26 15:33 | HO.NEPHOV_ITS ---
Vital Signs 06/26/25 15:36 Height 6 ft 1 in BP 108/84 Blood Pressure Location Lt brachial Position Sitting Pulse 89 Pulse Source Pulse Oximeter Pulse Oximetry (%) 96 Oxygen Delivery Method Room Air Intake Visit Reasons: [facility] Associate Director Qa Required: No Accompanied by: Brother Allergies No Known Allergies (No Known Allergies*) Allergy (Verified 06/26/25 15:36) Medication List - Last Reconciled 06/26/25 by Benjamin Stephenson MD allopurinol (Zyloprim) 100 mg PO BID 90 days atorvastatin (Lipitor) 40 mg PO DAILY [id number] 50-325-40 mg 1 tab PO Q4H PRN cefuroxime axetil 500 mg PO BID cinacalcet 60 mg (2 x 30 mg) PO DAILY clopidogrel (Plavix) 75 mg PO DAILY fluticasone propionate 50 mcg/actuation 1 - 2 sprays intranasal DAILY PRN lacosamide 200 mg PO BID levetiracetam (Keppra) 2,250 mg PO BID pantoprazole 40 mg PO BID@0630,1630 riboflavin (vitamin B2) (Vitamin B-2) 100 mg PO DAILY HPI Comments Details: The patient is a 55-year-old male presenting for evaluation of nephrolithiasis and management of acute kidney injury. The patient has a long-standing history of nephrolithiasis and recently experienced an acute kidney injury requiring a stent on the right side. The stent was placed on June 16 and will remain for four to six weeks. The patient reports right-sided pain, improving with urination, without fever, chills, nausea, or vomiting. The pain is intermittent, lasting minutes to hours. The patient has hypercalcemia and hyperparathyroidism, contributing to calcium- based stones. Parathyroid gland removal is considered due to elevated calcium. A 24-hour urine collection is advised to assess calcium levels and stone risk. The patient is instructed to avoid high-calcium foods and increase water intake. MEDICATIONS: - Cinacalcet: Increased from 30 mg to 60 mg for hyperparathyroidism SOCIAL HISTORY: - Dietary habits: Consumes soy milk, which is high in calcium, and has a preference for ice cream. - Fluid intake: Advised to increase water consumption to prevent kidney stone formation. [facility] Medical History Memory deficit Hemorrhagic stroke Seizure disorder HLD (hyperlipidemia) CVA (cerebral vascular accident) Surgical History History of cystoscopy H/O lithotripsy H/O craniotomy Family History Other Diabetes HTN (hypertension) Social History Household Members: [facility] Are you a primary healthcare interpreter to a significant other at home: No Do you presently have visiting nurse or other home services: No Unable to assess alcohol history related to: Unknown Alcohol intake: never Comment: Right sided weakness Patient Tobacco Use Status: Former Tobacco user Tobacco use type: Cigarette Years Smoked: 2009 Second Hand Smoke Exposure: No Advance Directives Date on File: 01/17/24 service: No Current occupational status: disabled Physical Exam Vital Signs: Last Vital Signs Pulse 89 06/26/25 15:36 BP 108/84 06/26/25 15:36 Pulse Ox 96 06/26/25 15:36 Oxygen Delivery Method Room Air 06/26/25 15:36 Const General: comfortable Nutritional Appearance: well nourished Orientation/consciousness: patient oriented x3 HEENT Head: No normal to inspection Mouth: moist mucous membranes Neck Neck: Yes supple and Yes no JVD Resp Auscultation: clear to auscultation bilaterally and no rales Cardio Jugular venous distension: no JVD Palpation: no palpable S3 and no palpable S4 Heart sounds: no rubs GI Palpation (GI): Soft to palpation and nontender Percussion: No Fluid wave present General: Yes no CVA tenderness Back/Spine/Pelvis Back: no CVA tenderness Skin General skin exam: no rashes or lesions noted Neuro General: patient oriented x3 Extrem General: Yes no pedal edema and No clubbing Results Reviewed Nephrology Results: Hgb, (14.0-18.0) 13.4 g/dl L 06/17/25 WBC, (4.8-10.8) 10.2 X10*3/uL 06/17/25 Plt Count, (160-400) 245 X10*3/uL 06/17/25 Sodium, (135-145) 140 mmol/L 06/18/25 Potassium, (3.3-5.1) 3.7 mmol/L Δ 06/18/25 Chloride, (96-108) 108 mmol/L 06/18/25 Carbon Dioxide, (22-29) 25 mmol/L 06/18/25 BUN, (9-16) 19 mg/dL H 06/18/25 Creatinine, (0.5-1.4) 1.07 mg/dL 06/18/25 Calcium, (8.4-10.2) 11.3 mg/dL H 06/18/25 Phosphorus, (2.7-4.5) 2.2 mg/dL L 06/30/25 Urine Protein, (Neg-Trace) 30 (1+) mg/dL H 06/15/25 Renal US 02/12/23 Assessment & Plan Assessment & Plan (1) Hyperparathyroidism: Code(s): E21.3 - Hyperparathyroidism, unspecified Category: Medical (2) Bilateral kidney stones: Code(s): N20.0 - Calculus of kidney Category: Medical Plan - Continue taking current medications as prescribed - including Cinacalcet - Complete a 24-hour urine collection as instructed. - Increase water intake and avoid foods high in calcium. Orders: Orders Sodium, 24Hr Urine Group Today E21.3 - Hyperparathyroidism, unspecified, N20.0 - Calculus of kidney Creatinine, 24 Hr Group Today E21.3 - Hyperparathyroidism, unspecified, N20.0 - Calculus of kidney Calcium, 24 Hr Ur Today E21.3 - Hyperparathyroidism, unspecified, N20.0 - Calculus of kidney Parathyroid Hormone Intact 4 Weeks E21.3 - Hyperparathyroidism, unspecified, N20.0 - Calculus of kidney Uric Acid 06/30/25 E21.3 - Hyperparathyroidism, unspecified, N20.0 - Calculus of kidney US renal BI 06/26/25 N20.0 - Calculus of kidney Oxalate, 24 Hr Today E21.3 - Hyperparathyroidism, unspecified, N20.0 - Calculus of kidney Uric Acid, 24Hr Urine Group Today E21.3 - Hyperparathyroidism, unspecified, N20.0 - Calculus of kidney Citric Acid 24hr Urine Today E21.3 - Hyperparathyroidism, unspecified, N20.0 - Calculus of kidney Basic Metabolic Panel 4 Weeks E21.3 - Hyperparathyroidism, unspecified, N20.0 - Calculus of kidney Phosphorus 06/30/25 E21.3 - Hyperparathyroidism, unspecified, N20.0 - Calculus of kidney Coding Level of Care Code Est Pt Level 4 (06222) Diagnoses Hyperparathyroidism E21.3 Bilateral kidney stones N20.0
[2025-06-26 15:36] VITALS: BP 108/84; PULSE 89; O2SAT 96
== END 2025-06-26 15:54 | disposition home or self-care (01) ==
LOC: HO.HKA 15:23
PROVIDERS: PCP Internal Medicine; Visit Provider Internal Medicine Hypertension Specialist
DX: E21.3 Hyperparathyroidism, unspecified (principal); N20.0 Calculus of kidney
CPT/HCPCS: 99214

== ENCOUNTER → 2025-06-26 15:22 | Outpatient (BNVA) | payer MEDICARE, MEDICAID, SELFPAY | PROVIDERS: PCP Internal Medicine; Visit Provider Internal Medicine Hypertension Specialist | DX: N20.0 Calculus of kidney (principal); E21.3 Hyperparathyroidism, unspecified | CPT/HCPCS: 99212 ==

== ENCOUNTER 2025-06-30 13:37 | Outpatient (REF) | payer MEDICARE, MEDICAID, SELFPAY ==
--- OUTSIDE RECORDS SUMMARY | 2025-06-30 14:52 | XMS_ITS | Clinical Summary ---
Author Organization [facility] Address [address] [place] [address] Care Team Providers Care Scudding Inspector Name Role Phone Unavailable Primary Care Provider [...] Antibody IgM Negative Performed at [facility] [place], [place] License No. [id number] CLIA No. [id number] [facility]G [facility] Hepatitis B Surface Ag Screen Negative Performed at [facility] [place], [place] License No. [id number] CLIA No. [id number] NEG [facility] Hepatitis Interpretatio n: Results inconsistent with acute Hepatitis A, B or C Virus infection. Performed at [facility] [place], [place] License No. [id number] CLIA No. [id number] [facility] Hepatitis C Antibody 0.16 0.00 - [...] nucleic acid amplification. Performed at [facility] [place], [place] License No. [id number] CLIA No. [id number] NEG [facility] 01/05/2014 4:04 PM EST us Conversion Provider HX LAB Final Res ult [facility] from Last 3 Months or Most Recently Relevant to Health Maintenance
--- OUTSIDE RECORDS SUMMARY | 2025-06-30 14:52 | XMS_ITS | Clinical Summary ---
Author Organization [facility] Facility Address [address] [address] Care Team Providers Care Gill Box Tender Name Role Phone Laura Miles Primary Care Provider [phone] Medications atorvastatin (LIPITOR) 40 MG tablet Take [...] tablet, 3 Refills, Maintenance, 08/30/22 13:31:00 EDT, [id number], 185, cm, 08/28/22 14:27:00 [...] [facility] Medicare Care Teams Gill Box Tender Relationship Specialty Start Date End Date Laura Miles PCP - General 10/31/22
[2025-06-30 16:57] LABS: Uric Acid 3.8 mg/dL (3.4-7.0)
== END 2025-06-30 13:38 | disposition home or self-care (01) ==
LOC: HO.HMGCLDS 13:37
PROVIDERS: PCP Internal Medicine; Visit Provider Internal Medicine Hypertension Specialist
DX: E21.3 Hyperparathyroidism, unspecified (principal); N20.0 Calculus of kidney
CPT/HCPCS: 36415; 84100; 84550

== ENCOUNTER 2025-07-02 07:00 | Outpatient (REF) | payer MEDICARE, MEDICAID, SELFPAY ==
--- OUTSIDE RECORDS SUMMARY | 2025-07-02 10:23 | XMS_ITS | Clinical Summary ---
Author Organization [facility] Address [address] [place] [id number] Care Team Providers Care Senior Data Scientist Name Role Phone Unavailable Primary Care Provider [...] Procedure Name Priority Date/Time Associated Diagnosis Comments [facility] HEPATITIS ACUTE SCREEN PANEL Routine 01/13/2014 9:55 AM EST [facility] HIV 1/2 AG/AB CMIA REFLEX TO CONFIRMATION. Routine 01/05/2014 4:04 PM EST from Last 3 Months or Most Recently Relevant to Health Maintenance Results * Hepatitis Acute Screen Panel (01/13/2014 9:55 AM EST) Hepatitis A Antibody IgM 0.65 <0.80 S/CO [facility] Hepatitis B Core Antibody IgM Negative [facility] [place] License [facility]. [id number] CLIA No. [id number] NEG [facility] Hepatitis B Surface Ag Screen Negative [facility] [place] License No. [id number] CLIA No. [id number] NEG [facility] Hepatitis Interpretatio n: Results inconsistent with acute Hepatitis A, B or C Virus infection. Performed at Clinical Laboratory [place], [place] CT License No. [id number] CLIA No. [id number] [facility] Hepatitis C Antibody 0.16 0.00 - [...] nucleic acid amplification. Performed at Clinical Laboratory [place], [place] License No. [id number] CLIA No. [id number] NEG [facility] 01/05/2014 4:04 PM EST us Conversion Provider HX LAB Final Res ult SUNQUEST from Last 3 Months or Most Recently Relevant to Health Maintenance
--- OUTSIDE RECORDS SUMMARY | 2025-07-02 10:23 | XMS_ITS | Clinical Summary ---
Author Organization [facility] Address [address] [address] Care Team Providers Care Epic Willow Analyst Name Role Phone Laura Miles Primary Care Provider [phone] Medications atorvastatin (LIPITOR) 40 MG tablet Take [...] tablet, 3 Refills, Maintenance, 08/30/22 13:31:00 EDT, [id number], 185, cm, 08/28/22 14:27:00 EDT, [...] Influenza Vaccine (#1) 2025 08/15/2023, 2020 Insurance [facility] Medicare [facility] Medicare Care Teams Epic Willow Analyst Relationship Specialty Start Date End Date Laura Miles PCP - General 10/31/22
[2025-07-02 10:43] LABS: Creatinine, mg/dL 88.92; Uric Acid, mg/dL 20.2 mg/dL
[2025-07-02 11:33] LABS: Creatinine, mg/dL 85.64; Sodium, 24 Hr Urine 56.0 mmol/L
[2025-07-02 11:52] LABS: Total Volume 24 Hour Urine 1050 mL
[2025-07-02 11:53] LABS: Total Volume 24 Hour Urine 1050 mL
[2025-07-03 18:14] LABS: Calcium/Creatinine Ratio 203 mg/g creat (30-210); Creatinine 24Hr Urine 0.91 g/24 h (0.50-2.15)
[2025-07-08 01:54] LABS: 24hr Urine Total Volume 1050 mL; Oxalic Acid 24 Urine 20.5 mg/24 h (3.6-38.0)
[2025-07-08 15:27] LABS: 24hr Urine Total Volume 1050 mL; Citric Acid, 24hr Urine 290 mg/24 h (100-1300); Citric Acid/Creat Ratio 24U 299 mg/g creat (60-660); Creatinine, 24U 0.97 g/24 h (0.50-2.15)
== END 2025-07-02 09:18 | disposition home or self-care (01) ==
LOC: HO.HMGCLNP 07:00
PROVIDERS: Visit Provider Internal Medicine Hypertension Specialist
DX: N20.0 Calculus of kidney (principal); E21.3 Hyperparathyroidism, unspecified
CPT/HCPCS: 82340; 82507; 83945; 84300; 84560

== ENCOUNTER 2025-07-09 10:01 | Outpatient (AMB) | payer MEDICARE, MEDICAID, SELFPAY ==
--- NOTE | 2025-07-09 10:02 | A.OFFVIS_ITS ---
Intake Visit Reasons: Discuss Surgical procedure Intake Note: Patient presents today for: telehealth to discuss surgical procedure Urology Meds:Vitamin B-2, Allopurinol Blood Thinner:clopidogrel Brother Wellington speaks for him Business Continuity Specialist Required: No Accompanied by: Health Care Proxy Allergies No Known Allergies (No Known Allergies*) Allergy (Verified 06/26/25 15:36) HPI Comments Details: 07/09/25--telehealth follow-up. Yony has history of bilateral nephrolithiasis. The patient is followed by nephrology. Past medical history seizure disorder. The patient is on blood thinners. He was scheduled for ESWL. The day prior to the procedure he was admitted for obstructive uropathy. Bilateral ureteral stents were placed. Reviewed again that the CT 06/15/2025 right ureteral stones small right lower pole kidney stone. Left kidney significant stone burden left renal pelvis and lower pole. Diagnosis: Right renal and ureteral stones, left renal stones, bilateral ureteral stents present Planned Procedure: Cystoscopy bilateral ureteroscopy laser lithotripsy bilateral stent exchange 05/28/25-- telehealth follow-up: sched for ESWL, h/o seizures, he was seen by his neurologist and condition is stable. Spoke with patient and brother Wellington. The patient complains of intermittent pain and urine darker color, denies cloudiness in the urine or dysuria. Patient encouraged to increase fluids. Plan reschedule right ESWL patient to stop Plavix 7 days prior. 02/20/25--Yony is followed for nephrolithiasis, multiple medical conditions including h/o stroke, hyperparathyroidism. He has had multiple procedures, including ESWL's and Ureteroscopy/laser lithotripsy. I have reviewed recent KUB, there is still significant stone burden bilaterally Left > Right. Will try to clear right kidney, plan Right ESWL. The patient will need to stop his blood thinner prior. Discussed risks to include but not limited to, blood in the urine, bruising to the skin, kidney hematoma, possible need for another procedure if a stone fragment obstructs the ureter while passing, possible need to repeat procedure if stone is not completely fragmented. 30 minutes spent in review of records pertaining to this visit and including telehealth discussion with the patient and documentation of this visit. Results: KUB 02/18/25--calcifications overlying the mid to lower pole of the right kidney. measuring up to 7 mm in size and are Numerous calcifications Left kidney. 02/27/24--Yony is followed for nephrolithiasis, multiple medical conditions including h/o stroke, hyperparathyroidism. He is s/p Right ESWL on 01/16/24-- I have discussed that follow up KUB notes good fragmentation and that the treated stone is no longer seen. He still has significant stone burden in the left kidney. KUB Xray--02/01/24-- Previously identified 1 cm calcification right kidney is not visualized. Small calcifications measuring up to 5-6 mm overlying the right kidney. 01/04/24--Yony is here with his cousin he was in the emergency room on 12/25 23 for right flank pain. I have reviewed the imaging with the patient and family member. CTAP--12/25/23-- Mild right-sided hydroureteronephrosis secondary to a 1.2 cm calculus along the right proximal ureter/ureteral pelvic junction with perinephric stranding. Additional calculi are noted conglomerate in the right lower lobe measuring up to 9 mm. Redemonstration of left-sided nephrolithiasis the largest extending from the lower pole into the pelvis measuring up to 2.8 cm. Stable 3 mm calculus in the left proximal ureter without hydronephrosis. 05/16/23--Yony is a 53-year-old male who is here for tele-health follow-up to discuss 24-hour urine collection test results. History was taken from patient's brother. Discussed 24 hour urine results-- collected--05/11/23--Total volume 740 mL, Calcium 79 mg; Oxalate 19 mg, Sodium 76, Citrate <11 mg. Instructed on importance of fluid intake, Low oxalate diet, low sodium diet. Blood work results reviewed--Parathyroid hormone level?10/29/22?89. Calcium--10/29/22--10.6, repeat calcium on 10/31/22 was 9.9. Discussed to consume water, juices like lemonade, orange juice and cranberry. Instructed to avoid tea and can consume 10 ounces of coffee in a day. Urocit-K 15 mg TID. Discussed to take the medication with food to avoid stomach irritation. Endocrinology referral was made. Repeat 24-hour urine collection in next 3 months. Right ESWL discussed to be scheduled. [facility] Medical History Memory deficit Hemorrhagic stroke Seizure disorder HLD (hyperlipidemia) CVA (cerebral vascular accident) Surgical History History of cystoscopy H/O lithotripsy H/O craniotomy Family History Other Diabetes HTN (hypertension) Social History Household Members: Family Housing: Condominium Are you a primary care partner to a significant other at home: No Do you presently have visiting nurse or other home services: No Unable to assess alcohol history related to: Unknown Alcohol intake: never Comment: Right sided weakness Patient Tobacco Use Status: Former Tobacco user Tobacco use type: Cigarette Years Smoked: 2009 Second Hand Smoke Exposure: No Advance Directives Date on File: 01/17/24 service: No Current occupational status: disabled Review of Systems Const All systems reviewed & are unremarkable except as noted in HPI and below Reports no additional complaints Eyes Reports no additional complaints ENT Reports no additional complaints Card Reports no additional complaints Resp Reports no additional complaints GI Reports no additional complaints Reports as per HPI Musc Reports no additional complaints Skin/Breast Reports system reviewed and no additional complaints, except as documented Neuro Reports no additional complaints Psych Reports no additional complaints Endo Reports no additional complaints Otto/Lymph Reports no additional complaints Aller/Immun Reports no additional complaints Telehealth Telehealth Telehealth Platform: [facility] Location of provider rendering services: practice address Location of patient: address on file Patient Identification confirmed using: Name, : Yes Telehealth method: video Patient verbally consented to treatment: Yes Patient verbally consented to billing insurance company: Yes Patient informed of any privacy concerns related to visit: Yes Results Reviewed Results Reviewed: Date of Service: 06/15/25 EXAMINATION: CT ABDOMEN AND PELVIS WITHOUT CONTRAST CLINICAL INFORMATION: Right flank pain, concern for stones. COMPARISON: 12/25/2023, 09/04/2023. TECHNIQUE: Multidetector volumetric imaging was performed from the superior aspect of the liver through the pubic symphysis. Sagittal and coronal reformatted images were obtained on the technologist's workstation. This CT examination was performed using dose optimization techniques as appropriate, variously including the following: *Automated exposure control *Adjustment of mA and/or kV according to patient size (this includes techniques or standardized protocols for targeted exams where dose is matched to indication/reason for exam; i.e. extremities or head) *Use of iterative reconstruction technique FINDINGS: LUNG BASES: Mild dependent type atelectasis in the lung bases with minor lower lobe fibrosis. Mild bronchiectasis in the lower lobes as well. No effusion. Heart size is normal. LIVER, GALLBLADDER, AND BILIARY TREE: The unenhanced liver is normal in size, shape, and attenuation. No focal hepatic lesion or biliary ductal dilatation is present. The gallbladder is unremarkable with no evidence of radiopaque gallstones, gallbladder wall thickening, or obvious pericholecystic inflammatory changes. PANCREAS: Unremarkable. SPLEEN: Unremarkable. ADRENAL GLANDS: Unremarkable. KIDNEYS AND URETERS: Right Kidney: Moderate right hydronephrosis and proximal hydroureter secondary to 2 obstructing stacked calculi in the proximal ureter, larger measuring 5 x 8 mm (series 7, image 45). There are several nonobstructing tiny right renal calculi, largest measuring 3 mm in the lower pole. There is moderate right perirenal stranding. Left Kidney: . The left kidney is atrophic to moderate degree. There are are staghorn type calculi present extending into the renal pelvis and ureteropelvic junction. There is no hydronephrosis. There is no hydroureter. There are no left renal masses. BLADDER: There are tiny stones within the dependent aspect of the urinary bladder. No wall thickening or mass. GASTROINTESTINAL TRACT: The stomach, duodenum, small bowel and appendix are normal. The colon is normal in course and caliber with moderate retained fecal material present. The redundant sigmoid is noted. No rectal abnormality. ABDOMINAL WALL: No significant hernia is appreciated. LYMPH NODES: No abnormal lymphadenopathy present. VASCULAR: Unremarkable. PELVIC VISCERA: The prostate and seminal vesicles are unremarkable. OSSEOUS STRUCTURES: No suspicious lytic or blastic bone lesions. CT/CT abdomen pelvis wo IV con IMPRESSION: 1. Moderate right hydronephrosis and proximal hydroureter secondary to 2 stacked proximal ureteral obstructing calculi, the larger measuring 5 x 8 mm. 2. There is nonobstructing right nephrolithiasis. 3. There are left kidney is mild to moderately atrophic. There is extensive nephrolithiasis of the left kidney as detailed. 4. Additional ancillary findings as discussed in the body the report. Date of Service: 02/18/25 HISTORY: N20.0 - Calculus of kidney COMPARISON: Comparison is made with the prior examination dated 02/01/2024. FINDINGS: Three supine views of the abdomen are submitted. The bowel gas pattern is unremarkable, without evidence of mechanical obstruction. Again seen are calcifications overlying the mid to lower pole of the right kidney. These measure up to 7 mm in size and are larger than on the prior study. Numerous calcifications are again noted overlying the mid to lower pole portion of the left kidney. There are a greater number of calcifications than on the prior study. These measure up to 10 mm in size. There are phleboliths in the pelvis. There are no abnormal soft tissue masses. The bones are intact. IMPRESSION: Bilateral nephrolithiasis as described. Date of Service: 02/01/24 EXAMINATION: XR ABDOMEN KUB CLINICAL INDICATION: Status post right ESWL. COMPARISON: 01/16/2024. TECHNIQUE: 3 AP views of the abdomen. FINDINGS: Nonobstructive bowel gas pattern. [id number] amount of stool in the colon. Redemonstration of multiple calcifications overlying the mid to lower pole of the left kidney with decreased upper calcifications. Previously identified 1 cm calcification overlying the right kidney is no longer visualized. Small calcifications measuring up to 5-6 mm overlying the right kidney. IMPRESSION: 1. Redemonstration of multiple calcifications overlying the left kidney with decreased upper calcifications. 2. Previously identified 1 cm calcification right kidney is not visualized. Small calcifications measuring up to 5-6 mm overlying the right kidney. Date of Service: 12/25/23 EXAMINATION: CT ABDOMEN AND PELVIS WITHOUT CONTRAST CLINICAL INFORMATION: Pain rule out kidney stone COMPARISON: CT abdomen from 09/04/2023 FINDINGS: LUNG BASES: The visualized lung bases are unremarkable. LIVER, GALLBLADDER, AND BILIARY TREE: The liver is normal in size, shape, and attenuation. No focal hepatic lesion or biliary ductal dilatation is present. The gallbladder is unremarkable with no evidence of radiopaque gallstones, gallbladder wall thickening, or obvious pericholecystic inflammatory changes. PANCREAS: Mild fatty infiltration along the pancreatic head otherwise unremarkable. SPLEEN: Unremarkable. Multiple splenules are noted the largest measuring up to 1.1 cm. ADRENAL GLANDS: Unremarkable. KIDNEYS AND URETERS: Mild right-sided hydroureteronephrosis secondary to a 1.2 cm calculus along the right proximal ureter/ureteral pelvic junction with perinephric stranding. Additional calculi are noted the conglomerate in the right lower lobe measuring up to 9 mm. Redemonstration of left-sided nephrolithiasis the largest extending from the lower pole into the pelvis measuring up to 2.8 cm. Stable 3 mm calculus in the left proximal ureter without hydronephrosis. BLADDER: Unremarkable. GASTROINTESTINAL TRACT: The small and large bowel are unremarkable. The appendix is not definitively visualized. ABDOMINAL WALL: Fat filled umbilical hernia. LYMPH NODES: A few subcentimeter mesenteric and right lower quadrant lymph nodes are noted the largest anterior to the right psoas measuring 8 mm, not enlarged per size criteria. VASCULAR: Abdominal aorta is nonaneurysmal. PELVIC VISCERA: Prostate measures 4.5 cm. OSSEOUS STRUCTURES: Osteopenia. Multilevel degenerative changes of the thoracolumbar and lumbosacral spine. IMPRESSION: 1. Mild right-sided hydroureteronephrosis secondary to a 1.2 cm calculus along the right proximal ureter/ureteral pelvic junction with perinephric stranding. Additional calculi are noted conglomerate in the right lower lobe measuring up to 9 mm. 2. Redemonstration of left-sided nephrolithiasis the largest extending from the lower pole into the pelvis measuring up to 2.8 cm. Stable 3 mm calculus in the left proximal ureter without hydronephrosis. 3. Fat filled umbilical hernia. 4. Osteopenia. Date of Service: 09/04/23 EXAMINATION: CT ABDOMEN AND PELVIS WITHOUT CONTRAST CLINICAL INFORMATION: Bilateral nephrolithiasis COMPARISON: 10/27/2022 FINDINGS: LUNG BASES: The visualized lung bases are unremarkable. LIVER, GALLBLADDER, AND BILIARY TREE: The liver is normal in size, shape, and attenuation. No focal hepatic lesion or biliary ductal dilatation is present. The gallbladder is unremarkable with no evidence of radiopaque gallstones, gallbladder wall thickening, or obvious pericholecystic inflammatory changes. PANCREAS: Unremarkable. SPLEEN: Unremarkable. ADRENAL GLANDS: Unremarkable. KIDNEYS AND URETERS: Right kidney revealed lower pole conglomerate of stones, measured 0.8 cm. Left kidney demonstrate numerous stones in the collecting system, lobe pole and left proximal ureter left kidney is atrophic and irregular. The calculus in the proximal ureter measured approximately 0.4 cm. There is no hydroureteronephrosis. BLADDER: Unremarkable. GASTROINTESTINAL TRACT: The small and large bowel are unremarkable. The appendix is not seen. ABDOMINAL WALL: No significant hernia is appreciated. LYMPH NODES: Normal. VASCULAR: Unremarkable. PELVIC VISCERA: Unremarkable. OSSEOUS STRUCTURES: Unremarkable. IMPRESSION: Bilateral nephrolithiasis with scarring and deformity of left kidney and small stone is identified in the proximal left ureter. Assessment & Plan Assessment & Plan (1) Hyperparathyroidism: Code(s): E21.3 - Hyperparathyroidism, unspecified Category: Medical (2) Bilateral kidney stones: Code(s): N20.0 - Calculus of kidney Category: Medical (3) Ureteral stone with hydronephrosis: Code(s): N13.2 - Hydronephrosis with renal and ureteral calculous obstruction Category: Medical (4) Ureteral stent present: Code(s): Z96.0 - Presence of urogenital implants Category: Medical Plan Planned Procedure: Cystoscopy bilateral ureteroscopy laser lithotripsy bilateral stent exchange Patient Instructions: The patient had an opportunity to ask questions regarding treatment plan. The patient expressed understanding and agreement with the above treatment plan. The patient is aware they should contact our office by phone for worsening of their current condition or the appearance of new symptoms. Compliance is encouraged with any medications and followup testing that is ordered. It is a privilege to be allowed the opportunity to participate in the urologic care of your patient. If you have any questions or concerns regarding treatment for the above conditions please do not hesitate to contact me. The office telephone contact is [phone]. This note is constructed in part using voice recognition software. While every effort has been made to ensure accuracy special agent secret service errors may have been included. Yours sincerely, Candy Ferrera MD Coding Level of Care Code Tele Est Pt Level 4 (63973) Complex EM visit Add On G2211 Diagnoses Hyperparathyroidism E21.3 Bilateral kidney stones N20.0 Ureteral stone with hydronephrosis N13.2 Ureteral stent present Z96.0
--- OUTSIDE RECORDS SUMMARY | 2025-07-09 11:13 | XMS_ITS | Clinical Summary ---
Author Organization [facility] Address [address] [address] Care Team Providers Care Exhibit Builder Name Role Phone Laura Miles Primary Care Provider [phone] Medications atorvastatin (LIPITOR) 40 MG tablet Take [...] tablet, 3 Refills, Maintenance, 08/30/22 13:31:00 EDT, [facility] [id number], 185, cm, 08/28/22 14:27:00 [...] Influenza Vaccine (#1) 2025 08/15/2023, 2020 Insurance [facility] Medicare [facility] Medicare Care Teams Exhibit Builder Relationship Specialty Start Date End Date Laura Miles PCP - General 10/31/22
--- OUTSIDE RECORDS SUMMARY | 2025-07-09 11:13 | XMS_ITS | Clinical Summary ---
Author Organization [facility] Address [address] [place] [address] Care Team Providers Care Setter Induction Heating Equipment Name Role Phone Unavailable Primary Care Provider [...] Procedure Name Priority Date/Time Associated Diagnosis Comments [facility] HEPATITIS ACUTE SCREEN PANEL Routine 01/13/2014 9:55 AM EST [facility] HIV 1/2 AG/AB CMIA REFLEX TO CONFIRMATION. Routine 01/05/2014 4:04 PM EST from Last 3 Months or Most Recently Relevant to Health Maintenance Results * Hepatitis Acute Screen Panel (01/13/2014 9:55 AM EST) Hepatitis A Antibody IgM 0.65 <0.80 S/CO [facility] Hepatitis B Core Antibody IgM Negative Performed at [facility] [place] [place] License No. [id number] CLIA No. [id number] NEG [facility] Hepatitis B Surface Ag Screen Negative Performed at [facility] [place] [place] License No. [id number] CLIA No. [id number] NEG [facility] Hepatitis Interpretatio n: Results inconsistent with acute Hepatitis A, B or C Virus infection. Performed at Clinical Laboratory [place], [place] CT License No. [id number] CLIA No. [id number] [facility] Hepatitis C Antibody 0.16 0.00 - [...] nucleic acid amplification. Performed at Clinical Laboratory [place], [place] License No. [id number] CLIA No. [id number] NEG [facility] 01/05/2014 4:04 PM EST us Conversion Provider HX LAB Final Res ult SUNQUEST from Last 3 Months or Most Recently Relevant to Health Maintenance
== END 2025-07-09 12:28 | disposition home or self-care (01) ==
LOC: HO.HUSH 10:01
PROVIDERS: PCP Internal Medicine; Visit Provider Urology
DX: E21.3 Hyperparathyroidism, unspecified (principal); N20.0 Calculus of kidney; N13.2 Hydronephrosis with renal and ureteral calculous obstruction; Z96.0 Presence of urogenital implants
CPT/HCPCS: 99214; G2211

== ENCOUNTER 2025-07-28 13:29 | Day surgery (SDC) | payer MEDICARE, MEDICAID, SELFPAY ==
--- OUTSIDE RECORDS SUMMARY | 2025-07-16 13:28 | XMS_ITS | Clinical Summary ---
Author Organization [facility] Address [address] [place] [address] Care Team Providers Care Program Development Manager Name Role Phone Unavailable Primary Care [...] Name Priority Date/Time Associated Diagnosis Comments [facility] HEPATITIS ACUTE SCREEN PANEL Routine 01/13/2014 9:55 AM EST [facility] HIV 1/2 AG/AB CMIA REFLEX TO CONFIRMATION. Routine 01/05/2014 4:04 PM EST from Last 3 Months or Most Recently Relevant to Health Maintenance Results * Hepatitis Acute Screen Panel (01/13/2014 9:55 AM EST) Hepatitis A Antibody IgM 0.65 <0.80 S/CO [facility] Hepatitis B Core Antibody IgM Negative Performed at [facility] [place] [place] License No. [id number] CLIA No. [id number] NEG [facility] Hepatitis B Surface Ag Screen Negative Performed at [facility] [place] [place] License No. [id number] CLIA No. [id number] NEG [facility] Hepatitis Interpretatio n: Results inconsistent with acute Hepatitis A, B or C Virus infection. Performed at Clinical Laboratory [place], [place] CT License No. [id number] CLIA No. [id number] [facility] Hepatitis C Antibody 0.16 0.00 - [...] nucleic acid amplification. Performed at [facility] [place], [place] License No. [id number] CLIA No. [id number] NEG [facility] 01/05/2014 4:04 PM EST us Conversion Provider HX LAB Final Res ult SUNQUEST from Last 3 Months or Most Recently Relevant to Health Maintenance
--- OUTSIDE RECORDS SUMMARY | 2025-07-16 13:28 | XMS_ITS | Clinical Summary ---
Author Organization [facility] Address [address] [address] Care Team Providers Care Integration Specialist Name Role Phone Laura Miles Primary Care Provider [phone] Medications atorvastatin (LIPITOR) 40 MG tablet Take [...] tablet, 3 Refills, Maintenance, 08/30/22 13:31:00 EDT, [id number], 185, cm, 08/28/22 14:27:00 [...] Influenza Vaccine (#1) 2025 08/15/2023, 2020 Insurance [facility] Medicare [facility] Medicare Care Teams Integration Specialist Relationship Specialty Start Date End Date Laura Miles PCP - General 10/31/22
[2025-07-24 11:52] VITALS: BMI 23.1
--- NOTE | 2025-07-27 09:25 | HO.ANESPROP2 ---
Documented by User: Elysia Melgar NP 07/27/25 09:32 HPI - Anesthesia Eval Consult details Narrative: 55 yr old male for bilateral Cystoscopy, Ureteroroscopy, Retro, Laser,with RIGHT STENT EXCHANGE s/p cystoscopy 06/16/25 with GA, LMA size 4 H/O hemorrhagic stroke with right hemiparesis 2013, chronic aphasia: on plavix, anti-seizure medications PMFSH Active Problems Active Problems: All Active Problems (Updated 07/24/25 @ 11:58 by Jennifer Jaeger RN) Ureteral stent present (Acute) Ureteral stone with hydronephrosis (Acute) Swelling of right lower extremity (Acute) Screening PSA (prostate specific antigen) (Acute) Hydronephrosis (Acute) Right ureteral stone (Acute) Hypocitraturia (Acute) Hyperparathyroidism (Acute) Ureteral stone (Acute) Kidney stone on left side (Acute) Bilateral kidney stones (Acute) Obstructive uropathy (Acute) Ureterolithiasis (Acute) Past Medical History Medical History Able to transfer from wheelchair to chair Right hemiplegia Memory deficit Hemorrhagic stroke Seizure disorder HLD (hyperlipidemia) CVA (cerebral vascular accident) Family History Family History Other Diabetes HTN (hypertension) Family history of problems with anesthesia: No Surgical History Surgical History History of cystoscopy (06/16/25) H/O lithotripsy (04/15/25) H/O craniotomy History of Problems with Anesthesia: No Social History Social History Household Members: Family Housing: Condominium Are you a primary critical care rn to a significant other at home: No Do you presently have visiting nurse or other home services: No Alcohol intake: never Comment: Right sided weakness Patient Tobacco Use Status: Former Tobacco user Tobacco use type: Cigarette Years Smoked: 2009 Second Hand Smoke Exposure: No Use of substances other than those prescribed or required for medical reasons: No Have you been hit, kicked, punched, or otherwise hurt by someone within the past year? If so, by whom?: No Are you DNR?: No Advance Directives: No Advance Directives Information Provided: Yes Advance Directives on File: No Advance Directives Date on File: 01/17/24 Poor oral hygiene: No service: No Current occupational status: disabled Meds Allergies Allergy/AdvReac Type Severity Reaction Status Date / Time No Known Allergies (No Known Allergy Verified 07/28/25 14:11 Allergies*) Home Medications ?Medication ?Instructions ?Recorded ?Confirmed ?Last Taken ?Type clopidogrel 75 mg tablet (Plavix) 75 mg PO DAILY 08/09/22 07/28/25 06/15/25 History atorvastatin 40 mg tablet (Lipitor) 40 mg PO DAILY 10/28/22 07/28/25 06/15/25 History levetiracetam 750 mg tablet 2,250 mg PO BID 10/28/22 07/28/25 07/28/25 History (Keppra) riboflavin (vitamin B2) 100 mg 100 mg PO DAILY 10/28/22 07/28/25 06/15/25 History tablet (Vitamin B-2) fluticasone propionate 50 1 - 2 spray intranasal DAILY PRN 06/15/25 07/28/25 Unknown History mcg/actuation nasal allergies spray,suspension pantoprazole 40 mg tablet,delayed 40 mg PO BID@0630,1630 06/15/25 07/28/25 06/15/25 History release lacosamide 200 mg tablet 200 mg PO BID 06/26/25 07/28/25 07/28/25 History Exam Height,Weight and Vital Signs: Height 6 ft Weight 77.1 kg Narrative Narrative: Head CT 03/2025 IMPRESSION: 1. No acute intracranial abnormality. 2. 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 Overlying old craniotomy. 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 Assessment and Plan Final Anesthetic Review Family History of Problems with Anesthesia: No History of Problems with Anesthesia: No Documented by User: Ahmet Massey MD 07/28/25 16:08 [facility] Past Medical History Medical History Able to transfer from wheelchair to chair Right hemiplegia Memory deficit Hemorrhagic stroke Seizure disorder HLD (hyperlipidemia) CVA (cerebral vascular accident) Family History Family History Other Diabetes HTN (hypertension) Surgical History Surgical History History of cystoscopy (06/16/25) H/O lithotripsy (04/15/25) H/O craniotomy Social History Social History Household Members: [facility] Are you a primary critical care rn to a significant other at home: No Do you presently have visiting nurse or other home services: No Alcohol intake: never Comment: Right sided weakness Patient Tobacco Use Status: Former Tobacco user Tobacco use type: Cigarette Years Smoked: 2009 Second Hand Smoke Exposure: No Use of substances other than those prescribed or required for medical reasons: No Have you been hit, kicked, punched, or otherwise hurt by someone within the past year? If so, by whom?: No Are you DNR?: No Advance Directives: No Advance Directives Information Provided: Yes Advance Directives on File: No Advance Directives Date on File: 01/17/24 Poor oral hygiene: No service: No Current occupational status: disabled Meds Allergies Allergy/AdvReac Type Severity Reaction Status Date / Time No Known Allergies (No Known Allergy Verified 07/28/25 14:11 Allergies*) Home Medications ?Medication ?Instructions ?Recorded ?Confirmed ?Last Taken ?Type clopidogrel 75 mg tablet (Plavix) 75 mg PO DAILY 08/09/22 07/28/25 06/15/25 History atorvastatin 40 mg tablet (Lipitor) 40 mg PO DAILY 10/28/22 07/28/25 06/15/25 History levetiracetam 750 mg tablet 2,250 mg PO BID 10/28/22 07/28/25 07/28/25 History (Keppra) riboflavin (vitamin B2) 100 mg 100 mg PO DAILY 10/28/22 07/28/25 06/15/25 History tablet (Vitamin B-2) fluticasone propionate 50 1 - 2 spray intranasal DAILY PRN 06/15/25 07/28/25 Unknown History mcg/actuation nasal allergies spray,suspension pantoprazole 40 mg tablet,delayed 40 mg PO BID@0630,1630 06/15/25 07/28/25 06/15/25 History release lacosamide 200 mg tablet 200 mg PO BID 06/26/25 07/28/25 07/28/25 History Exam Airway Mallampati Class: II TM Dist: >3cm Neck ROM: Full Loose/Missing/Broken Teeth: Yes Assessment and Plan Assessment Anesthesia Assessment: Anesthesia Plan Discussed and Chart Reviewed Final Anesthetic Review NPO: Yes ASA Class: III Final Preanesthetic Review: No Changes in Pt Med Stat, Meds/Allgs Chart Reviewed, Consent Obtained/Reviewed and Anes Risks/Benef Reviewed Patient Risk: Intermediate Procedure Risk: Low Anesthetic Plan Anesthetic Plan: GA Disposition: Standard PACU
--- NOTE | ~2025-07-28 | FL_ITS ---
EXAMINATION: FL GUIDANCE ONLY HISTORY: cystoscopy right stent exchange COMPARISON: Comparison is made with the prior examination dated 06/16/2025. TECHNIQUE: Fluoroscopy time: 0.7 minutes. Cumulative Dose: 11.6 mGy. DAP: 3.17 mGym2 Images: 10. FINDINGS: Fluoroscopic spot films demonstrate exchange of bilateral nephroureteral stents. FL/FL guidance in OR IMPRESSION: Fluoroscopy during procedure. Please see procedure report for additional information. Electronically signed by: Hari Garcia MD 07/29/2025 07:07 AM EDT
[2025-07-28 14:25] VITALS: BP 132/88; PULSE 67; RESP 14; TEMP 36.6; O2SAT 95; BMI 23.1
[2025-07-28] MEDS: Lactated Ringers 1,000 ML 100 ML IVCONT (14:28)
--- NOTE | 2025-07-28 16:12 | MHC.SHP ---
Pre-Procedural Eval Section A - 24 Hr Update-Section A only Date of Service: 07/28/25 The patient is an INPATIENT: No The patient has been examined within 24 hours of the surgical procedure. The History & Physical has been completed within 30 days and I have reviewed it.: Yes Section B - Complete if H&P > 30 days Chief Complaint: Calculus of kidney, bilateral Allergies: Allergies Allergy/AdvReac Type Severity Reaction Status Date / Time No Known Allergies (No Known Allergy Verified 07/28/25 14:11 Allergies*) Plan Diagnosis/Plan: Unchanged I have reviewed the history and physical and performed a pertinent physical examination on my patient. No changes have occurred unless specified. Plan for Cystoscopy, bilateral ureteroscopy, laser lithotripsy, ureteral stent exchange. Risks discussed included but not limited to, possible need to repeat procedure if stone is not completely fragmented, Irritative voiding symptoms, bladder spasms, urgency, blood in urine. Time Spent With Patient Time: Total time managing care of this patient today ____ minutes.
--- NOTE | 2025-07-28 16:13 | P.OP_ITS ---
Operative Note Operative Note Date of Service: 07/28/25 Narrative: PreOperative Diagnosis:?? Bilateral renal calculi, status post bilateral stents Post Operative Diagnosis:?? Bilateral renal calculi status post bilateral stents Procedure: Cystoscopy, Right ureteroscopy laser lithotripsy right renal stone, right ureteral stent exchange. 6 Fr by 22-32 cm Left retrograde, left stent exchange, size 7 Micronesian by 26 cm Surgeon:?Dr Candy Ferrera Anesthesia:? General Indications for procedure: Here for stone fragmentation. Procedure: After informed consent was verified the patient was brought to the operating placed on the OR table in supine position.? General Anesthesia was administered per protocol.? The patient was placed in lithotomy position, prepped and draped in the usual sterile fashion.? Safety pause time-out and side of surgery confirmed.? Antibiotics confirmed. IV Ancef and Gent. A 22 Micronesian cystoscope was inserted transurethrally,the bulbous urethra was within normal limits. The prostatic urethra was nonobstructive. The bladder was visualized.? Both ureteric orifices were in normal position. The ureteral stents were curled in the bladder. The distal end of the right ureteral stent was grasped with the flexible grasping forceps. The stent was pulled retrograde through the urethra. A guidewire was passed through the stent. The cystoscope was removed, leaving the guidewire in place. The guidewire was used as the safety and was attached to the draping. The semi rigid ureteroscope was passed transurethrally to the proximal ureter the stone was not visualized. Leaving both guidewires in place the access ureteral catheter 10 Micronesian by 36 cm was passed into the ureter. The flexible ureteroscope was passed up into the kidney the stone was visualized in the renal pelvis Laser lithotripsy of the stone was done using the 365 fiber. There was good fragmentation of the stone. The ureteroscope and access sheath was removed. The cystoscope was passed over the safety guidewire. A? 6 Micronesian by multi length cm stent was placed into the ureter and renal pelvis under a combination of fluoroscopy and direct visualization. The left ureteral stent was grasped and removed. Using a [place] catheter a retrograde was done. There were multiple stones seen in the renal pelvis and calices. Stent exchange was done using another 7 Micronesian by 26 cm stent The bladder was emptied.? The rigid cystoscope was removed. ? Belladonna placed per rectum. The patient tolerated the procedure well and was brought to the recovery room in stable condition. Complications: None Drains: Ureteral stents as dictated above
[2025-07-28 18:04] VITALS: BP 159/101; PULSE 64; RESP 14; TEMP 36.2; O2SAT 100
[2025-07-28 18:09] VITALS: BP 152/99; PULSE 72; RESP 14; O2SAT 100
[2025-07-28 18:14] VITALS: BP 164/100; PULSE 68; RESP 14; O2SAT 98
[2025-07-28 18:19] VITALS: BP 159/102; PULSE 69; RESP 14; O2SAT 98
[2025-07-28 18:34] VITALS: BP 159/97; PULSE 65; RESP 16; TEMP 36.2; O2SAT 98
== END 2025-07-28 18:49 | disposition home or self-care (01) ==
PROVIDERS: PCP Internal Medicine; Visit Provider Urology
PROC: (CPT 52356; principal; 2025-07-28 15:20)
DX: N13.2 Hydronephrosis with renal and ureteral calculous obstruction (principal); Z96.0 Presence of urogenital implants; Z87.442 Personal history of urinary calculi; E78.5 Hyperlipidemia, unspecified; E21.3 Hyperparathyroidism, unspecified; G40.909 Epilepsy, unspecified, not intractable, without status epilepticus; I69.311 Memory deficit following cerebral infarction; Z79.899 Other long term (current) drug therapy; Z98.890 Other specified postprocedural states; Z87.891 Personal history of nicotine dependence
CPT/HCPCS: 52356; 52332; C1758; C1769; C2617; J0690; J1580; J2003; J2704; J3010; Q9967

== ENCOUNTER → 2025-07-28 13:29 | Outpatient (BNV) | payer MEDICARE, MEDICAID, SELFPAY | PROVIDERS: PCP Internal Medicine; Visit Provider Urology | DX: N20.0 Calculus of kidney (principal); Z96.0 Presence of urogenital implants | CPT/HCPCS: 52356; 74420 ==

== ENCOUNTER 2025-09-16 09:22 | Day surgery (SDC) | payer MEDICARE, MEDICAID, SELFPAY ==
--- OUTSIDE RECORDS SUMMARY | 2025-08-12 13:30 | XMS_ITS | Clinical Summary ---
Author Organization [facility] Facility Address [address] [address] Care Team Providers Care Celebrity Chef Entrepreneur Media Personality Name Role Phone Laura Miles Primary Care Provider [phone] Medications atorvastatin (LIPITOR) 40 MG tablet Take [...] tablet, 3 Refills, Maintenance, 08/30/22 13:31:00 EDT, [id number], 185, cm, 08/28/22 14:27:00 [...] Influenza Vaccine (#1) 2025 08/15/2023, 2020 Insurance [facility] Medicare [facility] Medicare Care Teams Celebrity Chef Entrepreneur Media Personality Relationship Specialty Start Date End Date Laura Miles PCP - General 10/31/22
--- OUTSIDE RECORDS SUMMARY | 2025-08-12 13:30 | XMS_ITS | Clinical Summary ---
Author Organization [facility] Address [address] [place] [id number] Care Team Providers Care Medical Customer Service Representative Name Role Phone Unavailable Primary Care Provider [...] of 2) 2022 COVID-19 Vaccine (1 - season) 2025 HIV Screening Completed 01/05/2014 Hepatitis C Virus Screening Completed 01/13/2014, 0 01/12/2014 Procedures Procedure Name Priority Date/Time Associated Diagnosis Comments [facility] HEPATITIS ACUTE SCREEN PANEL Routine 01/13/2014 9:55 AM EST [facility] HIV 1/2 AG/AB CMIA REFLEX TO CONFIRMATION. Routine 01/05/2014 4:04 PM EST from Last 3 Months or Most Recently Relevant to Health Maintenance Results * Hepatitis Acute Screen Panel (01/13/2014 9:55 AM EST) Hepatitis A Antibody IgM 0.65 <0.80 S/CO [facility] Hepatitis B Core Antibody IgM Negative Performed at [facility] [place] [place] License No. [id number] CLIA No. [id number] NEG [facility] Hepatitis B Surface Ag Screen Negative Performed at [facility], [place] License No. [id number] CLIA No. [id number] NEG [facility] Hepatitis Interpretatio n: Results inconsistent with acute Hepatitis A, B or C Virus infection. Performed at [facility] [place], [place] License No. [id number] CLIA No. [id number] [facility] Hepatitis C Antibody 0.16 0.00 - [...] nucleic acid amplification. Performed at [facility] [place], [place] License No. [id number] CLIA No. [id number] NEG [facility] 01/05/2014 4:04 PM EST us Conversion Provider HX LAB Final Res ult [facility] from Last 3 Months or Most Recently Relevant to Health Maintenance
[2025-08-21 08:38] VITALS: BMI 23.1
--- NOTE | 2025-08-21 12:15 | HO.ANESPROP2 ---
Documented by User: Faviola Garay NP 09/14/25 12:00 HPI - Anesthesia Eval Consult details Narrative: 55 yr old male for Left ESWL with Stent Removal, 09/16/25 s/p cystoscopy, etc 07/2025 with GA, LMA size 4 H/O hemorrhagic stroke with right hemiparesis 2013, chronic aphasia: on plavix, anti-seizure medications PMFSH Active Problems Active Problems: All Active Problems Ureteral stent present (Acute) Ureteral stone with hydronephrosis (Acute) Swelling of right lower extremity (Acute) Screening PSA (prostate specific antigen) (Acute) Hydronephrosis (Acute) Right ureteral stone (Acute) Hypocitraturia (Acute) Hyperparathyroidism (Acute) Ureteral stone (Acute) Kidney stone on left side (Acute) Bilateral kidney stones (Acute) Obstructive uropathy (Acute) Ureterolithiasis (Acute) Past Medical History Medical History Sciatica Leg edema, right GERD (gastroesophageal reflux disease) Chronic constipation Depression Broca's aphasia Back pain Able to transfer from wheelchair to chair Right hemiplegia Memory deficit Hemorrhagic stroke Seizure disorder HLD (hyperlipidemia) CVA (cerebral vascular accident) Family History Family History Other Diabetes HTN (hypertension) Family history of problems with anesthesia: No Surgical History Surgical History History of cystoscopy (06/16/25) H/O lithotripsy (04/15/25) H/O craniotomy History of Problems with Anesthesia: No Social History Social History Household Members: Family Household Members Other:: brother Housing: Condominium Are you a primary acute care nursing assistant to a significant other at home: No Do you presently have visiting nurse or other home services: No Alcohol intake: never Comment: Right sided weakness Patient Tobacco Use Status: Former Tobacco user Tobacco use type: Cigarette Years Smoked: 2009 Second Hand Smoke Exposure: No Use of substances other than those prescribed or required for medical reasons: No Advance Directives: No Advance Directives Information Provided: Yes Advance Directives Date on File: 01/17/24 service: No Current occupational status: disabled Meds Allergies Allergy/AdvReac Type Severity Reaction Status Date / Time No Known Allergies (No Known Allergy Verified 07/28/25 14:11 Allergies*) Home Medications ?Medication ?Instructions ?Recorded ?Confirmed ?Last Taken ?Type clopidogrel 75 mg tablet (Plavix) 75 mg PO DAILY 08/09/22 08/21/25 06/15/25 History atorvastatin 40 mg tablet (Lipitor) 40 mg PO DAILY 10/28/22 08/21/25 06/15/25 History levetiracetam 750 mg tablet 2,250 mg PO BID 10/28/22 08/21/25 07/28/25 History (Keppra) riboflavin (vitamin B2) 100 mg 100 mg PO DAILY 10/28/22 08/21/25 06/15/25 History tablet (Vitamin B-2) fluticasone propionate 50 1 - 2 spray intranasal DAILY PRN 06/15/25 08/21/25 Unknown History mcg/actuation nasal allergies spray,suspension pantoprazole 40 mg tablet,delayed 40 mg PO BID@0630,1630 06/15/25 08/21/25 06/15/25 History release lacosamide 200 mg tablet 200 mg PO BID 06/26/25 08/21/25 07/28/25 History Exam Height,Weight and Vital Signs: Height 6 ft Weight 77.11 kg Pertinent Lab Results Pertinent Lab Results: Laboratory Tests 06/17/25 06/18/25 05:40 08:06 WBC 10.2 Hgb 13.4 L Hct 42.2 Plt Count 245 Sodium 140 Potassium 3.7 D Chloride 108 Carbon Dioxide 25 BUN 19 H Creatinine 1.07 Narrative Narrative: Head CT 03/2025 IMPRESSION: 1. No acute intracranial abnormality. 2. 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 Overlying old craniotomy. 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 Assessment and Plan Assessment Anesthesia Assessment: Chart Reviewed Final Anesthetic Review Family History of Problems with Anesthesia: No History of Problems with Anesthesia: No Documented by User: Max Barbosa MD 09/16/25 11:29 [facility] Past Medical History Medical History Sciatica Leg edema, right GERD (gastroesophageal reflux disease) Chronic constipation Depression Broca's aphasia Back pain Able to transfer from wheelchair to chair Right hemiplegia Memory deficit Hemorrhagic stroke Seizure disorder HLD (hyperlipidemia) CVA (cerebral vascular accident) Functional capacity: independent ambulation Family History Family History Other Diabetes HTN (hypertension) Surgical History Surgical History History of cystoscopy (06/16/25) H/O lithotripsy (04/15/25) H/O craniotomy Social History Social History Household Members: Family Household Members Other:: brother [facility] Are you a primary acute care nursing assistant to a significant other at home: No Do you presently have visiting nurse or other home services: No Alcohol intake: never Comment: Right sided weakness Patient Tobacco Use Status: Former Tobacco user Tobacco use type: Cigarette Years Smoked: 2009 Second Hand Smoke Exposure: No Use of substances other than those prescribed or required for medical reasons: No Advance Directives: No Advance Directives Information Provided: Yes Advance Directives Date on File: 01/17/24 service: No Current occupational status: disabled Meds Allergies Allergy/AdvReac Type Severity Reaction Status Date / Time No Known Allergies (No Known Allergy Verified 07/28/25 14:11 Allergies*) Home Medications ?Medication ?Instructions ?Recorded ?Confirmed ?Last Taken ?Type clopidogrel 75 mg tablet (Plavix) 75 mg PO DAILY 08/09/22 08/21/25 06/15/25 History atorvastatin 40 mg tablet (Lipitor) 40 mg PO DAILY 10/28/22 08/21/25 06/15/25 History levetiracetam 750 mg tablet 2,250 mg PO BID 10/28/22 08/21/25 07/28/25 History (Keppra) riboflavin (vitamin B2) 100 mg 100 mg PO DAILY 10/28/22 08/21/25 06/15/25 History tablet (Vitamin B-2) fluticasone propionate 50 1 - 2 spray intranasal DAILY PRN 06/15/25 08/21/25 Unknown History mcg/actuation nasal allergies spray,suspension pantoprazole 40 mg tablet,delayed 40 mg PO BID@0630,1630 06/15/25 08/21/25 06/15/25 History release lacosamide 200 mg tablet 200 mg PO BID 06/26/25 08/21/25 07/28/25 History Exam Exam Date and Time: 09/16/2025 Airway Mallampati Class: II Neck ROM: Full Loose/Missing/Broken Teeth: No Heart: normal Lungs: cta Other: normal cognitive function Assessment and Plan Final Anesthetic Review NPO: Yes ASA Class: II Final Preanesthetic Review: No Changes in Pt Med Stat, Meds/Allgs Chart Reviewed, Consent Obtained/Reviewed and Anes Risks/Benef Reviewed Patient Risk: Low Procedure Risk: Low Anesthetic Plan Anesthetic Plan: GA Disposition: Standard PACU
[2025-09-16] VITALS (7 sets, daily range): BP systolic 140–156; BP diastolic 91–99; PULSE 57–76; RESP 14–17; TEMP 36.6–36.8; O2SAT 92–97
--- NOTE | ~2025-09-16 | XR_ITS ---
EXAMINATION: XR ABDOMEN KUB CLINICAL INDICATION: pre Right ESWL COMPARISON: April 15, 2025 TECHNIQUE: AP view of the abdomen. FINDINGS: Multiple, numerous, different sizes and less than 12 mm calcifications overlapping the left kidney shadow/renal pelvis. Probable 5 mm calcification overlapping the right kidney shadow. Bilateral ureteral stent placement with pigtail formed in the kidney shadows and the bladder region. No intestinal obstruction pattern. Patient's large body habitus/obesity. No air-fluid levels. XR/XR KUB IMPRESSION: Bilateral ureteral stent placement. Bilateral nephrolithiasis. Electronically signed by: Arcenio Bradshaw MD 09/16/2025 10:01 AM [facility]
--- NOTE | 2025-09-16 11:27 | MHC.SHP ---
Pre-Procedural Eval Section A - 24 Hr Update-Section A only Date of Service: 09/16/25 The patient is an INPATIENT: No The patient has been examined within 24 hours of the surgical procedure. The History & Physical has been completed within 30 days and I have reviewed it.: Yes Section B - Complete if H&P > 30 days Chief Complaint: bilateral renal calculi, ureteral stents present Allergies: Allergies Allergy/AdvReac Type Severity Reaction Status Date / Time No Known Allergies (No Known Allergy Verified 07/28/25 14:11 Allergies*) Plan Diagnosis/Plan: Unchanged I have reviewed the history and physical and performed a pertinent physical examination on my patient. No changes have occurred unless specified. Bilateral renal ESWL. Remove right ureteal stent. Time Spent With Patient Time: Total time managing care of this patient today ____ minutes.
--- NOTE | 2025-09-16 11:28 | W.PM.OPN ---
Operative Note Operative Note Date of Service: 09/16/25 Narrative: PreOperative Diagnosis:? ? Bilateral Renal calculi, Bilateral ureteral stents present Post Operative Diagnosis:?Same Procedure:? 1. Cystoscopy stent removal, right ureteral stent 2. Right ESWL 3. Left ESWL Modifier - bilateral Surgeon:?Dr Candy Ferrera Anesthesia:? General Disposible Flexible Cystoscope Used Indications for procedure: The patient understands there is a risk of bruising or hematoma to the kidney, infection, and stone migration following the procedure and subsequent intervention may be required.? - Imaging 6 mm right renal stone - Imaging Multiple left renal calculi-filling multiple calyces. Treatment focused on the upper pole 10 mm x 8 mm Procedure: After informed consent was verified the patient was brought to the operating room and placed in a supine position.? Anesthesia was performed per protocol. Safety pause time-out was performed. Imaging was displayed in the room and laterality confirmed. The genitalia was prepped, the disposable flexible cystoscope was passed into the bladder the stent was visualized using a grasper the right ureteral stent was removed without difficulty. Right ESWL was performed.?The stone was visualized on both fluoroscopy and ultrasound.? Shockwave lithotripsy was performed, with a maximum rate of 120 hertz. After the first 300 shocks a pause for 3 minutes was completed.? A total of 2500 shocks to a maximum of power of 18 with a maximum rate of 120 hertz.? Good fragmentation of the stone was appreciated. The patient was repositioned. Left ESWL was performed.?Multiple left renal calculi-filling multiple calyces. The stones were visualized on both fluoroscopy and ultrasound.? Left ureteral stent remained in place. Treatment focused on the upper pole stones 10 mm x 8 mm. Shockwave lithotripsy was performed, with a maximum rate of 120 hertz. After the first 300 shocks a pause for 3 minutes was completed.? A total of 2500 shocks to a maximum of power of 20 with a maximum rate of 120 hertz.? Some fragmentation of the stone was appreciated. The patient tolerated the procedure well and was transferred to the recovery area upon completion. Complications: None
== END 2025-09-16 14:53 | disposition home or self-care (01) ==
PROVIDERS: PCP Internal Medicine; Visit Provider Urology
PROC: (CPT 50590; principal; 2025-09-16 11:30)
DX: N13.2 Hydronephrosis with renal and ureteral calculous obstruction (principal); Z96.0 Presence of urogenital implants; G40.909 Epilepsy, unspecified, not intractable, without status epilepticus; E78.5 Hyperlipidemia, unspecified; E21.3 Hyperparathyroidism, unspecified; Z86.73 Personal history of transient ischemic attack (TIA), and cerebral infarction without residual deficits; R41.3 Other amnesia; Z79.02 Long term (current) use of antithrombotics/antiplatelets; Z79.899 Other long term (current) drug therapy; Z98.890 Other specified postprocedural states; Z87.891 Personal history of nicotine dependence
CPT/HCPCS: 50590; 52310; 74018; J0131; J0690; J2003; J2371; J2704; J3010

== ENCOUNTER → 2025-09-16 09:22 | Outpatient (BNV) | payer MEDICARE, MEDICAID, SELFPAY | PROVIDERS: PCP Internal Medicine; Visit Provider Urology | DX: N20.0 Calculus of kidney (principal); Z96.0 Presence of urogenital implants | CPT/HCPCS: 50590; 52310 ==

== ENCOUNTER → 2025-09-16 10:00 | Outpatient (BNV) | payer MEDICARE, MEDICAID, SELFPAY | PROVIDERS: PCP Internal Medicine; Visit Provider Radiology Diagnostic Radiology | DX: N20.0 Calculus of kidney (principal); Z46.6 Encounter for fitting and adjustment of urinary device | CPT/HCPCS: 74018 ==

== ENCOUNTER 2025-09-29 07:30 | Day surgery (SDC) | payer MEDICARE, MEDICAID, SELFPAY ==
--- OUTSIDE RECORDS SUMMARY | 2025-09-21 17:20 | XMS_ITS | Clinical Summary ---
Author Organization [facility] Address [address] [place] [id number] Care Team Providers Care Loan Secretary Name Role Phone Unavailable Primary Care Provider [...] 2022 COVID-19 Vaccine (1 - season) 2025 RSV Vaccine 50 years and old er and Patients (1 - 1-dose 75+ series) 2047 HIV Screening Completed 01/05/2014 Hepatitis C Virus Screening Completed 01/13/2014, 0 01/12/2014 Procedures Procedure Name Priority Date/Time Associated Diagnosis Comments [facility] HEPATITIS ACUTE SCREEN PANEL Routine 01/13/2014 9:55 AM EST [facility] HIV 1/2 AG/AB CMIA REFLEX TO CONFIRMATION. Routine 01/05/2014 4:04 PM EST from Last 3 Months or Most Recently Relevant to Health Maintenance Results * Hepatitis Acute Screen Panel (01/13/2014 9:55 AM EST) Hepatitis A Antibody IgM 0.65 <0.80 S/CO [facility] Hepatitis B Core Antibody IgM Negative Performed at [facility], [place] License No. [id number] CLIA No. [id number] NEG [facility]QUEST Hepatitis B Surface Ag Screen Negative Performed at [facility] License No. [id number] CLIA No. [id number] NEG [facility]QUEST Hepatitis Interpretatio n: Results inconsistent with acute Hepatitis A, B or C Virus infection. Performed at [facility] License No. [id number] CLIA No. [id number] SUNQUEST Hepatitis C Antibody 0.16 0.00 - 0.79 S/CO ratio SUNQUEST 01/13/2014 9:55 AM EST us Conversion Provider MD [facility] Final Res ult SUNQUEST * HIV 1/2 Ag/Ab Cmia Reflex To Confirmation. (01/05/2014 4:04 PM EST) HIV 1/2 Ag/Ab CMIA Negative Results show no evidence of infection by HIV 1/2. If clinically indicated, repeat CMIA or test by nucleic acid amplification. Performed at [facility] Laboratory [facility] License No. [id number] CLIA No. [id number] NEG SUNQUEST 01/05/2014 4:04 PM EST us Conversion Provider MD [facility] Final Res ult SUNQUEST from Last 3 Months or Most Recently Relevant to Health Maintenance
--- NOTE | 2025-09-25 10:15 | HO.ANESPROP2 ---
Documented by User: Faviola Garay NP 09/25/25 10:16 HPI - Anesthesia Eval Consult details Narrative: 55yo M for Left Cystoscopy, Ureteroroscopy, Retro, Laser,with stent exchange s/p ESWL 09/16/25 with GA-LMA 4 H/O hemorrhagic stroke with right hemiparesis 2013, chronic aphasia: on plavix, anti-seizure medications PMFSH Active Problems Active Problems: All Active Problems Ureteral stent present (Acute) Ureteral stone with hydronephrosis (Acute) Swelling of right lower extremity (Acute) Screening PSA (prostate specific antigen) (Acute) Hydronephrosis (Acute) Right ureteral stone (Acute) Hypocitraturia (Acute) Hyperparathyroidism (Acute) Ureteral stone (Acute) Kidney stone on left side (Acute) Bilateral kidney stones (Acute) Obstructive uropathy (Acute) Ureterolithiasis (Acute) Past Medical History Medical History Sciatica Leg edema, right GERD (gastroesophageal reflux disease) Chronic constipation Depression Broca's aphasia Back pain Able to transfer from wheelchair to chair Right hemiplegia Memory deficit Hemorrhagic stroke Seizure disorder HLD (hyperlipidemia) CVA (cerebral vascular accident) Family History Family History Other Diabetes HTN (hypertension) Family history of problems with anesthesia: No Surgical History Surgical History History of cystoscopy (06/16/25) H/O lithotripsy (04/15/25) H/O craniotomy History of Problems with Anesthesia: No Social History Social History Household Members: Family Household Members Other:: brother Housing: Condominium Are you a primary direct care staffer to a significant other at home: No Do you presently have visiting nurse or other home services: No Alcohol intake: never Comment: Right sided weakness Patient Tobacco Use Status: Former Tobacco user Tobacco use type: Cigarette Years Smoked: 2009 Second Hand Smoke Exposure: No Use of substances other than those prescribed or required for medical reasons: No Have you been hit, kicked, punched, or otherwise hurt by someone within the past year? If so, by whom?: No Are you DNR?: No Advance Directives: No Advance Directives Information Provided: Yes Advance Directives on File: Yes Advance Directives Date on File: 01/17/24 service: No Current occupational status: disabled Meds Allergies Allergy/AdvReac Type Severity Reaction Status Date / Time No Known Allergies (No Known Allergy Verified 07/28/25 14:11 Allergies*) Home Medications ?Medication ?Instructions ?Recorded ?Confirmed ?Last Taken ?Type clopidogrel 75 mg tablet (Plavix) 75 mg PO DAILY 08/09/22 08/21/25 06/15/25 History atorvastatin 40 mg tablet (Lipitor) 40 mg PO DAILY 10/28/22 08/21/25 06/15/25 History levetiracetam 750 mg tablet 2,250 mg PO BID 10/28/22 08/21/25 07/28/25 History (Keppra) riboflavin (vitamin B2) 100 mg 100 mg PO DAILY 10/28/22 08/21/25 06/15/25 History tablet (Vitamin B-2) fluticasone propionate 50 1 - 2 spray intranasal DAILY PRN 06/15/25 08/21/25 Unknown History mcg/actuation nasal allergies spray,suspension pantoprazole 40 mg tablet,delayed 40 mg PO BID@0630,1630 06/15/25 08/21/25 06/15/25 History release lacosamide 200 mg tablet 200 mg PO BID 06/26/25 08/21/25 07/28/25 History Exam Pertinent Lab Results Pertinent Lab Results: Laboratory Tests 06/17/25 06/18/25 05:40 08:06 WBC 10.2 Hgb 13.4 L Hct 42.2 Plt Count 245 Sodium 140 Potassium 3.7 D Chloride 108 Carbon Dioxide 25 BUN 19 H Creatinine 1.07 Narrative Narrative: Head CT 03/2025 IMPRESSION: 1. No acute intracranial abnormality. 2. 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 Overlying old craniotomy. 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 Assessment and Plan Assessment Anesthesia Assessment: Chart Reviewed Final Anesthetic Review Family History of Problems with Anesthesia: No History of Problems with Anesthesia: No Documented by User: Max Barbosa MD 09/29/25 09:39 [facility] Past Medical History Medical History Sciatica Leg edema, right GERD (gastroesophageal reflux disease) Chronic constipation Depression Broca's aphasia Back pain Able to transfer from wheelchair to chair Right hemiplegia Memory deficit Hemorrhagic stroke Seizure disorder HLD (hyperlipidemia) CVA (cerebral vascular accident) Functional capacity: wheelchair bound Family History Family History Other Diabetes HTN (hypertension) Surgical History Surgical History History of cystoscopy (06/16/25) H/O lithotripsy (04/15/25) H/O craniotomy Social History Social History Household Members: Family Household Members Other:: brother Housing: Condominium Are you a primary direct care staffer to a significant other at home: No Do you presently have visiting nurse or other home services: No Alcohol intake: never Comment: Right sided weakness Patient Tobacco Use Status: Former Tobacco user Tobacco use type: Cigarette Years Smoked: 2009 Second Hand Smoke Exposure: No Use of substances other than those prescribed or required for medical reasons: No Have you been hit, kicked, punched, or otherwise hurt by someone within the past year? If so, by whom?: No Are you DNR?: No Advance Directives: No Advance Directives Information Provided: Yes Advance Directives on File: Yes Advance Directives Date on File: 01/17/24 service: No Current occupational status: disabled Meds Allergies Allergy/AdvReac Type Severity Reaction Status Date / Time No Known Allergies (No Known Allergy Verified 07/28/25 14:11 Allergies*) Home Medications ?Medication ?Instructions ?Recorded ?Confirmed ?Last Taken ?Type clopidogrel 75 mg tablet (Plavix) 75 mg PO DAILY 08/09/22 08/21/25 06/15/25 History atorvastatin 40 mg tablet (Lipitor) 40 mg PO DAILY 10/28/22 08/21/25 06/15/25 History levetiracetam 750 mg tablet 2,250 mg PO BID 10/28/22 08/21/25 07/28/25 History (Keppra) riboflavin (vitamin B2) 100 mg 100 mg PO DAILY 10/28/22 08/21/25 06/15/25 History tablet (Vitamin B-2) fluticasone propionate 50 1 - 2 spray intranasal DAILY PRN 06/15/25 08/21/25 Unknown History mcg/actuation nasal allergies spray,suspension pantoprazole 40 mg tablet,delayed 40 mg PO BID@0630,1630 06/15/25 08/21/25 06/15/25 History release lacosamide 200 mg tablet 200 mg PO BID 06/26/25 08/21/25 07/28/25 History Exam Exam Date and Time: 09/28/2025 Airway Mallampati Class: II TM Dist: >3cm Neck ROM: Full Heart: normal Lungs: normal Other: normal Assessment and Plan Assessment Anesthesia Assessment: Anesthesia Plan Discussed Final Anesthetic Review NPO: Yes ASA Class: III Final Preanesthetic Review: No Changes in Pt Med Stat, Meds/Allgs Chart Reviewed, Consent Obtained/Reviewed and Anes Risks/Benef Reviewed Patient Risk: Intermediate Procedure Risk: Low Anesthetic Plan Anesthetic Plan: GA Disposition: Standard PACU
--- NOTE | ~2025-09-29 | FL_ITS ---
EXAMINATION: FL GUIDANCE ONLY HISTORY: Cystoscopy stent exchange left COMPARISON: Correlation is made with plain films of the abdomen dated 09/16/2025. TECHNIQUE: Fluoroscopy time: 61 seconds. Cumulative Dose: 17.00 mGy. DAP: 3547.30 mGycm2 Images: 3. FINDINGS: Fluoroscopic spot films of the left abdomen demonstrate replacement of the previously seen nephroureteral stent. FL/FL guidance in OR IMPRESSION: Fluoroscopy during procedure. Please see procedure report for additional information. Electronically signed by: Hari Garcia MD 09/30/2025 07:51 AM EST
[2025-09-29 08:02] VITALS: BMI 23.1
[2025-09-29 08:17] VITALS: BP 136/105; PULSE 97; RESP 18; TEMP 36.7; O2SAT 97
[2025-09-29] MEDS: Lactated Ringers 1,000 ML 100 ML IVCONT (08:25)
--- NOTE | 2025-09-29 09:44 | MHC.SHP ---
Pre-Procedural Eval Section A - 24 Hr Update-Section A only Date of Service: 09/29/25 The patient is an INPATIENT: No The patient has been examined within 24 hours of the surgical procedure. The History & Physical has been completed within 30 days and I have reviewed it.: Yes Section B - Complete if H&P > 30 days Chief Complaint: Calculi of kidney, left Allergies: Allergies Allergy/AdvReac Type Severity Reaction Status Date / Time No Known Allergies (No Known Allergy Verified 07/28/25 14:11 Allergies*) Plan Diagnosis/Plan: Unchanged I have reviewed the history and physical and performed a pertinent physical examination on my patient. No changes have occurred unless specified. Plan for Cystoscopy, Left ureteroscopy, possible laser lithotripsy, ureteral stent exchange. Risks discussed included but not limited to, possible need to repeat procedure if stone is not completely fragmented, Irritative voiding symptoms, bladder spasms, urgency, blood in urine. Time Spent With Patient Time: Total time managing care of this patient today ____ minutes.
--- NOTE | 2025-09-29 09:45 | P.OP_ITS ---
Operative Note Operative Note Date of Service: 09/29/25 Narrative: PreOperative Diagnosis:?? Left renal calculi Post Operative Diagnosis:?? Left renal calculi Procedure: Cystoscopy, Left ureteroscopy laser lithotripsy stent exchange, size 7 South Korean by 26 cm Surgeon:?Dr Candy Ferrera Anesthesia:? General Procedure: After informed consent was verified the patient was brought to the operating placed on the OR table in supine position.? General Anesthesia was administered per protocol.? The patient was placed in lithotomy position, prepped and draped in the usual sterile fashion.? Safety pause time-out and side of surgery confirmed.? Antibiotics confirmed. A 22 [place] cystoscope was inserted transurethrally, the bulbous urethra was within normal limits. The prostatic urethra was nonobstructive. The bladder was visualized.? Both ureteric orifices were in normal position. The left ureteral stent was curled in the bladder. The distal end of the ureteral stent was grasped with the flexible grasping forceps. The stent was pulled retrograde through the urethra. A guidewire was passed into the left ureter. The cystoscope was removed, leaving the guidewire in place. The access sheath size 46 cm x 10 [place] Korean was passed over the guidewire. The disposable flexible ureteroscope was passed over the guidewire. The guidewire was then removed. Multiple stones were noted in the upper pole calices and the renal pelvis. The stone burden is significant. The stones in the renal pelvis were lasered using the 365 fiber. There was good fragmentation of the stones. The ureteroscope was removed. The guidewire was replaced along with the inner sheath of the access catheter which was then removed leaving the guidewire in place. The cystoscope was passed over the safety guidewire. A? 7 [place] by 26 cm stent was placed into the ureter and renal pelvis under a combination of fluoroscopy and direct visualization. The bladder was emptied.? The rigid cystoscope was removed. ? The patient tolerated the procedure well and was brought to the recovery room in stable condition. Complications: None Drains: Ureteral stent as dictated above
[2025-09-29 11:36] VITALS: BP 167/109; PULSE 75; RESP 12; TEMP 36.1; O2SAT 100
[2025-09-29 11:41] VITALS: BP 161/102; PULSE 70; RESP 10; O2SAT 98
[2025-09-29 11:51] VITALS: BP 168/107; PULSE 75; RESP 14; O2SAT 96
[2025-09-29 12:06] VITALS: BP 116/112; PULSE 70; RESP 15; O2SAT 96
[2025-09-29 12:31] VITALS: BP 155/109; PULSE 65; RESP 13; TEMP 36.1; O2SAT 96
== END 2025-09-29 13:14 | disposition home or self-care (01) ==
PROVIDERS: PCP Internal Medicine; Visit Provider Urology
PROC: (CPT 52356; principal; 2025-09-29 09:00)
DX: N20.0 Calculus of kidney (principal); Z87.442 Personal history of urinary calculi; Z96.0 Presence of urogenital implants; G40.909 Epilepsy, unspecified, not intractable, without status epilepticus; I69.311 Memory deficit following cerebral infarction; E21.3 Hyperparathyroidism, unspecified; E78.5 Hyperlipidemia, unspecified; K42.9 Umbilical hernia without obstruction or gangrene; Z79.899 Other long term (current) drug therapy; Z79.02 Long term (current) use of antithrombotics/antiplatelets; Z87.891 Personal history of nicotine dependence; Z98.890 Other specified postprocedural states
CPT/HCPCS: 52356; 87086; 87088; 87186; C1758; C1769; C1894; C2617; J0131; J0690; J1171; J1580; J2003; J2704; J3010; Q9967

== ENCOUNTER → 2025-09-29 07:30 | Outpatient (BNV) | payer MEDICARE, MEDICAID, SELFPAY | PROVIDERS: PCP Internal Medicine; Visit Provider Urology | DX: N20.0 Calculus of kidney (principal) | CPT/HCPCS: 52356; 74420 ==

== ENCOUNTER 2025-10-27 09:39 | Day surgery (SDC) | payer MEDICARE, MEDICAID, SELFPAY ==
--- OUTSIDE RECORDS SUMMARY | 2025-10-06 12:37 | XMS_ITS | Clinical Summary ---
Author Organization [facility] Address [address] [place] [address] Care Team Providers Care Social Work Case Manager Name Role Phone Unavailable Primary Care [...] Procedure Name Priority Date/Time Associated Diagnosis Comments [facility] HEPATITIS ACUTE SCREEN PANEL Routine 01/13/2014 9:55 AM EST [facility] HIV 1/2 AG/AB CMIA REFLEX TO CONFIRMATION. Routine 01/05/2014 4:04 PM EST from Last 3 Months or Most Recently Relevant to Health Maintenance Results * Hepatitis Acute Screen Panel (01/13/2014 9:55 AM EST) Hepatitis A Antibody IgM 0.65 <0.80 S/CO [facility] Hepatitis B Core Antibody IgM Negative Performed at [facility] [place] License [place]. [id number] CLIA No. [id number] NEG SUNQUEST Hepatitis B Surface Ag Screen Negative Performed at [facility] Laboratory [facility] License No. [id number] CLIA No. [id number] NEG [facility]QUEST Hepatitis Interpretatio n: Results inconsistent with acute Hepatitis A, B or C Virus infection. Performed at [facility] License No. [id number] CLIA No. [id number] SUNQUEST Hepatitis C Antibody 0.16 0.00 - [...] test by nucleic acid amplification. Performed at [facility] License No. [id number] CLIA No. [id number] NEG SUNQUEST 01/05/2014 4:04 PM EST us Conversion Provider MD [facility] Final Res ult SUNQUEST from Last 3 Months or Most Recently Relevant to Health Maintenance
--- NOTE | 2025-10-12 10:07 | HO.ANESPROP2 ---
Documented by User: Elysia Melgar NP 10/12/25 10:11 HPI - Anesthesia Eval Consult details Narrative: 55yo M for Left Cystoscopy, Ureteroroscopy, Retro, Laser,with stent exchange s/p cystoscopy 09/30 with GA; s/p ESWL 09/16/25 with GA-LMA 4 H/O hemorrhagic stroke with right hemiparesis 2013, chronic aphasia: on plavix, anti-seizure medications GERD: on PPI PMFSH Active Problems Active Problems: All Active Problems (Updated 08/21/25 @ 08:30 by Brandie Farah RN) Ureteral stent present (Acute) Ureteral stone with hydronephrosis (Acute) Swelling of right lower extremity (Acute) Screening PSA (prostate specific antigen) (Acute) Hydronephrosis (Acute) Right ureteral stone (Acute) Hypocitraturia (Acute) Hyperparathyroidism (Acute) Ureteral stone (Acute) Kidney stone on left side (Acute) Bilateral kidney stones (Acute) Obstructive uropathy (Acute) Ureterolithiasis (Acute) Past Medical History Medical History Sciatica Leg edema, right GERD (gastroesophageal reflux disease) Chronic constipation Depression Broca's aphasia Back pain Able to transfer from wheelchair to chair Right hemiplegia Memory deficit Hemorrhagic stroke Seizure disorder HLD (hyperlipidemia) CVA (cerebral vascular accident) Functional capacity: wheelchair bound Family History Family History Other Diabetes HTN (hypertension) Family history of problems with anesthesia: No Surgical History Surgical History History of cystoscopy (06/16/25) H/O lithotripsy (04/15/25) H/O craniotomy History of Problems with Anesthesia: No Social History Social History Household Members: Family Household Members Other:: brother Housing: Condominium Are you a primary hospice home care coordinator to a significant other at home: No Do you presently have visiting nurse or other home services: No Alcohol intake: never Comment: Right sided weakness Patient Tobacco Use Status: Former Tobacco user Tobacco use type: Cigarette Years Smoked: 2009 Second Hand Smoke Exposure: No Have you been hit, kicked, punched, or otherwise hurt by someone within the past year? If so, by whom?: No Are you DNR?: No Advance Directives: No Advance Directives Information Provided: Yes Advance Directives Date on File: 01/17/24 service: No Current occupational status: disabled Meds Allergies Allergy/AdvReac Type Severity Reaction Status Date / Time No Known Allergies (No Known Allergy Verified 07/28/25 14:11 Allergies*) Home Medications ?Medication ?Instructions ?Recorded ?Confirmed ?Last Taken ?Type clopidogrel 75 mg tablet (Plavix) 75 mg PO DAILY 08/09/22 10/27/25 10/10/25 History atorvastatin 40 mg tablet (Lipitor) 40 mg PO DAILY 10/28/22 10/27/25 06/15/25 History levetiracetam 750 mg tablet 2,250 mg PO BID 10/28/22 10/27/25 10/27/25 History (Keppra) riboflavin (vitamin B2) 100 mg 100 mg PO DAILY 10/28/22 10/27/25 06/15/25 History tablet (Vitamin B-2) fluticasone propionate 50 1 - 2 spray intranasal DAILY PRN 06/15/25 10/27/25 Unknown History mcg/actuation nasal allergies spray,suspension pantoprazole 40 mg tablet,delayed 40 mg PO BID@0630,1630 06/15/25 10/27/25 06/15/25 History release lacosamide 200 mg tablet 200 mg PO BID 06/26/25 10/27/25 10/27/25 History Assessment and Plan Final Anesthetic Review Family History of Problems with Anesthesia: No History of Problems with Anesthesia: No Documented by User: Max Barbosa MD 10/27/25 11:40 PMFSH Past Medical History Medical History Sciatica Leg edema, right GERD (gastroesophageal reflux disease) Chronic constipation Depression Broca's aphasia Back pain Able to transfer from wheelchair to chair Right hemiplegia Memory deficit Hemorrhagic stroke Seizure disorder HLD (hyperlipidemia) CVA (cerebral vascular accident) Functional capacity: independent ambulation Family History Family History Other Diabetes HTN (hypertension) Surgical History Surgical History History of cystoscopy (06/16/25) H/O lithotripsy (04/15/25) H/O craniotomy Social History Social History Household Members: Family Household Members Other:: brother Housing: Condominium Are you a primary hospice home care coordinator to a significant other at home: No Do you presently have visiting nurse or other home services: No Alcohol intake: never Comment: Right sided weakness Patient Tobacco Use Status: Former Tobacco user Tobacco use type: Cigarette Years Smoked: 2009 Second Hand Smoke Exposure: No Have you been hit, kicked, punched, or otherwise hurt by someone within the past year? If so, by whom?: No Are you DNR?: No Advance Directives: No Advance Directives Information Provided: Yes Advance Directives Date on File: 01/17/24 service: No Current occupational status: disabled Meds Allergies Allergy/AdvReac Type Severity Reaction Status Date / Time No Known Allergies (No Known Allergy Verified 07/28/25 14:11 Allergies*) Home Medications ?Medication ?Instructions ?Recorded ?Confirmed ?Last Taken ?Type clopidogrel 75 mg tablet (Plavix) 75 mg PO DAILY 08/09/22 10/27/25 10/10/25 History atorvastatin 40 mg tablet (Lipitor) 40 mg PO DAILY 10/28/22 10/27/25 06/15/25 History levetiracetam 750 mg tablet 2,250 mg PO BID 10/28/22 10/27/25 10/27/25 History (Keppra) riboflavin (vitamin B2) 100 mg 100 mg PO DAILY 10/28/22 10/27/25 06/15/25 History tablet (Vitamin B-2) fluticasone propionate 50 1 - 2 spray intranasal DAILY PRN 06/15/25 10/27/25 Unknown History mcg/actuation nasal allergies spray,suspension pantoprazole 40 mg tablet,delayed 40 mg PO BID@0630,1630 06/15/25 10/27/25 06/15/25 History release lacosamide 200 mg tablet 200 mg PO BID 06/26/25 10/27/25 10/27/25 History Exam Exam Date and Time: 10/27/2025 Airway Mallampati Class: III TM Dist: >3cm Neck ROM: Full Loose/Missing/Broken Teeth: No Heart: rrr Lungs: cta Other: normal Assessment and Plan Assessment Anesthesia Assessment: Anesthesia Plan Discussed and Chart Reviewed Final Anesthetic Review NPO: Yes ASA Class: III Final Preanesthetic Review: No Changes in Pt Med Stat, Meds/Allgs Chart Reviewed, Consent Obtained/Reviewed and Anes Risks/Benef Reviewed Patient Risk: Intermediate Procedure Risk: Low Anesthetic Plan Anesthetic Plan: GA Disposition: Standard PACU
--- NOTE | ~2025-10-27 | XR_ITS ---
EXAMINATION: XR ABDOMEN KUB CLINICAL INDICATION: pre ESWL right COMPARISON: September 16, 2025 TECHNIQUE: AP view of the abdomen. FINDINGS: Multiple/no murmurs calcifications in the left kidney shadow, less than number since prior examination from September 16, 2025. Left-sided ureteral stent with pigtail formed in the upper and lower abdomen and pelvis likely left renal pelvis and urinary bladder. Right-sided ureteral stent is not present. No gross calcifications in the right kidney shadow. XR/XR KUB IMPRESSION: Persistent left side number of nephrolithiasis, left kidney. Status post removal right ureteral stent. Electronically signed by: Arcenio Bradshaw MD 10/27/2025 10:07 AM [facility]
[2025-10-27 06:00] VITALS: BMI 23.1
[2025-10-27 10:26] VITALS: BP 151/97; PULSE 84; RESP 19; TEMP 36.1; O2SAT 95
--- NOTE | 2025-10-27 10:41 | PC.NURSE ---
unable to call patients brother phone at the hospital no working text patients brother giovanna he verified pt too his keppra and held his plavix 10/10 and no seizures for 7 mths \pt also signs for self
--- NOTE | 2025-10-27 12:01 | MHC.SHP ---
Pre-Procedural Eval Section A - 24 Hr Update-Section A only Date of Service: 10/27/25 The patient is an INPATIENT: No The patient has been examined within 24 hours of the surgical procedure. The History & Physical has been completed within 30 days and I have reviewed it.: Yes Section B - Complete if H&P > 30 days Chief Complaint: Calculus of kidney, right renal calculi Allergies: Allergies Allergy/AdvReac Type Severity Reaction Status Date / Time No Known Allergies (No Known Allergy Verified 07/28/25 14:11 Allergies*) Plan Diagnosis/Plan: Unchanged I have reviewed the history and physical and performed a pertinent physical examination on my patient. No changes have occurred unless specified. Right renal calcui. Due to stone burden will need repeat procedures. Discussed risks to include but not limited to, blood in the urine, bruising to the skin, kidney hematoma, Time Spent With Patient Time: Total time managing care of this patient today ____ minutes.
--- NOTE | 2025-10-27 13:01 | W.PM.OPN ---
Operative Note Operative Note Date of Service: 10/27/25 Narrative: PreOperative Diagnosis:? ? Left Renal stones, left ureteral stent present Post Operative Diagnosis:?Left Renal stones, left ureteral stent present Procedure:?Left ESWL Surgeon:?Dr Candy Ferrera Anesthesia:? General Indications for procedure: The patient understands there is a risk of bruising or hematoma to the kidney, infection, and stone migration following the procedure and subsequent intervention may be required.? Significant stone burden, which will require further treatment modalities. - Imaging - treatment focused on 10 mm x 9 mm stone in renal pelvis at the proximal curl of stent. Procedure: After informed consent was verified the patient was brought to the operating room and placed in a supine position.? Anesthesia was performed per protocol. Safety pause time-out was performed. Imaging was displayed in the room and laterality confirmed. ESWL was performed.?The stone was visualized on both fluoroscopy and ultrasound.? Shockwave lithotripsy was performed, with a maximum rate of 120 hertz. After the first 300 shocks a pause for 3 minutes was completed.? A total of 2500 shocks to a maximum of power of 18 with a maximum rate of 120 hertz.?Good fragmentation of treated stones was appreciated. The patient tolerated the procedure well and was transferred to the recovery area upon completion. Complications: None
[2025-10-27 13:12] VITALS: BP 135/72; PULSE 86; RESP 16; TEMP 36.2; O2SAT 99
[2025-10-27 13:15] VITALS: BP 147/98; PULSE 85; RESP 16; O2SAT 91
[2025-10-27 13:20] VITALS: BP 152/94; PULSE 74; RESP 16; O2SAT 92
[2025-10-27 13:25] VITALS: BP 148/87; PULSE 80; RESP 16; O2SAT 93
[2025-10-27 13:40] VITALS: BP 142/87; PULSE 75; RESP 16; TEMP 36.2; O2SAT 95
== END 2025-10-27 14:24 | disposition home or self-care (01) ==
PROVIDERS: PCP Internal Medicine; Visit Provider Urology
PROC: (CPT 50590; principal; 2025-10-27 11:30)
DX: N20.0 Calculus of kidney (principal); Z96.0 Presence of urogenital implants; Z87.442 Personal history of urinary calculi; I62.9 Nontraumatic intracranial hemorrhage, unspecified; G81.91 Hemiplegia, unspecified affecting right dominant side; R41.89 Other symptoms and signs involving cognitive functions and awareness; G40.909 Epilepsy, unspecified, not intractable, without status epilepticus; E78.5 Hyperlipidemia, unspecified; Z79.899 Other long term (current) drug therapy; Z98.890 Other specified postprocedural states; Z87.891 Personal history of nicotine dependence
CPT/HCPCS: 50590; 74018; J0131; J1100; J1938; J1956; J2003; J2405; J2704; J3010

== ENCOUNTER → 2025-10-27 09:39 | Outpatient (BNV) | payer MEDICARE, MEDICAID, SELFPAY | PROVIDERS: PCP Internal Medicine; Visit Provider Urology | DX: N20.0 Calculus of kidney (principal); Z96.0 Presence of urogenital implants | CPT/HCPCS: 50590 ==

== ENCOUNTER → 2025-10-27 09:45 | Outpatient (BNV) | payer MEDICARE, MEDICAID, SELFPAY | PROVIDERS: PCP Internal Medicine; Visit Provider Radiology Diagnostic Radiology | DX: N20.0 Calculus of kidney (principal); Z96.0 Presence of urogenital implants | CPT/HCPCS: 74018 ==